=== PATIENT | male | born 1980 | race Caucasian/White ===

== ENCOUNTER 2019-06-02 10:58 | Emergency (ER) | payer OTHER, MEDICAID, SELFPAY ==
[2019-06-02 11:10] VITALS: BP 154/100; PULSE 107; RESP 19; TEMP 36.6; O2SAT 97; BMI 34.0
--- NOTE | 2019-06-02 11:10 | DI.RAD.S_ITS ---
PROCEDURE: XR ANKLE LT MIN 3V INDICATIONS: difficultly standing TECHNIQUE: 3 views of the ankle were acquired. COMPARISON: [facility], , ANKLE 3 VIEWS LEFT, 07/25/2016, 8:35. FINDINGS: Bones: There is a comminuted, mildly displaced calcaneal fracture seen. There is a remote, stable syndesmotic injury seen, with irregularity along the lateral aspect of the distal tibia. There is widening of the ankle syndesmosis. The talar dome demonstrates no alycia abnormality. Soft tissues: No tibiotalar joint effusion. Achilles tendon appears normal. IMPRESSION: Comminuted, displaced calcaneal fracture. If it would be helpful for clinical management decision making, please consider a dedicated ankle CT for further evaluation. Remote syndesmotic injury, with irregularity of the lateral aspect of the distal tibia. Dictated by: Jones Hamlin M.D. on 06/02/2019 at 11:10 Approved by: Jones Hamlin M.D. on 06/02/2019 at 11:12
--- NOTE | 2019-06-02 12:01 | ED.LOWEXIN ---
HPI - Extremity Injury (Lower) <NOEMY Lopez - Last Filed: 06/02/19 21:07> General Chief Complaint: Extremity Injury, Lower Stated Complaint: FELL OFF LADDER Time Seen by Provider: 06/02/19 11:55 Source: patient Mode of arrival: ambulatory Limitations: no limitations History of Present Illness HPI Narrative: 38-year-old healthy male, presents emergency department today stating he was on a ladder about 8 ft above the ground when the ladder started to slip he jumped off landing on his left foot. States after the fall he felt intense 8/10 sharp left ankle pain and was unable to bear weight on it. Patient states the pain was made worse with movement. He denies hitting his head, denies back pain, denies neck pain, chest pain, shortness of breath, nausea, vomiting, or loss of consciousness. His partner is at the bedside during history and physical. MD complaint: ankle injury Type of Injury: blunt Place: home Severity: severe Severity scale (1-10): 8 Relieving factors: nothing Exacerbating factors: weight bearing, movement and palpation Context: fall Associated symptoms: swelling Other symptoms: none Related Data Home Medications Medication Instructions Recorded Confirmed ASPIRIN CHEW - 324 mg PO PRN TEETH #0 09/22/06 (ASPIRIN) Previous Rx's Medication Instructions Recorded hydrocodone-acetaminophen [[place]] 1 - 2 tab PO Q6HP PRN #20 tab 07/25/16 ondansetron 4 mg PO Q8H #7 tab 06/02/19 oxycodone-acetaminophen 1 tab PO Q4-6H PRN #20 tab 06/02/19 Allergies Allergy/AdvReac Type Severity Reaction Status Date / Time No Known Drug Allergies Allergy Verified 06/02/19 12:00 Review of Systems <NOEMY Lopez - Last Filed: 06/02/19 21:07> Review of Systems REVIEW OF SYSTEMS: GENERAL: Denies fever or chills. HENT: No head trauma. EYES: No double vision or vision loss. CARDIOVASCULAR: No chest pain or syncope. RESPIRATORY: No shortness of breath or cough. GASTROINTESTINAL: No nausea, vomiting, diarrhea, or constipation. GENITOURINARY: No flank pain or dysuria. MUSCULOSKELETAL: Complains of left foot pain, see HPI. INTEGUMENTARY: No rash, lesions, or pruritus. NEURO: No numbness, tingling. PSYCH: No behavior or mood changes. PFSH <NOEMY Lopez - Last Filed: 06/02/19 21:07> Medical History No significant medical problems (Acute) Social History Smoking Status: Current every day smoker Social History Smoking Status: Current every day smoker Exam <NOEMY Lopez - Last Filed: 06/02/19 21:07> Initial Vital Signs Initial Vital Signs: Vital Signs Temperature 97.8 F 06/02/19 11:10 Pulse Rate 107 H 06/02/19 11:10 Respiratory Rate 06/02/19 11:10 Blood Pressure 154/100 H 06/02/19 11:10 Pulse Oximetry 97 06/02/19 11:10 PHYSICAL EXAMINATION: GENERAL: Well groomed, alert, and cooperative. Answers questions promptly and appropriately. Vital signs noted. HENT: Normocephalic, atraumatic. EYES: Symmetrical, sclera white, no periorbital swelling. CARDIOVASCULAR: S1 and S2 sounds normal. Regular rate and rhythm, no murmurs, clicks, or bruits. No pedal edema. RESPIRATORY: Normal respiratory rate, trachea midline, airway patent. No stridor, nasal flaring or accessory muscle use. Lungs are clear in all roberts. MUSCULOSKELETAL: Significant swelling, ecchymosis, and tenderness to left calcaneus. Limited range of motion of ankle due to pain. Able to move toes, CMS intact, sensation intact. No tenderness to knee, hip, leg, lower back, neck, or chest with light and deep palpation. Patient able to get in and out of wheelchair using his other leg without pain to back. EXTREMITIES: CMS intact. Pedal pulses intact bilaterally. SKIN: Warm, dry, soft, appropriate color for ethnicity. Increased ecchymosis 6 to left foot. NEURO: Alert and Oriented X 3. No sensory deficits. PSYCH: Appropriate affect and mood. <Sandra Tian DO - Last Filed: 06/05/19 18:29> Initial Vital Signs Initial Vital Signs: Vital Signs Temperature 97.8 F 06/02/19 11:10 Pulse Rate 107 H 06/02/19 11:10 Respiratory Rate 06/02/19 11:10 Blood Pressure 154/100 H 06/02/19 11:10 Pulse Oximetry 97 06/02/19 11:10 Scores <NOEMY Lopez - Last Filed: 06/02/19 21:07> Nexus Score for C-Spine Focal Neurologic deficit present: No Midline spinal tenderness present: No Altered level of conciousness present: No Intoxication present: No Distracting Injury Present: No Nexus Criteria for C-spine: 0 Course <NOEMY Lopez - Last Filed: 06/02/19 21:07> Course Narrative: Patient noted a decrease in pain after administration of oxycodone and Toradol. Patient was placed in a very bulky/paded dressing and a posterior with a stirrup splint was placed to lower extremity. Extensive education was given to patient that he should remain nonweightbearing and that follow-up should take place as soon as possible. Orders Ordered: Discontinued Medications Ketorolac Tromethamine (Toradol) 30 mg IM NOW ONE Stop: 06/02/19 13:15 Last Admin: 06/02/19 13:32 Dose: 30 mg Ondansetron HCl (Zofran Odt) 4 mg SL NOW ONE Stop: 06/02/19 13:15 Last Admin: 06/02/19 13:32 Dose: 4 mg Oxycodone/Acetaminophen (Percocet 5/325) 1 tab PO NOW ONE Stop: 06/02/19 12:01 Last Admin: 06/02/19 12:46 Dose: 1 tab Consultations Consultation #1: Orthopedic Portia Marie consult blood after x-ray was obtained. Discussed the need for CT, bulky dressing, nonweightbearing status and significant follow-up. Consultation #2: Patient staffed with Dr. Tian. Vital Signs - 8 hr 06/02/19 14:35 Pulse Rate 104 H Respiratory Rate 18 Blood Pressure [Right Arm] 152/105 H Pulse Oximetry 97 <Sandra Tian DO - Last Filed: 06/05/19 18:29> Orders Ordered: Discontinued Medications Ketorolac Tromethamine (Toradol) 30 mg IM NOW ONE Stop: 06/02/19 13:15 Last Admin: 06/02/19 13:32 Dose: 30 mg Ondansetron HCl (Zofran Odt) 4 mg SL NOW ONE Stop: 06/02/19 13:15 Last Admin: 06/02/19 13:32 Dose: 4 mg Oxycodone/Acetaminophen (Percocet 5/325) 1 tab PO NOW ONE Stop: 06/02/19 12:01 Last Admin: 06/02/19 12:46 Dose: 1 tab Vital Signs - 8 hr 06/02/19 14:35 Pulse Rate 104 H Respiratory Rate 18 Blood Pressure [Right Arm] 152/105 H Pulse Oximetry 97 MDM - Extremity Injury (Lower) <NOEMY Lopez - Last Filed: 06/02/19 21:07> Medical Records Attestation: I reviewed the patient's medical records. Lab Data Attestation: I reviewed the patient's lab results. Imaging Data Left Foot XR: Radiologist's impression: [address] [address] XRay Report Signed Patient: Acosta De La Fuente JMR#: [id number] : 1980Acct:[id number] Age/Sex: 38 / MDate of Service: 06/02/19 Loc: ED Accession Number: [id number] Procedure: XR ankle LT min 3V Ordering Provider: Sandra Tian D.O. PROCEDURE: XR ANKLE LT MIN 3V INDICATIONS: difficultly standing TECHNIQUE: 3 views of the ankle were acquired. COMPARISON: [facility], , ANKLE 3 VIEWS LEFT, 07/25/2016, 8:35. FINDINGS: Bones: There is a comminuted, mildly displaced calcaneal fracture seen. There is a remote, stable syndesmotic injury seen, with irregularity along the lateral aspect of the distal tibia. There is widening of the ankle syndesmosis. The talar dome demonstrates no alycia abnormality. Soft tissues: No tibiotalar joint effusion. Achilles tendon appears normal. IMPRESSION: Comminuted, displaced calcaneal fracture. If it would be helpful for clinical management decision making, please consider a dedicated ankle CT for further evaluation. Remote syndesmotic injury, with irregularity of the lateral aspect of the distal tibia. Dictated by: Jones Hamlin M.D. on 06/02/2019 at 11:10 Approved by: Jones Hamlin M.D. on 06/02/2019 at 11:[address]: Radiologist's impression: [address] [address] [address] Scan Report Signed Patient: Acosta De La Fuente JMR#: [id number] : 1980Acct:[id number] Age/Sex: 38 / MDate of Service: 06/02/19 Loc: ED Accession Number: [id number] Procedure: CT LE LT wo con Ordering Provider: Park Keller PROCEDURE: CT LE LT W CON INDICATIONS: Calcaneus fx, per ortho request TECHNIQUE: Noncontrast 1-1.5 mm axial sections acquired from above the tibiotalar joint to the bottom of the calcaneus, with coronal and sagittal reformats. COMPARISON: [facility], CR, XR ANKLE LT MIN 3V, 06/02/2019, 11:47. [facility], CT, LOWER EXTREMITY WO CONTRAST, 07/25/2016, 9:58. [facility], CR, ANKLE 3 VIEWS LEFT, 07/25/2016, 8:35. FINDINGS: Image quality: Excellent. Bones: There is a complex, moderately displaced, comminuted fracture of the calcaneus, with impaction of fracture fragments. There is intra-articular involvement along the mid and anterior aspects of the calcaneus, as it interfaces with the inferior calcaneus. There is remote focal bone abnormality involving the distal lateral talus, likely reflective of remote fracture with syndesmotic injury. No additional fractures are detected. No suspicious lytic or blastic lesions are seen. Soft tissues: Generalized associated soft tissue swelling is seen. IMPRESSION: There is a highly comminuted, complex, moderately displaced calcaneus fracture with intra-articular involvement and impacted fracture fragments. The extent of the calcaneal fracture is more severe than expected from the plain film findings. Dictated by: oJnes Hamlin M.D. on 06/02/2019 at 12:50 Approved by: Jones Hamlin M.D. on 06/02/2019 at 12:56 MDM Narrative Medical decision making narrative: Suspect calcaneus fracture due findings on x-ray and CT. After consultation with an orthopedic, patient was splinted in a bulky dressing per recommendation, CT was obtained, and strict follow-up plan was discussed with patient. Extensive education was given to patient that he needs to remain nonweightbearing. Little concern for neurovascular compromise as CMS remained intact before and after splint, pedal pulses are equal bilaterally. Strict return precautions given. Discharge Plan Departure Patient Disposition: Home Clinical Impression: Fracture closed, calcaneus Qualifiers: Encounter type: initial encounter Calcaneus location: unspecified portion of calcaneus Fracture alignment: displaced Laterality: left Qualified Code(s): S92.002A - Unspecified fracture of left calcaneus, initial encounter for closed fracture Discharge Date/Time: 06/02/19 14:35 Interventions: ED Discharge Assessment Last Done: 06/02/19 14:35 Instructions: DI for Calcaneus Fracture Activity Restrictions/Additional Instructions: Thank you for entrusting me with your care today. As discussed, you have a complicated fracture to your left heel. Do not put any weight on this leg at all until you are instructed to by an orthopedic. Please call the Orthopedics office tomorrow to schedule an appointment. Return to the emergency department if he develops increasing limb numbness, chest pain, shortness of breath, uncontrollable vomiting, or fevers. Prescriptions: New oxycodone-acetaminophen 5-325 mg tablet 1 tab PO Q4-6H PRN (Reason: fracture pain) Qty: 20 RF: 0 ondansetron 4 mg tablet,disintegrating 4 mg PO Q8H Qty: 7 RF: 0 No Action ASPIRIN CHEW - (ASPIRIN) 324 mg PO PRN TEETH Qty: 0 RF: 0 hydrocodone-acetaminophen [[place]] 5 MG/325 MG tablet 1 - 2 tab PO Q6HP PRNQty: 20 RF: 0 Referrals: Delma Baxter DPM [Primary Care Provider] - Beatriz Pearce MD [Physician] - <Sandra Tian DO - Last Filed: 06/05/19 18:29> Cosign ED Attending Cosignature Attestation: I was immediately available in the department for consultation, images reviewed. Case was discussed with orthopedic surgery and recommendations followed. This documentation has been reviewed and I agree with assessment and plan. Supervised by Sandra Tian DO
--- NOTE | 2019-06-02 12:04 | ED_ITS ---
HPI - Extremity Injury (Lower) <NOEMY Lopez - Last Filed: 06/02/19 21:07> General Chief Complaint: Extremity Injury, Lower Stated Complaint: FELL OFF LADDER Time Seen by Provider: 06/02/19 11:55 Source: patient Mode of arrival: ambulatory Limitations: no limitations History of Present Illness HPI Narrative: 38-year-old healthy male, presents emergency department today stating he was on a ladder about 8 ft above the ground when the ladder started to slip he jumped off landing on his left foot. States after the fall he felt intense 8/10 sharp left ankle pain and was unable to bear weight on it. Patient states the pain was made worse with movement. He denies hitting his head, denies back pain, denies neck pain, chest pain, shortness of breath, nausea, vomiting, or loss of consciousness. His partner is at the bedside during history and physical. MD complaint: ankle injury Type of Injury: blunt Place: home Severity: severe Severity scale (1-10): 8 Relieving factors: nothing Exacerbating factors: weight bearing, movement and palpation Context: fall Associated symptoms: swelling Other symptoms: none Related Data Home Medications Medication Instructions Recorded Confirmed ASPIRIN CHEW - 324 mg PO PRN TEETH #0 09/22/06 (ASPIRIN) Previous Rx's Medication Instructions Recorded hydrocodone-acetaminophen [[place]] 1 - 2 tab PO Q6HP PRN #20 tab 07/25/16 ondansetron 4 mg PO Q8H #7 tab 06/02/19 oxycodone-acetaminophen 1 tab PO Q4-6H PRN #20 tab 06/02/19 Allergies Allergy/AdvReac Type Severity Reaction Status Date / Time No Known Drug Allergies Allergy Verified 06/02/19 12:00 Review of Systems <NOEMY Lopez - Last Filed: 06/02/19 21:07> Review of Systems REVIEW OF SYSTEMS: GENERAL: Denies fever or chills. HENT: No head trauma. EYES: No double vision or vision loss. CARDIOVASCULAR: No chest pain or syncope. RESPIRATORY: No shortness of breath or cough. GASTROINTESTINAL: No nausea, vomiting, diarrhea, or constipation. GENITOURINARY: No flank pain or dysuria. MUSCULOSKELETAL: Complains of left foot pain, see HPI. INTEGUMENTARY: No rash, lesions, or pruritus. NEURO: No numbness, tingling. PSYCH: No behavior or mood changes. PFSH <NOEMY Lopez - Last Filed: 06/02/19 21:07> Medical History No significant medical problems (Acute) Social History Smoking Status: Current every day smoker Social History Smoking Status: Current every day smoker Exam <NOEMY Lopez - Last Filed: 06/02/19 21:07> Initial Vital Signs Initial Vital Signs: Vital Signs Temperature 97.8 F 06/02/19 11:10 Pulse Rate 107 H 06/02/19 11:10 Respiratory Rate 06/02/19 11:10 Blood Pressure 154/100 H 06/02/19 11:10 Pulse Oximetry 97 06/02/19 11:10 PHYSICAL EXAMINATION: GENERAL: Well groomed, alert, and cooperative. Answers questions promptly and appropriately. Vital signs noted. HENT: Normocephalic, atraumatic. EYES: Symmetrical, sclera white, no periorbital swelling. CARDIOVASCULAR: S1 and S2 sounds normal. Regular rate and rhythm, no murmurs, clicks, or bruits. No pedal edema. RESPIRATORY: Normal respiratory rate, trachea midline, airway patent. No stridor, nasal flaring or accessory muscle use. Lungs are clear in all roberts. MUSCULOSKELETAL: Significant swelling, ecchymosis, and tenderness to left calcaneus. Limited range of motion of ankle due to pain. Able to move toes, CMS intact, sensation intact. No tenderness to knee, hip, leg, lower back, neck, or chest with light and deep palpation. Patient able to get in and out of wheelchair using his other leg without pain to back. EXTREMITIES: CMS intact. Pedal pulses intact bilaterally. SKIN: Warm, dry, soft, appropriate color for ethnicity. Increased ecchymosis 6 to left foot. NEURO: Alert and Oriented X 3. No sensory deficits. PSYCH: Appropriate affect and mood. <Sandra Tian DO - Last Filed: 06/05/19 18:29> Initial Vital Signs Initial Vital Signs: Vital Signs Temperature 97.8 F 06/02/19 11:10 Pulse Rate 107 H 06/02/19 11:10 Respiratory Rate 06/02/19 11:10 Blood Pressure 154/100 H 06/02/19 11:10 Pulse Oximetry 97 06/02/19 11:10 Scores <NOEMY Lopez - Last Filed: 06/02/19 21:07> Nexus Score for C-Spine Focal Neurologic deficit present: No Midline spinal tenderness present: No Altered level of conciousness present: No Intoxication present: No Distracting Injury Present: No Nexus Criteria for C-spine: 0 Course <NOEMY Lopez - Last Filed: 06/02/19 21:07> Course Narrative: Patient noted a decrease in pain after administration of oxycodone and Toradol. Patient was placed in a very bulky/paded dressing and a posterior with a stirrup splint was placed to lower extremity. Extensive education was given to patient that he should remain nonweightbearing and that follow-up should take place as soon as possible. Orders Ordered: Discontinued Medications Ketorolac Tromethamine (Toradol) 30 mg IM NOW ONE Stop: 06/02/19 13:15 Last Admin: 06/02/19 13:32 Dose: 30 mg Ondansetron HCl (Zofran Odt) 4 mg SL NOW ONE Stop: 06/02/19 13:15 Last Admin: 06/02/19 13:32 Dose: 4 mg Oxycodone/Acetaminophen (Percocet 5/325) 1 tab PO NOW ONE Stop: 06/02/19 12:01 Last Admin: 06/02/19 12:46 Dose: 1 tab Consultations Consultation #1: Orthopedic Portia Marie consult blood after x-ray was obtained. Discussed the need for CT, bulky dressing, nonweightbearing status and significant follow-up. Consultation #2: Patient staffed with Dr. Tian. Vital Signs - 8 hr 06/02/19 14:35 Pulse Rate 104 H Respiratory Rate 18 Blood Pressure [Right Arm] 152/105 H Pulse Oximetry 97 <Sandra Tian DO - Last Filed: 06/05/19 18:29> Orders Ordered: Discontinued Medications Ketorolac Tromethamine (Toradol) 30 mg IM NOW ONE Stop: 06/02/19 13:15 Last Admin: 06/02/19 13:32 Dose: 30 mg Ondansetron HCl (Zofran Odt) 4 mg SL NOW ONE Stop: 06/02/19 13:15 Last Admin: 06/02/19 13:32 Dose: 4 mg Oxycodone/Acetaminophen (Percocet 5/325) 1 tab PO NOW ONE Stop: 06/02/19 12:01 Last Admin: 06/02/19 12:46 Dose: 1 tab Vital Signs - 8 hr 06/02/19 14:35 Pulse Rate 104 H Respiratory Rate 18 Blood Pressure [Right Arm] 152/105 H Pulse Oximetry 97 MDM - Extremity Injury (Lower) <NOEMY Lopez - Last Filed: 06/02/19 21:07> Medical Records Attestation: I reviewed the patient's medical records. Lab Data Attestation: I reviewed the patient's lab results. Imaging Data Left Foot XR: Radiologist's impression: [address] [address] XRay Report Signed Patient: Acosta De La Fuente JMR#: [id number] : 1980Acct:[id number] Age/Sex: 38 / MDate of Service: 06/02/19 Loc: ED Accession Number: [id number] Procedure: XR ankle LT min 3V Ordering Provider: Sandra Tian D.O. PROCEDURE: XR ANKLE LT MIN 3V INDICATIONS: difficultly standing TECHNIQUE: 3 views of the ankle were acquired. COMPARISON: [facility], , ANKLE 3 VIEWS LEFT, 07/25/2016, 8:35. FINDINGS: Bones: There is a comminuted, mildly displaced calcaneal fracture seen. There is a remote, stable syndesmotic injury seen, with irregularity along the lateral aspect of the distal tibia. There is widening of the ankle syndesmosis. The talar dome demonstrates no alycia abnormality. Soft tissues: No tibiotalar joint effusion. Achilles tendon appears normal. IMPRESSION: Comminuted, displaced calcaneal fracture. If it would be helpful for clinical management decision making, please consider a dedicated ankle CT for further evaluation. Remote syndesmotic injury, with irregularity of the lateral aspect of the distal tibia. Dictated by: Jones Hamlin M.D. on 06/02/2019 at 11:10 Approved by: Jones Hamlin M.D. on 06/02/2019 at 11:[address]: Radiologist's impression: [address] [address] [address] Scan Report Signed Patient: Acosta De La Fuente JMR#: [id number] : 1980Acct:[id number] Age/Sex: 38 / MDate of Service: 06/02/19 Loc: ED Accession Number: [id number] Procedure: CT LE LT wo con Ordering Provider: Park Keller PROCEDURE: CT LE LT W CON INDICATIONS: Calcaneus fx, per ortho request TECHNIQUE: Noncontrast 1-1.5 mm axial sections acquired from above the tibiotalar joint to the bottom of the calcaneus, with coronal and sagittal reformats. COMPARISON: [facility], CR, XR ANKLE LT MIN 3V, 06/02/2019, 11:47. [facility], CT, LOWER EXTREMITY WO CONTRAST, 07/25/2016, 9:58. [facility], CR, ANKLE 3 VIEWS LEFT, 07/25/2016, 8:35. FINDINGS: Image quality: Excellent. Bones: There is a complex, moderately displaced, comminuted fracture of the calcaneus, with impaction of fracture fragments. There is intra-articular involvement along the mid and anterior aspects of the calcaneus, as it interfaces with the inferior calcaneus. There is remote focal bone abnormality involving the distal lateral talus, likely reflective of remote fracture with syndesmotic injury. No additional fractures are detected. No suspicious lytic or blastic lesions are seen. Soft tissues: Generalized associated soft tissue swelling is seen. IMPRESSION: There is a highly comminuted, complex, moderately displaced calcaneus fracture with intra-articular involvement and impacted fracture fragments. The extent of the calcaneal fracture is more severe than expected from the plain film findings. Dictated by: Jones Hamlin M.D. on 06/02/2019 at 12:50 Approved by: Jones Hamlin M.D. on 06/02/2019 at 12:56 MDM Narrative Medical decision making narrative: Suspect calcaneus fracture due findings on x- ray and CT. After consultation with an orthopedic, patient was splinted in a bulky dressing per recommendation, CT was obtained, and strict follow-up plan was discussed with patient. Extensive education was given to patient that he needs to remain nonweightbearing. Little concern for neurovascular compromise as CMS remained intact before and after splint, pedal pulses are equal bilaterally. Strict return precautions given. Discharge Plan Departure Patient Disposition: Home Clinical Impression: Fracture closed, calcaneus Qualifiers: Encounter type: initial encounter Calcaneus location: unspecified portion of calcaneus Fracture alignment: displaced Laterality: left Qualified Code(s): S92.002A - Unspecified fracture of left calcaneus, initial encounter for closed fracture Discharge Date/Time: 06/02/19 14:35 Interventions: ED Discharge Assessment Last Done: 06/02/19 14:35 Instructions: DI for Calcaneus Fracture Activity Restrictions/Additional Instructions: Thank you for entrusting me with your care today. As discussed, you have a complicated fracture to your left heel. Do not put any weight on this leg at all until you are instructed to by an orthopedic. Please call the Orthopedics office tomorrow to schedule an appointment. Return to the emergency department if he develops increasing limb numbness, chest pain, shortness of breath, uncontrollable vomiting, or fevers. Prescriptions: New oxycodone-acetaminophen 5-325 mg tablet 1 tab PO Q4-6H PRN (Reason: fracture pain) Qty: 20 RF: 0 ondansetron 4 mg tablet,disintegrating 4 mg PO Q8H Qty: 7 RF: 0 No Action ASPIRIN CHEW - (ASPIRIN) 324 mg PO PRN TEETH Qty: 0 RF: 0 hydrocodone-acetaminophen [[place]] 5 MG/325 MG tablet 1 - 2 tab PO Q6HP PRNQty: 20 RF: 0 Referrals: Delma Baxter DPM [Primary Care Provider] - Beatriz Pearce MD [Physician] - <Sandra Tian DO - Last Filed: 06/05/19 18:29> Cosign ED Attending Cosignature Attestation: I was immediately available in the department for consultation, images reviewed. Case was discussed with orthopedic surgery and recommendations followed. This documentation has been reviewed and I agree with assessment and plan. Supervised by Sandra Tian DO
[2019-06-02] MEDS: OXYCODONE/ACETAMINOPHEN 5/325 TABLET 1 TAB PO (12:46)
--- NOTE | 2019-06-02 12:55 | PC.NURSE ---
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 spouse a bs.
--- NOTE | 2019-06-02 13:14 | DI.CT.S_ITS ---
PROCEDURE: CT LE LT W CON INDICATIONS: Calcaneus fx, per ortho request TECHNIQUE: Noncontrast 1-1.5 mm axial sections acquired from above the tibiotalar joint to the bottom of the calcaneus, with coronal and sagittal reformats. COMPARISON: [facility], CR, XR ANKLE LT MIN 3V, 06/02/2019, 11:47. [facility], CT, LOWER EXTREMITY WO CONTRAST, 07/25/2016, 9:58. [facility], CR, ANKLE 3 VIEWS LEFT, 07/25/2016, 8:35. FINDINGS: Image quality: Excellent. Bones: There is a complex, moderately displaced, comminuted fracture of the calcaneus, with impaction of fracture fragments. There is intra-articular involvement along the mid and anterior aspects of the calcaneus, as it interfaces with the inferior calcaneus. There is remote focal bone abnormality involving the distal lateral talus, likely reflective of remote fracture with syndesmotic injury. No additional fractures are detected. No suspicious lytic or blastic lesions are seen. Soft tissues: Generalized associated soft tissue swelling is seen. IMPRESSION: There is a highly comminuted, complex, moderately displaced calcaneus fracture with intra-articular involvement and impacted fracture fragments. The extent of the calcaneal fracture is more severe than expected from the plain film findings. Dictated by: Jones Hamlin M.D. on 06/02/2019 at 12:50 Approved by: Jones Hamlin M.D. on 06/02/2019 at 12:56
[2019-06-02] MEDS: KETOROLAC 60 MG/2 ML VIAL 30 MG IM (13:32)
[2019-06-02] MEDS: ONDANSETRON 4 MG ODT SL (13:32)
[2019-06-02 14:35] VITALS: BP 152/105; PULSE 104; RESP 18; O2SAT 97
--- NOTE | 2019-06-02 14:36 | PC.NURSE ---
provider aware of vs
== END 2019-06-02 14:35 | disposition home or self-care (01) ==
PROVIDERS: Emergency Provider Nurse Practitioner; PCP Podiatrist
DX: S92.002A Unspecified fracture of left calcaneus, initial encounter for closed fracture (principal); W11.XXXA Fall on and from ladder, initial encounter
CPT/HCPCS: 29515; 73610; 73700; 96372; 99283; 99284; J1885

== ENCOUNTER → 2019-08-08 09:44 | Outpatient (CLI) | payer OTHER, MEDICAID, SELFPAY ==
[2019-08-08 11:26] LABS: Alanine Aminotransferase 75 IU/L (21-72); Albumin 4.6 g/dL (3.5-5.0); Albumin Globulin Ratio 1.4 (1.0-2.8); Alkaline Phosphatase 84 U/L (38-126); Aspartate Aminotransferase 35 IU/L (17-59); BUN Creatinine Ratio 26.3 (6-22); Bilirubin Total 0.5 mg/dL (0.2-1.3); Blood Urea Nitrogen 21 mg/dL (9-20); Calcium 9.6 mg/dL (8.4-10.2); Carbon Dioxide 24 mmol/L (22-32); Chloride 103 mmol/L (98-107); Cholesterol 225 mg/dL (140-199); Estimated Glomerular Filt Rate > 60.0 mL/min (>60); Globulin 3.2 g/dL (1.7-4.1); Glucose 100 mg/dL (70-100); HDL Cholesterol 48 mg/dL (40-60); HEMOLYSIS < 15 (0-50); LDL Cholesterol Calculated 129 mg/dL (<100); Potassium 4.2 mmol/L (3.4-5.1); Sodium 139 mmol/L (137-145); Total Protein 7.8 g/dL (6.3-8.2); Triglycerides 242 mg/dL (35-150)
== END ==
PROVIDERS: PCP Hospitalist; Visit Provider Hospitalist
DX: I10 Essential (primary) hypertension (principal)
CPT/HCPCS: 36415; 80053; 80061

== ENCOUNTER 2019-08-20 15:39 | Emergency (ER) | payer OTHER, MEDICAID, SELFPAY ==
[2019-08-20] VITALS (9 sets, daily range): BP systolic 113–148; BP diastolic 60–102; PULSE 75–102; RESP 15–18; TEMP 36.4; O2SAT 93–98
[2019-08-20 17:31] LABS: Add Manual Diff / Slide Review NO; Basophils Absolute Auto 100 /uL (0-100); Basophils Percent Auto 0.7 % (0-2); Eosinophils Absolute Auto 300 /uL (0-450); Eosinophils Percent Auto 3.1 % (2-4); Hematocrit 43.6 % (41-53); Hemoglobin 14.9 g/dL (13.5-17.5); Lymphocytes Absolute Auto 2800 /uL (1100-4500); Mean Corpuscular HGB Conc 34.2 % (30-36); Mean Corpuscular Hemoglobin 28.2 PG (26-34); Mean Corpuscular Volume 82.6 fL (80-100); Monocytes Absolute Auto 500 /uL (0-900); Neutrophils Absolute Auto 4600 /uL (1500-7000); Neutrophils Percent Auto 56.2 % (50-75); Platelet Count 298 X10^3/uL (150-400); Red Blood Cell Count 5.28 X10^6/uL (4.5-5.9); Red Cell Distribution Width 13.7 % (11.6-14.8); White Blood Cell Count 8.2 X10^3/uL (4.5-11.0)
[2019-08-20 17:45] LABS: Alanine Aminotransferase 46 IU/L (21-72); Albumin 4.3 g/dL (3.5-5.0); Albumin Globulin Ratio 1.5 (1.0-2.8); Alkaline Phosphatase 77 U/L (38-126); Aspartate Aminotransferase 31 IU/L (17-59); BUN Creatinine Ratio 22.5 (6-22); Bilirubin Total 0.5 mg/dL (0.2-1.3); Blood Urea Nitrogen 18 mg/dL (9-20); Calcium 9.7 mg/dL (8.4-10.2); Carbon Dioxide 25 mmol/L (22-32); Chloride 103 mmol/L (98-107); Estimated Glomerular Filt Rate > 60.0 mL/min (>60); Globulin 2.8 g/dL (1.7-4.1); Glucose 96 mg/dL (70-100); HEMOLYSIS 22 (0-50); Potassium 3.9 mmol/L (3.4-5.1); Sodium 137 mmol/L (137-145); Total Protein 7.1 g/dL (6.3-8.2)
[2019-08-20 17:47] LABS: Lactate (Lactic Acid) 1.2 mmol/L (0.7-2.1)
[2019-08-20 17:48] LABS: C-Reactive Protein Quant 0.6 mg/dL (<1.0)
[2019-08-20 17:57] LABS: Erythrocyte Sedimentation Rate 1 MM/HR (0-15)
--- NOTE | 2019-08-20 17:57 | DI.RAD.S_ITS ---
PROCEDURE: XR ANKLE LT MIN 3V INDICATIONS: ankle pain, s/p ORIF TECHNIQUE: 3 views of the ankle were acquired. COMPARISON: [facility], CR, ANKLE 3 VIEWS LEFT, 07/25/2016, 8:35. [facility], CR, XR FOOT LT MIN 3V, 08/20/2019, 18:01. [facility], CT, CT LE LT WO CON, 06/02/2019, 13:21. [facility], CR, XR ANKLE LT MIN 3V, 06/02/2019, 11:47. FINDINGS: Bones: There is open reduction of comminuted calcaneal fracture with a surgical plate and multiple surgical screws. There is old injury to the distal tibiofibular syndesmosis. There is old posterior malleolar fracture. Mild widening of the medial ankle joint space. No acute fractures or dislocations. Ankle mortise is normally aligned. No suspicious bony lesions. Soft tissues: No tibiotalar joint effusion. Achilles tendon appears normal. IMPRESSION: 1. Open reduction and internal fixation of comminuted calcaneal fracture. The alignment is anatomic. 2. Old distal tibiofibular syndesmotic injury and old posterior malleolar fracture. Dictated by: Jan Jorge M.D. on 08/20/2019 at 19:01 Approved by: Jan Jorge M.D. on 08/20/2019 at 19:08
--- NOTE | 2019-08-20 17:58 | DI.RAD.S_ITS ---
PROCEDURE: XR FOOT LT MIN 3V INDICATIONS: ankle pain, s/p ORIF TECHNIQUE: 3 views of the foot were acquired. COMPARISON: [facility], CR, XR ANKLE LT MIN 3V, 08/20/2019, 18:01. [facility], CT, CT LE LT WO CON, 06/02/2019, 13:21. [facility], CR, XR ANKLE LT MIN 3V, 06/02/2019, 11:47. [facility], CT, LOWER EXTREMITY WO CONTRAST, 07/25/2016, 9:58. [facility], CR, ANKLE 3 VIEWS LEFT, 07/25/2016, 8:35. FINDINGS: Bones: Open reduction and internal fixation of a moderate calcaneal fracture. There is lucency in the plantar cortex of the fifth metatarsal head. Soft tissues: No tibiotalar joint effusion. Achilles tendon appears normal. There is dorsal soft tissue swelling. IMPRESSION: 1. Postsurgical changes for open reduction and internal fixation of calcaneal fracture. 2. Lucency of the fifth metatarsal head. Cannot rule out infection (osteomyelitis). 3. Soft tissue swelling in the dorsum of the foot. Differential diagnoses include infection such as cellulitis or traumatic contusion. Dictated by: Jan Jorge M.D. on 08/20/2019 at 19:09 Approved by: Jan Jorge M.D. on 08/20/2019 at 19:13
[2019-08-20 18:07] LABS: Procalcitonin < 0.05 ng/mL (<0.5)
--- NOTE | 2019-08-20 18:55 | ED.SKABFB ---
HPI - Skin/Abscess/Foreign Bdy General Chief complaint: Skin/Abscess/Foreign Body Stated complaint: LEFT FOOT INFECTION Time Seen by Provider: 08/20/19 16:53 Source: patient Mode of arrival: Ambulatory Limitations: no limitations History of Present Illness HPI narrative: 39-year-old male presents with family and chief complaint of drainage from his left foot. He suffered a calcaneal fracture which required ORIF a month or two ago at [facility] and has done largely well in the aftermath. He denies systemic findings such as fever, chills or nausea or vomiting. He denies any increasing pain. He states that over the past few days he has had increasing drainage which is foul smelling from incision site. He has not been on antibiotics recently MD complaint: other Onset (ago): day(s) Tetanus up to date: yes Location: L foot Severity: moderate Quality: aching Pain Consistency: constant Relieving factors: rest Exacerbating factors: palpation and movement Treatments prior to arrival: bandages Related Data Home Medications Medication Instructions Recorded Confirmed gabapentin 300 mg capsule 300 mg PO BEDTIME 08/08/19 08/20/19 Previous Rx's Medication Instructions Recorded losartan 25 mg tablet 25 mg PO DAILY #30 tab 07/25/19 varenicline 0.5 mg (11)-1 mg (42) See Rx Instructions PO PER PKG DIR 07/25/19 tablets in a dose pack #53 each Allergies Allergy/AdvReac Type Severity Reaction Status Date / Time No Known Drug Allergies Allergy Verified 08/20/19 15:45 Review of Systems Constitutional Constitutional: Denies chills, Denies fatigue, Denies fever(s), Denies frequent falls, Denies lethargy and Denies weakness Eyes Eyes: Denies change in vision, Denies eye discharge, Denies irritation and Denies loss of vision ENT Ears, Nose, Mouth, and Throat: Denies change in voice, Denies dizziness, Denies neck pain, Denies sore throat and Denies throat swelling Cardiovascular Cardiovascular: Denies chest pain, Denies irregular heart rhythm, Denies lightheadedness, Denies palpitations, Denies dyspnea, Denies dyspnea on exertion and Denies orthopnea Respiratory Respiratory: Denies cough, Denies dyspnea, Denies dyspnea on exertion and Denies wheezing Gastrointestinal Gastrointestinal: Denies abdominal pain, Denies change in bowel habits, Denies diarrhea, Denies nausea and Denies vomiting Genitourinary Genitourinary: Denies hematuria, Denies flank pain, Denies urinary incontinence and Denies urinary urgency Musculoskeletal Musculoskeletal: Denies back pain, Denies muscle weakness, Denies neck pain, Denies numbness and Denies tingling Integumentary/Breasts Skin/Breast: Denies pruritus, Denies erythema, Denies rash and Reports wounds Neurologic Neurologic: Denies behavioral changes, Denies confusion, Denies dizziness, Denies frequent falls, Denies loss of vision, Denies numbness, Denies tingling and Denies weakness Psychiatric Psychiatric: Denies anxiety, Denies behavioral changes, Denies confusion, Denies depression, Denies homicidal ideation and Denies suicidal ideation Endocrine Endocrine: Denies fatigue, Denies flushing and Denies palpitations Hematologic/Lymphatic Hematologic/Lymphatic: Denies easy bruising Allergic/Immunologic Allergic/Immunologic: Denies urticaria, Denies throat swelling and Denies wheezing [facility] Medical History No significant medical problems (Acute) Family History (Updated 07/25/19 @ 13:12 by Cherelle Pugh MD) Father Diabetes mellitus Social History Smoking Status: Current every day smoker Family History Father Diabetes mellitus Social History Smoking Status: Current every day smoker Exam Narrative Exam Narrative: GEN: AOx3 and in mild distress EYES: Pupils are equal, round, and reactive to light and accommodation. Extraoccular muscles are intact bilaterally. There is no subconjunctival hemorrhage or exudate. CHEST: Lungs are clear to auscultation bilaterally and free of wheezes, rales, or rhonchi. Heart rate is regular rhythm, there are no murmurs, clicks, rubs, or gallops. There is no chest wall tenderness. ABD: Abdomen is soft and nontender. There is no guarding or rebound. Bowel sounds are normal in all 4 quadrants. There is no mass or organomegaly. EXT: Swelling of left foot is chronic per patient. No redness or warmth. There are 2 areas of dehiscence of the surgical wound and no obvious active drainage, induration or fluctuance. There is an attempt at culture none the less. SKIN: Warm, pink, and dry. No erythema or rash Initial Vital Signs Initial Vital Signs: Vital Signs Temperature 97.6 F 08/20/19 15:41 Pulse Rate 102 H 08/20/19 15:41 Respiratory Rate 18 08/20/19 15:41 Blood Pressure 148/102 H 08/20/19 15:41 Pulse Oximetry 97 08/20/19 15:41 Course Orders Ordered: ED Orders 08/20/19 17:13 C-Reactive Protein Quant Stat Complete Blood Count AUTO DIFF Stat Comprehensive Metabolic Panel Stat Erythrocyte Sedimentation Rate Stat Lactate (Lactic Acid) Stat Procalcitonin Stat 08/20/19 17:34 Blood Culture Stat 08/20/19 17:57 XR ankle LT min 3V Stat 08/20/19 17:58 XR foot LT min 3V Stat Consultations Consultation #1: Called to Orthopedic Trauma at [facility]. They are able to review the imaging as well as operative notes. We discussed the patient's presentation and exam findings and given lack of systemic findings or ongoing active drainage they recommend against the initiation of antibiotics at the request of their Infectious Disease protocols. The took patient's contact information and state the clinic will call him tomorrow and arrange for very close follow-up this week. Vital Signs Vital signs: Vital Signs - 8 hr 08/20/19 15:41 08/20/19 16:47 08/20/19 17:00 Temperature 97.6 F Pulse Rate 102 H 94 H 88 Respiratory Rate 18 18 17 Blood Pressure 148/102 H Blood Pressure [Left Arm] 135/94 H 123/72 Pulse Oximetry 97 98 93 08/20/19 17:30 08/20/19 18:00 08/20/19 18:30 Temperature Pulse Rate 83 86 83 Respiratory Rate 16 16 15 Blood Pressure Blood Pressure [Left Arm] 131/81 122/78 131/83 Pulse Oximetry 93 95 95 08/20/19 19:00 08/20/19 19:30 08/20/19 20:00 Temperature Pulse Rate 78 77 75 Respiratory Rate 17 17 15 Blood Pressure Blood Pressure [Left Arm] 113/60 121/77 116/63 Pulse Oximetry 95 94 94 MDM - Skin/Abscess/Foreign Bdy Lab Data Result diagrams: 08/20/19 17:13 08/20/19 17:13 Labs: Lab Results 08/20/19 08/20/19 08/20/19 Range/Units 17:13 17:13 17:13 WBC 8.2 (4.5-11.0) X10^3/uL RBC 5.28 (4.5-5.9) X10^6/uL Hgb 14.9 (13.5-17.5) g/dL Hct 43.6 (41-53) % MCV 82.6 (80-100) fL MCH 28.2 (26-34) PG MCHC 34.2 (30-36) % RDW 13.7 (11.6-14.8) % Plt Count 298 (150-400) X10^3/uL Neut % (Auto) 56.2 (50-75) % Lymph % (Auto) 34.0 (25-40) % Wells % (Auto) 6.0 (3-14) % Eos % (Auto) 3.1 (2-4) % Baso % (Auto) 0.7 (0-2) % Neut # (Auto) 4600 (6517-8229) /uL Lymph # (Auto) 2800 (8662-0901) /uL Wells # (Auto) 500 (0-900) /uL Eos # (Auto) 300 (0-450) /uL Baso # (Auto) 100 (0-100) /uL ESR (0-15) MM/HR Sodium 137 (137-145) mmol/L Potassium 3.9 (3.4-5.1) mmol/L Chloride 103 (98-107) mmol/L Carbon Dioxide 25 (22-32) mmol/L BUN 18 (9-20) mg/dL Creatinine 0.80 (0.66-1.25) mg/dL Estimated GFR > 60.0 (>60) mL/min BUN/Creatinine Ratio 22.5 H (6-22) Glucose 96 (70-100) mg/dL Lactate (0.7-2.1) mmol/L Calcium 9.7 (8.4-10.2) mg/dL Total Bilirubin 0.5 (0.2-1.3) mg/dL AST 31 (17-59) IU/L ALT 46 (21-72) IU/L Alkaline Phosphatase 77 (38-126) U/L C-Reactive Protein (<1.0) mg/dL Total Protein 7.1 (6.3-8.2) g/dL Albumin 4.3 (3.5-5.0) g/dL Globulin 2.8 (1.7-4.1) g/dL Albumin/Globulin Ratio 1.5 (1.0-2.8) Procalcitonin < 0.05 (<0.5) ng/mL 08/20/19 08/20/19 08/20/19 Range/Units 17:13 17:13 17:13 WBC (4.5-11.0) X10^3/uL RBC (4.5-5.9) X10^6/uL Hgb (13.5-17.5) g/dL Hct (41-53) % MCV (80-100) fL MCH (26-34) PG MCHC (30-36) % RDW (11.6-14.8) % Plt Count (150-400) X10^3/uL Neut % (Auto) (50-75) % Lymph % (Auto) (25-40) % Wells % (Auto) (3-14) % Eos % (Auto) (2-4) % Baso % (Auto) (0-2) % Neut # (Auto) (9815-7579) /uL Lymph # (Auto) (3162-5165) /uL Wells # (Auto) (0-900) /uL Eos # (Auto) (0-450) /uL Baso # (Auto) (0-100) /uL ESR 1 (0-15) MM/HR Sodium (137-145) mmol/L Potassium (3.4-5.1) mmol/L Chloride (98-107) mmol/L Carbon Dioxide (22-32) mmol/L BUN (9-20) mg/dL Creatinine (0.66-1.25) mg/dL Estimated GFR (>60) mL/min BUN/Creatinine Ratio (6-22) Glucose (70-100) mg/dL Lactate 1.2 (0.7-2.1) mmol/L Calcium (8.4-10.2) mg/dL Total Bilirubin (0.2-1.3) mg/dL AST (17-59) IU/L ALT (21-72) IU/L Alkaline Phosphatase (38-126) U/L C-Reactive Protein 0.6 (<1.0) mg/dL Total Protein (6.3-8.2) g/dL Albumin (3.5-5.0) g/dL Globulin (1.7-4.1) g/dL Albumin/Globulin Ratio (1.0-2.8) Procalcitonin (<0.5) ng/mL Imaging Data Foot Xray: Radiologist's impression: Acosta De La Fuente 39 M [address] [address] XRay Report Signed Patient: Acosta De La Fuente JMR#: [id number] : 1980Acct:[id number] Age/Sex: 39 / MDate of Service: 08/20/19 Loc: ED Accession Number: [id number] Procedure: XR foot LT min 3V Ordering Provider: Sanchez Renteria D.O. PROCEDURE: XR FOOT LT MIN 3V INDICATIONS: ankle pain, s/p ORIF TECHNIQUE: 3 views of the foot were acquired. COMPARISON: [facility], CR, XR ANKLE LT MIN 3V, 08/20/2019, 18:01. [facility], CT, CT LE LT WO CON, 06/02/2019, 13:21. [facility], CR, XR ANKLE LT MIN 3V, 06/02/2019, 11:47. [facility], CT, LOWER EXTREMITY WO CONTRAST, 07/25/2016, 9:58. [facility], CR, ANKLE 3 VIEWS LEFT, 07/25/2016, 8:35. FINDINGS: Bones: Open reduction and internal fixation of a moderate calcaneal fracture. There is lucency in the plantar cortex of the fifth metatarsal head. Soft tissues: No tibiotalar joint effusion. Achilles tendon appears normal. There is dorsal soft tissue swelling. IMPRESSION: 1. Postsurgical changes for open reduction and internal fixation of calcaneal fracture. 2. Lucency of the fifth metatarsal head. Cannot rule out infection (osteomyelitis). 3. Soft tissue swelling in the dorsum of the foot. Differential diagnoses include infection such as cellulitis or traumatic contusion. Dictated by: Jan Jorge M.D. on 08/20/2019 at 19:09 Approved by: Jan Jorge M.D. on 08/20/2019 at 19:13 Acosta De La Fuente 39 M [address] [address] XRay Report Signed Patient: Acosta De La Fuente JMR#: [id number] : 1980Acct:[id number] Age/Sex: 39 / MDate of Service: 08/20/19 Loc: ED Accession Number: [id number] Procedure: XR ankle LT min 3V Ordering Provider: Sanchez Renteria D.O. PROCEDURE: XR ANKLE LT MIN 3V INDICATIONS: ankle pain, s/p ORIF TECHNIQUE: 3 views of the ankle were acquired. COMPARISON: [facility], CR, ANKLE 3 VIEWS LEFT, 07/25/2016, 8:35. [facility], CR, XR FOOT LT MIN 3V, 08/20/2019, 18:01. [facility], CT, CT LE LT WO CON, 06/02/2019, 13:21. [facility], CR, XR ANKLE LT MIN 3V, 06/02/2019, 11:47. FINDINGS: Bones: There is open reduction of comminuted calcaneal fracture with a surgical plate and multiple surgical screws. There is old injury to the distal tibiofibular syndesmosis. There is old posterior malleolar fracture. Mild widening of the medial ankle joint space. No acute fractures or dislocations. Ankle mortise is normally aligned. No suspicious bony lesions. Soft tissues: No tibiotalar joint effusion. Achilles tendon appears normal. IMPRESSION: 1. Open reduction and internal fixation of comminuted calcaneal fracture. The alignment is anatomic. 2. Old distal tibiofibular syndesmotic injury and old posterior malleolar fracture. Dictated by: Jan Jorge M.D. on 08/20/2019 at 19:01 Approved by: Jan Jorge M.D. on 08/20/2019 at 19:08 Discharge Plan Departure Patient Disposition: Home Clinical Impression: Left ankle pain Qualifiers: Chronicity: acute Qualified Code(s): M25.572 - Pain in left ankle and joints of left foot Discharge Date/Time: 08/20/19 20:30 Instructions: DI for Postoperative Pain Activity Restrictions/Additional Instructions: *You have been diagnosed with [ post surgical drainage ] *What to do: *Follow up with the [facility] ([phone]), call for an appointment. Let them know you were seen in the Emergency Department and that we ask that you be seen in follow up. I have spoken with them about your visit today and they expect to see you this week. *Return to ER if you should have any new, worsening or concerning symptoms, such as [pain, fever > 101F, vomiting or other bothersome symptoms ] Prescriptions: No Action Chantix Starting Month Box 0.5 mg (11)- 1 mg (42) tablets,dose pack See Rx Instructions PO PER PKG DIR Qty: 53 RF: 0 losartan 25 mg tablet 25 mg PO DAILY Qty: 30 RF: 0 gabapentin 300 mg capsule 300 mg PO BEDTIME RF: 0 Referrals: Cherelle Pugh MD [Primary Care Provider] -
== END 2019-08-20 20:30 | disposition home or self-care (01) ==
PROVIDERS: Emergency Medicine; Emergency Provider Emergency Medicine; PCP Hospitalist
DX: M25.572 Pain in left ankle and joints of left foot (principal)
CPT/HCPCS: 36415; 73610; 73630; 80053; 83605; 84145; 85025; 85651; 86140; 87040; 99284

== ENCOUNTER 2020-02-12 14:15 | Outpatient (RCR) | payer OTHER, MEDICAID, SELFPAY ==
--- NOTE | 2019-09-03 11:00 | PT.OIE ---
Current Diagnoses Unspecified fracture of left calcaneus, initial encounter for closed fracture (09/03/19) Encounter for other orthopedic aftercare (09/03/19) Past Medical History (Last Reviewed 08/20/19 @ 23:26 by Sanchez Renteria DO) No significant medical problems (Acute) Visit Care Team Role Provider Type Cherelle Pugh MD Primary Care Provider Physician Specialty: Internal Medicine Address: [address] [place] [address], [facility] Email: Attending Provider Specialty: Address: Phone: Fax: Email: Physical Therapy Initial Evaluation PT-OP-A Visit Information Start: 08/21/19 09:06 Freq: Status: Active Protocol: Document 09/03/19 08:55 MB (Rec: 09/03/19 10:41 MB [id number]) Out-Patient Physical Therapy Visit Information Visit Information Visit Type Initial Evaluation Visit Note Initial evaluation. Pt concerned that he only has 6 visits a year per his insurance and would like to space out PT appointments. 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 He states that he actually jumped to try to avoid fuerther injury. He sustained L comminuted calcaneal fx s/p ORIF 06/19/19. He also had bone graft. He returns to surgeon on 09/13/19 . On visit 08/02/19, he was told that he is 50% WB on left foot wearing boot and using crutches. He was told to progress 25% more after two weeks but left heel pain has limited WB. The swelling hasn' t gone down. He has two steps to enter house. There is no railing. The door opens forward and he has trouble with this. He has had a couple of falls. He fell when using knee scooter when trying to place knee back up on it. He almost fell off front porch when it was wet. 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 He is sleeping sporatically, on his right side with pillow support . He is taking Gabapentin, Tylenol, and is trying to quit smoking. Prior Treatments and Tests Sx PT-OP-C Subjective Start: 08/21/19 09:06 Freq: Status: Active Protocol: Document 09/03/19 08:55 MB (Rec: 09/03/19 09:40 MB [id number]) OP-PT Subjective Patient Comments Patient Comments See hx of condition. Pt would like to decrease pain, get back to walking. Pt reports left calcaneal pain, not rated , but limiting WB progression. Pain is worse in dependent position and with attempted WB with gait. He is concerned about edema, changing color and wound draining minimally. PT-OP-G Mobility & Gait Start: 08/21/19 09:06 Freq: Status: Active Protocol: Document 09/03/19 08:55 MB (Rec: 09/03/19 10:57 MB [id number]) OP Gait Assessment Comments Gait Comments Approximately 25% WB through left foot with gait wearing boot and using crutches. Pt using step-to to step-through gait. PT-OP-K Range of Motion Start: 08/21/19 09:06 Freq: Status: Active Protocol: Document 09/03/19 08:55 MB (Rec: 09/03/19 10:57 MB [id number]) Ankle and Foot Goniometric Range of Motion Ankle and Foot ROM Limitations ROM Limitations Swelling Comments R ankle and foot functional. Left ankle and foot with minimal ROM: active DF 5 deg, PF 10 deg, no active inversion and 5 deg eversion. He performs minimal toe wiggle all toes. Ecchymosis of entire foot with foot in dependent position. PT-OP-M Strength Start: 08/21/19 09:06 Freq: Status: Active Protocol: Document 09/03/19 08:55 MB (Rec: 09/03/19 10:57 MB [id number]) Hip Strength Hip Manual Muscle Testing Left Flexion (L2) 5 Normal Abduction 4 Good Comments Supine Right Flexion (L2) 5 Normal Abduction 4 Good Comments Supine Knee Strength Knee Manual Muscle Testing Left Flexion (S2) 5 Normal Extension (L3) 5 Normal Right Flexion (S2) 5 Normal Extension (L3) 5 Normal Comments Supine Ankle/Foot Strength Ankle and Foot Manual Muscle Testing Right Dorsiflexion (L4) 5 Normal Plantarflexion (S1) 5 Normal Inversion 5 Normal Eversion (S1) 4 Good Comments Cannot test the left s/p ORIF, pain, edema pitting greater than 10 sec recoil PT-OP-T Assessment and Plan Start: 08/21/19 09:06 Freq: Status: Active Protocol: Document 09/03/19 08:55 MB (Rec: 09/03/19 10:57 MB [id number]) Physical Therapy Assessment Rehab Potential Rehabilitation Potential Fair Impairments Impairments Activity Tolerance,Balance, Edema,Functional Activities, Functional Mobility,Gait, Integument,Pain,ROM,Sensation, Soft Tissue Mobility,Strength Other Impairments Pt reports numbness dorsal foot that travels over the top of the foot to lateral ankle Other Concerns Barriers to Rehabilitation Decreased PT appointments per insurance Goals 6 Impairment LE functional index score reflecting 80% impairment Snf Goal (LTG) LE functional index score will reflect no more than 40% impairment by 11/03/19. LTG Duration 8 weeks 5 Snf Goal (LTG) Pt will perform HEP with I including ROM, flexibility, WB , gait, balance and strengthening exercises by . LTG Duration 8 weeks 4 Incinerator Plant Laborer Goal (LTG) Pt will deny falls for 2 months by 11/03/19. LTG Duration 8 weeks 3 Snf Goal (LTG) Pt will present with improved left ankle AROM to at least 15 deg PF, DF, eversion and inversion by 11/03/19. LTG Duration 8 weeks 2 Snf Goal (LTG) Pt will perform 2 step gait training with crutches and mod I by 11/03/19. LTG Duration 8 weeks 1 Incinerator Plant Laborer Goal (LTG) Pt will report a 25% improvement in left ankle and heel pain by 11/03/19. LTG Duration 8 weeks Assessment Summary Assessment Pt is a 39 y/o male presenting with increased left heel pain , left foot edema and ecchymosis that increases with left foot in dependent position, decreased WB tolerance d/t pain that decreases balance, gait, stair ambulation and safety. Pt has very little movement in his left ankle. His scabs are healing and he reports daily drainage. He does not feel that he has been able to progress to the 50-75% WB through boot with crutches d/t pain. He is concerned about this. His B hips and knees are equally strong and his left calf has reduced muscle mass/ increased atrophy. 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 Given his low tolerance to WB, edema that restricts ROM and increases pain, mobility is limited. He states that he only gets 6 PT visits a year and this will limit progress with PT. Anticipate a slow recovery. PT is concerned about drainage since surgery was 06/19/19. His increased skin discoloration and edema are also barriers. Unable to get Tubagrip around his foot today for compression, consider a wider width next time. Ed pt in compression, elevation, ice, movement of hip and knee in supine. Physical Therapy Plan Frequency and Duration Frequency of Treatment 1x/Week Duration of Treatment 8 weeks Plan of Care Start Date 09/03/19 Plan of Care End Date 11/03/19 Therapeutic Interventions Therapeutic Interventions Balance Training,Coordination Training,Gait Training,Home Exercise Program,Joint Mobilizations,Manual Therapy, Neuromuscular Re-education, Patient/Caregiver Education, Self-Care/Home Management, Sensory Integration,Soft Tissue Mobilization,Taping, Therapeutic Activities, Therapeutic Exercises Modalities Cold Pack/Ice Massage,Electric Stimulation,Hot Packs, Ultrasound Next Visit Focus/Plan Next Note Type Treatment Note Next Visit Plan Counterstrain to assist with lymphatic drainage. Consider adding more supine or hook lying exercises
--- NOTE | 2019-09-03 11:18 | PT.OIE ---
Current Diagnoses Unspecified fracture of left calcaneus, initial encounter for closed fracture (09/03/19) Encounter for other orthopedic aftercare (09/03/19) Past Medical History (Last Reviewed 08/20/19 @ 23:26 by Sanchez Renteria DO) No significant medical problems (Acute) Visit Care Team Role Provider Type Cherelle Pugh MD Primary Care Provider Physician Specialty: Internal Medicine Address: [address] [place] [address], [facility] Email: Attending Provider Specialty: Address: Phone: Fax: Email: Physical Therapy Initial Evaluation PT-OP-A Visit Information Start: 08/21/19 09:06 Freq: Status: Active Protocol: Document 09/03/19 08:55 MB (Rec: 09/03/19 10:41 MB [id number]) Out-Patient Physical Therapy Visit Information Visit Information Visit Type Initial Evaluation Visit Note Initial evaluation. Pt concerned that he only has 6 visits a year per his insurance and would like to space out PT appointments. Visit Start Time 08:55 Visit Stop Time 09:40 Total Visit Minutes 45 Visit Number 1/6 Number of CUSHION SEWER Visits 0 PT-OP-B Current Condition Start: 08/21/19 09:06 Freq: Status: Active Protocol: Document 09/03/19 08:55 MB (Rec: 09/03/19 09:40 MB [id number]) Current Condition History of Current Condition Onset Date 06/02/19 History of Current Condition Pt fell 06/02/19 when ladder was falling. He states that he actually jumped to try to avoid fuerther injury. He sustained L comminuted calcaneal fx s/p ORIF 06/19/19. He also had bone graft. He returns to surgeon on 09/13/19 . On visit 08/02/19, he was told that he is 50% WB on left foot wearing boot and using crutches. He was told to progress 25% more after two weeks but left heel pain has limited WB. The swelling hasn' t gone down. He has two steps to enter house. There is no railing. The door opens forward and he has trouble with this. He has had a couple of falls. He fell when using knee scooter when trying to place knee back up on it. He almost fell off front porch when it was wet. 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 He is sleeping sporatically, on his right side with pillow support . He is taking Gabapentin, Tylenol, and is trying to quit smoking. Prior Treatments and Tests Sx PT-OP-C Subjective Start: 08/21/19 09:06 Freq: Status: Active Protocol: Document 09/03/19 08:55 MB (Rec: 09/03/19 09:40 MB [id number]) OP-PT Subjective Patient Comments Patient Comments See hx of condition. Pt would like to decrease pain, get back to walking. Pt reports left calcaneal pain, not rated , but limiting WB progression. Pain is worse in dependent position and with attempted WB with gait. He is concerned about edema, changing color and wound draining minimally. PT-OP-G Mobility & Gait Start: 08/21/19 09:06 Freq: Status: Active Protocol: Document 09/03/19 08:55 MB (Rec: 09/03/19 10:57 MB [id number]) OP Gait Assessment Comments Gait Comments Approximately 25% WB through left foot with gait wearing boot and using crutches. Pt using step-to to step-through gait. PT-OP-K Range of Motion Start: 08/21/19 09:06 Freq: Status: Active Protocol: Document 09/03/19 08:55 MB (Rec: 09/03/19 10:57 MB [id number]) Ankle and Foot Goniometric Range of Motion Ankle and Foot ROM Limitations ROM Limitations Swelling Comments R ankle and foot functional. Left ankle and foot with minimal ROM: active DF 5 deg, PF 10 deg, no active inversion and 5 deg eversion. He performs minimal toe wiggle all toes. Ecchymosis of entire foot with foot in dependent position. PT-OP-M Strength Start: 08/21/19 09:06 Freq: Status: Active Protocol: Document 09/03/19 08:55 MB (Rec: 09/03/19 10:57 MB [id number]) Hip Strength Hip Manual Muscle Testing Left Flexion (L2) 5 Normal Abduction 4 Good Comments Supine Right Flexion (L2) 5 Normal Abduction 4 Good Comments Supine Knee Strength Knee Manual Muscle Testing Left Flexion (S2) 5 Normal Extension (L3) 5 Normal Right Flexion (S2) 5 Normal Extension (L3) 5 Normal Comments Supine Ankle/Foot Strength Ankle and Foot Manual Muscle Testing Right Dorsiflexion (L4) 5 Normal Plantarflexion (S1) 5 Normal Inversion 5 Normal Eversion (S1) 4 Good Comments Cannot test the left s/p ORIF, pain, edema pitting greater than 10 sec recoil PT-OP-T Assessment and Plan Start: 08/21/19 09:06 Freq: Status: Active Protocol: Document 09/03/19 08:55 MB (Rec: 09/03/19 10:57 MB [id number]) Physical Therapy Assessment Rehab Potential Rehabilitation Potential Fair Impairments Impairments Activity Tolerance,Balance, Edema,Functional Activities, Functional Mobility,Gait, Integument,Pain,ROM,Sensation, Soft Tissue Mobility,Strength Other Impairments Pt reports numbness dorsal foot that travels over the top of the foot to lateral ankle Other Concerns Barriers to Rehabilitation Decreased PT appointments per insurance Goals 6 Impairment LE functional index score reflecting 80% impairment Nursing Home Goal (LTG) LE functional index score will reflect no more than 40% impairment by 11/03/19. LTG Duration 8 weeks 5 Nursing Home Goal (LTG) Pt will perform HEP with I including ROM, flexibility, WB , gait, balance and strengthening exercises by . LTG Duration 8 weeks 4 Assistant Manager Goal (LTG) Pt will deny falls for 2 months by 11/03/19. LTG Duration 8 weeks 3 Nursing Home Goal (LTG) Pt will present with improved left ankle AROM to at least 15 deg PF, DF, eversion and inversion by 11/03/19. LTG Duration 8 weeks 2 Nursing Home Goal (LTG) Pt will perform 2 step gait training with crutches and mod I by 11/03/19. LTG Duration 8 weeks 1 Assistant Manager Goal (LTG) Pt will report a 25% improvement in left ankle and heel pain by 11/03/19. LTG Duration 8 weeks Assessment Summary Assessment Pt is a 39 y/o male presenting with increased left heel pain , left foot edema and ecchymosis that increases with left foot in dependent position, decreased WB tolerance d/t pain that decreases balance, gait, stair ambulation and safety. Pt has very little movement in his left ankle. His scabs are healing and he reports daily drainage. He does not feel that he has been able to progress to the 50-75% WB through boot with crutches d/t pain. He is concerned about this. His B hips and knees are equally strong and his left calf has reduced muscle mass/ increased atrophy. 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 Given his low tolerance to WB, edema that restricts ROM and increases pain, mobility is limited. He states that he only gets 6 PT visits a year and this will limit progress with PT. Anticipate a slow recovery. PT is concerned about drainage since surgery was 06/19/19. His increased skin discoloration and edema are also barriers. Unable to get Tubagrip around his foot today for compression, consider a wider width next time. Ed pt in compression, elevation, ice, movement of hip and knee in supine. Note, at writing of eval, see that pt gets 24 visits per year. Will update plan for 2x /wk for 8 weeks. Physical Therapy Plan Frequency and Duration Frequency of Treatment 2x/Week Duration of Treatment 8 weeks Plan of Care Start Date 09/03/19 Plan of Care End Date 11/03/19 Therapeutic Interventions Therapeutic Interventions Balance Training,Coordination Training,Gait Training,Home Exercise Program,Joint Mobilizations,Manual Therapy, Neuromuscular Re-education, Patient/Caregiver Education, Self-Care/Home Management, Sensory Integration,Soft Tissue Mobilization,Taping, Therapeutic Activities, Therapeutic Exercises Modalities Cold Pack/Ice Massage,Electric Stimulation,Hot Packs, Ultrasound Next Visit Focus/Plan Next Note Type Treatment Note Next Visit Plan Counterstrain to assist with lymphatic drainage. Consider adding more supine or hook lying exercises
--- NOTE | 2019-09-05 10:48 | PT.OTN ---
Current Diagnoses Unspecified fracture of left calcaneus, initial encounter for closed fracture (09/05/19) Encounter for other orthopedic aftercare (09/05/19) Physical Therapy Treatment Note PT-OP-A Visit Information Start: 08/21/19 09:06 Freq: Status: Active Protocol: Document 09/05/19 09:05 MB (Rec: 09/05/19 10:46 MB [id number]) Out-Patient Physical Therapy Visit Information Visit Information Visit Type Treatment Note Visit Start Time 09:05 Visit Stop Time 09:45 Total Visit Minutes 40 Visit Number 01/14 Number of TOOL PROCUREMENT COORDINATOR Visits 0 PT-OP-B Current Condition Start: 08/21/19 09:06 Freq: Status: Active Protocol: Document 09/03/19 08:55 MB (Rec: 09/03/19 09:40 MB [id number]) Current Condition History of Current Condition Onset Date 06/02/19 History of Current Condition Pt fell 06/02/19 when ladder was falling. He states that he actually jumped to try to avoid fuerther injury. He sustained L comminuted calcaneal fx s/p ORIF 06/19/19. He also had bone graft. He returns to surgeon on 09/13/19 . On visit 08/02/19, he was told that he is 50% WB on left foot wearing boot and using crutches. He was told to progress 25% more after two weeks but left heel pain has limited WB. The swelling hasn' t gone down. He has two steps to enter house. There is no railing. The door opens forward and he has trouble with this. He has had a couple of falls. He fell when using knee scooter when trying to place knee back up on it. He almost fell off front porch when it was wet. 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 He is sleeping sporatically, on his right side with pillow support . He is taking Gabapentin, Tylenol, and is trying to quit smoking. Prior Treatments and Tests Sx PT-OP-C Subjective Start: 08/21/19 09:06 Freq: Status: Active Protocol: Document 09/05/19 09:05 MB (Rec: 09/05/19 09:50 MB [id number]) OP-PT Subjective Patient Comments Patient Comments Pt is leaving for [employer] tomorrow. He is flying. He put on Tubagrip. It was difficult to get over his heel. PT-OP-G Mobility & Gait Start: 08/21/19 09:06 Freq: Status: Active Protocol: Document 09/03/19 08:55 MB (Rec: 09/03/19 10:57 MB [id number]) OP Gait Assessment Comments Gait Comments Approximately 25% WB through left foot with gait wearing boot and using crutches. Pt using step-to to step-through gait. PT-OP-K Range of Motion Start: 08/21/19 09:06 Freq: Status: Active Protocol: Document 09/03/19 08:55 MB (Rec: 09/03/19 10:57 MB [id number]) Ankle and Foot Goniometric Range of Motion Ankle and Foot ROM Limitations ROM Limitations Swelling Comments R ankle and foot functional. Left ankle and foot with minimal ROM: active DF 5 deg, PF 10 deg, no active inversion and 5 deg eversion. He performs minimal toe wiggle all toes. Ecchymosis of entire foot with foot in dependent position. PT-OP-M Strength Start: 08/21/19 09:06 Freq: Status: Active Protocol: Document 09/03/19 08:55 MB (Rec: 09/03/19 10:57 MB [id number]) Hip Strength Hip Manual Muscle Testing Left Flexion (L2) 5 Normal Abduction 4 Good Comments Supine Right Flexion (L2) 5 Normal Abduction 4 Good Comments Supine Knee Strength Knee Manual Muscle Testing Left Flexion (S2) 5 Normal Extension (L3) 5 Normal Right Flexion (S2) 5 Normal Extension (L3) 5 Normal Comments Supine Ankle/Foot Strength Ankle and Foot Manual Muscle Testing Right Dorsiflexion (L4) 5 Normal Plantarflexion (S1) 5 Normal Inversion 5 Normal Eversion (S1) 4 Good Comments Cannot test the left s/p ORIF, pain, edema pitting greater than 10 sec recoil PT-OP-Q Treatments Start: 08/21/19 09:06 Freq: Status: Active Protocol: Document 09/05/19 09:05 MB (Rec: 09/05/19 09:50 MB [id number]) Manual Therapy Treatment Other Other Manual Treatments Counterstrain to assess and treat fascial and lymphatic mobility, pt agreeable. Treated LV standard row chain LLE, stacks spinal veins thoracic area. PT-OP-T Assessment and Plan Start: 08/21/19 09:06 Freq: Status: Active Protocol: Document 09/05/19 09:05 MB (Rec: 09/05/19 09:50 MB [id number]) Physical Therapy Assessment Assessment Summary Assessment Pt con't with edema and discoloration of left foot. He is starting compression with Tubagrip. Physical Therapy Plan Frequency and Duration Frequency of Treatment 2x/Week Duration of Treatment 8 weeks Plan of Care Start Date 09/03/19 Plan of Care End Date 11/03/19 Therapeutic Interventions Therapeutic Interventions Balance Training,Coordination Training,Gait Training,Home Exercise Program,Joint Mobilizations,Manual Therapy, Neuromuscular Re-education, Patient/Caregiver Education, Self-Care/Home Management, Sensory Integration,Soft Tissue Mobilization,Taping, Therapeutic Activities, Therapeutic Exercises Modalities Cold Pack/Ice Massage,Electric Stimulation,Hot Packs, Ultrasound Next Visit Focus/Plan Next Note Type Treatment Note Next Visit Plan Monitor response to Counterstrain. Consider adding more supine or hook lying exercises
--- NOTE | 2019-09-11 08:25 | PT.OTN ---
Current Diagnoses Unspecified fracture of left calcaneus, initial encounter for closed fracture (09/11/19) Encounter for other orthopedic aftercare (09/11/19) Physical Therapy Treatment Note PT-OP-A Visit Information Start: 08/21/19 09:06 Freq: Status: Active Protocol: Document 09/11/19 08:36 SP (Rec: 09/11/19 09:04 SP [id number]) Out-Patient Physical Therapy Visit Information Visit Information Visit Type Treatment Note Visit Start Time 07:37 Visit Stop Time 08:25 Total Visit Minutes 48 Visit Number 02/11 Number of WHEEL GRINDER Visits 1 PT-OP-B Current Condition Start: 08/21/19 09:06 Freq: Status: Active Protocol: Document 09/03/19 08:55 MB (Rec: 09/03/19 09:40 MB [id number]) Current Condition History of Current Condition Onset Date 06/02/19 History of Current Condition Pt fell 06/02/19 when ladder was falling. He states that he actually jumped to try to avoid fuerther injury. He sustained L comminuted calcaneal fx s/p ORIF 06/19/19. He also had bone graft. He returns to surgeon on 09/13/19 . On visit 08/02/19, he was told that he is 50% WB on left foot wearing boot and using crutches. He was told to progress 25% more after two weeks but left heel pain has limited WB. The swelling hasn' t gone down. He has two steps to enter house. There is no railing. The door opens forward and he has trouble with this. He has had a couple of falls. He fell when using knee scooter when trying to place knee back up on it. He almost fell off front porch when it was wet. 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 He is sleeping sporatically, on his right side with pillow support . He is taking Gabapentin, Tylenol, and is trying to quit smoking. Prior Treatments and Tests Sx PT-OP-C Subjective Start: 08/21/19 09:06 Freq: Status: Active Protocol: Document 09/11/19 08:36 SP (Rec: 09/11/19 09:04 SP [id number]) OP-PT Subjective Patient Comments Patient Comments Pt demonstrates 25% WB on LLE with use of B crutches upon arrival 7 min late. Pt stated no pain pre PT unless WB on L ankle then increases to 6/10, goes away when off weighting. PT-OP-G Mobility & Gait Start: 08/21/19 09:06 Freq: Status: Active Protocol: Document 09/03/19 08:55 MB (Rec: 09/03/19 10:57 MB [id number]) OP Gait Assessment Comments Gait Comments Approximately 25% WB through left foot with gait wearing boot and using crutches. Pt using step-to to step-through gait. PT-OP-K Range of Motion Start: 08/21/19 09:06 Freq: Status: Active Protocol: Document 09/03/19 08:55 MB (Rec: 09/03/19 10:57 MB [id number]) Ankle and Foot Goniometric Range of Motion Ankle and Foot ROM Limitations ROM Limitations Swelling Comments R ankle and foot functional. Left ankle and foot with minimal ROM: active DF 5 deg, PF 10 deg, no active inversion and 5 deg eversion. He performs minimal toe wiggle all toes. Ecchymosis of entire foot with foot in dependent position. PT-OP-M Strength Start: 08/21/19 09:06 Freq: Status: Active Protocol: Document 09/03/19 08:55 MB (Rec: 09/03/19 10:57 MB [id number]) Hip Strength Hip Manual Muscle Testing Left Flexion (L2) 5 Normal Abduction 4 Good Comments Supine Right Flexion (L2) 5 Normal Abduction 4 Good Comments Supine Knee Strength Knee Manual Muscle Testing Left Flexion (S2) 5 Normal Extension (L3) 5 Normal Right Flexion (S2) 5 Normal Extension (L3) 5 Normal Comments Supine Ankle/Foot Strength Ankle and Foot Manual Muscle Testing Right Dorsiflexion (L4) 5 Normal Plantarflexion (S1) 5 Normal Inversion 5 Normal Eversion (S1) 4 Good Comments Cannot test the left s/p ORIF, pain, edema pitting greater than 10 sec recoil PT-OP-Q Treatments Start: 08/21/19 09:06 Freq: Status: Active Protocol: Document 09/11/19 08:36 SP (Rec: 09/11/19 09:04 SP [id number]) Therapeutic Exercises Supine Exercises 5 Supine Exercise Name straight leg raises Side left Reps/Minutes 2x10 4 Supine Exercise Name quad sets Side left Reps/Minutes 10 sec hold x10 3 Supine Exercise Name DF, PF, IV, EV Resistance AROM Reps/Minutes 3x10 each 2 Supine Exercise Name toe scrunches Side left Reps/Minutes 2x10 1 Supine Exercise Name toe abd Side left Reps/Minutes 2x10 Sitting Exercises 2 Sitting Exercise Name long arc quad Side left Reps/Minutes 3x10 Comments boot donned if tolerated 1 Sitting Exercise Name heel raises/toe raises Side bilateral Reps/Minutes 3x10 Standing Exercises 1 Standing Exercise Name standing weight shift ( f/B/ side R +L) Side bilateral Equipment Used crutches Reps/Minutes x10 Comments required seated rest between sets, increased pain in heel 6 /10 Manual Therapy Treatment Soft Tissue Mobilization calf Body Location gastroc, soleus Mobilization Type Myofascial Release,Strain/ Counterstrain,Sustained Pressure Intensity/Depth Moderate Body Position Prone dorsal foot Body Location L dorsal ankle Mobilization Type Myofascial Release Intensity/Depth Superficial Body Position Supine Comments retrograde glides (not over scar) PT-OP-R Modalities Start: 08/21/19 09:06 Freq: Status: Active Protocol: Document 09/11/19 08:36 SP (Rec: 09/11/19 09:04 SP [email or web address]) Electric Stimulation Electric Stimulation IFC Body Location L ankle Duration (Minutes) 10 Intensity 16 Target/Sweep Sweep High/Low High Combined With Heat/Cold Cold Pack Hot Pack/Cold Pack Treatment Cold Pack Location L ankle Patient Position Supine Treatment Duration (minutes) 10 Patient Tolerance Good Comments Combined with IFC PT-OP-T Assessment and Plan Start: 08/21/19 09:06 Freq: Status: Active Protocol: Document 09/11/19 08:36 SP (Rec: 09/11/19 09:04 SP [email or web address]) Physical Therapy Assessment Assessment Summary Assessment Pt continues to experience edema dorsal/plantar, and lateral> medial L ankle. Pt stated compliant with AROM of L ankle to tolerance. Tolerated added ankle ther ex today seated, supine but reported increased pain with WB onto LLE 04/30 so limits him , isn't able to progress with WB to allowed 75% with use of crutches. Pt demonstrates 25% WB when standing and gait. Pain goes away at rest. Pt has a follow up appt with PCM today at 9 and surgeon on Sep 13. Physical Therapy Plan Frequency and Duration Frequency of Treatment 2x/Week Duration of Treatment 8 weeks Plan of Care Start Date 09/03/19 Plan of Care End Date 11/03/19 Therapeutic Interventions Therapeutic Interventions Balance Training,Coordination Training,Gait Training,Home Exercise Program,Joint Mobilizations,Manual Therapy, Neuromuscular Re-education, Patient/Caregiver Education, Self-Care/Home Management, Sensory Integration,Soft Tissue Mobilization,Taping, Therapeutic Activities, Therapeutic Exercises Modalities Cold Pack/Ice Massage,Electric Stimulation,Hot Packs, Ultrasound Next Visit Focus/Plan Next Note Type Treatment Note Next Visit Plan Monitor response to Counterstrain. Consider adding more supine or hook lying exercises
--- NOTE | 2019-09-24 08:45 | PT-OP ANOTE ---
[employer] called patient to discuss not showing today at 0815, stated his print out says 9am today. Reminded patient about his appt Wed 09/26 at 0815. Pt marilee might come in with his print out and see if can reschedule today's appt.
--- NOTE | 2019-09-25 13:35 | PT-OP ANOTE ---
PT receives business card for Chrissy Lau PT at . Pt drops off with message written on back for this therapist to contact Dr. Lau about protocols that may be beneficial. This therapist calls Dr. Lau yesterday and today, leaves messages both days communicating this therapist's fax number to fax protocol and phone number and good time to return call.
--- NOTE | 2019-09-26 08:55 | PT.OTN ---
Current Diagnoses Unspecified fracture of left calcaneus, initial encounter for closed fracture (09/26/19) Encounter for other orthopedic aftercare (09/26/19) Physical Therapy Treatment Note PT-OP-A Visit Information Start: 08/21/19 09:06 Freq: Status: Active Protocol: Document 09/26/19 08:10 MB (Rec: 09/26/19 08:51 MB [id number]) Out-Patient Physical Therapy Visit Information Visit Information Visit Type Treatment Note Visit Start Time 08:10 Visit Stop Time 08:50 Total Visit Minutes 40 Visit Number 03/14 Number of DIRECTOR OF LOSS PREVENTION Visits 1 PT-OP-B Current Condition Start: 08/21/19 09:06 Freq: Status: Active Protocol: Document 09/03/19 08:55 MB (Rec: 09/03/19 09:40 MB [id number]) Current Condition History of Current Condition Onset Date 06/02/19 History of Current Condition Pt fell 06/02/19 when ladder was falling. He states that he actually jumped to try to avoid fuerther injury. He sustained L comminuted calcaneal fx s/p ORIF 06/19/19. He also had bone graft. He returns to surgeon on 09/13/19 . On visit 08/02/19, he was told that he is 50% WB on left foot wearing boot and using crutches. He was told to progress 25% more after two weeks but left heel pain has limited WB. The swelling hasn' t gone down. He has two steps to enter house. There is no railing. The door opens forward and he has trouble with this. He has had a couple of falls. He fell when using knee scooter when trying to place knee back up on it. He almost fell off front porch when it was wet. 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 He is sleeping sporatically, on his right side with pillow support . He is taking Gabapentin, Tylenol, and is trying to quit smoking. Prior Treatments and Tests Sx PT-OP-C Subjective Start: 08/21/19 09:06 Freq: Status: Active Protocol: Document 09/26/19 08:10 MB (Rec: 09/26/19 08:51 MB [id number]) OP-PT Subjective Patient Comments Patient Comments Pt wears shoes this date and has gel/rubber heel insert and wears Tubagrip. He returned to surgeon office 09/21/19 and was encouraged to wear shoes and was given a gel/rubber heel cushion by PT there, Chrissy Lau. He states that he has walked barefoot with crutches in the house and PT encourages him not to do so and to wear footwear and heel cushion as comfortable. His next follow-up with surgeon at is 12/27/19. LLE swelling was much better after e-stim. He got a fever of 103.4 deg for 2 days. He did not go to PCP. PT-OP-G Mobility & Gait Start: 08/21/19 09:06 Freq: Status: Active Protocol: Document 09/03/19 08:55 MB (Rec: 09/03/19 10:57 MB [id number]) OP Gait Assessment Comments Gait Comments Approximately 25% WB through left foot with gait wearing boot and using crutches. Pt using step-to to step-through gait. PT-OP-K Range of Motion Start: 08/21/19 09:06 Freq: Status: Active Protocol: Document 09/03/19 08:55 MB (Rec: 09/03/19 10:57 MB [id number]) Ankle and Foot Goniometric Range of Motion Ankle and Foot ROM Limitations ROM Limitations Swelling Comments R ankle and foot functional. Left ankle and foot with minimal ROM: active DF 5 deg, PF 10 deg, no active inversion and 5 deg eversion. He performs minimal toe wiggle all toes. Ecchymosis of entire foot with foot in dependent position. PT-OP-M Strength Start: 08/21/19 09:06 Freq: Status: Active Protocol: Document 09/03/19 08:55 MB (Rec: 09/03/19 10:57 MB [id number]) Hip Strength Hip Manual Muscle Testing Left Flexion (L2) 5 Normal Abduction 4 Good Comments Supine Right Flexion (L2) 5 Normal Abduction 4 Good Comments Supine Knee Strength Knee Manual Muscle Testing Left Flexion (S2) 5 Normal Extension (L3) 5 Normal Right Flexion (S2) 5 Normal Extension (L3) 5 Normal Comments Supine Ankle/Foot Strength Ankle and Foot Manual Muscle Testing Right Dorsiflexion (L4) 5 Normal Plantarflexion (S1) 5 Normal Inversion 5 Normal Eversion (S1) 4 Good Comments Cannot test the left s/p ORIF, pain, edema pitting greater than 10 sec recoil PT-OP-Q Treatments Start: 08/21/19 09:06 Freq: Status: Active Protocol: Document 09/26/19 08:10 MB (Rec: 09/26/19 08:51 MB [id number]) Therapeutic Exercises Other Exercises APs, QS, GS in supine Comments Performed in supine to help with LE edema Self-Care/Home Management Treatment Activities Self-Care/Home Management Activities Extensive ed today: wear heel cushions in both shoes, WB as tolerated with crutches, shoes at all times, increased water intake after treatment, call doctor if fever after treatment, importance of gait with equal gait pattern, ongoing elevation with APs and GS PT-OP-R Modalities Start: 08/21/19 09:06 Freq: Status: Active Protocol: Document 09/26/19 08:51 MB (Rec: 09/26/19 08:55 MB [id number]) Electric Stimulation Electric Stimulation IFC Body Location L ankle Duration (Minutes) 12 Intensity 26-39 Target/Sweep Sweep High/Low High Combined With Heat/Cold Cold Pack Comments Much less edema and sensitivity likely account for request from pt for higher intensity today PT-OP-T Assessment and Plan Start: 08/21/19 09:06 Freq: Status: Active Protocol: Document 09/26/19 08:10 MB (Rec: 09/26/19 08:51 MB [id number]) Physical Therapy Assessment Rehab Potential Rehabilitation Potential Fair Impairments Impairments Activity Tolerance,Balance, Edema,Functional Activities, Functional Mobility,Gait, Integument,Pain,ROM,Sensation, Soft Tissue Mobility,Strength Other Impairments Pt reports numbness dorsal foot that travels over the top of the foot to lateral ankle Other Concerns Barriers to Rehabilitation Decreased PT appointments per insurance Goals 6 Impairment LE functional index score reflecting 80% impairment Group Home Goal (LTG) LE functional index score will reflect no more than 40% impairment by 11/03/19. LTG Duration 8 weeks 5 Group Home Goal (LTG) Pt will perform HEP with I including ROM, flexibility, WB , gait, balance and strengthening exercises by . LTG Duration 8 weeks 4 Group Home Goal (LTG) Pt will deny falls for 2 months by 11/03/19. LTG Duration 8 weeks 3 Hand Turner Goal (LTG) Pt will present with improved left ankle AROM to at least 15 deg PF, DF, eversion and inversion by 11/03/19. LTG Duration 8 weeks 2 Hand Turner Goal (LTG) Pt will perform 2 step gait training with crutches and mod I by 11/03/19. LTG Duration 8 weeks 1 Group Home Goal (LTG) Pt will report a 25% improvement in left ankle and heel pain by 11/03/19. LTG Duration 8 weeks Assessment Summary Assessment Pt's edema is much improved since e-stim from previous treatment and so performed again today. He will call doctor if fever over the next couple of days. Con't WB as tolerated with crutches and shoes with both heel cushions. Physical Therapy Plan Frequency and Duration Frequency of Treatment 2x/Week Duration of Treatment 8 weeks Plan of Care Start Date 09/03/19 Plan of Care End Date 11/03/19 Therapeutic Interventions Therapeutic Interventions Balance Training,Coordination Training,Gait Training,Home Exercise Program,Joint Mobilizations,Manual Therapy, Neuromuscular Re-education, Patient/Caregiver Education, Self-Care/Home Management, Sensory Integration,Soft Tissue Mobilization,Taping, Therapeutic Activities, Therapeutic Exercises Modalities Cold Pack/Ice Massage,Electric Stimulation,Hot Packs, Ultrasound Next Visit Focus/Plan Next Note Type Treatment Note Next Visit Plan Consider progression of exercises and gait. May also consider LE ROM exercises for edema. Consider initiating recumbent elliptical soon. Consider pool therapy in the future.
--- NOTE | 2019-10-01 09:45 | PT.OTN ---
Current Diagnoses Unspecified fracture of left calcaneus, initial encounter for closed fracture (10/01/19) Encounter for other orthopedic aftercare (10/01/19) Physical Therapy Treatment Note PT-OP-A Visit Information Start: 08/21/19 09:06 Freq: Status: Active Protocol: Document 10/01/19 09:01 MB (Rec: 10/01/19 09:45 MB [id number]) Out-Patient Physical Therapy Visit Information Visit Information Visit Type Treatment Note Visit Start Time 09:01 Visit Stop Time 09:41 Total Visit Minutes 40 Visit Number 04/13 Number of CLIENT RELATIONS ASSOCIATE Visits 1 PT-OP-B Current Condition Start: 08/21/19 09:06 Freq: Status: Active Protocol: Document 09/03/19 08:55 MB (Rec: 09/03/19 09:40 MB [id number]) Current Condition History of Current Condition Onset Date 06/02/19 History of Current Condition Pt fell 06/02/19 when ladder was falling. He states that he actually jumped to try to avoid fuerther injury. He sustained L comminuted calcaneal fx s/p ORIF 06/19/19. He also had bone graft. He returns to surgeon on 09/13/19 . On visit 08/02/19, he was told that he is 50% WB on left foot wearing boot and using crutches. He was told to progress 25% more after two weeks but left heel pain has limited WB. The swelling hasn' t gone down. He has two steps to enter house. There is no railing. The door opens forward and he has trouble with this. He has had a couple of falls. He fell when using knee scooter when trying to place knee back up on it. He almost fell off front porch when it was wet. 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 He is sleeping sporatically, on his right side with pillow support . He is taking Gabapentin, Tylenol, and is trying to quit smoking. Prior Treatments and Tests Sx PT-OP-C Subjective Start: 08/21/19 09:06 Freq: Status: Active Protocol: Document 10/01/19 09:01 MB (Rec: 10/01/19 09:45 MB [id number]) OP-PT Subjective Patient Comments Patient Comments Pt states that he is a little sore d/t walking more on it. He was a little painful after e-stim. He has been trying to help out in the kitchen and help with the kids more. He has to stand next to his teenager to pull the blanket off of her in the mornings to wake her up. He is standing with crutches when he does this. PT-OP-G Mobility & Gait Start: 08/21/19 09:06 Freq: Status: Active Protocol: Document 09/03/19 08:55 MB (Rec: 09/03/19 10:57 MB [id number]) OP Gait Assessment Comments Gait Comments Approximately 25% WB through left foot with gait wearing boot and using crutches. Pt using step-to to step-through gait. PT-OP-K Range of Motion Start: 08/21/19 09:06 Freq: Status: Active Protocol: Document 09/03/19 08:55 MB (Rec: 09/03/19 10:57 MB [id number]) Ankle and Foot Goniometric Range of Motion Ankle and Foot ROM Limitations ROM Limitations Swelling Comments R ankle and foot functional. Left ankle and foot with minimal ROM: active DF 5 deg, PF 10 deg, no active inversion and 5 deg eversion. He performs minimal toe wiggle all toes. Ecchymosis of entire foot with foot in dependent position. PT-OP-M Strength Start: 08/21/19 09:06 Freq: Status: Active Protocol: Document 09/03/19 08:55 MB (Rec: 09/03/19 10:57 MB [id number]) Hip Strength Hip Manual Muscle Testing Left Flexion (L2) 5 Normal Abduction 4 Good Comments Supine Right Flexion (L2) 5 Normal Abduction 4 Good Comments Supine Knee Strength Knee Manual Muscle Testing Left Flexion (S2) 5 Normal Extension (L3) 5 Normal Right Flexion (S2) 5 Normal Extension (L3) 5 Normal Comments Supine Ankle/Foot Strength Ankle and Foot Manual Muscle Testing Right Dorsiflexion (L4) 5 Normal Plantarflexion (S1) 5 Normal Inversion 5 Normal Eversion (S1) 4 Good Comments Cannot test the left s/p ORIF, pain, edema pitting greater than 10 sec recoil PT-OP-Q Treatments Start: 08/21/19 09:06 Freq: Status: Active Protocol: Document 10/01/19 09:01 MB (Rec: 10/01/19 09:45 MB [id number]) Therapeutic Exercises Supine Exercises Abelino stretch with ankle pump, B Comments Abelino stretch with ankle pump B; for stretching right leg, left straight 5 Supine Exercise Name straight leg raises Side left Reps/Minutes 1x5 Comments Cues to pull foot up and keep QS 4 Supine Exercise Name quad sets Side left Reps/Minutes 5 sec hold, 5 reps 3 Supine Exercise Name DF, PF, IV, EV Resistance AROM Reps/Minutes 10 reps both feet, discomfort left EV/IV 3/10 2 Supine Exercise Name toe scrunches Side left Reps/Minutes 2x10 Sitting Exercises 2 Sitting Exercise Name long arc quad Side left Reps/Minutes 3x10 Comments boot donned if tolerated 1 Sitting Exercise Name heel raises/toe raises Side bilateral Reps/Minutes 3x10 Standing Exercises 1 Standing Exercise Name standing weight shift ( f/B/ side R +L) Side bilateral Equipment Used crutches Reps/Minutes x10 Comments required seated rest between sets, increased pain in heel 6 /10 Gait Training Gait Activity Crutch training Comments B crutch and 1 crutch training , move crutches with left foot , increase normal step-through gait, he leans a lot with only using 1 crutch in right hand PT-OP-R Modalities Start: 08/21/19 09:06 Freq: Status: Active Protocol: Document 09/26/19 08:51 MB (Rec: 09/26/19 08:55 MB [id number]) Electric Stimulation Electric Stimulation IFC Body Location L ankle Duration (Minutes) 12 Intensity 26-39 Target/Sweep Sweep High/Low High Combined With Heat/Cold Cold Pack Comments Much less edema and sensitivity likely account for request from pt for higher intensity today PT-OP-T Assessment and Plan Start: 08/21/19 09:06 Freq: Status: Active Protocol: Document 10/01/19 09:01 MB (Rec: 10/01/19 09:45 MB [id number]) Physical Therapy Assessment Rehab Potential Rehabilitation Potential Fair Impairments Impairments Activity Tolerance,Balance, Edema,Functional Activities, Functional Mobility,Gait, Integument,Pain,ROM,Sensation, Soft Tissue Mobility,Strength Other Impairments Pt reports numbness dorsal foot that travels over the top of the foot to lateral ankle Other Concerns Barriers to Rehabilitation Decreased PT appointments per insurance Goals 6 Impairment LE functional index score reflecting 80% impairment [facility] Goal (LTG) LE functional index score will reflect no more than 40% impairment by 11/03/19. LTG Duration 8 weeks 5 Certified Hyperbaric Technician Goal (LTG) Pt will perform HEP with I including ROM, flexibility, WB , gait, balance and strengthening exercises by . LTG Duration 8 weeks 4 Certified Hyperbaric Technician Goal (LTG) Pt will deny falls for 2 months by 11/03/19. LTG Duration 8 weeks 3 Certified Hyperbaric Technician Goal (LTG) Pt will present with improved left ankle AROM to at least 15 deg PF, DF, eversion and inversion by 11/03/19. LTG Duration 8 weeks 2 [facility] Goal (LTG) Pt will perform 2 step gait training with crutches and mod I by 11/03/19. LTG Duration 8 weeks 1 Certified Hyperbaric Technician Goal (LTG) Pt will report a 25% improvement in left ankle and heel pain by 11/03/19. LTG Duration 8 weeks Assessment Summary Assessment Pt con't with some edema greatest lateral ankle, he is wearing compression. He is wearing B heel cushions in shoes. His gait is antalgic with 2 crutches. He is unable to advance to 1 crutch today. Pt had a fall since last treatment, con't to ed pt on safety this date. Con't progression as he can tolerate . Physical Therapy Plan Frequency and Duration Frequency of Treatment 2x/Week Duration of Treatment 8 weeks Plan of Care Start Date 09/03/19 Plan of Care End Date 11/03/19 Therapeutic Interventions Therapeutic Interventions Balance Training,Coordination Training,Gait Training,Home Exercise Program,Joint Mobilizations,Manual Therapy, Neuromuscular Re-education, Patient/Caregiver Education, Self-Care/Home Management, Sensory Integration,Soft Tissue Mobilization,Taping, Therapeutic Activities, Therapeutic Exercises Modalities Cold Pack/Ice Massage,Electric Stimulation,Hot Packs, Ultrasound Next Visit Focus/Plan Next Note Type Treatment Note Next Visit Plan Consider progression of exercises and gait. May also consider LE ROM exercises for edema. Consider initiating recumbent elliptical soon. Consider pool therapy in the future.
--- NOTE | 2019-10-04 09:13 | PT.OTN ---
Current Diagnoses Unspecified fracture of left calcaneus, initial encounter for closed fracture (10/04/19) Encounter for other orthopedic aftercare (10/04/19) Physical Therapy Treatment Note PT-OP-A Visit Information Start: 08/21/19 09:06 Freq: Status: Active Protocol: Document 10/04/19 08:23 MB (Rec: 10/04/19 09:12 MB [id number]) Out-Patient Physical Therapy Visit Information Visit Information Visit Type Treatment Note Visit Start Time 08:23 Visit Stop Time 09:03 Total Visit Minutes 40 Visit Number 05/14 Number of CLINICAL SPECIALIST Visits 1 PT-OP-B Current Condition Start: 08/21/19 09:06 Freq: Status: Active Protocol: Document 09/03/19 08:55 MB (Rec: 09/03/19 09:40 MB [id number]) Current Condition History of Current Condition Onset Date 06/02/19 History of Current Condition Pt fell 06/02/19 when ladder was falling. He states that he actually jumped to try to avoid fuerther injury. He sustained L comminuted calcaneal fx s/p ORIF 06/19/19. He also had bone graft. He returns to surgeon on 09/13/19 . On visit 08/02/19, he was told that he is 50% WB on left foot wearing boot and using crutches. He was told to progress 25% more after two weeks but left heel pain has limited WB. The swelling hasn' t gone down. He has two steps to enter house. There is no railing. The door opens forward and he has trouble with this. He has had a couple of falls. He fell when using knee scooter when trying to place knee back up on it. He almost fell off front porch when it was wet. 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 He is sleeping sporatically, on his right side with pillow support . He is taking Gabapentin, Tylenol, and is trying to quit smoking. Prior Treatments and Tests Sx PT-OP-C Subjective Start: 08/21/19 09:06 Freq: Status: Active Protocol: Document 10/04/19 08:23 MB (Rec: 10/04/19 09:12 MB [id number]) OP-PT Subjective Patient Comments Patient Comments Pt states that he is sore with doing more. PT-OP-G Mobility & Gait Start: 08/21/19 09:06 Freq: Status: Active Protocol: Document 09/03/19 08:55 MB (Rec: 09/03/19 10:57 MB [id number]) OP Gait Assessment Comments Gait Comments Approximately 25% WB through left foot with gait wearing boot and using crutches. Pt using step-to to step-through gait. PT-OP-K Range of Motion Start: 08/21/19 09:06 Freq: Status: Active Protocol: Document 09/03/19 08:55 MB (Rec: 09/03/19 10:57 MB [id number]) Ankle and Foot Goniometric Range of Motion Ankle and Foot ROM Limitations ROM Limitations Swelling Comments R ankle and foot functional. Left ankle and foot with minimal ROM: active DF 5 deg, PF 10 deg, no active inversion and 5 deg eversion. He performs minimal toe wiggle all toes. Ecchymosis of entire foot with foot in dependent position. PT-OP-M Strength Start: 08/21/19 09:06 Freq: Status: Active Protocol: Document 09/03/19 08:55 MB (Rec: 09/03/19 10:57 MB [id number]) Hip Strength Hip Manual Muscle Testing Left Flexion (L2) 5 Normal Abduction 4 Good Comments Supine Right Flexion (L2) 5 Normal Abduction 4 Good Comments Supine Knee Strength Knee Manual Muscle Testing Left Flexion (S2) 5 Normal Extension (L3) 5 Normal Right Flexion (S2) 5 Normal Extension (L3) 5 Normal Comments Supine Ankle/Foot Strength Ankle and Foot Manual Muscle Testing Right Dorsiflexion (L4) 5 Normal Plantarflexion (S1) 5 Normal Inversion 5 Normal Eversion (S1) 4 Good Comments Cannot test the left s/p ORIF, pain, edema pitting greater than 10 sec recoil PT-OP-Q Treatments Start: 08/21/19 09:06 Freq: Status: Active Protocol: Document 10/04/19 08:23 MB (Rec: 10/04/19 09:12 MB [id number]) Manual Therapy Treatment Manual Techniques Counterstrain Comments Pt agrees to Counterstrain to assess and treat fascial tension. Pt denies uncontrolled DM and eye pressure. PT assesses and treats the following areas/ stacks: B dura, left sinuvertebral, right bowens rami , right ALL, B LF, LV standard left (this system treated the most) PT-OP-R Modalities Start: 08/21/19 09:06 Freq: Status: Active Protocol: Document 09/26/19 08:51 MB (Rec: 09/26/19 08:55 MB [id number]) Electric Stimulation Electric Stimulation IFC Body Location L ankle Duration (Minutes) 12 Intensity 26-39 Target/Sweep Sweep High/Low High Combined With Heat/Cold Cold Pack Comments Much less edema and sensitivity likely account for request from pt for higher intensity today PT-OP-T Assessment and Plan Start: 08/21/19 09:06 Freq: Status: Active Protocol: Document 10/04/19 08:23 MB (Rec: 10/04/19 09:12 MB [id number]) Physical Therapy Assessment Rehab Potential Rehabilitation Potential Fair Impairments Impairments Activity Tolerance,Balance, Edema,Functional Activities, Functional Mobility,Gait, Integument,Pain,ROM,Sensation, Soft Tissue Mobility,Strength Other Impairments Pt reports numbness dorsal foot that travels over the top of the foot to lateral ankle Other Concerns Barriers to Rehabilitation Decreased PT appointments per insurance Goals 6 Impairment LE functional index score reflecting 80% impairment Detention Goal (LTG) LE functional index score will reflect no more than 40% impairment by 11/03/19. LTG Duration 8 weeks 5 Detention Goal (LTG) Pt will perform HEP with I including ROM, flexibility, WB , gait, balance and strengthening exercises by . LTG Duration 8 weeks 4 Graphics Production Specialist Goal (LTG) Pt will deny falls for 2 months by 11/03/19. LTG Duration 8 weeks 3 Graphics Production Specialist Goal (LTG) Pt will present with improved left ankle AROM to at least 15 deg PF, DF, eversion and inversion by 11/03/19. LTG Duration 8 weeks 2 Graphics Production Specialist Goal (LTG) Pt will perform 2 step gait training with crutches and mod I by 11/03/19. LTG Duration 8 weeks 1 Graphics Production Specialist Goal (LTG) Pt will report a 25% improvement in left ankle and heel pain by 11/03/19. LTG Duration 8 weeks Assessment Summary Assessment Pt con't with a lot of fascial tension on his foot. Con't manual PT and progressive exercises. Ed pt on plantar fascia racquet ball massage in sitting, frozen bottle under calf for AP in supine for myofascial release. Physical Therapy Plan Frequency and Duration Frequency of Treatment 2x/Week Duration of Treatment 8 weeks Plan of Care Start Date 09/03/19 Plan of Care End Date 11/03/19 Therapeutic Interventions Therapeutic Interventions Balance Training,Coordination Training,Gait Training,Home Exercise Program,Joint Mobilizations,Manual Therapy, Neuromuscular Re-education, Patient/Caregiver Education, Self-Care/Home Management, Sensory Integration,Soft Tissue Mobilization,Taping, Therapeutic Activities, Therapeutic Exercises Modalities Cold Pack/Ice Massage,Electric Stimulation,Hot Packs, Ultrasound Next Visit Focus/Plan Next Note Type Treatment Note Next Visit Plan Consider progression of exercises and gait. May also consider LE ROM exercises for edema. Consider initiating recumbent elliptical soon. Consider pool therapy in the future.
--- NOTE | 2019-10-10 09:42 | PT.OTN ---
Current Diagnoses Unspecified fracture of left calcaneus, initial encounter for closed fracture (10/10/19) Encounter for other orthopedic aftercare (10/10/19) Physical Therapy Treatment Note PT-OP-A Visit Information Start: 08/21/19 09:06 Freq: Status: Active Protocol: Document 10/10/19 09:01 MB (Rec: 10/10/19 09:42 MB [id number]) Out-Patient Physical Therapy Visit Information Visit Information Visit Type Treatment Note Visit Start Time 09:01 Visit Stop Time 09:41 Total Visit Minutes 40 Visit Number 06/13 Number of APPRENTICE FUNERAL DIRECTOR Visits 1 PT-OP-B Current Condition Start: 08/21/19 09:06 Freq: Status: Active Protocol: Document 09/03/19 08:55 MB (Rec: 09/03/19 09:40 MB [id number]) Current Condition History of Current Condition Onset Date 06/02/19 History of Current Condition Pt fell 06/02/19 when ladder was falling. He states that he actually jumped to try to avoid fuerther injury. He sustained L comminuted calcaneal fx s/p ORIF 06/19/19. He also had bone graft. He returns to surgeon on 09/13/19 . On visit 08/02/19, he was told that he is 50% WB on left foot wearing boot and using crutches. He was told to progress 25% more after two weeks but left heel pain has limited WB. The swelling hasn' t gone down. He has two steps to enter house. There is no railing. The door opens forward and he has trouble with this. He has had a couple of falls. He fell when using knee scooter when trying to place knee back up on it. He almost fell off front porch when it was wet. 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 He is sleeping sporatically, on his right side with pillow support . He is taking Gabapentin, Tylenol, and is trying to quit smoking. Prior Treatments and Tests Sx PT-OP-C Subjective Start: 08/21/19 09:06 Freq: Status: Active Protocol: Document 10/10/19 09:01 MB (Rec: 10/10/19 09:42 MB [id number]) OP-PT Subjective Patient Comments Patient Comments Pt notices a bit of swelling and he states that he has been moving around. PT-OP-G Mobility & Gait Start: 08/21/19 09:06 Freq: Status: Active Protocol: Document 09/03/19 08:55 MB (Rec: 09/03/19 10:57 MB [id number]) OP Gait Assessment Comments Gait Comments Approximately 25% WB through left foot with gait wearing boot and using crutches. Pt using step-to to step-through gait. PT-OP-K Range of Motion Start: 08/21/19 09:06 Freq: Status: Active Protocol: Document 09/03/19 08:55 MB (Rec: 09/03/19 10:57 MB [id number]) Ankle and Foot Goniometric Range of Motion Ankle and Foot ROM Limitations ROM Limitations Swelling Comments R ankle and foot functional. Left ankle and foot with minimal ROM: active DF 5 deg, PF 10 deg, no active inversion and 5 deg eversion. He performs minimal toe wiggle all toes. Ecchymosis of entire foot with foot in dependent position. PT-OP-M Strength Start: 08/21/19 09:06 Freq: Status: Active Protocol: Document 09/03/19 08:55 MB (Rec: 09/03/19 10:57 MB [id number]) Hip Strength Hip Manual Muscle Testing Left Flexion (L2) 5 Normal Abduction 4 Good Comments Supine Right Flexion (L2) 5 Normal Abduction 4 Good Comments Supine Knee Strength Knee Manual Muscle Testing Left Flexion (S2) 5 Normal Extension (L3) 5 Normal Right Flexion (S2) 5 Normal Extension (L3) 5 Normal Comments Supine Ankle/Foot Strength Ankle and Foot Manual Muscle Testing Right Dorsiflexion (L4) 5 Normal Plantarflexion (S1) 5 Normal Inversion 5 Normal Eversion (S1) 4 Good Comments Cannot test the left s/p ORIF, pain, edema pitting greater than 10 sec recoil PT-OP-Q Treatments Start: 08/21/19 09:06 Freq: Status: Active Protocol: Document 10/10/19 09:01 MB (Rec: 10/10/19 09:42 MB [id number]) Therapeutic Exercises Supine Exercises HS with glute and quad strengthening with level 2 band Comments Performed this date and added to HEP, pt is careful with left heel on bed Sitting Exercises Ankle PF resistance level 2 band foot hammock Comments Performed today and added to HEP Manual Therapy Treatment Other Other Manual Treatments Left toe mobs, met mobs grade II, scar STM PT-OP-R Modalities Start: 08/21/19 09:06 Freq: Status: Active Protocol: Document 09/26/19 08:51 MB (Rec: 09/26/19 08:55 MB [id number]) Electric Stimulation Electric Stimulation IFC Body Location L ankle Duration (Minutes) 12 Intensity 26-39 Target/Sweep Sweep High/Low High Combined With Heat/Cold Cold Pack Comments Much less edema and sensitivity likely account for request from pt for higher intensity today PT-OP-T Assessment and Plan Start: 08/21/19 09:06 Freq: Status: Active Protocol: Document 10/10/19 09:01 MB (Rec: 10/10/19 09:42 MB [id number]) Physical Therapy Assessment Rehab Potential Rehabilitation Potential Fair Impairments Impairments Activity Tolerance,Balance, Edema,Functional Activities, Functional Mobility,Gait, Integument,Pain,ROM,Sensation, Soft Tissue Mobility,Strength Other Impairments Pt reports numbness dorsal foot that travels over the top of the foot to lateral ankle Other Concerns Barriers to Rehabilitation Decreased PT appointments per insurance Goals 6 Impairment LE functional index score reflecting 80% impairment Alf Goal (LTG) LE functional index score will reflect no more than 40% impairment by 11/03/19. LTG Duration 8 weeks 5 Alf Goal (LTG) Pt will perform HEP with I including ROM, flexibility, WB , gait, balance and strengthening exercises by . LTG Duration 8 weeks 4 Alf Goal (LTG) Pt will deny falls for 2 months by 11/03/19. LTG Duration 8 weeks 3 Order Packer Goal (LTG) Pt will present with improved left ankle AROM to at least 15 deg PF, DF, eversion and inversion by 11/03/19. LTG Duration 8 weeks 2 Order Packer Goal (LTG) Pt will perform 2 step gait training with crutches and mod I by 11/03/19. LTG Duration 8 weeks 1 Order Packer Goal (LTG) Pt will report a 25% improvement in left ankle and heel pain by 11/03/19. LTG Duration 8 weeks Assessment Summary Assessment Ed pt on benefits of compression hose. Pt con't with swelling. Con't manual PT and progressive exercises. Ed pt on plantar fascia racquet ball massage in sitting, frozen bottle under calf for AP in supine for myofascial release. Physical Therapy Plan Frequency and Duration Frequency of Treatment 2x/Week Duration of Treatment 8 weeks Plan of Care Start Date 09/03/19 Plan of Care End Date 11/03/19 Therapeutic Interventions Therapeutic Interventions Balance Training,Coordination Training,Gait Training,Home Exercise Program,Joint Mobilizations,Manual Therapy, Neuromuscular Re-education, Patient/Caregiver Education, Self-Care/Home Management, Sensory Integration,Soft Tissue Mobilization,Taping, Therapeutic Activities, Therapeutic Exercises Modalities Cold Pack/Ice Massage,Electric Stimulation,Hot Packs, Ultrasound Other Referrals/Consults Referrals/Consults Recommended Recommend call doctor to follow-up about possible fungus on top of foot and between 4th and 5th toe Next Visit Focus/Plan Next Note Type Treatment Note Next Visit Plan Consider progression of exercises and gait. May also consider LE ROM exercises for edema. Consider initiating recumbent elliptical soon. Consider pool therapy in the future.
--- NOTE | 2019-10-15 09:00 | PT.OTN ---
Current Diagnoses Unspecified fracture of left calcaneus, initial encounter for closed fracture (10/15/19) Encounter for other orthopedic aftercare (10/15/19) Physical Therapy Treatment Note PT-OP-A Visit Information Start: 08/21/19 09:06 Freq: Status: Active Protocol: Document 10/15/19 08:20 SP (Rec: 10/15/19 09:03 SP [id number]) Out-Patient Physical Therapy Visit Information Visit Information Visit Type Treatment Note Visit Start Time 08:20 Visit Stop Time 09:00 Total Visit Minutes 40 Visit Number 07/14 Number of BRICK MOLDER HAND Visits 1 PT-OP-B Current Condition Start: 08/21/19 09:06 Freq: Status: Active Protocol: Document 09/03/19 08:55 MB (Rec: 09/03/19 09:40 MB [id number]) Current Condition History of Current Condition Onset Date 06/02/19 History of Current Condition Pt fell 06/02/19 when ladder was falling. He states that he actually jumped to try to avoid fuerther injury. He sustained L comminuted calcaneal fx s/p ORIF 06/19/19. He also had bone graft. He returns to surgeon on 09/13/19 . On visit 08/02/19, he was told that he is 50% WB on left foot wearing boot and using crutches. He was told to progress 25% more after two weeks but left heel pain has limited WB. The swelling hasn' t gone down. He has two steps to enter house. There is no railing. The door opens forward and he has trouble with this. He has had a couple of falls. He fell when using knee scooter when trying to place knee back up on it. He almost fell off front porch when it was wet. 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 He is sleeping sporatically, on his right side with pillow support . He is taking Gabapentin, Tylenol, and is trying to quit smoking. Prior Treatments and Tests Sx PT-OP-C Subjective Start: 08/21/19 09:06 Freq: Status: Active Protocol: Document 10/15/19 08:20 SP (Rec: 10/15/19 09:03 SP [id number]) OP-PT Subjective Patient Comments Patient Comments Pt stated has been adding antioxidant to his smoothies in the evening and noticing not as much swelling when moving around. Pt stated 1/10 pain pre PT more with WB, still gets those intermittent sharp pain 1-5 min like want to draw foot back. Pt stated quite smoking about 1.5 weeks now but does utilize a small vape pad for break through when needed. PT-OP-G Mobility & Gait Start: 08/21/19 09:06 Freq: Status: Active Protocol: Document 09/03/19 08:55 MB (Rec: 09/03/19 10:57 MB [id number]) OP Gait Assessment Comments Gait Comments Approximately 25% WB through left foot with gait wearing boot and using crutches. Pt using step-to to step-through gait. PT-OP-K Range of Motion Start: 08/21/19 09:06 Freq: Status: Active Protocol: Document 09/03/19 08:55 MB (Rec: 09/03/19 10:57 MB [id number]) Ankle and Foot Goniometric Range of Motion Ankle and Foot ROM Limitations ROM Limitations Swelling Comments R ankle and foot functional. Left ankle and foot with minimal ROM: active DF 5 deg, PF 10 deg, no active inversion and 5 deg eversion. He performs minimal toe wiggle all toes. Ecchymosis of entire foot with foot in dependent position. PT-OP-M Strength Start: 08/21/19 09:06 Freq: Status: Active Protocol: Document 09/03/19 08:55 MB (Rec: 09/03/19 10:57 MB [id number]) Hip Strength Hip Manual Muscle Testing Left Flexion (L2) 5 Normal Abduction 4 Good Comments Supine Right Flexion (L2) 5 Normal Abduction 4 Good Comments Supine Knee Strength Knee Manual Muscle Testing Left Flexion (S2) 5 Normal Extension (L3) 5 Normal Right Flexion (S2) 5 Normal Extension (L3) 5 Normal Comments Supine Ankle/Foot Strength Ankle and Foot Manual Muscle Testing Right Dorsiflexion (L4) 5 Normal Plantarflexion (S1) 5 Normal Inversion 5 Normal Eversion (S1) 4 Good Comments Cannot test the left s/p ORIF, pain, edema pitting greater than 10 sec recoil PT-OP-Q Treatments Start: 08/21/19 09:06 Freq: Status: Active Protocol: Document 10/15/19 08:20 SP (Rec: 10/15/19 09:03 SP [id number]) Therapeutic Exercises Supine Exercises 1 Supine Exercise Name BAPS F/B/Side/CW/CCW Equipment Used Lv 2 Reps/Minutes 10 reps each direction Comments cued slow controlled movement Sitting Exercises Ankle PF resistance level 2 band foot hammock Resistance Lv 2 Reps/Minutes 10 reps Gait Training Gait Activity Crutch training Comments B crutch and 1 crutch training , move crutches with left foot , increase normal step-through gait, he leans a lot with only using 1 crutch in right hand Manual Therapy Treatment Other Other Manual Treatments Left toe mobs, met mobs grade II, scar STM PT-OP-R Modalities Start: 08/21/19 09:06 Freq: Status: Active Protocol: Document 10/15/19 08:20 SP (Rec: 10/15/19 09:03 SP [id number]) Hot Pack/Cold Pack Treatment Cold Pack Location L ankle Patient Position Supine Treatment Duration (minutes) 10 Patient Tolerance Good Comments cryocuff PT-OP-T Assessment and Plan Start: 08/21/19 09:06 Freq: Status: Active Protocol: Document 10/15/19 08:20 SP (Rec: 10/15/19 09:03 SP [id number]) Physical Therapy Assessment Goals 6 Impairment LE functional index score reflecting 80% impairment Chicle Grinder Feeder Goal (LTG) LE functional index score will reflect no more than 40% impairment by 11/03/19. LTG Duration 8 weeks 5 Chicle Grinder Feeder Goal (LTG) Pt will perform HEP with I including ROM, flexibility, WB , gait, balance and strengthening exercises by . LTG Duration 8 weeks 4 Chicle Grinder Feeder Goal (LTG) Pt will deny falls for 2 months by 11/03/19. LTG Duration 8 weeks 3 Intermediate Goal (LTG) Pt will present with improved left ankle AROM to at least 15 deg PF, DF, eversion and inversion by 11/03/19. LTG Duration 8 weeks 2 Chicle Grinder Feeder Goal (LTG) Pt will perform 2 step gait training with crutches and mod I by 11/03/19. LTG Duration 8 weeks 1 Intermediate Goal (LTG) Pt will report a 25% improvement in left ankle and heel pain by 11/03/19. LTG Duration 8 weeks Assessment Summary Assessment Pt had increased ROM post BAPS ex today, reported increased to 3/10 pain in ankle I expect ankle to hurt though. Cued for neutral trunk alignment. Physical Therapy Plan Frequency and Duration Frequency of Treatment 2x/Week Duration of Treatment 8 weeks Plan of Care Start Date 09/03/19 Plan of Care End Date 11/03/19 Therapeutic Interventions Therapeutic Interventions Balance Training,Coordination Training,Gait Training,Home Exercise Program,Joint Mobilizations,Manual Therapy, Neuromuscular Re-education, Patient/Caregiver Education, Self-Care/Home Management, Sensory Integration,Soft Tissue Mobilization,Taping, Therapeutic Activities, Therapeutic Exercises Modalities Cold Pack/Ice Massage,Electric Stimulation,Hot Packs, Ultrasound Other Referrals/Consults Referrals/Consults Recommended Recommend call doctor to follow-up about possible fungus on top of foot and between 4th and 5th toe Next Visit Focus/Plan Next Note Type Treatment Note Next Visit Plan Assess response to add BAPS and gait last tx. Continue per PT POC: Consider progression of exercises and gait. May also consider LE ROM exercises for edema. Consider initiating recumbent elliptical soon. Consider pool therapy in the future.
--- NOTE | 2019-10-17 09:47 | PT.OTN ---
Current Diagnoses Unspecified fracture of left calcaneus, initial encounter for closed fracture (10/17/19) Encounter for other orthopedic aftercare (10/17/19) Physical Therapy Treatment Note PT-OP-A Visit Information Start: 08/21/19 09:06 Freq: Status: Active Protocol: Document 10/17/19 09:04 MB (Rec: 10/17/19 09:45 MB [id number]) Out-Patient Physical Therapy Visit Information Visit Information Visit Type Treatment Note Visit Start Time 09:04 Visit Stop Time 09:41 Total Visit Minutes 40 Visit Number 08/14 Number of DIRECTOR OF PUBLIC HEALTH Visits 1 PT-OP-B Current Condition Start: 08/21/19 09:06 Freq: Status: Active Protocol: Document 09/03/19 08:55 MB (Rec: 09/03/19 09:40 MB [id number]) Current Condition History of Current Condition Onset Date 06/02/19 History of Current Condition Pt fell 06/02/19 when ladder was falling. He states that he actually jumped to try to avoid fuerther injury. He sustained L comminuted calcaneal fx s/p ORIF 06/19/19. He also had bone graft. He returns to surgeon on 09/13/19 . On visit 08/02/19, he was told that he is 50% WB on left foot wearing boot and using crutches. He was told to progress 25% more after two weeks but left heel pain has limited WB. The swelling hasn' t gone down. He has two steps to enter house. There is no railing. The door opens forward and he has trouble with this. He has had a couple of falls. He fell when using knee scooter when trying to place knee back up on it. He almost fell off front porch when it was wet. 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 He is sleeping sporatically, on his right side with pillow support . He is taking Gabapentin, Tylenol, and is trying to quit smoking. Prior Treatments and Tests Sx PT-OP-C Subjective Start: 08/21/19 09:06 Freq: Status: Active Protocol: Document 10/17/19 09:04 MB (Rec: 10/17/19 09:45 MB [id number]) OP-PT Subjective Patient Comments Patient Comments Pt states that he doing exercises and gets a little. He is icing and elevating. PT-OP-G Mobility & Gait Start: 08/21/19 09:06 Freq: Status: Active Protocol: Document 09/03/19 08:55 MB (Rec: 09/03/19 10:57 MB [id number]) OP Gait Assessment Comments Gait Comments Approximately 25% WB through left foot with gait wearing boot and using crutches. Pt using step-to to step-through gait. PT-OP-K Range of Motion Start: 08/21/19 09:06 Freq: Status: Active Protocol: Document 09/03/19 08:55 MB (Rec: 09/03/19 10:57 MB [id number]) Ankle and Foot Goniometric Range of Motion Ankle and Foot ROM Limitations ROM Limitations Swelling Comments R ankle and foot functional. Left ankle and foot with minimal ROM: active DF 5 deg, PF 10 deg, no active inversion and 5 deg eversion. He performs minimal toe wiggle all toes. Ecchymosis of entire foot with foot in dependent position. PT-OP-M Strength Start: 08/21/19 09:06 Freq: Status: Active Protocol: Document 09/03/19 08:55 MB (Rec: 09/03/19 10:57 MB [id number]) Hip Strength Hip Manual Muscle Testing Left Flexion (L2) 5 Normal Abduction 4 Good Comments Supine Right Flexion (L2) 5 Normal Abduction 4 Good Comments Supine Knee Strength Knee Manual Muscle Testing Left Flexion (S2) 5 Normal Extension (L3) 5 Normal Right Flexion (S2) 5 Normal Extension (L3) 5 Normal Comments Supine Ankle/Foot Strength Ankle and Foot Manual Muscle Testing Right Dorsiflexion (L4) 5 Normal Plantarflexion (S1) 5 Normal Inversion 5 Normal Eversion (S1) 4 Good Comments Cannot test the left s/p ORIF, pain, edema pitting greater than 10 sec recoil PT-OP-Q Treatments Start: 08/21/19 09:06 Freq: Status: Active Protocol: Document 10/17/19 09:04 MB (Rec: 10/17/19 09:45 MB [id number]) Therapeutic Exercises Supine Exercises APs and toe flexion and extension Comments Performed left foot today 1 Supine Exercise Name BAPS F/B/Side/CW/CCW Equipment Used Lv 2 Reps/Minutes 10 reps each direction Comments cued slow controlled movement Sitting Exercises Ankle PF resistance level 2 band foot hammock Resistance Lv 2 Reps/Minutes 10 reps Gait Training Gait Activity Crutch training Comments B crutch and 1 crutch training , move crutches with left foot , increase normal step-through gait, he leans a lot with only using 1 crutch in right hand Manual Therapy Treatment Other Other Manual Treatments Left toe mobs, met mobs grade II, scar STM, PA mobs at distal tib fib, grade 2, gentle tarsal mobs (tight tarsals and metarsals) Self-Care/Home Management Treatment Education Other Education Ed in benefits of pool, future PT ongoing plan for treatments, deep water activities in pool, foot support PT-OP-R Modalities Start: 08/21/19 09:06 Freq: Status: Active Protocol: Document 10/15/19 08:20 SP (Rec: 10/15/19 09:03 SP [id number]) Hot Pack/Cold Pack Treatment Cold Pack Location L ankle Patient Position Supine Treatment Duration (minutes) 10 Patient Tolerance Good Comments cryocuff PT-OP-T Assessment and Plan Start: 08/21/19 09:06 Freq: Status: Active Protocol: Document 10/17/19 09:04 MB (Rec: 10/17/19 09:45 MB [id number]) Physical Therapy Assessment Impairments Impairments Activity Tolerance,Balance, Edema,Functional Activities, Functional Mobility,Gait, Integument,Pain,ROM,Sensation, Soft Tissue Mobility,Strength Other Impairments Pt reports numbness dorsal foot that travels over the top of the foot to lateral ankle Goals 6 Impairment LE functional index score reflecting 80% impairment It Support Engineer Goal (LTG) LE functional index score will reflect no more than 40% impairment by 11/03/19. LTG Duration 8 weeks 5 It Support Engineer Goal (LTG) Pt will perform HEP with I including ROM, flexibility, WB , gait, balance and strengthening exercises by . LTG Duration 8 weeks 4 Long-Term Goal (LTG) Pt will deny falls for 2 months by 11/03/19. LTG Duration 8 weeks 3 Long-Term Goal (LTG) Pt will present with improved left ankle AROM to at least 15 deg PF, DF, eversion and inversion by 11/03/19. LTG Duration 8 weeks 2 Long-Term Goal (LTG) Pt will perform 2 step gait training with crutches and mod I by 11/03/19. LTG Duration 8 weeks 1 It Support Engineer Goal (LTG) Pt will report a 25% improvement in left ankle and heel pain by 11/03/19. LTG Duration 8 weeks Assessment Summary Assessment Con't manual work today and ed pt on benefits of pool, deep water only and no water walking per protocol after comminuted fracture and surgery. Con't progression. Physical Therapy Plan Frequency and Duration Frequency of Treatment 2x/Week Duration of Treatment 8 weeks Plan of Care Start Date 09/03/19 Plan of Care End Date 11/03/19 Therapeutic Interventions Therapeutic Interventions Balance Training,Coordination Training,Gait Training,Home Exercise Program,Joint Mobilizations,Manual Therapy, Neuromuscular Re-education, Patient/Caregiver Education, Self-Care/Home Management, Sensory Integration,Soft Tissue Mobilization,Taping, Therapeutic Activities, Therapeutic Exercises Modalities Cold Pack/Ice Massage,Electric Stimulation,Hot Packs, Ultrasound Other Referrals/Consults Referrals/Consults Recommended Recommend call doctor to follow-up about possible fungus on top of foot and between 4th and 5th toe Next Visit Focus/Plan Next Note Type Treatment Note Next Visit Plan Assess response to add BAPS and gait last tx. Continue per PT POC: Consider progression of exercises and gait. May also consider LE ROM exercises for edema. Consider initiating recumbent elliptical soon. Consider pool therapy in the future.
--- NOTE | 2019-10-24 12:30 | PT.OTN ---
Current Diagnoses Unspecified fracture of left calcaneus, initial encounter for closed fracture (10/24/19) Encounter for other orthopedic aftercare (10/24/19) Physical Therapy Treatment Note PT-OP-A Visit Information Start: 08/21/19 09:06 Freq: Status: Active Protocol: Document 10/24/19 12:30 SAK (Rec: 10/25/19 11:35 SAK [id number]) Out-Patient Physical Therapy Visit Information Visit Information Visit Type Aquatic Treatment Note Visit Start Time 12:30 Visit Stop Time 11:15 Total Visit Minutes 45 Visit Number 0 PT-OP-B Current Condition Start: 08/21/19 09:06 Freq: Status: Active Protocol: Document 09/03/19 08:55 MB (Rec: 09/03/19 09:40 MB [id number]) Current Condition History of Current Condition Onset Date 06/02/19 History of Current Condition Pt fell 06/02/19 when ladder was falling. He states that he actually jumped to try to avoid fuerther injury. He sustained L comminuted calcaneal fx s/p ORIF 06/19/19. He also had bone graft. He returns to surgeon on 09/13/19 . On visit 08/02/19, he was told that he is 50% WB on left foot wearing boot and using crutches. He was told to progress 25% more after two weeks but left heel pain has limited WB. The swelling hasn' t gone down. He has two steps to enter house. There is no railing. The door opens forward and he has trouble with this. He has had a couple of falls. He fell when using knee scooter when trying to place knee back up on it. He almost fell off front porch when it was wet. 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 He is sleeping sporatically, on his right side with pillow support . He is taking Gabapentin, Tylenol, and is trying to quit smoking. Prior Treatments and Tests Sx PT-OP-C Subjective Start: 08/21/19 09:06 Freq: Status: Active Protocol: Document 10/24/19 12:30 SAK (Rec: 10/25/19 11:35 SAK [id number]) OP-PT Subjective Patient Comments Patient Comments Reports continues to ice and wear compression stocking at home. Excited to try aquatic therapy. Does not have water shoes and reports finances may not allow him to obtain. PT-OP-G Mobility & Gait Start: 08/21/19 09:06 Freq: Status: Active Protocol: Document 09/03/19 08:55 MB (Rec: 09/03/19 10:57 MB [id number]) OP Gait Assessment Comments Gait Comments Approximately 25% WB through left foot with gait wearing boot and using crutches. Pt using step-to to step-through gait. PT-OP-K Range of Motion Start: 08/21/19 09:06 Freq: Status: Active Protocol: Document 09/03/19 08:55 MB (Rec: 09/03/19 10:57 MB [id number]) Ankle and Foot Goniometric Range of Motion Ankle and Foot ROM Limitations ROM Limitations Swelling Comments R ankle and foot functional. Left ankle and foot with minimal ROM: active DF 5 deg, PF 10 deg, no active inversion and 5 deg eversion. He performs minimal toe wiggle all toes. Ecchymosis of entire foot with foot in dependent position. PT-OP-M Strength Start: 08/21/19 09:06 Freq: Status: Active Protocol: Document 09/03/19 08:55 MB (Rec: 09/03/19 10:57 MB [id number]) Hip Strength Hip Manual Muscle Testing Left Flexion (L2) 5 Normal Abduction 4 Good Comments Supine Right Flexion (L2) 5 Normal Abduction 4 Good Comments Supine Knee Strength Knee Manual Muscle Testing Left Flexion (S2) 5 Normal Extension (L3) 5 Normal Right Flexion (S2) 5 Normal Extension (L3) 5 Normal Comments Supine Ankle/Foot Strength Ankle and Foot Manual Muscle Testing Right Dorsiflexion (L4) 5 Normal Plantarflexion (S1) 5 Normal Inversion 5 Normal Eversion (S1) 4 Good Comments Cannot test the left s/p ORIF, pain, edema pitting greater than 10 sec recoil PT-OP-Q Treatments Start: 08/21/19 09:06 Freq: Status: Active Protocol: Document 10/17/19 09:04 MB (Rec: 10/17/19 09:45 MB [id number]) Therapeutic Exercises Supine Exercises APs and toe flexion and extension Comments Performed left foot today 1 Supine Exercise Name BAPS F/B/Side/CW/CCW Equipment Used Lv 2 Reps/Minutes 10 reps each direction Comments cued slow controlled movement Sitting Exercises Ankle PF resistance level 2 band foot hammock Resistance Lv 2 Reps/Minutes 10 reps Gait Training Gait Activity Crutch training Comments B crutch and 1 crutch training , move crutches with left foot , increase normal step-through gait, he leans a lot with only using 1 crutch in right hand Manual Therapy Treatment Other Other Manual Treatments Left toe mobs, met mobs grade II, scar STM, PA mobs at distal tib fib, grade 2, gentle tarsal mobs (tight tarsals and metarsals) Self-Care/Home Management Treatment Education Other Education Ed in benefits of pool, future PT ongoing plan for treatments, deep water activities in pool, foot support PT-OP-R Modalities Start: 08/21/19 09:06 Freq: Status: Active Protocol: Document 10/15/19 08:20 SP (Rec: 10/15/19 09:03 SP [id number]) Hot Pack/Cold Pack Treatment Cold Pack Location L ankle Patient Position Supine Treatment Duration (minutes) 10 Patient Tolerance Good Comments cryocuff PT-OP-S Aquatic Treatment Start: 08/21/19 09:06 Freq: Status: Active Protocol: Document 10/24/19 12:30 SAK (Rec: 10/25/19 11:35 SAK [id number]) Aquatics Treatment Pool Entry/Exit Pool Entry/Exit Method Lift Assistance Standby Assistance,Verbal Cues Lower Extremity Exercises ankle ROM Details df/pf, inv/ev, circles Body Position Standing Water Level [place] Equipment Large Noodle Reps/Duration 10x ea Lower Extremity Stretches HC Details involved Body Position Standing Water Level Chest Level Equipment Small Noodle Reps/Duration 2x30 HS Details involved Body Position Standing Water Level Chest Level Equipment Small Noodle Reps/Duration 2x 30 Comments manual [place] Activities [place] Activities Bicycle,Bicycle Backwards, Cross [place],Running,Hip Abduction/Adduction,Sit Kicks Equipment large noodle Duration 30 min Swim Strokes Flutter Other Equipment Used large noodle Laps/Duration 5 min Comments gentle, with sculling of UE's PT-OP-T Assessment and Plan Start: 08/21/19 09:06 Freq: Status: Active Protocol: Document 10/24/19 12:30 SAK (Rec: 10/25/19 10:26 [facility] [id number]) Physical Therapy Assessment Impairments Impairments Activity Tolerance,Balance, Edema,Functional Activities, Functional Mobility,Gait, Integument,Pain,ROM,Sensation, Soft Tissue Mobility,Strength Other Impairments Pt reports numbness dorsal foot that travels over the top of the foot to lateral ankle Goals 6 Impairment LE functional index score reflecting 80% impairment Alf Goal (LTG) LE functional index score will reflect no more than 40% impairment by 11/03/19. LTG Duration 8 weeks 5 Etcher Enameling Goal (LTG) Pt will perform HEP with I including ROM, flexibility, WB , gait, balance and strengthening exercises by . LTG Duration 8 weeks 4 Etcher Enameling Goal (LTG) Pt will deny falls for 2 months by 11/03/19. LTG Duration 8 weeks 3 Alf Goal (LTG) Pt will present with improved left ankle AROM to at least 15 deg PF, DF, eversion and inversion by 11/03/19. LTG Duration 8 weeks 2 Alf Goal (LTG) Pt will perform 2 step gait training with crutches and mod I by 11/03/19. LTG Duration 8 weeks 1 Etcher Enameling Goal (LTG) Pt will report a 25% improvement in left ankle and heel pain by 11/03/19. LTG Duration 8 weeks Assessment Summary Assessment Patient with good tolerance for deep water therapeutic aquatic exercises. No shallow water due to patient not having shoes for use in pool yet. Physical Therapy Plan Frequency and Duration Frequency of Treatment 2x/Week Duration of Treatment 8 weeks Plan of Care Start Date 09/03/19 Plan of Care End Date 11/03/19 Therapeutic Interventions Therapeutic Interventions Balance Training,Coordination Training,Gait Training,Home Exercise Program,Joint Mobilizations,Manual Therapy, Neuromuscular Re-education, Patient/Caregiver Education, Self-Care/Home Management, Sensory Integration,Soft Tissue Mobilization,Taping, Therapeutic Activities, Therapeutic Exercises Modalities Cold Pack/Ice Massage,Electric Stimulation,Hot Packs, Ultrasound Other Referrals/Consults Referrals/Consults Recommended Recommend call doctor to follow-up about possible fungus on top of foot and between 4th and 5th toe Next Visit Focus/Plan Next Note Type Treatment Note Next Visit Plan Assess response to aquatic therapy, Progress PT per POC.
--- NOTE | 2019-10-25 11:36 | PT.OTN ---
Current Diagnoses Unspecified fracture of left calcaneus, initial encounter for closed fracture (10/24/19) Encounter for other orthopedic aftercare (10/24/19) Physical Therapy Treatment Note PT-OP-A Visit Information Start: 08/21/19 09:06 Freq: Status: Active Protocol: Document 10/24/19 12:30 SAK (Rec: 10/25/19 11:35 SAK [id number]) Out-Patient Physical Therapy Visit Information Visit Information Visit Type Aquatic Treatment Note Visit Start Time 12:30 Visit Stop Time 11:15 Total Visit Minutes 45 Visit Number 0 PT-OP-B Current Condition Start: 08/21/19 09:06 Freq: Status: Active Protocol: Document 09/03/19 08:55 MB (Rec: 09/03/19 09:40 MB [id number]) Current Condition History of Current Condition Onset Date 06/02/19 History of Current Condition Pt fell 06/02/19 when ladder was falling. He states that he actually jumped to try to avoid fuerther injury. He sustained L comminuted calcaneal fx s/p ORIF 06/19/19. He also had bone graft. He returns to surgeon on 09/13/19 . On visit 08/02/19, he was told that he is 50% WB on left foot wearing boot and using crutches. He was told to progress 25% more after two weeks but left heel pain has limited WB. The swelling hasn' t gone down. He has two steps to enter house. There is no railing. The door opens forward and he has trouble with this. He has had a couple of falls. He fell when using knee scooter when trying to place knee back up on it. He almost fell off front porch when it was wet. 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 He is sleeping sporatically, on his right side with pillow support . He is taking Gabapentin, Tylenol, and is trying to quit smoking. Prior Treatments and Tests Sx PT-OP-C Subjective Start: 08/21/19 09:06 Freq: Status: Active Protocol: Document 10/24/19 12:30 SAK (Rec: 10/25/19 11:35 SAK [id number]) OP-PT Subjective Patient Comments Patient Comments Reports continues to ice and wear compression stocking at home. Excited to try aquatic therapy. Does not have water shoes and reports finances may not allow him to obtain. PT-OP-G Mobility & Gait Start: 08/21/19 09:06 Freq: Status: Active Protocol: Document 09/03/19 08:55 MB (Rec: 09/03/19 10:57 MB [id number]) OP Gait Assessment Comments Gait Comments Approximately 25% WB through left foot with gait wearing boot and using crutches. Pt using step-to to step-through gait. PT-OP-K Range of Motion Start: 08/21/19 09:06 Freq: Status: Active Protocol: Document 09/03/19 08:55 MB (Rec: 09/03/19 10:57 MB [id number]) Ankle and Foot Goniometric Range of Motion Ankle and Foot ROM Limitations ROM Limitations Swelling Comments R ankle and foot functional. Left ankle and foot with minimal ROM: active DF 5 deg, PF 10 deg, no active inversion and 5 deg eversion. He performs minimal toe wiggle all toes. Ecchymosis of entire foot with foot in dependent position. PT-OP-M Strength Start: 08/21/19 09:06 Freq: Status: Active Protocol: Document 09/03/19 08:55 MB (Rec: 09/03/19 10:57 MB [id number]) Hip Strength Hip Manual Muscle Testing Left Flexion (L2) 5 Normal Abduction 4 Good Comments Supine Right Flexion (L2) 5 Normal Abduction 4 Good Comments Supine Knee Strength Knee Manual Muscle Testing Left Flexion (S2) 5 Normal Extension (L3) 5 Normal Right Flexion (S2) 5 Normal Extension (L3) 5 Normal Comments Supine Ankle/Foot Strength Ankle and Foot Manual Muscle Testing Right Dorsiflexion (L4) 5 Normal Plantarflexion (S1) 5 Normal Inversion 5 Normal Eversion (S1) 4 Good Comments Cannot test the left s/p ORIF, pain, edema pitting greater than 10 sec recoil PT-OP-Q Treatments Start: 08/21/19 09:06 Freq: Status: Active Protocol: Document 10/17/19 09:04 MB (Rec: 10/17/19 09:45 MB [id number]) Therapeutic Exercises Supine Exercises APs and toe flexion and extension Comments Performed left foot today 1 Supine Exercise Name BAPS F/B/Side/CW/CCW Equipment Used Lv 2 Reps/Minutes 10 reps each direction Comments cued slow controlled movement Sitting Exercises Ankle PF resistance level 2 band foot hammock Resistance Lv 2 Reps/Minutes 10 reps Gait Training Gait Activity Crutch training Comments B crutch and 1 crutch training , move crutches with left foot , increase normal step-through gait, he leans a lot with only using 1 crutch in right hand Manual Therapy Treatment Other Other Manual Treatments Left toe mobs, met mobs grade II, scar STM, PA mobs at distal tib fib, grade 2, gentle tarsal mobs (tight tarsals and metarsals) Self-Care/Home Management Treatment Education Other Education Ed in benefits of pool, future PT ongoing plan for treatments, deep water activities in pool, foot support PT-OP-R Modalities Start: 08/21/19 09:06 Freq: Status: Active Protocol: Document 10/15/19 08:20 SP (Rec: 10/15/19 09:03 SP [id number]) Hot Pack/Cold Pack Treatment Cold Pack Location L ankle Patient Position Supine Treatment Duration (minutes) 10 Patient Tolerance Good Comments cryocuff PT-OP-S Aquatic Treatment Start: 08/21/19 09:06 Freq: Status: Active Protocol: Document 10/24/19 12:30 SAK (Rec: 10/25/19 11:35 SAK [id number]) Aquatics Treatment Pool Entry/Exit Pool Entry/Exit Method Lift Assistance Standby Assistance,Verbal Cues Lower Extremity Exercises ankle ROM Details df/pf, inv/ev, circles Body Position Standing Water Level [place] Equipment Large Noodle Reps/Duration 10x ea Lower Extremity Stretches HC Details involved Body Position Standing Water Level Chest Level Equipment Small Noodle Reps/Duration 2x30 HS Details involved Body Position Standing Water Level Chest Level Equipment Small Noodle Reps/Duration 2x 30 Comments manual [place] Activities [place] Activities Bicycle,Bicycle Backwards, Cross [place],Running,Hip Abduction/Adduction,Sit Kicks Equipment large noodle Duration 30 min Swim Strokes Flutter Other Equipment Used large noodle Laps/Duration 5 min Comments gentle, with sculling of UE's PT-OP-T Assessment and Plan Start: 08/21/19 09:06 Freq: Status: Active Protocol: Document 10/24/19 12:30 SAK (Rec: 10/25/19 10:26 [facility] [id number]) Physical Therapy Assessment Impairments Impairments Activity Tolerance,Balance, Edema,Functional Activities, Functional Mobility,Gait, Integument,Pain,ROM,Sensation, Soft Tissue Mobility,Strength Other Impairments Pt reports numbness dorsal foot that travels over the top of the foot to lateral ankle Goals 6 Impairment LE functional index score reflecting 80% impairment Care Home Goal (LTG) LE functional index score will reflect no more than 40% impairment by 11/03/19. LTG Duration 8 weeks 5 Duct Layer Helper Goal (LTG) Pt will perform HEP with I including ROM, flexibility, WB , gait, balance and strengthening exercises by . LTG Duration 8 weeks 4 Duct Layer Helper Goal (LTG) Pt will deny falls for 2 months by 11/03/19. LTG Duration 8 weeks 3 Care Home Goal (LTG) Pt will present with improved left ankle AROM to at least 15 deg PF, DF, eversion and inversion by 11/03/19. LTG Duration 8 weeks 2 Care Home Goal (LTG) Pt will perform 2 step gait training with crutches and mod I by 11/03/19. LTG Duration 8 weeks 1 Duct Layer Helper Goal (LTG) Pt will report a 25% improvement in left ankle and heel pain by 11/03/19. LTG Duration 8 weeks Assessment Summary Assessment Patient with good tolerance for deep water therapeutic aquatic exercises. No shallow water due to patient not having shoes for use in pool yet. Physical Therapy Plan Frequency and Duration Frequency of Treatment 2x/Week Duration of Treatment 8 weeks Plan of Care Start Date 09/03/19 Plan of Care End Date 11/03/19 Therapeutic Interventions Therapeutic Interventions Balance Training,Coordination Training,Gait Training,Home Exercise Program,Joint Mobilizations,Manual Therapy, Neuromuscular Re-education, Patient/Caregiver Education, Self-Care/Home Management, Sensory Integration,Soft Tissue Mobilization,Taping, Therapeutic Activities, Therapeutic Exercises Modalities Cold Pack/Ice Massage,Electric Stimulation,Hot Packs, Ultrasound Other Referrals/Consults Referrals/Consults Recommended Recommend call doctor to follow-up about possible fungus on top of foot and between 4th and 5th toe Next Visit Focus/Plan Next Note Type Treatment Note Next Visit Plan Assess response to aquatic therapy, Progress PT per POC.
--- NOTE | 2019-10-26 15:31 | PT.OTN ---
Current Diagnoses Unspecified fracture of left calcaneus, initial encounter for closed fracture (10/26/19) Encounter for other orthopedic aftercare (10/26/19) Physical Therapy Treatment Note PT-OP-A Visit Information Start: 08/21/19 09:06 Freq: Status: Active Protocol: Document 10/26/19 14:31 MB (Rec: 10/26/19 15:26 MB [id number]) Out-Patient Physical Therapy Visit Information Visit Information Visit Type Treatment Note Visit Start Time 14:31 Visit Stop Time 15:11 Total Visit Minutes 40 Visit Number 10/14 PT-OP-B Current Condition Start: 08/21/19 09:06 Freq: Status: Active Protocol: Document 09/03/19 08:55 MB (Rec: 09/03/19 09:40 MB [id number]) Current Condition History of Current Condition Onset Date 06/02/19 History of Current Condition Pt fell 06/02/19 when ladder was falling. He states that he actually jumped to try to avoid fuerther injury. He sustained L comminuted calcaneal fx s/p ORIF 06/19/19. He also had bone graft. He returns to surgeon on 09/13/19 . On visit 08/02/19, he was told that he is 50% WB on left foot wearing boot and using crutches. He was told to progress 25% more after two weeks but left heel pain has limited WB. The swelling hasn' t gone down. He has two steps to enter house. There is no railing. The door opens forward and he has trouble with this. He has had a couple of falls. He fell when using knee scooter when trying to place knee back up on it. He almost fell off front porch when it was wet. 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 He is sleeping sporatically, on his right side with pillow support . He is taking Gabapentin, Tylenol, and is trying to quit smoking. Prior Treatments and Tests Sx PT-OP-C Subjective Start: 08/21/19 09:06 Freq: Status: Active Protocol: Document 10/26/19 14:31 MB (Rec: 10/26/19 15:26 MB [id number]) OP-PT Subjective Patient Comments Patient Comments Pt reports that it was nice to be in the pool. It felt freeing. He had trouble with ankle roll exercises and has most trouble moving the foot outward. He is WB more on his left foot, is using 1 crutch and con't to be careful about where he is stepping. He does think that therapy is helpful. PT-OP-G Mobility & Gait Start: 08/21/19 09:06 Freq: Status: Active Protocol: Document 09/03/19 08:55 MB (Rec: 09/03/19 10:57 MB [id number]) OP Gait Assessment Comments Gait Comments Approximately 25% WB through left foot with gait wearing boot and using crutches. Pt using step-to to step-through gait. PT-OP-K Range of Motion Start: 08/21/19 09:06 Freq: Status: Active Protocol: Document 09/03/19 08:55 MB (Rec: 09/03/19 10:57 MB [id number]) Ankle and Foot Goniometric Range of Motion Ankle and Foot ROM Limitations ROM Limitations Swelling Comments R ankle and foot functional. Left ankle and foot with minimal ROM: active DF 5 deg, PF 10 deg, no active inversion and 5 deg eversion. He performs minimal toe wiggle all toes. Ecchymosis of entire foot with foot in dependent position. PT-OP-M Strength Start: 08/21/19 09:06 Freq: Status: Active Protocol: Document 09/03/19 08:55 MB (Rec: 09/03/19 10:57 MB [id number]) Hip Strength Hip Manual Muscle Testing Left Flexion (L2) 5 Normal Abduction 4 Good Comments Supine Right Flexion (L2) 5 Normal Abduction 4 Good Comments Supine Knee Strength Knee Manual Muscle Testing Left Flexion (S2) 5 Normal Extension (L3) 5 Normal Right Flexion (S2) 5 Normal Extension (L3) 5 Normal Comments Supine Ankle/Foot Strength Ankle and Foot Manual Muscle Testing Right Dorsiflexion (L4) 5 Normal Plantarflexion (S1) 5 Normal Inversion 5 Normal Eversion (S1) 4 Good Comments Cannot test the left s/p ORIF, pain, edema pitting greater than 10 sec recoil PT-OP-Q Treatments Start: 08/21/19 09:06 Freq: Status: Active Protocol: Document 10/26/19 14:31 MB (Rec: 10/26/19 15:26 MB [id number]) Therapeutic Exercises Supine Exercises APs and toe flexion and extension Comments Performed 20 reps left foot today, most trouble eversion Abelino stretch with ankle pump, B Comments Performed LLE today Gait Training Gait Activity Crutch training Comments 1 crutch under right arm, gait training to improve gait pattern. Pt is able to ascend and descend 4-6 steps with crutch right hand only, step- to gait. Manual Therapy Treatment Other Other Manual Treatments Left toe mobs, met mobs grade II, gentle tarsal mobs (tight tarsals and metarsals) PT-OP-R Modalities Start: 08/21/19 09:06 Freq: Status: Active Protocol: Document 10/15/19 08:20 SP (Rec: 10/15/19 09:03 SP [id number]) Hot Pack/Cold Pack Treatment Cold Pack Location L ankle Patient Position Supine Treatment Duration (minutes) 10 Patient Tolerance Good Comments cryocuff PT-OP-S Aquatic Treatment Start: 08/21/19 09:06 Freq: Status: Active Protocol: Document 10/24/19 12:30 SAK (Rec: 10/25/19 11:35 SAK [id number]) Aquatics Treatment Pool Entry/Exit Pool Entry/Exit Method Lift Assistance Standby Assistance,Verbal Cues Lower Extremity Exercises ankle ROM Details df/pf, inv/ev, circles Body Position Standing Water Level [place] Equipment Large Noodle Reps/Duration 10x ea Lower Extremity Stretches HC Details involved Body Position Standing Water Level Chest Level Equipment Small Noodle Reps/Duration 2x30 HS Details involved Body Position Standing Water Level Chest Level Equipment Small Noodle Reps/Duration 2x 30 Comments manual [place] Activities [place] Activities Bicycle,Bicycle Backwards, Cross Country,Running,Hip Abduction/Adduction,Sit Kicks Equipment large noodle Duration 30 min Swim Strokes Flutter Other Equipment Used large noodle Laps/Duration 5 min Comments gentle, with sculling of UE's PT-OP-T Assessment and Plan Start: 08/21/19 09:06 Freq: Status: Active Protocol: Document 10/26/19 14:31 MB (Rec: 10/26/19 12:20 MB [id number]) Physical Therapy Assessment Rehab Potential Rehabilitation Potential Good Impairments Impairments Activity Tolerance,Balance, Edema,Functional Activities, Functional Mobility,Gait, Integument,Pain,ROM,Sensation, Soft Tissue Mobility,Strength Other Impairments Pt reports numbness dorsal foot that travels over the top of the foot to lateral ankle Goals 6 Impairment LE functional index score reflecting 80% impairment Irrigationist Designer Goal (LTG) LE functional index score will reflect no more than 40% impairment by 01/22/20. 10/26: Pt presents with slight improvement in LE functional index score to reflect 77.5% impairment. LTG Duration 12 weeks 5 [facility] Goal (LTG) Pt will perform HEP with I including ROM, flexibility, WB , gait, balance and strengthening exercises by . 10/26: Pt is performing progressive HEP everyday LTG Duration 12 weeks 4 Irrigationist Designer Goal (LTG) Pt will deny falls for 2 months by 01/22/20. 10/26: Pt had one fall in the last month LTG Duration 12 weeks 3 Irrigationist Designer Goal (LTG) Pt will present with improved left ankle AROM to at least 30 deg PF, 15 deg DF, eversion and inversion by 01/22/20. 10/26: AROM DF 5 deg, PF 15 deg , eversion 5 deg, inversion 7 deg. LTG Duration 12 weeks 2 Irrigationist Designer Goal (LTG) Pt will perform 2 step gait training without AD and with reciprocal gait by 01/22/20. 10/26: Pt can ascend and descend 4-6 steps with 1 crutch, step-to gait LTG Duration 12 weeks 1 [facility] Goal (LTG) Pt will report a 50% improvement in left ankle and heel pain by 01/22/20. 10/26: Pt reports 10% improvement in pain LTG Duration 12 weeks Progress Towards Goals Progress Towards Goals Slow Progress due to Activity Tolerance Assessment Summary Assessment Pt is making slow progress towards PT goals. He presents with increased WB through his foot and is wearing shoes. He is presenting with improvement with HEP. Con't PT progression towards goals. Physical Therapy Plan Frequency and Duration Frequency of Treatment 2x/Week Duration of Treatment 12 weeks Plan of Care Start Date 10/23/19 Plan of Care End Date 01/22/20 Therapeutic Interventions Therapeutic Interventions Aquatic Therapy,Balance Training,Coordination Training ,Gait Training,Home Exercise Program,Joint Mobilizations, Manual Therapy,Neuromuscular Re-education,Patient/Caregiver Education,Self-Care/Home Management,Soft Tissue Mobilization,Taping, Therapeutic Activities, Therapeutic Exercises Modalities Cold Pack/Ice Massage,Electric Stimulation,Hot Packs, Ultrasound Next Visit Focus/Plan Next Note Type Treatment Note Next Visit Plan Progress ROM and flexibility, strengthening as tolerated, consider hip strengthening in side lying
--- NOTE | 2019-10-26 15:31 | PT.OPPOC ---
Current Diagnoses Unspecified fracture of left calcaneus, initial encounter for closed fracture (10/26/19) Encounter for other orthopedic aftercare (10/26/19) Visit Care Team Role Provider Type Cherelle Pugh MD Primary Care Provider Physician Specialty: Internal Medicine Address: [address] [place] [address], [phone] Email: King Raman MD Attending Provider Non-Staff Specialty: Orthopedic Surgery Address: [address] [place] [address], [id number] Fax: Email: Plan Of Care PT-OP-T Assessment and Plan Start: 08/21/19 09:06 Freq: Status: Active Protocol: Document 10/26/19 14:31 MB (Rec: 10/26/19 12:20 MB [id number]) Physical Therapy Assessment Rehab Potential Rehabilitation Potential Good Impairments Impairments Activity Tolerance,Balance, Edema,Functional Activities, Functional Mobility,Gait, Integument,Pain,ROM,Sensation, Soft Tissue Mobility,Strength Other Impairments Pt reports numbness dorsal foot that travels over the top of the foot to lateral ankle Goals 6 Impairment LE functional index score reflecting 80% impairment Analog Device Designer Goal (LTG) LE functional index score will reflect no more than 40% impairment by 01/22/20. 12: Pt presents with slight improvement in LE functional index score to reflect 77.5% impairment. LTG Duration 12 weeks 5 Analog Device Designer Goal (LTG) Pt will perform HEP with I including ROM, flexibility, WB , gait, balance and strengthening exercises by . 12: Pt is performing progressive HEP everyday LTG Duration 12 weeks 4 Analog Device Designer Goal (LTG) Pt will deny falls for 2 months by 01/22/20. 126: Pt had one fall in the last month LTG Duration 12 weeks 3 Analog Device Designer Goal (LTG) Pt will present with improved left ankle AROM to at least 30 deg PF, 15 deg DF, eversion and inversion by 01/22/20. 12: AROM DF 5 deg, PF 15 deg , eversion 5 deg, inversion 7 deg. LTG Duration 12 weeks 2 [facility] Goal (LTG) Pt will perform 2 step gait training without AD and with reciprocal gait by 01/22/20. 126: Pt can ascend and descend 4-6 steps with 1 crutch, step-to gait LTG Duration 12 weeks 1 [facility] Goal (LTG) Pt will report a 50% improvement in left ankle and heel pain by 01/22/20. 10/26: Pt reports 10% improvement in pain LTG Duration 12 weeks Progress Towards Goals Progress Towards Goals Slow Progress due to Activity Tolerance Assessment Summary Assessment Pt is making slow progress towards PT goals. He presents with increased WB through his foot and is wearing shoes. He is presenting with improvement with HEP. Con't PT progression towards goals. Physical Therapy Plan Frequency and Duration Frequency of Treatment 2x/Week Duration of Treatment 12 weeks Plan of Care Start Date 10/23/19 Plan of Care End Date 01/22/20 Therapeutic Interventions Therapeutic Interventions Aquatic Therapy,Balance Training,Coordination Training ,Gait Training,Home Exercise Program,Joint Mobilizations, Manual Therapy,Neuromuscular Re-education,Patient/Caregiver Education,Self-Care/Home Management,Soft Tissue Mobilization,Taping, Therapeutic Activities, Therapeutic Exercises Modalities Cold Pack/Ice Massage,Electric Stimulation,Hot Packs, Ultrasound Next Visit Focus/Plan Next Note Type Treatment Note Next Visit Plan Progress ROM and flexibility, strengthening as tolerated, consider hip strengthening in side lying Plan of Care Dates Plan of Care Start Date 10/23/19 Plan of Care End Date 01/22/20
--- NOTE | 2019-10-26 15:31 | PT.OPPOC ---
Current Diagnoses Unspecified fracture of left calcaneus, initial encounter for closed fracture (10/26/19) Encounter for other orthopedic aftercare (10/26/19) Visit Care Team Role Provider Type Cherelle Pugh MD Primary Care Provider Physician Specialty: Internal Medicine Address: [address] [place] [address], [address] Email: King Raman MD Attending Provider Non-Staff Specialty: Orthopedic Surgery Address: [address] [place] [address], [phone] Fax: Email: Plan Of Care PT-OP-T Assessment and Plan Start: 08/21/19 09:06 Freq: Status: Active Protocol: Document 10/26/19 14:31 MB (Rec: 10/26/19 12:20 MB [id number]) Physical Therapy Assessment Rehab Potential Rehabilitation Potential Good Impairments Impairments Activity Tolerance,Balance, Edema,Functional Activities, Functional Mobility,Gait, Integument,Pain,ROM,Sensation, Soft Tissue Mobility,Strength Other Impairments Pt reports numbness dorsal foot that travels over the top of the foot to lateral ankle Goals 6 Impairment LE functional index score reflecting 80% impairment Varitypist Goal (LTG) LE functional index score will reflect no more than 40% impairment by 01/22/20. 12: Pt presents with slight improvement in LE functional index score to reflect 77.5% impairment. LTG Duration 12 weeks 5 Varitypist Goal (LTG) Pt will perform HEP with I including ROM, flexibility, WB , gait, balance and strengthening exercises by . 12: Pt is performing progressive HEP everyday LTG Duration 12 weeks 4 Varitypist Goal (LTG) Pt will deny falls for 2 months by 01/22/20. 126: Pt had one fall in the last month LTG Duration 12 weeks 3 Varitypist Goal (LTG) Pt will present with improved left ankle AROM to at least 30 deg PF, 15 deg DF, eversion and inversion by 01/22/20. 12: AROM DF 5 deg, PF 15 deg , eversion 5 deg, inversion 7 deg. LTG Duration 12 weeks 2 Care Home Goal (LTG) Pt will perform 2 step gait training without AD and with reciprocal gait by 01/22/20. 126: Pt can ascend and descend 4-6 steps with 1 crutch, step-to gait LTG Duration 12 weeks 1 Care Home Goal (LTG) Pt will report a 50% improvement in left ankle and heel pain by 01/22/20. 10/26: Pt reports 10% improvement in pain LTG Duration 12 weeks Progress Towards Goals Progress Towards Goals Slow Progress due to Activity Tolerance Assessment Summary Assessment Pt is making slow progress towards PT goals. He presents with increased WB through his foot and is wearing shoes. He is presenting with improvement with HEP. Con't PT progression towards goals. Physical Therapy Plan Frequency and Duration Frequency of Treatment 2x/Week Duration of Treatment 12 weeks Plan of Care Start Date 10/23/19 Plan of Care End Date 01/22/20 Therapeutic Interventions Therapeutic Interventions Aquatic Therapy,Balance Training,Coordination Training ,Gait Training,Home Exercise Program,Joint Mobilizations, Manual Therapy,Neuromuscular Re-education,Patient/Caregiver Education,Self-Care/Home Management,Soft Tissue Mobilization,Taping, Therapeutic Activities, Therapeutic Exercises Modalities Cold Pack/Ice Massage,Electric Stimulation,Hot Packs, Ultrasound Next Visit Focus/Plan Next Note Type Treatment Note Next Visit Plan Progress ROM and flexibility, strengthening as tolerated, consider hip strengthening in side lying Plan of Care Dates Plan of Care Start Date 10/23/19 Plan of Care End Date 01/22/20
--- NOTE | 2019-10-29 10:26 | PT.OTN ---
Current Diagnoses Unspecified fracture of left calcaneus, initial encounter for closed fracture (10/29/19) Encounter for other orthopedic aftercare (10/29/19) Physical Therapy Treatment Note PT-OP-A Visit Information Start: 08/21/19 09:06 Freq: Status: Active Protocol: Document 10/29/19 09:46 MB (Rec: 10/29/19 10:26 MB [id number]) Out-Patient Physical Therapy Visit Information Visit Information Visit Type Treatment Note Visit Start Time 09:46 Visit Stop Time 10:26 Total Visit Minutes 40 Visit Number 11/13 PT-OP-B Current Condition Start: 08/21/19 09:06 Freq: Status: Active Protocol: Document 09/03/19 08:55 MB (Rec: 09/03/19 09:40 MB [id number]) Current Condition History of Current Condition Onset Date 06/02/19 History of Current Condition Pt fell 06/02/19 when ladder was falling. He states that he actually jumped to try to avoid fuerther injury. He sustained L comminuted calcaneal fx s/p ORIF 06/19/19. He also had bone graft. He returns to surgeon on 09/13/19 . On visit 08/02/19, he was told that he is 50% WB on left foot wearing boot and using crutches. He was told to progress 25% more after two weeks but left heel pain has limited WB. The swelling hasn' t gone down. He has two steps to enter house. There is no railing. The door opens forward and he has trouble with this. He has had a couple of falls. He fell when using knee scooter when trying to place knee back up on it. He almost fell off front porch when it was wet. 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 He is sleeping sporatically, on his right side with pillow support . He is taking Gabapentin, Tylenol, and is trying to quit smoking. Prior Treatments and Tests Sx PT-OP-C Subjective Start: 08/21/19 09:06 Freq: Status: Active Protocol: Document 10/29/19 09:46 MB (Rec: 10/29/19 10:26 MB [id number]) OP-PT Subjective Patient Comments Patient Comments Pt states that it is another day. He is doing his exercises . PT-OP-G Mobility & Gait Start: 08/21/19 09:06 Freq: Status: Active Protocol: Document 09/03/19 08:55 MB (Rec: 09/03/19 10:57 MB [id number]) OP Gait Assessment Comments Gait Comments Approximately 25% WB through left foot with gait wearing boot and using crutches. Pt using step-to to step-through gait. PT-OP-K Range of Motion Start: 08/21/19 09:06 Freq: Status: Active Protocol: Document 09/03/19 08:55 MB (Rec: 09/03/19 10:57 MB [id number]) Ankle and Foot Goniometric Range of Motion Ankle and Foot ROM Limitations ROM Limitations Swelling Comments R ankle and foot functional. Left ankle and foot with minimal ROM: active DF 5 deg, PF 10 deg, no active inversion and 5 deg eversion. He performs minimal toe wiggle all toes. Ecchymosis of entire foot with foot in dependent position. PT-OP-M Strength Start: 08/21/19 09:06 Freq: Status: Active Protocol: Document 09/03/19 08:55 MB (Rec: 09/03/19 10:57 MB [id number]) Hip Strength Hip Manual Muscle Testing Left Flexion (L2) 5 Normal Abduction 4 Good Comments Supine Right Flexion (L2) 5 Normal Abduction 4 Good Comments Supine Knee Strength Knee Manual Muscle Testing Left Flexion (S2) 5 Normal Extension (L3) 5 Normal Right Flexion (S2) 5 Normal Extension (L3) 5 Normal Comments Supine Ankle/Foot Strength Ankle and Foot Manual Muscle Testing Right Dorsiflexion (L4) 5 Normal Plantarflexion (S1) 5 Normal Inversion 5 Normal Eversion (S1) 4 Good Comments Cannot test the left s/p ORIF, pain, edema pitting greater than 10 sec recoil PT-OP-Q Treatments Start: 08/21/19 09:06 Freq: Status: Active Protocol: Document 10/29/19 09:46 MB (Rec: 10/29/19 10:26 MB [id number]) Therapeutic Exercises Supine Exercises SLR Comments Performed 10 reps B, too easy, not added to HEP Hamstring stretch with AP Comments Performed this date and added to HEP Abelino stretch with ankle pump, B Comments Performed B today Sidelying Exercises Side lying hip abduction leg straight Comments Side lying hip abduction, hips forward, top foot everted Manual Therapy Treatment Other Other Manual Treatments STM left calf, MWM PT providing trigger point pressure and pt performing AP. Gentle metatarsal mobs PT-OP-R Modalities Start: 08/21/19 09:06 Freq: Status: Active Protocol: Document 10/15/19 08:20 SP (Rec: 10/15/19 09:03 SP [id number]) Hot Pack/Cold Pack Treatment Cold Pack Location L ankle Patient Position Supine Treatment Duration (minutes) 10 Patient Tolerance Good Comments cryocuff PT-OP-S Aquatic Treatment Start: 08/21/19 09:06 Freq: Status: Active Protocol: Document 10/24/19 12:30 SAK (Rec: 10/25/19 11:35 SAK [id number]) Aquatics Treatment Pool Entry/Exit Pool Entry/Exit Method Lift Assistance Standby Assistance,Verbal Cues Lower Extremity Exercises ankle ROM Details df/pf, inv/ev, circles Body Position Standing Water Level [place] Equipment Large Noodle Reps/Duration 10x ea Lower Extremity Stretches HC Details involved Body Position Standing Water Level Chest Level Equipment Small Noodle Reps/Duration 2x30 HS Details involved Body Position Standing Water Level Chest Level Equipment Small Noodle Reps/Duration 2x 30 Comments manual [place] Activities [place] Activities Bicycle,Bicycle Backwards, Cross Country,Running,Hip Abduction/Adduction,Sit Kicks Equipment large noodle Duration 30 min Swim Strokes Flutter Other Equipment Used large noodle Laps/Duration 5 min Comments gentle, with sculling of UE's PT-OP-T Assessment and Plan Start: 08/21/19 09:06 Freq: Status: Active Protocol: Document 10/29/19 09:46 MB (Rec: 10/29/19 10:26 MB [id number]) Physical Therapy Assessment Rehab Potential Rehabilitation Potential Good Impairments Impairments Activity Tolerance,Balance, Edema,Functional Activities, Functional Mobility,Gait, Integument,Pain,ROM,Sensation, Soft Tissue Mobility,Strength Other Impairments Pt reports numbness dorsal foot that travels over the top of the foot to lateral ankle Goals 6 Impairment LE functional index score reflecting 80% impairment Trim Line Worker Goal (LTG) LE functional index score will reflect no more than 40% impairment by 01/22/20. 12/6: Pt presents with slight improvement in LE functional index score to reflect 77.5% impairment. LTG Duration 12 weeks 5 Care Home Goal (LTG) Pt will perform HEP with I including ROM, flexibility, WB , gait, balance and strengthening exercises by . 10/26: Pt is performing progressive HEP everyday LTG Duration 12 weeks 4 Trim Line Worker Goal (LTG) Pt will deny falls for 2 months by 01/22/20. 10/26: Pt had one fall in the last month LTG Duration 12 weeks 3 Care Home Goal (LTG) Pt will present with improved left ankle AROM to at least 30 deg PF, 15 deg DF, eversion and inversion by 01/22/20. 10/26: AROM DF 5 deg, PF 15 deg , eversion 5 deg, inversion 7 deg. LTG Duration 12 weeks 2 Care Home Goal (LTG) Pt will perform 2 step gait training without AD and with reciprocal gait by 01/22/20. 10/26: Pt can ascend and descend 4-6 steps with 1 crutch, step-to gait LTG Duration 12 weeks 1 Trim Line Worker Goal (LTG) Pt will report a 50% improvement in left ankle and heel pain by 01/22/20. 10/26: Pt reports 10% improvement in pain LTG Duration 12 weeks Progress Towards Goals Progress Towards Goals Slow Progress due to Activity Tolerance Assessment Summary Assessment Progressed LE exercises this date, SLR too easy and hip abduction to HEP. Physical Therapy Plan Frequency and Duration Frequency of Treatment 2x/Week Duration of Treatment 12 weeks Plan of Care Start Date 10/23/19 Plan of Care End Date 01/22/20 Therapeutic Interventions Therapeutic Interventions Aquatic Therapy,Balance Training,Coordination Training ,Gait Training,Home Exercise Program,Joint Mobilizations, Manual Therapy,Neuromuscular Re-education,Patient/Caregiver Education,Self-Care/Home Management,Soft Tissue Mobilization,Taping, Therapeutic Activities, Therapeutic Exercises Modalities Cold Pack/Ice Massage,Electric Stimulation,Hot Packs, Ultrasound Next Visit Focus/Plan Next Note Type Treatment Note Next Visit Plan Progress ROM and flexibility, strengthening as tolerated
--- NOTE | 2019-10-31 16:20 | PT.OTN ---
Current Diagnoses Unspecified fracture of left calcaneus, initial encounter for closed fracture (10/31/19) Encounter for other orthopedic aftercare (10/31/19) Physical Therapy Treatment Note PT-OP-A Visit Information Start: 08/21/19 09:06 Freq: Status: Active Protocol: Document 10/31/19 11:45 LJ (Rec: 10/31/19 16:20 LJ [email or web address]) Out-Patient Physical Therapy Visit Information Visit Information Visit Type Aquatic Treatment Note Visit Start Time 11:45 Visit Stop Time 12:30 Total Visit Minutes 45 Visit Number Number of SOFTWARE ENGINEER INTERN Visits 1 PT-OP-B Current Condition Start: 08/21/19 09:06 Freq: Status: Active Protocol: Document 09/03/19 08:55 MB (Rec: 09/03/19 09:40 MB [id number]) Current Condition History of Current Condition Onset Date 06/02/19 History of Current Condition Pt fell 06/02/19 when ladder was falling. He states that he actually jumped to try to avoid fuerther injury. He sustained L comminuted calcaneal fx s/p ORIF 06/19/19. He also had bone graft. He returns to surgeon on 09/13/19 . On visit 08/02/19, he was told that he is 50% WB on left foot wearing boot and using crutches. He was told to progress 25% more after two weeks but left heel pain has limited WB. The swelling hasn' t gone down. He has two steps to enter house. There is no railing. The door opens forward and he has trouble with this. He has had a couple of falls. He fell when using knee scooter when trying to place knee back up on it. He almost fell off front porch when it was wet. 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 He is sleeping sporatically, on his right side with pillow support . He is taking Gabapentin, Tylenol, and is trying to quit smoking. Prior Treatments and Tests Sx PT-OP-C Subjective Start: 08/21/19 09:06 Freq: Status: Active Protocol: Document 10/31/19 11:45 LJ (Rec: 10/31/19 16:20 LJ [email or web address]) OP-PT Subjective Patient Comments Patient Comments Pt states he is 100% WB now but it is painful to put all his wt on his L foot. Pt walkng from locker room to pool and back with 1 crutch PT-OP-G Mobility & Gait Start: 08/21/19 09:06 Freq: Status: Active Protocol: Document 09/03/19 08:55 MB (Rec: 09/03/19 10:57 MB [id number]) OP Gait Assessment Comments Gait Comments Approximately 25% WB through left foot with gait wearing boot and using crutches. Pt using step-to to step-through gait. PT-OP-K Range of Motion Start: 08/21/19 09:06 Freq: Status: Active Protocol: Document 09/03/19 08:55 MB (Rec: 09/03/19 10:57 MB [id number]) Ankle and Foot Goniometric Range of Motion Ankle and Foot ROM Limitations ROM Limitations Swelling Comments R ankle and foot functional. Left ankle and foot with minimal ROM: active DF 5 deg, PF 10 deg, no active inversion and 5 deg eversion. He performs minimal toe wiggle all toes. Ecchymosis of entire foot with foot in dependent position. PT-OP-M Strength Start: 08/21/19 09:06 Freq: Status: Active Protocol: Document 09/03/19 08:55 MB (Rec: 09/03/19 10:57 MB [id number]) Hip Strength Hip Manual Muscle Testing Left Flexion (L2) 5 Normal Abduction 4 Good Comments Supine Right Flexion (L2) 5 Normal Abduction 4 Good Comments Supine Knee Strength Knee Manual Muscle Testing Left Flexion (S2) 5 Normal Extension (L3) 5 Normal Right Flexion (S2) 5 Normal Extension (L3) 5 Normal Comments Supine Ankle/Foot Strength Ankle and Foot Manual Muscle Testing Right Dorsiflexion (L4) 5 Normal Plantarflexion (S1) 5 Normal Inversion 5 Normal Eversion (S1) 4 Good Comments Cannot test the left s/p ORIF, pain, edema pitting greater than 10 sec recoil PT-OP-Q Treatments Start: 08/21/19 09:06 Freq: Status: Active Protocol: Document 10/29/19 09:46 MB (Rec: 10/29/19 10:26 MB [id number]) Therapeutic Exercises Supine Exercises SLR Comments Performed 10 reps B, too easy, not added to HEP Hamstring stretch with AP Comments Performed this date and added to HEP Abelino stretch with ankle pump, B Comments Performed B today Sidelying Exercises Side lying hip abduction leg straight Comments Side lying hip abduction, hips forward, top foot everted Manual Therapy Treatment Other Other Manual Treatments STM left calf, MWM PT providing trigger point pressure and pt performing AP. Gentle metatarsal mobs PT-OP-R Modalities Start: 08/21/19 09:06 Freq: Status: Active Protocol: Document 10/15/19 08:20 SP (Rec: 10/15/19 09:03 SP [id number]) Hot Pack/Cold Pack Treatment Cold Pack Location L ankle Patient Position Supine Treatment Duration (minutes) 10 Patient Tolerance Good Comments cryocuff PT-OP-S Aquatic Treatment Start: 08/21/19 09:06 Freq: Status: Active Protocol: Document 10/31/19 11:45 ALENA (Rec: 10/31/19 16:20 LJ [email or web address]) Aquatics Treatment Pool Entry/Exit Pool Entry/Exit Method Stairs Assistance Standby Assistance,Verbal Cues Water Walking Backwards Water Level Chest Level Level of Assistance Standby Assistance,Verbal Cues Sideways Water Level Chest Level Level of Assistance Standby Assistance,Verbal Cues Forward Water Level Chest Level Level of Assistance Standby Assistance,Verbal Cues Lower Extremity Exercises ankle ROM Details df/pf, inv/ev, circles Body Position Standing Water Level [place] Equipment Large Noodle Reps/Duration 10x ea Lower Extremity Stretches rolling foot on submerged BB Body Position Standing Water Level Chest Level Reps/Duration 1 min HC Details involved Body Position Standing Water Level Chest Level Equipment Small Noodle Reps/Duration 2x30 HS Details involved Body Position Standing Water Level Chest Level Equipment Small Noodle Reps/Duration 2x 30 Comments manual [place] Activities [place] Activities Bicycle,Bicycle Backwards, Cross Country,Running,Hip Abduction/Adduction,Sit Kicks Equipment large noodle Duration 15 min Comments emphasizing ankle mobility and stretching with resistance of water PT-OP-T Assessment and Plan Start: 08/21/19 09:06 Freq: Status: Active Protocol: Document 10/31/19 11:45 LJ (Rec: 10/31/19 16:20 LJ [email or web address]) Physical Therapy Assessment Rehab Potential Rehabilitation Potential Good Goals 6 Impairment LE functional index score reflecting 80% impairment Exercise Scientist Goal (LTG) LE functional index score will reflect no more than 40% impairment by 01/22/20. 10/26: Pt presents with slight improvement in LE functional index score to reflect 77.5% impairment. LTG Duration 12 weeks 5 Exercise Scientist Goal (LTG) Pt will perform HEP with I including ROM, flexibility, WB , gait, balance and strengthening exercises by . 10/26: Pt is performing progressive HEP everyday LTG Duration 12 weeks 4 Exercise Scientist Goal (LTG) Pt will deny falls for 2 months by 01/22/20. 10/26: Pt had one fall in the last month LTG Duration 12 weeks 3 Exercise Scientist Goal (LTG) Pt will present with improved left ankle AROM to at least 30 deg PF, 15 deg DF, eversion and inversion by 01/22/20. 10/26: AROM DF 5 deg, PF 15 deg , eversion 5 deg, inversion 7 deg. LTG Duration 12 weeks 2 Skilled Nursing Goal (LTG) Pt will perform 2 step gait training without AD and with reciprocal gait by 01/22/20. 10/26: Pt can ascend and descend 4-6 steps with 1 crutch, step-to gait LTG Duration 12 weeks 1 Skilled Nursing Goal (LTG) Pt will report a 50% improvement in left ankle and heel pain by 01/22/20. 10/26: Pt reports 10% improvement in pain LTG Duration 12 weeks Progress Towards Goals Progress Towards Goals Slow Progress due to Activity Tolerance Assessment Summary Assessment Progressed LE exercises this date, SLR too easy and hip abduction to HEP. Physical Therapy Plan Frequency and Duration Frequency of Treatment 2x/Week Duration of Treatment 12 weeks Plan of Care Start Date 10/23/19 Plan of Care End Date 01/22/20 Therapeutic Interventions Therapeutic Interventions Aquatic Therapy,Balance Training,Coordination Training ,Gait Training,Home Exercise Program,Joint Mobilizations, Manual Therapy,Neuromuscular Re-education,Patient/Caregiver Education,Self-Care/Home Management,Soft Tissue Mobilization,Taping, Therapeutic Activities, Therapeutic Exercises Modalities Cold Pack/Ice Massage,Electric Stimulation,Hot Packs, Ultrasound Next Visit Focus/Plan Next Note Type Treatment Note Next Visit Plan Progress ROM and flexibility, strengthening as tolerated
--- NOTE | 2019-11-05 09:48 | PT.OTN ---
Current Diagnoses Unspecified fracture of left calcaneus, initial encounter for closed fracture (11/05/19) Encounter for other orthopedic aftercare (11/05/19) Physical Therapy Treatment Note PT-OP-A Visit Information Start: 08/21/19 09:06 Freq: Status: Active Protocol: Document 11/05/19 09:06 MB (Rec: 11/05/19 09:48 MB [id number]) Out-Patient Physical Therapy Visit Information Visit Information Visit Type Treatment Note Visit Start Time 09:06 Visit Stop Time 10:30 Total Visit Minutes 39 Visit Number Number of MACHINIST SUPERVISOR Visits 1 PT-OP-B Current Condition Start: 08/21/19 09:06 Freq: Status: Active Protocol: Document 09/03/19 08:55 MB (Rec: 09/03/19 09:40 MB [id number]) Current Condition History of Current Condition Onset Date 06/02/19 History of Current Condition Pt fell 06/02/19 when ladder was falling. He states that he actually jumped to try to avoid fuerther injury. He sustained L comminuted calcaneal fx s/p ORIF 06/19/19. He also had bone graft. He returns to surgeon on 09/13/19 . On visit 08/02/19, he was told that he is 50% WB on left foot wearing boot and using crutches. He was told to progress 25% more after two weeks but left heel pain has limited WB. The swelling hasn' t gone down. He has two steps to enter house. There is no railing. The door opens forward and he has trouble with this. He has had a couple of falls. He fell when using knee scooter when trying to place knee back up on it. He almost fell off front porch when it was wet. 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 He is sleeping sporatically, on his right side with pillow support . He is taking Gabapentin, Tylenol, and is trying to quit smoking. Prior Treatments and Tests Sx PT-OP-C Subjective Start: 08/21/19 09:06 Freq: Status: Active Protocol: Document 11/05/19 09:06 MB (Rec: 11/05/19 09:48 MB [id number]) OP-PT Subjective Patient Comments Patient Comments Pt states that his leg still gets sore and swollen when he gets up to make breakfast for the kids. PT-OP-G Mobility & Gait Start: 08/21/19 09:06 Freq: Status: Active Protocol: Document 09/03/19 08:55 MB (Rec: 09/03/19 10:57 MB [id number]) OP Gait Assessment Comments Gait Comments Approximately 25% WB through left foot with gait wearing boot and using crutches. Pt using step-to to step-through gait. PT-OP-K Range of Motion Start: 08/21/19 09:06 Freq: Status: Active Protocol: Document 09/03/19 08:55 MB (Rec: 09/03/19 10:57 MB [id number]) Ankle and Foot Goniometric Range of Motion Ankle and Foot ROM Limitations ROM Limitations Swelling Comments R ankle and foot functional. Left ankle and foot with minimal ROM: active DF 5 deg, PF 10 deg, no active inversion and 5 deg eversion. He performs minimal toe wiggle all toes. Ecchymosis of entire foot with foot in dependent position. PT-OP-M Strength Start: 08/21/19 09:06 Freq: Status: Active Protocol: Document 09/03/19 08:55 MB (Rec: 09/03/19 10:57 MB [id number]) Hip Strength Hip Manual Muscle Testing Left Flexion (L2) 5 Normal Abduction 4 Good Comments Supine Right Flexion (L2) 5 Normal Abduction 4 Good Comments Supine Knee Strength Knee Manual Muscle Testing Left Flexion (S2) 5 Normal Extension (L3) 5 Normal Right Flexion (S2) 5 Normal Extension (L3) 5 Normal Comments Supine Ankle/Foot Strength Ankle and Foot Manual Muscle Testing Right Dorsiflexion (L4) 5 Normal Plantarflexion (S1) 5 Normal Inversion 5 Normal Eversion (S1) 4 Good Comments Cannot test the left s/p ORIF, pain, edema pitting greater than 10 sec recoil PT-OP-Q Treatments Start: 08/21/19 09:06 Freq: Status: Active Protocol: Document 11/05/19 09:06 MB (Rec: 11/05/19 09:48 MB [id number]) Therapeutic Exercises Sitting Exercises Long sitting hamstring stretch Comments Added today and pt to perform at [facility], lengthen through left heel Manual Therapy Treatment Other Other Manual Treatments Gentle metatarsal mobs, toe mobs, PF STM PT-OP-R Modalities Start: 08/21/19 09:06 Freq: Status: Active Protocol: Document 10/15/19 08:20 SP (Rec: 10/15/19 09:03 SP [id number]) Hot Pack/Cold Pack Treatment Cold Pack Location L ankle Patient Position Supine Treatment Duration (minutes) 10 Patient Tolerance Good Comments cryocuff PT-OP-S Aquatic Treatment Start: 08/21/19 09:06 Freq: Status: Active Protocol: Document 10/31/19 11:45 LJ (Rec: 10/31/19 16:20 LJ [email or web address]) Aquatics Treatment Pool Entry/Exit Pool Entry/Exit Method Stairs Assistance Standby Assistance,Verbal Cues Water Walking Backwards Water Level Chest Level Level of Assistance Standby Assistance,Verbal Cues Sideways Water Level Chest Level Level of Assistance Standby Assistance,Verbal Cues Forward Water Level Chest Level Level of Assistance Standby Assistance,Verbal Cues Lower Extremity Exercises ankle ROM Details df/pf, inv/ev, circles Body Position Standing Water Level [place] Equipment Large Noodle Reps/Duration 10x ea Lower Extremity Stretches rolling foot on submerged BB Body Position Standing Water Level Chest Level Reps/Duration 1 min HC Details involved Body Position Standing Water Level Chest Level Equipment Small Noodle Reps/Duration 2x30 HS Details involved Body Position Standing Water Level Chest Level Equipment Small Noodle Reps/Duration 2x 30 Comments manual [place] Activities [place] Activities Bicycle,Bicycle Backwards, Cross Country,Running,Hip Abduction/Adduction,Sit Kicks Equipment large noodle Duration 15 min Comments emphasizing ankle mobility and stretching with resistance of water PT-OP-T Assessment and Plan Start: 08/21/19 09:06 Freq: Status: Active Protocol: Document 11/05/19 09:06 MB (Rec: 11/05/19 09:48 MB [id number]) Physical Therapy Assessment Rehab Potential Rehabilitation Potential Good Impairments Impairments Activity Tolerance,Balance, Edema,Functional Activities, Functional Mobility,Gait, Integument,Pain,ROM,Sensation, Soft Tissue Mobility,Strength Other Impairments Pt reports numbness dorsal foot that travels over the top of the foot to lateral ankle Goals 6 Impairment LE functional index score reflecting 80% impairment Can Slider Goal (LTG) LE functional index score will reflect no more than 40% impairment by 01/22/20. 12/6: Pt presents with slight improvement in LE functional index score to reflect 77.5% impairment. LTG Duration 12 weeks 5 Half-Way Goal (LTG) Pt will perform HEP with I including ROM, flexibility, WB , gait, balance and strengthening exercises by . 10/26: Pt is performing progressive HEP everyday LTG Duration 12 weeks 4 Can Slider Goal (LTG) Pt will deny falls for 2 months by 01/22/20. 10/26: Pt had one fall in the last month LTG Duration 12 weeks 3 Can Slider Goal (LTG) Pt will present with improved left ankle AROM to at least 30 deg PF, 15 deg DF, eversion and inversion by 01/22/20. 10/26: AROM DF 5 deg, PF 15 deg , eversion 5 deg, inversion 7 deg. LTG Duration 12 weeks 2 Half-Way Goal (LTG) Pt will perform 2 step gait training without AD and with reciprocal gait by 01/22/20. 10/26: Pt can ascend and descend 4-6 steps with 1 crutch, step-to gait LTG Duration 12 weeks 1 Can Slider Goal (LTG) Pt will report a 50% improvement in left ankle and heel pain by 01/22/20. 10/26: Pt reports 10% improvement in pain LTG Duration 12 weeks Progress Towards Goals Progress Towards Goals Slow Progress due to Activity Tolerance Assessment Summary Assessment Initiated further plantar fascia mobs this date. Ed pt to perform himself at him. Also ed pt on passive plantar fascia and great toe stretching with theraband. Will also try with Tubagrip. Physical Therapy Plan Frequency and Duration Frequency of Treatment 2x/Week Duration of Treatment 12 weeks Plan of Care Start Date 10/23/19 Plan of Care End Date 01/22/20 Therapeutic Interventions Therapeutic Interventions Aquatic Therapy,Balance Training,Coordination Training ,Gait Training,Home Exercise Program,Joint Mobilizations, Manual Therapy,Neuromuscular Re-education,Patient/Caregiver Education,Self-Care/Home Management,Soft Tissue Mobilization,Taping, Therapeutic Activities, Therapeutic Exercises Modalities Cold Pack/Ice Massage,Electric Stimulation,Hot Packs, Ultrasound Next Visit Focus/Plan Next Note Type Treatment Note Next Visit Plan Progress ROM and flexibility, strengthening as tolerated
--- NOTE | 2019-11-07 15:04 | PT.OTN ---
Current Diagnoses Unspecified fracture of left calcaneus, initial encounter for closed fracture (11/07/19) Encounter for other orthopedic aftercare (11/07/19) Physical Therapy Treatment Note PT-OP-A Visit Information Start: 08/21/19 09:06 Freq: Status: Active Protocol: Document 11/07/19 11:00 LJ (Rec: 11/07/19 15:04 LJ [email or web address]) Out-Patient Physical Therapy Visit Information Visit Information Visit Type Aquatic Treatment Note Visit Start Time 11:00 Visit Stop Time 11:45 Total Visit Minutes 45 Visit Number Number of RN LACTATION Visits 1 PT-OP-B Current Condition Start: 08/21/19 09:06 Freq: Status: Active Protocol: Document 09/03/19 08:55 MB (Rec: 09/03/19 09:40 MB [id number]) Current Condition History of Current Condition Onset Date 06/02/19 History of Current Condition Pt fell 06/02/19 when ladder was falling. He states that he actually jumped to try to avoid fuerther injury. He sustained L comminuted calcaneal fx s/p ORIF 06/19/19. He also had bone graft. He returns to surgeon on 09/13/19 . On visit 08/02/19, he was told that he is 50% WB on left foot wearing boot and using crutches. He was told to progress 25% more after two weeks but left heel pain has limited WB. The swelling hasn' t gone down. He has two steps to enter house. There is no railing. The door opens forward and he has trouble with this. He has had a couple of falls. He fell when using knee scooter when trying to place knee back up on it. He almost fell off front porch when it was wet. 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 He is sleeping sporatically, on his right side with pillow support . He is taking Gabapentin, Tylenol, and is trying to quit smoking. Prior Treatments and Tests Sx PT-OP-C Subjective Start: 08/21/19 09:06 Freq: Status: Active Protocol: Document 11/07/19 11:00 LJ (Rec: 11/07/19 15:04 LJ [email or web address]) OP-PT Subjective Patient Comments Patient Comments Pt states dhe is still not able to fully wt bear on LLE due to too much pain. Uses crutch to walk from locker room to pool stairs and back. PT-OP-G Mobility & Gait Start: 08/21/19 09:06 Freq: Status: Active Protocol: Document 09/03/19 08:55 MB (Rec: 09/03/19 10:57 MB [id number]) OP Gait Assessment Comments Gait Comments Approximately 25% WB through left foot with gait wearing boot and using crutches. Pt using step-to to step-through gait. PT-OP-K Range of Motion Start: 08/21/19 09:06 Freq: Status: Active Protocol: Document 09/03/19 08:55 MB (Rec: 09/03/19 10:57 MB [id number]) Ankle and Foot Goniometric Range of Motion Ankle and Foot ROM Limitations ROM Limitations Swelling Comments R ankle and foot functional. Left ankle and foot with minimal ROM: active DF 5 deg, PF 10 deg, no active inversion and 5 deg eversion. He performs minimal toe wiggle all toes. Ecchymosis of entire foot with foot in dependent position. PT-OP-M Strength Start: 08/21/19 09:06 Freq: Status: Active Protocol: Document 09/03/19 08:55 MB (Rec: 09/03/19 10:57 MB [id number]) Hip Strength Hip Manual Muscle Testing Left Flexion (L2) 5 Normal Abduction 4 Good Comments Supine Right Flexion (L2) 5 Normal Abduction 4 Good Comments Supine Knee Strength Knee Manual Muscle Testing Left Flexion (S2) 5 Normal Extension (L3) 5 Normal Right Flexion (S2) 5 Normal Extension (L3) 5 Normal Comments Supine Ankle/Foot Strength Ankle and Foot Manual Muscle Testing Right Dorsiflexion (L4) 5 Normal Plantarflexion (S1) 5 Normal Inversion 5 Normal Eversion (S1) 4 Good Comments Cannot test the left s/p ORIF, pain, edema pitting greater than 10 sec recoil PT-OP-Q Treatments Start: 08/21/19 09:06 Freq: Status: Active Protocol: Document 11/05/19 09:06 MB (Rec: 11/05/19 09:48 MB [id number]) Therapeutic Exercises Sitting Exercises Long sitting hamstring stretch Comments Added today and pt to perform at [facility], lengthen through left heel Manual Therapy Treatment Other Other Manual Treatments Gentle metatarsal mobs, toe mobs, PF STM PT-OP-R Modalities Start: 08/21/19 09:06 Freq: Status: Active Protocol: Document 10/15/19 08:20 SP (Rec: 10/15/19 09:03 SP [id number]) Hot Pack/Cold Pack Treatment Cold Pack Location L ankle Patient Position Supine Treatment Duration (minutes) 10 Patient Tolerance Good Comments cryocuff PT-OP-S Aquatic Treatment Start: 08/21/19 09:06 Freq: Status: Active Protocol: Document 11/07/19 11:00 LJ (Rec: 11/07/19 15:04 LJ [email or web address]) Aquatics Treatment Pool Entry/Exit Pool Entry/Exit Method Stairs Assistance Standby Assistance,Verbal Cues Water Walking forward on uneven surface Water Level Chest Level Walking Equipment sm floats on bottom of feet Backwards Water Level Chest Level Level of Assistance Standby Assistance,Verbal Cues Sideways Water Level Chest Level Level of Assistance Standby Assistance,Verbal Cues Forward Water Level Chest Level Level of Assistance Standby Assistance,Verbal Cues Lower Extremity Exercises ankle ROM Details df/pf, inv/ev, circles Body Position Standing Water Level [place] Equipment Large Noodle Reps/Duration 10x ea Lower Extremity Stretches rolling foot on submerged BB Body Position Standing Water Level Chest Level Reps/Duration 2 min HC Details involved Body Position Standing Water Level Chest Level Equipment Small Noodle Reps/Duration 2x45 HS Details involved Body Position Standing Water Level Chest Level Equipment Small Noodle Reps/Duration 2x 45 Comments manual [place] Activities [place] Activities Bicycle,Bicycle Backwards, Cross Country,Running,Hip Abduction/Adduction,Sit Kicks Equipment large noodle Duration 15 min Comments emphasizing ankle mobility and stretching with resistance of water Swim Strokes Flutter Other Equipment Used lg belt Laps/Duration 5 min Comments gentle, with sculling of UE's PT-OP-T Assessment and Plan Start: 08/21/19 09:06 Freq: Status: Active Protocol: Document 11/07/19 11:00 LJ (Rec: 11/07/19 15:04 LJ [email or web address]) Physical Therapy Assessment Rehab Potential Rehabilitation Potential Good Impairments Impairments Activity Tolerance,Balance, Edema,Functional Activities, Functional Mobility,Gait, Integument,Pain,ROM,Sensation, Soft Tissue Mobility,Strength Other Impairments Pt reports numbness dorsal foot that travels over the top of the foot to lateral ankle Goals 6 Impairment LE functional index score reflecting 80% impairment [employer] Goal (LTG) LE functional index score will reflect no more than 40% impairment by 01/22/20. 10/26: Pt presents with slight improvement in LE functional index score to reflect 77.5% impairment. LTG Duration 12 weeks 5 [employer] Goal (LTG) Pt will perform HEP with I including ROM, flexibility, WB , gait, balance and strengthening exercises by . 10/26: Pt is performing progressive HEP everyday LTG Duration 12 weeks 4 [employer] Goal (LTG) Pt will deny falls for 2 months by 01/22/20. 10/26: Pt had one fall in the last month LTG Duration 12 weeks 3 [employer] Goal (LTG) Pt will present with improved left ankle AROM to at least 30 deg PF, 15 deg DF, eversion and inversion by 01/22/20. 10/26: AROM DF 5 deg, PF 15 deg , eversion 5 deg, inversion 7 deg. LTG Duration 12 weeks 2 [employer] Goal (LTG) Pt will perform 2 step gait training without AD and with reciprocal gait by 01/22/20. 10/26: Pt can ascend and descend 4-6 steps with 1 crutch, step-to gait LTG Duration 12 weeks 1 [employer] Goal (LTG) Pt will report a 50% improvement in left ankle and heel pain by 01/22/20. 10/26: Pt reports 10% improvement in pain LTG Duration 12 weeks Progress Towards Goals Progress Towards Goals Slow Progress due to Activity Tolerance Assessment Summary Assessment Pt still shows very limited and painful inversion and eversion of L foot. Tolerated exercises when kept to limited ROM Physical Therapy Plan Frequency and Duration Frequency of Treatment 2x/Week Duration of Treatment 12 weeks Plan of Care Start Date 10/23/19 Plan of Care End Date 01/22/20 Therapeutic Interventions Therapeutic Interventions Aquatic Therapy,Balance Training,Coordination Training ,Gait Training,Home Exercise Program,Joint Mobilizations, Manual Therapy,Neuromuscular Re-education,Patient/Caregiver Education,Self-Care/Home Management,Soft Tissue Mobilization,Taping, Therapeutic Activities, Therapeutic Exercises Modalities Cold Pack/Ice Massage,Electric Stimulation,Hot Packs, Ultrasound Next Visit Focus/Plan Next Note Type Treatment Note Next Visit Plan Progress ROM and flexibility, strengthening as tolerated
--- NOTE | 2019-11-12 13:21 | PT.OTN ---
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 He states that he actually jumped to try to avoid fuerther injury. He sustained L comminuted calcaneal fx s/p ORIF 06/19/19. He also had bone graft. He returns to surgeon on 09/13/19 . On visit 08/02/19, he was told that he is 50% WB on left foot wearing boot and using crutches. He was told to progress 25% more after two weeks but left heel pain has limited WB. The swelling hasn' t gone down. He has two steps to enter house. There is no railing. The door opens forward and he has trouble with this. He has had a couple of falls. He fell when using knee scooter when trying to place knee back up on it. He almost fell off front porch when it was wet. 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 He is sleeping sporatically, on his right side with pillow support . He is taking Gabapentin, Tylenol, and is trying to quit smoking. Prior Treatments and Tests Sx PT-OP-C Subjective Start: 08/21/19 09:06 Freq: Status: Active Protocol: Document 11/12/19 11:45 LJ (Rec: 11/12/19 13:21 LJ [email or web address]) OP-PT Subjective Patient Comments Patient Comments Pt still reporting pain with wt bearing on LLE. States his right foot is now starting to bother him PT-OP-G Mobility & Gait Start: 08/21/19 09:06 Freq: Status: Active Protocol: Document 09/03/19 08:55 MB (Rec: 09/03/19 10:57 MB [id number]) OP Gait Assessment Comments Gait Comments Approximately 25% WB through left foot with gait wearing boot and using crutches. Pt using step-to to step-through gait. PT-OP-K Range of Motion Start: 08/21/19 09:06 Freq: Status: Active Protocol: Document 09/03/19 08:55 MB (Rec: 09/03/19 10:57 MB [id number]) Ankle and Foot Goniometric Range of Motion Ankle and Foot ROM Limitations ROM Limitations Swelling Comments R ankle and foot functional. Left ankle and foot with minimal ROM: active DF 5 deg, PF 10 deg, no active inversion and 5 deg eversion. He performs minimal toe wiggle all toes. Ecchymosis of entire foot with foot in dependent position. PT-OP-M Strength Start: 08/21/19 09:06 Freq: Status: Active Protocol: Document 09/03/19 08:55 MB (Rec: 09/03/19 10:57 MB [id number]) Hip Strength Hip Manual Muscle Testing Left Flexion (L2) 5 Normal Abduction 4 Good Comments Supine Right Flexion (L2) 5 Normal Abduction 4 Good Comments Supine Knee Strength Knee Manual Muscle Testing Left Flexion (S2) 5 Normal Extension (L3) 5 Normal Right Flexion (S2) 5 Normal Extension (L3) 5 Normal Comments Supine Ankle/Foot Strength Ankle and Foot Manual Muscle Testing Right Dorsiflexion (L4) 5 Normal Plantarflexion (S1) 5 Normal Inversion 5 Normal Eversion (S1) 4 Good Comments Cannot test the left s/p ORIF, pain, edema pitting greater than 10 sec recoil PT-OP-Q Treatments Start: 08/21/19 09:06 Freq: Status: Active Protocol: Document 11/05/19 09:06 MB (Rec: 11/05/19 09:48 MB [id number]) Therapeutic Exercises Sitting Exercises Long sitting hamstring stretch Comments Added today and pt to perform at [facility], lengthen through left heel Manual Therapy Treatment Other Other Manual Treatments Gentle metatarsal mobs, toe mobs, PF STM PT-OP-R Modalities Start: 08/21/19 09:06 Freq: Status: Active Protocol: Document 10/15/19 08:20 SP (Rec: 10/15/19 09:03 SP [id number]) Hot Pack/Cold Pack Treatment Cold Pack Location L ankle Patient Position Supine Treatment Duration (minutes) 10 Patient Tolerance Good Comments cryocuff PT-OP-S Aquatic Treatment Start: 08/21/19 09:06 Freq: Status: Active Protocol: Document 11/12/19 11:45 LJ (Rec: 11/12/19 13:21 LJ [email or web address]) Aquatics Treatment Pool Entry/Exit Pool Entry/Exit Method Stairs Assistance Standby Assistance,Verbal Cues Water Walking forward on uneven surface Water Level Chest Level Walking Equipment sm floats on bottom of feet Backwards Water Level Chest Level Level of Assistance Standby Assistance,Verbal Cues Sideways Water Level Chest Level Level of Assistance Standby Assistance,Verbal Cues Forward Water Level Chest Level Level of Assistance Standby Assistance,Verbal Cues Lower Extremity Exercises hacky sac Body Position Standing Water Level Chest Level Reps/Duration 2 min ankle ROM Details df/pf, inv/ev, circles Body Position Standing Water Level [place] Equipment Large Noodle Reps/Duration 10x ea Lower Extremity Stretches rolling foot on submerged BB Body Position Standing Water Level Chest Level Reps/Duration 2 min HC Details involved Body Position Standing Water Level Chest Level Reps/Duration 2x45 Comments foot on wall HS Details involved Body Position Standing Water Level Chest Level Reps/Duration 2x 45 Comments foot on wall [place] Activities [place] Activities Bicycle,Bicycle Backwards, Cross Country,Running,Hip Abduction/Adduction,Sit Kicks Equipment large noodle Duration 30 min Comments emphasizing ankle mobility and stretching with resistance of water PT-OP-T Assessment and Plan Start: 08/21/19 09:06 Freq: Status: Active Protocol: Document 11/12/19 11:45 ALENA (Rec: 11/12/19 13:21 LJ [email or web address]) Physical Therapy Assessment Rehab Potential Rehabilitation Potential Good Impairments Impairments Activity Tolerance,Balance, Edema,Functional Activities, Functional Mobility,Gait, Integument,Pain,ROM,Sensation, Soft Tissue Mobility,Strength Other Impairments Pt reports numbness dorsal foot that travels over the top of the foot to lateral ankle Goals 6 Impairment LE functional index score reflecting 80% impairment Nursing Home Goal (LTG) LE functional index score will reflect no more than 40% impairment by 01/22/20. 10/26: Pt presents with slight improvement in LE functional index score to reflect 77.5% impairment. LTG Duration 12 weeks 5 Nursing Home Goal (LTG) Pt will perform HEP with I including ROM, flexibility, WB , gait, balance and strengthening exercises by . 10/26: Pt is performing progressive HEP everyday LTG Duration 12 weeks 4 [employer] Goal (LTG) Pt will deny falls for 2 months by 01/22/20. 10/26: Pt had one fall in the last month LTG Duration 12 weeks 3 [employer] Goal (LTG) Pt will present with improved left ankle AROM to at least 30 deg PF, 15 deg DF, eversion and inversion by 01/22/20. 10/26: AROM DF 5 deg, PF 15 deg , eversion 5 deg, inversion 7 deg. LTG Duration 12 weeks 2 Nursing Home Goal (LTG) Pt will perform 2 step gait training without AD and with reciprocal gait by 01/22/20. 10/26: Pt can ascend and descend 4-6 steps with 1 crutch, step-to gait LTG Duration 12 weeks 1 [employer] Goal (LTG) Pt will report a 50% improvement in left ankle and heel pain by 01/22/20. 10/26: Pt reports 10% improvement in pain LTG Duration 12 weeks Progress Towards Goals Progress Towards Goals Slow Progress due to Activity Tolerance Assessment Summary Assessment Pt tolerated deep water well but was unable to walk comfortably in chest deep water, Experienced some cramping in left foot in shallow and deep water. Physical Therapy Plan Frequency and Duration Frequency of Treatment 2x/Week Duration of Treatment 12 weeks Plan of Care Start Date 10/23/19 Plan of Care End Date 01/22/20 Therapeutic Interventions Therapeutic Interventions Aquatic Therapy,Balance Training,Coordination Training ,Gait Training,Home Exercise Program,Joint Mobilizations, Manual Therapy,Neuromuscular Re-education,Patient/Caregiver Education,Self-Care/Home Management,Soft Tissue Mobilization,Taping, Therapeutic Activities, Therapeutic Exercises Modalities Cold Pack/Ice Massage,Electric Stimulation,Hot Packs, Ultrasound Next Visit Focus/Plan Next Note Type Treatment Note Next Visit Plan Progress ROM and flexibility, strengthening as tolerated
--- NOTE | 2019-11-16 10:35 | PT.OTN ---
Current Diagnoses Unspecified fracture of left calcaneus, initial encounter for closed fracture (11/16/19) Encounter for other orthopedic aftercare (11/16/19) Physical Therapy Treatment Note PT-OP-A Visit Information Start: 08/21/19 09:06 Freq: Status: Active Protocol: Document 11/16/19 09:50 SP (Rec: 11/16/19 10:38 SP [id number]) Out-Patient Physical Therapy Visit Information Visit Information Visit Type Treatment Note Visit Start Time 09:50 Visit Stop Time 10:35 Total Visit Minutes 45 Visit Number Number of ROAD SIGN INSTALLER Visits 3 PT-OP-B Current Condition Start: 08/21/19 09:06 Freq: Status: Active Protocol: Document 09/03/19 08:55 MB (Rec: 09/03/19 09:40 MB [id number]) Current Condition History of Current Condition Onset Date 06/02/19 History of Current Condition Pt fell 06/02/19 when ladder was falling. He states that he actually jumped to try to avoid fuerther injury. He sustained L comminuted calcaneal fx s/p ORIF 06/19/19. He also had bone graft. He returns to surgeon on 09/13/19 . On visit 08/02/19, he was told that he is 50% WB on left foot wearing boot and using crutches. He was told to progress 25% more after two weeks but left heel pain has limited WB. The swelling hasn' t gone down. He has two steps to enter house. There is no railing. The door opens forward and he has trouble with this. He has had a couple of falls. He fell when using knee scooter when trying to place knee back up on it. He almost fell off front porch when it was wet. 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 He is sleeping sporatically, on his right side with pillow support . He is taking Gabapentin, Tylenol, and is trying to quit smoking. Prior Treatments and Tests Sx PT-OP-C Subjective Start: 08/21/19 09:06 Freq: Status: Active Protocol: Document 11/16/19 09:50 SP (Rec: 11/16/19 10:38 SP [id number]) OP-PT Subjective Patient Comments Patient Comments Pt stated a shanique day, compliant with HEP through the holiday activities. Demonstrated R lateral lean when ambulating using R crutch. Pt stated still desensitized through all toes and has to apply more than contact touch to feel medial R heel and still no contact feeling lateral R heel . Pt stated HS stretch foot propped up on table during aquatics was painful pressure on heel. PT-OP-G Mobility & Gait Start: 08/21/19 09:06 Freq: Status: Active Protocol: Document 09/03/19 08:55 MB (Rec: 09/03/19 10:57 MB [id number]) OP Gait Assessment Comments Gait Comments Approximately 25% WB through left foot with gait wearing boot and using crutches. Pt using step-to to step-through gait. PT-OP-K Range of Motion Start: 08/21/19 09:06 Freq: Status: Active Protocol: Document 09/03/19 08:55 MB (Rec: 09/03/19 10:57 MB [id number]) Ankle and Foot Goniometric Range of Motion Ankle and Foot ROM Limitations ROM Limitations Swelling Comments R ankle and foot functional. Left ankle and foot with minimal ROM: active DF 5 deg, PF 10 deg, no active inversion and 5 deg eversion. He performs minimal toe wiggle all toes. Ecchymosis of entire foot with foot in dependent position. PT-OP-M Strength Start: 08/21/19 09:06 Freq: Status: Active Protocol: Document 09/03/19 08:55 MB (Rec: 09/03/19 10:57 MB [id number]) Hip Strength Hip Manual Muscle Testing Left Flexion (L2) 5 Normal Abduction 4 Good Comments Supine Right Flexion (L2) 5 Normal Abduction 4 Good Comments Supine Knee Strength Knee Manual Muscle Testing Left Flexion (S2) 5 Normal Extension (L3) 5 Normal Right Flexion (S2) 5 Normal Extension (L3) 5 Normal Comments Supine Ankle/Foot Strength Ankle and Foot Manual Muscle Testing Right Dorsiflexion (L4) 5 Normal Plantarflexion (S1) 5 Normal Inversion 5 Normal Eversion (S1) 4 Good Comments Cannot test the left s/p ORIF, pain, edema pitting greater than 10 sec recoil PT-OP-Q Treatments Start: 08/21/19 09:06 Freq: Status: Active Protocol: Document 11/16/19 09:50 SP (Rec: 11/16/19 10:38 SP [id number]) Therapeutic Exercises Supine Exercises Hamstring stretch with AP Equipment Used strap Reps/Minutes 30 x3 5 Supine Exercise Name ankle DF, PF, IV, EV Resistance AROM Reps/Minutes x10 each Sitting Exercises 2 Sitting Exercise Name BAPS Resistance Lv 1 Reps/Minutes x10 each direction Standing Exercises modified heel raise Reps/Minutes x5 stand wt shift Standing Exercise Name f/b/side to side Comments cued equal BLE stance Manual Therapy Treatment Soft Tissue Mobilization desensitation Body Location med/lat calcaneus Body Position Supine Comments tissue light friction scar mob Body Location scar mob Lat Intensity/Depth Superficial Body Position Supine Joint Mobilizations MTP APs Joint 1-4 MTP Direction AP Grade II Body Position Supine Reps/Duration 30 sec PT-OP-R Modalities Start: 08/21/19 09:06 Freq: Status: Active Protocol: Document 11/16/19 09:50 SP (Rec: 11/16/19 10:38 SP [id number]) Hot Pack/Cold Pack Treatment Cold Pack Location L ankle Patient Position Supine Treatment Duration (minutes) 10 Patient Tolerance Good Comments cryocuff PT-OP-S Aquatic Treatment Start: 08/21/19 09:06 Freq: Status: Active Protocol: Document 11/12/19 11:45 LJ (Rec: 11/12/19 13:21 LJ [id number]) Aquatics Treatment Pool Entry/Exit Pool Entry/Exit Method Stairs Assistance Standby Assistance,Verbal Cues Water Walking forward on uneven surface Water Level Chest Level Walking Equipment sm floats on bottom of feet Backwards Water Level Chest Level Level of Assistance Standby Assistance,Verbal Cues Sideways Water Level Chest Level Level of Assistance Standby Assistance,Verbal Cues Forward Water Level Chest Level Level of Assistance Standby Assistance,Verbal Cues Lower Extremity Exercises hacky sac Body Position Standing Water Level Chest Level Reps/Duration 2 min ankle ROM Details df/pf, inv/ev, circles Body Position Standing Water Level [place] Equipment Large Noodle Reps/Duration 10x ea Lower Extremity Stretches rolling foot on submerged BB Body Position Standing Water Level Chest Level Reps/Duration 2 min HC Details involved Body Position Standing Water Level Chest Level Reps/Duration 2x45 Comments foot on wall HS Details involved Body Position Standing Water Level Chest Level Reps/Duration 2x 45 Comments foot on wall [place] Activities [place] Activities Bicycle,Bicycle Backwards, Cross Country,Running,Hip Abduction/Adduction,Sit Kicks Equipment large noodle Duration 30 min Comments emphasizing ankle mobility and stretching with resistance of water PT-OP-T Assessment and Plan Start: 08/21/19 09:06 Freq: Status: Active Protocol: Document 11/16/19 09:50 SP (Rec: 11/16/19 10:38 SP [id number]) Physical Therapy Assessment Goals 6 Impairment LE functional index score reflecting 80% impairment Cutting Table Operator Goal (LTG) LE functional index score will reflect no more than 40% impairment by 01/22/20. 10/26: Pt presents with slight improvement in LE functional index score to reflect 77.5% impairment. LTG Duration 12 weeks 5 Cutting Table Operator Goal (LTG) Pt will perform HEP with I including ROM, flexibility, WB , gait, balance and strengthening exercises by . 10/26: Pt is performing progressive HEP everyday LTG Duration 12 weeks 4 Cutting Table Operator Goal (LTG) Pt will deny falls for 2 months by 01/22/20. 10/26: Pt had one fall in the last month LTG Duration 12 weeks 3 Cutting Table Operator Goal (LTG) Pt will present with improved left ankle AROM to at least 30 deg PF, 15 deg DF, eversion and inversion by 01/22/20. 10/26: AROM DF 5 deg, PF 15 deg , eversion 5 deg, inversion 7 deg. LTG Duration 12 weeks 2 Penitentiary Goal (LTG) Pt will perform 2 step gait training without AD and with reciprocal gait by 01/22/20. 10/26: Pt can ascend and descend 4-6 steps with 1 crutch, step-to gait LTG Duration 12 weeks 1 Cutting Table Operator Goal (LTG) Pt will report a 50% improvement in left ankle and heel pain by 01/22/20. 12: Pt reports 10% improvement in pain LTG Duration 12 weeks Assessment Summary Assessment Pt tolerated ther ex today, pain increased to 5-6/10 during heel raises ,BAPS end feel IV/EV but tolerable to toward ROM and functional mobillity. Encouraged desensitation trialed today to assist increase feeling med/ lat calcaneus. Good response to cryotherapy end of tx, just cold, no pain. Physical Therapy Plan Frequency and Duration Frequency of Treatment 2x/Week Duration of Treatment 12 weeks Plan of Care Start Date 10/23/19 Plan of Care End Date 01/22/20 Therapeutic Interventions Therapeutic Interventions Aquatic Therapy,Balance Training,Coordination Training ,Gait Training,Home Exercise Program,Joint Mobilizations, Manual Therapy,Neuromuscular Re-education,Patient/Caregiver Education,Self-Care/Home Management,Soft Tissue Mobilization,Taping, Therapeutic Activities, Therapeutic Exercises Modalities Cold Pack/Ice Massage,Electric Stimulation,Hot Packs, Ultrasound Next Visit Focus/Plan Next Note Type Treatment Note Next Visit Plan Assess response to ROM BAPS and standing wt shift/heel raises performed last tx. COntinue per PT POC: Progress ROM and flexibility, strengthening as tolerated
--- NOTE | 2019-11-19 17:10 | PT.OTN ---
Current Diagnoses Unspecified fracture of left calcaneus, initial encounter for closed fracture (11/19/19) Encounter for other orthopedic aftercare (11/19/19) Physical Therapy Treatment Note PT-OP-A Visit Information Start: 08/21/19 09:06 Freq: Status: Active Protocol: Document 11/19/19 12:30 SAK (Rec: 11/19/19 17:06 SAK [id number]) Out-Patient Physical Therapy Visit Information Visit Information Visit Type Treatment Note Visit Start Time 09:50 Visit Stop Time 10:35 Total Visit Minutes 45 Visit Number Number of CHIEF DEPUTY SHERIFF Visits 3 PT-OP-B Current Condition Start: 08/21/19 09:06 Freq: Status: Active Protocol: Document 09/03/19 08:55 MB (Rec: 09/03/19 09:40 MB [id number]) Current Condition History of Current Condition Onset Date 06/02/19 History of Current Condition Pt fell 06/02/19 when ladder was falling. He states that he actually jumped to try to avoid fuerther injury. He sustained L comminuted calcaneal fx s/p ORIF 06/19/19. He also had bone graft. He returns to surgeon on 09/13/19 . On visit 08/02/19, he was told that he is 50% WB on left foot wearing boot and using crutches. He was told to progress 25% more after two weeks but left heel pain has limited WB. The swelling hasn' t gone down. He has two steps to enter house. There is no railing. The door opens forward and he has trouble with this. He has had a couple of falls. He fell when using knee scooter when trying to place knee back up on it. He almost fell off front porch when it was wet. 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 He is sleeping sporatically, on his right side with pillow support . He is taking Gabapentin, Tylenol, and is trying to quit smoking. Prior Treatments and Tests Sx PT-OP-C Subjective Start: 08/21/19 09:06 Freq: Status: Active Protocol: Document 11/19/19 12:30 SAK (Rec: 11/19/19 17:06 SAK [id number]) OP-PT Subjective Patient Comments Patient Comments States about the same. Much less pain in water, but if tries to put much weight through left heel has moderate to severe pain. Reports right foot pain due to compensating. Has connected with calcaneal fracture support group which he found helpful. PT-OP-G Mobility & Gait Start: 08/21/19 09:06 Freq: Status: Active Protocol: Document 09/03/19 08:55 MB (Rec: 09/03/19 10:57 MB [id number]) OP Gait Assessment Comments Gait Comments Approximately 25% WB through left foot with gait wearing boot and using crutches. Pt using step-to to step-through gait. PT-OP-K Range of Motion Start: 08/21/19 09:06 Freq: Status: Active Protocol: Document 09/03/19 08:55 MB (Rec: 09/03/19 10:57 MB [id number]) Ankle and Foot Goniometric Range of Motion Ankle and Foot ROM Limitations ROM Limitations Swelling Comments R ankle and foot functional. Left ankle and foot with minimal ROM: active DF 5 deg, PF 10 deg, no active inversion and 5 deg eversion. He performs minimal toe wiggle all toes. Ecchymosis of entire foot with foot in dependent position. PT-OP-M Strength Start: 08/21/19 09:06 Freq: Status: Active Protocol: Document 09/03/19 08:55 MB (Rec: 09/03/19 10:57 MB [id number]) Hip Strength Hip Manual Muscle Testing Left Flexion (L2) 5 Normal Abduction 4 Good Comments Supine Right Flexion (L2) 5 Normal Abduction 4 Good Comments Supine Knee Strength Knee Manual Muscle Testing Left Flexion (S2) 5 Normal Extension (L3) 5 Normal Right Flexion (S2) 5 Normal Extension (L3) 5 Normal Comments Supine Ankle/Foot Strength Ankle and Foot Manual Muscle Testing Right Dorsiflexion (L4) 5 Normal Plantarflexion (S1) 5 Normal Inversion 5 Normal Eversion (S1) 4 Good Comments Cannot test the left s/p ORIF, pain, edema pitting greater than 10 sec recoil PT-OP-Q Treatments Start: 08/21/19 09:06 Freq: Status: Active Protocol: Document 11/16/19 09:50 SP (Rec: 11/16/19 10:38 SP [id number]) Therapeutic Exercises Supine Exercises Hamstring stretch with AP Equipment Used strap Reps/Minutes 30 x3 5 Supine Exercise Name ankle DF, PF, IV, EV Resistance AROM Reps/Minutes x10 each Sitting Exercises 2 Sitting Exercise Name BAPS Resistance Lv 1 Reps/Minutes x10 each direction Standing Exercises modified heel raise Reps/Minutes x5 stand wt shift Standing Exercise Name f/b/side to side Comments cued equal BLE stance Manual Therapy Treatment Soft Tissue Mobilization desensitation Body Location med/lat calcaneus Body Position Supine Comments tissue light friction scar mob Body Location scar mob Lat Intensity/Depth Superficial Body Position Supine Joint Mobilizations MTP APs Joint 1-4 MTP Direction AP Grade II Body Position Supine Reps/Duration 30 sec PT-OP-R Modalities Start: 08/21/19 09:06 Freq: Status: Active Protocol: Document 11/16/19 09:50 SP (Rec: 11/16/19 10:38 SP [id number]) Hot Pack/Cold Pack Treatment Cold Pack Location L ankle Patient Position Supine Treatment Duration (minutes) 10 Patient Tolerance Good Comments cryocuff PT-OP-S Aquatic Treatment Start: 08/21/19 09:06 Freq: Status: Active Protocol: Document 11/19/19 12:30 SAK (Rec: 11/19/19 17:10 SAK [id number]) Aquatics Treatment Pool Entry/Exit Pool Entry/Exit Method Stairs Assistance Standby Assistance,Verbal Cues Water Walking Backwards Water Level Chest Level Level of Assistance Standby Assistance,Verbal Cues Sideways Water Level Chest Level Level of Assistance Standby Assistance,Verbal Cues Forward Water Level Chest Level Level of Assistance Standby Assistance,Verbal Cues Lower Extremity Exercises ankle ROM Details df/pf, inv/ev, circles Body Position Standing Water Level [place] Equipment Large Noodle Reps/Duration 10x ea Lower Extremity Stretches HC Details involved Body Position Standing Water Level Chest Level Reps/Duration 2x45 Comments foot on wall HS Details involved Body Position Standing Water Level Chest Level Equipment Small Noodle Reps/Duration 2x 45 [place] Activities [place] Activities Bicycle,Bicycle Backwards, Cross Country,Running,Hip Abduction/Adduction,Sit Kicks Other Activities bicycle with no UE's Equipment flotation belt Duration 30 min Comments emphasizing ankle mobility and stretching with resistance of water Other water jet Reps/Duration 2 min Comments on left foot for desensitization PT-OP-T Assessment and Plan Start: 08/21/19 09:06 Freq: Status: Active Protocol: Document 11/19/19 12:30 CHEIKH (Rec: 11/19/19 17:06 [facility] [id number]) Physical Therapy Assessment Assessment Summary Assessment Good tolerance for deep water aquatic exercise with no foot cramping today. Shallow water at shoulder level fair tolerance, decreasing tolerance with decrease in water depth. Still heavy use of crutch. Encouraged continued desensitization activities at home. Physical Therapy Plan Frequency and Duration Frequency of Treatment 2x/Week Duration of Treatment 12 weeks Plan of Care Start Date 10/23/19 Plan of Care End Date 01/22/20 Therapeutic Interventions Therapeutic Interventions Aquatic Therapy,Balance Training,Coordination Training ,Gait Training,Home Exercise Program,Joint Mobilizations, Manual Therapy,Neuromuscular Re-education,Patient/Caregiver Education,Self-Care/Home Management,Soft Tissue Mobilization,Taping, Therapeutic Activities, Therapeutic Exercises Modalities Cold Pack/Ice Massage,Electric Stimulation,Hot Packs, Ultrasound Next Visit Focus/Plan Next Note Type Treatment Note Next Visit Plan Assess response to ROM BAPS and standing wt shift/heel raises performed last land- based tx. COntinue per PT POC: Progress ROM and flexibility, strengthening, gait training as tolerated with combination land and aquatic PT.
--- NOTE | 2019-11-23 10:32 | PT.OTN ---
Current Diagnoses Unspecified fracture of left calcaneus, initial encounter for closed fracture (11/23/19) Encounter for other orthopedic aftercare (11/23/19) Physical Therapy Treatment Note PT-OP-A Visit Information Start: 08/21/19 09:06 Freq: Status: Active Protocol: Document 11/23/19 09:45 MB (Rec: 11/23/19 10:31 MB [id number]) Out-Patient Physical Therapy Visit Information Visit Information Visit Type Treatment Note Visit Start Time 09:45 Visit Stop Time 10:25 Total Visit Minutes 40 Visit Number Number of CHECKMAN Visits 3 PT-OP-B Current Condition Start: 08/21/19 09:06 Freq: Status: Active Protocol: Document 09/03/19 08:55 MB (Rec: 09/03/19 09:40 MB [id number]) Current Condition History of Current Condition Onset Date 06/02/19 History of Current Condition Pt fell 06/02/19 when ladder was falling. He states that he actually jumped to try to avoid fuerther injury. He sustained L comminuted calcaneal fx s/p ORIF 06/19/19. He also had bone graft. He returns to surgeon on 09/13/19 . On visit 08/02/19, he was told that he is 50% WB on left foot wearing boot and using crutches. He was told to progress 25% more after two weeks but left heel pain has limited WB. The swelling hasn' t gone down. He has two steps to enter house. There is no railing. The door opens forward and he has trouble with this. He has had a couple of falls. He fell when using knee scooter when trying to place knee back up on it. He almost fell off front porch when it was wet. 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 He is sleeping sporatically, on his right side with pillow support . He is taking Gabapentin, Tylenol, and is trying to quit smoking. Prior Treatments and Tests Sx PT-OP-C Subjective Start: 08/21/19 09:06 Freq: Status: Active Protocol: Document 11/23/19 09:45 MB (Rec: 11/23/19 10:31 MB [id number]) OP-PT Subjective Patient Comments Patient Comments Pt is having a rough week. He had to put his dog down yesterday. Aquatic therapy is going well. His left foot con' t to swell. PT-OP-G Mobility & Gait Start: 08/21/19 09:06 Freq: Status: Active Protocol: Document 09/03/19 08:55 MB (Rec: 09/03/19 10:57 MB [id number]) OP Gait Assessment Comments Gait Comments Approximately 25% WB through left foot with gait wearing boot and using crutches. Pt using step-to to step-through gait. PT-OP-K Range of Motion Start: 08/21/19 09:06 Freq: Status: Active Protocol: Document 09/03/19 08:55 MB (Rec: 09/03/19 10:57 MB [id number]) Ankle and Foot Goniometric Range of Motion Ankle and Foot ROM Limitations ROM Limitations Swelling Comments R ankle and foot functional. Left ankle and foot with minimal ROM: active DF 5 deg, PF 10 deg, no active inversion and 5 deg eversion. He performs minimal toe wiggle all toes. Ecchymosis of entire foot with foot in dependent position. PT-OP-M Strength Start: 08/21/19 09:06 Freq: Status: Active Protocol: Document 09/03/19 08:55 MB (Rec: 09/03/19 10:57 MB [id number]) Hip Strength Hip Manual Muscle Testing Left Flexion (L2) 5 Normal Abduction 4 Good Comments Supine Right Flexion (L2) 5 Normal Abduction 4 Good Comments Supine Knee Strength Knee Manual Muscle Testing Left Flexion (S2) 5 Normal Extension (L3) 5 Normal Right Flexion (S2) 5 Normal Extension (L3) 5 Normal Comments Supine Ankle/Foot Strength Ankle and Foot Manual Muscle Testing Right Dorsiflexion (L4) 5 Normal Plantarflexion (S1) 5 Normal Inversion 5 Normal Eversion (S1) 4 Good Comments Cannot test the left s/p ORIF, pain, edema pitting greater than 10 sec recoil PT-OP-Q Treatments Start: 08/21/19 09:06 Freq: Status: Active Protocol: Document 11/23/19 09:45 MB (Rec: 11/23/19 10:31 MB [id number]) Cardio Equipment Recumbent Elliptical (Mixers) Duration (Minutes) 10 Resistance 1 Other Use of UEs to help range left foot Therapeutic Exercises Supine Exercises 5 Supine Exercise Name ankle DF, PF, IV, EV Resistance AROM Reps/Minutes x10 each Gait Training Gait Activity Straight cane right hand Comments Ed pt in use of cane in right hand and step-through gait with LLE. Antalgic gait, practice x2 x50 feet, slow gait Manual Therapy Treatment Soft Tissue Mobilization scar mob Body Location scar mob Lat Intensity/Depth Superficial Body Position Supine Joint Mobilizations MTP APs Joint 1-4 MTP Direction AP Grade II Body Position Supine Comments Toe mobs PT-OP-R Modalities Start: 08/21/19 09:06 Freq: Status: Active Protocol: Document 11/16/19 09:50 SP (Rec: 11/16/19 10:38 SP [id number]) Hot Pack/Cold Pack Treatment Cold Pack Location L ankle Patient Position Supine Treatment Duration (minutes) 10 Patient Tolerance Good Comments cryocuff PT-OP-S Aquatic Treatment Start: 08/21/19 09:06 Freq: Status: Active Protocol: Document 11/19/19 12:30 SAK (Rec: 11/19/19 17:10 SAK [id number]) Aquatics Treatment Pool Entry/Exit Pool Entry/Exit Method Stairs Assistance Standby Assistance,Verbal Cues Water Walking Backwards Water Level Chest Level Level of Assistance Standby Assistance,Verbal Cues Sideways Water Level Chest Level Level of Assistance Standby Assistance,Verbal Cues Forward Water Level Chest Level Level of Assistance Standby Assistance,Verbal Cues Lower Extremity Exercises ankle ROM Details df/pf, inv/ev, circles Body Position Standing Water Level [place] Equipment Large Noodle Reps/Duration 10x ea Lower Extremity Stretches HC Details involved Body Position Standing Water Level Chest Level Reps/Duration 2x45 Comments foot on wall HS Details involved Body Position Standing Water Level Chest Level Equipment Small Noodle Reps/Duration 2x 45 [place] Activities [place] Activities Bicycle,Bicycle Backwards, Cross Country,Running,Hip Abduction/Adduction,Sit Kicks Other Activities bicycle with no UE's Equipment flotation belt Duration 30 min Comments emphasizing ankle mobility and stretching with resistance of water Other water jet Reps/Duration 2 min Comments on left foot for desensitization PT-OP-T Assessment and Plan Start: 08/21/19 09:06 Freq: Status: Active Protocol: Document 11/23/19 09:45 MB (Rec: 11/23/19 10:31 MB [id number]) Physical Therapy Assessment Goals 6 Impairment LE functional index score reflecting 80% impairment Intermediate Goal (LTG) LE functional index score will reflect no more than 40% impairment by 01/22/20. 10/26: Pt presents with slight improvement in LE functional index score to reflect 77.5% impairment. LTG Duration 12 weeks 5 Intermediate Goal (LTG) Pt will perform HEP with I including ROM, flexibility, WB , gait, balance and strengthening exercises by . 10/26: Pt is performing progressive HEP everyday LTG Duration 12 weeks 4 Freezing Room Worker Goal (LTG) Pt will deny falls for 2 months by 01/22/20. 10/26: Pt had one fall in the last month LTG Duration 12 weeks 3 Intermediate Goal (LTG) Pt will present with improved left ankle AROM to at least 30 deg PF, 15 deg DF, eversion and inversion by 01/22/20. 10/26: AROM DF 5 deg, PF 15 deg , eversion 5 deg, inversion 7 deg. LTG Duration 12 weeks 2 Freezing Room Worker Goal (LTG) Pt will perform 2 step gait training without AD and with reciprocal gait by 01/22/20. 10/26: Pt can ascend and descend 4-6 steps with 1 crutch, step-to gait LTG Duration 12 weeks 1 Intermediate Goal (LTG) Pt will report a 50% improvement in left ankle and heel pain by 01/22/20. 10/26: Pt reports 10% improvement in pain LTG Duration 12 weeks Assessment Summary Assessment Progressed gait with cane today. Pt does not have cane or walking stick currently. He will look into it. Initiated recumbent stepper today. Also further manual work. Physical Therapy Plan Frequency and Duration Frequency of Treatment 2x/Week Duration of Treatment 12 weeks Plan of Care Start Date 10/23/19 Plan of Care End Date 01/22/20 Therapeutic Interventions Therapeutic Interventions Aquatic Therapy,Balance Training,Coordination Training ,Gait Training,Home Exercise Program,Joint Mobilizations, Manual Therapy,Neuromuscular Re-education,Patient/Caregiver Education,Self-Care/Home Management,Soft Tissue Mobilization,Taping, Therapeutic Activities, Therapeutic Exercises Modalities Cold Pack/Ice Massage,Electric Stimulation,Hot Packs, Ultrasound Next Visit Focus/Plan Next Note Type Treatment Note Next Visit Plan Con't gait training with cane in right hand. Pt con't to lean to the right with his crutch. Ongoing gait and balance and range and strengthening progression, BAPS in sitting
--- NOTE | 2019-11-26 13:11 | PT.OTN ---
Current Diagnoses Unspecified fracture of left calcaneus, initial encounter for closed fracture (11/23/19) Encounter for other orthopedic aftercare (11/23/19) Physical Therapy Treatment Note PT-OP-A Visit Information Start: 08/21/19 09:06 Freq: Status: Active Protocol: Document 11/26/19 13:04 SAK (Rec: 11/26/19 13:11 SAK [id number]) Out-Patient Physical Therapy Visit Information Visit Information Visit Type Treatment Note Visit Start Time 11:00 Visit Stop Time 11:45 Total Visit Minutes 45 Visit Number Number of MIG WELDER Visits 0 PT-OP-B Current Condition Start: 08/21/19 09:06 Freq: Status: Active Protocol: Document 09/03/19 08:55 MB (Rec: 09/03/19 09:40 MB [id number]) Current Condition History of Current Condition Onset Date 06/02/19 History of Current Condition Pt fell 06/02/19 when ladder was falling. He states that he actually jumped to try to avoid fuerther injury. He sustained L comminuted calcaneal fx s/p ORIF 06/19/19. He also had bone graft. He returns to surgeon on 09/13/19 . On visit 08/02/19, he was told that he is 50% WB on left foot wearing boot and using crutches. He was told to progress 25% more after two weeks but left heel pain has limited WB. The swelling hasn' t gone down. He has two steps to enter house. There is no railing. The door opens forward and he has trouble with this. He has had a couple of falls. He fell when using knee scooter when trying to place knee back up on it. He almost fell off front porch when it was wet. 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 He is sleeping sporatically, on his right side with pillow support . He is taking Gabapentin, Tylenol, and is trying to quit smoking. Prior Treatments and Tests Sx PT-OP-C Subjective Start: 08/21/19 09:06 Freq: Status: Active Protocol: Document 11/26/19 13:04 SAK (Rec: 11/26/19 13:11 SAK [id number]) OP-PT Subjective Patient Comments Patient Comments No new c/o. Will try to go to [employer] tomorrow to get a cane. PT-OP-G Mobility & Gait Start: 08/21/19 09:06 Freq: Status: Active Protocol: Document 09/03/19 08:55 MB (Rec: 09/03/19 10:57 MB [id number]) OP Gait Assessment Comments Gait Comments Approximately 25% WB through left foot with gait wearing boot and using crutches. Pt using step-to to step-through gait. PT-OP-K Range of Motion Start: 08/21/19 09:06 Freq: Status: Active Protocol: Document 09/03/19 08:55 MB (Rec: 09/03/19 10:57 MB [id number]) Ankle and Foot Goniometric Range of Motion Ankle and Foot ROM Limitations ROM Limitations Swelling Comments R ankle and foot functional. Left ankle and foot with minimal ROM: active DF 5 deg, PF 10 deg, no active inversion and 5 deg eversion. He performs minimal toe wiggle all toes. Ecchymosis of entire foot with foot in dependent position. PT-OP-M Strength Start: 08/21/19 09:06 Freq: Status: Active Protocol: Document 09/03/19 08:55 MB (Rec: 09/03/19 10:57 MB [id number]) Hip Strength Hip Manual Muscle Testing Left Flexion (L2) 5 Normal Abduction 4 Good Comments Supine Right Flexion (L2) 5 Normal Abduction 4 Good Comments Supine Knee Strength Knee Manual Muscle Testing Left Flexion (S2) 5 Normal Extension (L3) 5 Normal Right Flexion (S2) 5 Normal Extension (L3) 5 Normal Comments Supine Ankle/Foot Strength Ankle and Foot Manual Muscle Testing Right Dorsiflexion (L4) 5 Normal Plantarflexion (S1) 5 Normal Inversion 5 Normal Eversion (S1) 4 Good Comments Cannot test the left s/p ORIF, pain, edema pitting greater than 10 sec recoil PT-OP-Q Treatments Start: 08/21/19 09:06 Freq: Status: Active Protocol: Document 11/23/19 09:45 MB (Rec: 11/23/19 10:31 MB [id number]) Cardio Equipment Recumbent Elliptical (Fix That Bug) Duration (Minutes) 10 Resistance 1 Other Use of UEs to help range left foot Therapeutic Exercises Supine Exercises 5 Supine Exercise Name ankle DF, PF, IV, EV Resistance AROM Reps/Minutes x10 each Gait Training Gait Activity Straight cane right hand Comments Ed pt in use of cane in right hand and step-through gait with LLE. Antalgic gait, practice x2 x50 feet, slow gait Manual Therapy Treatment Soft Tissue Mobilization scar mob Body Location scar mob Lat Intensity/Depth Superficial Body Position Supine Joint Mobilizations MTP APs Joint 1-4 MTP Direction AP Grade II Body Position Supine Comments Toe mobs PT-OP-R Modalities Start: 08/21/19 09:06 Freq: Status: Active Protocol: Document 11/16/19 09:50 SP (Rec: 11/16/19 10:38 SP [id number]) Hot Pack/Cold Pack Treatment Cold Pack Location L ankle Patient Position Supine Treatment Duration (minutes) 10 Patient Tolerance Good Comments cryocuff PT-OP-S Aquatic Treatment Start: 08/21/19 09:06 Freq: Status: Active Protocol: Document 11/26/19 13:04 SAK (Rec: 11/26/19 13:11 SAK [id number]) Aquatics Treatment Pool Entry/Exit Pool Entry/Exit Method Stairs Assistance Standby Assistance,Verbal Cues Water Walking march/ Water Level Chest Level Level of Assistance Standby Assistance,Verbal Cues Backwards Water Level Chest Level Level of Assistance Standby Assistance,Verbal Cues Sideways Water Level Chest Level Level of Assistance Standby Assistance,Verbal Cues Forward Water Level Chest Level Level of Assistance Standby Assistance,Verbal Cues Lower Extremity Exercises ankle ROM Details df/pf, inv/ev, circles Body Position Standing Water Level [place] Equipment Large Noodle Reps/Duration 10x ea Lower Extremity Stretches HC Details involved Body Position Standing Water Level Chest Level Reps/Duration 2x45 Comments foot on wall HS Details involved Body Position Standing Water Level Chest Level Equipment Small Noodle Reps/Duration 2x 45 [place] Activities [place] Activities Bicycle,Bicycle Backwards, Cross Country,Running,Hip Abduction/Adduction,Sit Kicks Other Activities bicycle with no UE's reverse squats with large noodle Equipment flotation belt Duration 30 min Comments emphasizing ankle mobility and stretching with resistance of water Other water jet Reps/Duration 2 min Comments on left foot for desensitization PT-OP-T Assessment and Plan Start: 08/21/19 09:06 Freq: Status: Active Protocol: Document 11/26/19 13:04 SAK (Rec: 11/26/19 13:11 [facility] [id number]) Physical Therapy Assessment Goals 6 Impairment LE functional index score reflecting 80% impairment Ride Assembly Supervisor Goal (LTG) LE functional index score will reflect no more than 40% impairment by 01/22/20. 10/26: Pt presents with slight improvement in LE functional index score to reflect 77.5% impairment. LTG Duration 12 weeks 5 Ride Assembly Supervisor Goal (LTG) Pt will perform HEP with I including ROM, flexibility, WB , gait, balance and strengthening exercises by . 10/26: Pt is performing progressive HEP everyday LTG Duration 12 weeks 4 Snf Goal (LTG) Pt will deny falls for 2 months by 01/22/20. 10/26: Pt had one fall in the last month LTG Duration 12 weeks 3 Snf Goal (LTG) Pt will present with improved left ankle AROM to at least 30 deg PF, 15 deg DF, eversion and inversion by 01/22/20. 10/26: AROM DF 5 deg, PF 15 deg , eversion 5 deg, inversion 7 deg. LTG Duration 12 weeks 2 Ride Assembly Supervisor Goal (LTG) Pt will perform 2 step gait training without AD and with reciprocal gait by 01/22/20. 10/26: Pt can ascend and descend 4-6 steps with 1 crutch, step-to gait LTG Duration 12 weeks 1 Ride Assembly Supervisor Goal (LTG) Pt will report a 50% improvement in left ankle and heel pain by 01/22/20. 10/26: Pt reports 10% improvement in pain LTG Duration 12 weeks Assessment Summary Assessment Swelling persists, patient reports unable to afford compression sock. Good tolerance for aquatic ex especially in deep water. Physical Therapy Plan Frequency and Duration Frequency of Treatment 2x/Week Duration of Treatment 12 weeks Plan of Care Start Date 10/23/19 Plan of Care End Date 01/22/20 Therapeutic Interventions Therapeutic Interventions Aquatic Therapy,Balance Training,Coordination Training ,Gait Training,Home Exercise Program,Joint Mobilizations, Manual Therapy,Neuromuscular Re-education,Patient/Caregiver Education,Self-Care/Home Management,Soft Tissue Mobilization,Taping, Therapeutic Activities, Therapeutic Exercises Modalities Cold Pack/Ice Massage,Electric Stimulation,Hot Packs, Ultrasound Next Visit Focus/Plan Next Note Type Progress Note Next Visit Plan Continue combination aquatic and land-based PT for progression of gait training, balance, ROM, and strengthening.
--- NOTE | 2019-11-30 09:44 | PT.OTN ---
Current Diagnoses Unspecified fracture of left calcaneus, initial encounter for closed fracture (11/30/19) Encounter for other orthopedic aftercare (11/30/19) Physical Therapy Treatment Note PT-OP-A Visit Information Start: 08/21/19 09:06 Freq: Status: Active Protocol: Document 11/30/19 09:02 MB (Rec: 11/30/19 09:43 MB [id number]) Out-Patient Physical Therapy Visit Information Visit Information Visit Type Treatment Note Visit Note Started new auth with new year Visit Start Time 09:02 Visit Stop Time 09:42 Total Visit Minutes 40 Visit Number 01/14 Number of SPECIALTY MOLDER Visits 0 PT-OP-B Current Condition Start: 08/21/19 09:06 Freq: Status: Active Protocol: Document 09/03/19 08:55 MB (Rec: 09/03/19 09:40 MB [id number]) Current Condition History of Current Condition Onset Date 06/02/19 History of Current Condition Pt fell 06/02/19 when ladder was falling. He states that he actually jumped to try to avoid fuerther injury. He sustained L comminuted calcaneal fx s/p ORIF 06/19/19. He also had bone graft. He returns to surgeon on 09/13/19 . On visit 08/02/19, he was told that he is 50% WB on left foot wearing boot and using crutches. He was told to progress 25% more after two weeks but left heel pain has limited WB. The swelling hasn' t gone down. He has two steps to enter house. There is no railing. The door opens forward and he has trouble with this. He has had a couple of falls. He fell when using knee scooter when trying to place knee back up on it. He almost fell off front porch when it was wet. 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 He is sleeping sporatically, on his right side with pillow support . He is taking Gabapentin, Tylenol, and is trying to quit smoking. Prior Treatments and Tests Sx PT-OP-C Subjective Start: 08/21/19 09:06 Freq: Status: Active Protocol: Document 11/30/19 09:02 MB (Rec: 11/30/19 09:43 MB [id number]) OP-PT Subjective Patient Comments Patient Comments Pt likes the pool and feels free in the water. PT-OP-G Mobility & Gait Start: 08/21/19 09:06 Freq: Status: Active Protocol: Document 09/03/19 08:55 MB (Rec: 09/03/19 10:57 MB [id number]) OP Gait Assessment Comments Gait Comments Approximately 25% WB through left foot with gait wearing boot and using crutches. Pt using step-to to step-through gait. PT-OP-K Range of Motion Start: 08/21/19 09:06 Freq: Status: Active Protocol: Document 09/03/19 08:55 MB (Rec: 09/03/19 10:57 MB [id number]) Ankle and Foot Goniometric Range of Motion Ankle and Foot ROM Limitations ROM Limitations Swelling Comments R ankle and foot functional. Left ankle and foot with minimal ROM: active DF 5 deg, PF 10 deg, no active inversion and 5 deg eversion. He performs minimal toe wiggle all toes. Ecchymosis of entire foot with foot in dependent position. PT-OP-M Strength Start: 08/21/19 09:06 Freq: Status: Active Protocol: Document 09/03/19 08:55 MB (Rec: 09/03/19 10:57 MB [id number]) Hip Strength Hip Manual Muscle Testing Left Flexion (L2) 5 Normal Abduction 4 Good Comments Supine Right Flexion (L2) 5 Normal Abduction 4 Good Comments Supine Knee Strength Knee Manual Muscle Testing Left Flexion (S2) 5 Normal Extension (L3) 5 Normal Right Flexion (S2) 5 Normal Extension (L3) 5 Normal Comments Supine Ankle/Foot Strength Ankle and Foot Manual Muscle Testing Right Dorsiflexion (L4) 5 Normal Plantarflexion (S1) 5 Normal Inversion 5 Normal Eversion (S1) 4 Good Comments Cannot test the left s/p ORIF, pain, edema pitting greater than 10 sec recoil PT-OP-Q Treatments Start: 08/21/19 09:06 Freq: Status: Active Protocol: Document 11/30/19 09:02 MB (Rec: 11/30/19 09:43 MB [id number]) Cardio Equipment Recumbent Elliptical (BiodPurpleBricks) Duration (Minutes) 10 Resistance 1 Other Performed this date with UEs Therapeutic Exercises Supine Exercises APs and toe flexion and extension Comments Added level 2 band today Standing Exercises Self ankle mob Comments Family member will cup front of foot Gastroc and soleus MWM with knee bending Comments Performed MWM with knee bend, added to HEP Gait Training Gait Activity Straight cane right hand Comments Pt brings in cane and PT adjusts lower. Multiple gait trials to help decrease lean to the right and increase heel toe and foot clearance and step-length. He con't with antalgic gait. Sets: 75'x1, 50 'x4 PT-OP-R Modalities Start: 08/21/19 09:06 Freq: Status: Active Protocol: Document 11/16/19 09:50 SP (Rec: 11/16/19 10:38 SP [id number]) Hot Pack/Cold Pack Treatment Cold Pack Location L ankle Patient Position Supine Treatment Duration (minutes) 10 Patient Tolerance Good Comments cryocuff PT-OP-S Aquatic Treatment Start: 08/21/19 09:06 Freq: Status: Active Protocol: Document 11/26/19 13:04 SAK (Rec: 11/26/19 13:11 SAK [id number]) Aquatics Treatment Pool Entry/Exit Pool Entry/Exit Method Stairs Assistance Standby Assistance,Verbal Cues Water Walking march/ Water Level Chest Level Level of Assistance Standby Assistance,Verbal Cues Backwards Water Level Chest Level Level of Assistance Standby Assistance,Verbal Cues Sideways Water Level Chest Level Level of Assistance Standby Assistance,Verbal Cues Forward Water Level Chest Level Level of Assistance Standby Assistance,Verbal Cues Lower Extremity Exercises ankle ROM Details df/pf, inv/ev, circles Body Position Standing Water Level [place] Equipment Large Noodle Reps/Duration 10x ea Lower Extremity Stretches HC Details involved Body Position Standing Water Level Chest Level Reps/Duration 2x45 Comments foot on wall HS Details involved Body Position Standing Water Level Chest Level Equipment Small Noodle Reps/Duration 2x 45 [place] Activities [place] Activities Bicycle,Bicycle Backwards, Cross Country,Running,Hip Abduction/Adduction,Sit Kicks Other Activities bicycle with no UE's reverse squats with large noodle Equipment flotation belt Duration 30 min Comments emphasizing ankle mobility and stretching with resistance of water Other water jet Reps/Duration 2 min Comments on left foot for desensitization PT-OP-T Assessment and Plan Start: 08/21/19 09:06 Freq: Status: Active Protocol: Document 11/30/19 09:02 MB (Rec: 11/30/19 09:43 MB [id number]) Physical Therapy Assessment Goals 6 Impairment LE functional index score reflecting 80% impairment Penitentiary Goal (LTG) LE functional index score will reflect no more than 40% impairment by 01/22/20. 10/26: Pt presents with slight improvement in LE functional index score to reflect 77.5% impairment. LTG Duration 12 weeks 5 Penitentiary Goal (LTG) Pt will perform HEP with I including ROM, flexibility, WB , gait, balance and strengthening exercises by . 10/26: Pt is performing progressive HEP everyday LTG Duration 12 weeks 4 Penitentiary Goal (LTG) Pt will deny falls for 2 months by 01/22/20. 10/26: Pt had one fall in the last month LTG Duration 12 weeks 3 Supervisor [employer] P[employer] Mixing Goal (LTG) Pt will present with improved left ankle AROM to at least 30 deg PF, 15 deg DF, eversion and inversion by 01/22/20. 10/26: AROM DF 5 deg, PF 15 deg , eversion 5 deg, inversion 7 deg. LTG Duration 12 weeks 2 Penitentiary Goal (LTG) Pt will perform 2 step gait training without AD and with reciprocal gait by 01/22/20. 10/26: Pt can ascend and descend 4-6 steps with 1 crutch, step-to gait LTG Duration 12 weeks 1 Supervisor [employer] Goal (LTG) Pt will report a 50% improvement in left ankle and heel pain by 01/22/20. 10/26: Pt reports 10% improvement in pain LTG Duration 12 weeks Assessment Summary Assessment Pt con't to have pain with gait and antalgic pattern. Con 't gait training on land. He likes aquatic therapy and feels free in the pool. Physical Therapy Plan Frequency and Duration Frequency of Treatment 2x/Week Duration of Treatment 12 weeks Plan of Care Start Date 10/23/19 Plan of Care End Date 01/22/20 Therapeutic Interventions Therapeutic Interventions Aquatic Therapy,Balance Training,Coordination Training ,Gait Training,Home Exercise Program,Joint Mobilizations, Manual Therapy,Neuromuscular Re-education,Patient/Caregiver Education,Self-Care/Home Management,Soft Tissue Mobilization,Taping, Therapeutic Activities, Therapeutic Exercises Modalities Cold Pack/Ice Massage,Electric Stimulation,Hot Packs, Ultrasound Next Visit Focus/Plan Next Note Type Progress Note Next Visit Plan For land, consider sit to stands. Continue combination aquatic and land-based PT for progression of gait training, balance, ROM, and strengthening.
--- NOTE | 2019-12-03 17:37 | PT.OTN ---
Current Diagnoses Unspecified fracture of left calcaneus, initial encounter for closed fracture (12/03/19) Encounter for other orthopedic aftercare (12/03/19) Physical Therapy Treatment Note PT-OP-A Visit Information Start: 08/21/19 09:06 Freq: Status: Active Protocol: Document 12/03/19 11:00 LJ (Rec: 12/03/19 17:37 LJ [id number]) Out-Patient Physical Therapy Visit Information Visit Information Visit Type Aquatic Treatment Note Visit Start Time 11:00 Visit Stop Time 11:45 Total Visit Minutes 45 Visit Number 02/11 Number of CERTIFICATION AND SELECTION SPECIALIST Visits 1 PT-OP-B Current Condition Start: 08/21/19 09:06 Freq: Status: Active Protocol: Document 09/03/19 08:55 MB (Rec: 09/03/19 09:40 MB [id number]) Current Condition History of Current Condition Onset Date 06/02/19 History of Current Condition Pt fell 06/02/19 when ladder was falling. He states that he actually jumped to try to avoid fuerther injury. He sustained L comminuted calcaneal fx s/p ORIF 06/19/19. He also had bone graft. He returns to surgeon on 09/13/19 . On visit 08/02/19, he was told that he is 50% WB on left foot wearing boot and using crutches. He was told to progress 25% more after two weeks but left heel pain has limited WB. The swelling hasn' t gone down. He has two steps to enter house. There is no railing. The door opens forward and he has trouble with this. He has had a couple of falls. He fell when using knee scooter when trying to place knee back up on it. He almost fell off front porch when it was wet. 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 He is sleeping sporatically, on his right side with pillow support . He is taking Gabapentin, Tylenol, and is trying to quit smoking. Prior Treatments and Tests Sx PT-OP-C Subjective Start: 08/21/19 09:06 Freq: Status: Active Protocol: Document 12/03/19 11:00 LJ (Rec: 12/03/19 17:37 LJ [id number]) OP-PT Subjective Patient Comments Patient Comments Pt states he is still in pain and everything he does creates pain. PT-OP-G Mobility & Gait Start: 08/21/19 09:06 Freq: Status: Active Protocol: Document 09/03/19 08:55 MB (Rec: 09/03/19 10:57 MB [id number]) OP Gait Assessment Comments Gait Comments Approximately 25% WB through left foot with gait wearing boot and using crutches. Pt using step-to to step-through gait. PT-OP-K Range of Motion Start: 08/21/19 09:06 Freq: Status: Active Protocol: Document 09/03/19 08:55 MB (Rec: 09/03/19 10:57 MB [id number]) Ankle and Foot Goniometric Range of Motion Ankle and Foot ROM Limitations ROM Limitations Swelling Comments R ankle and foot functional. Left ankle and foot with minimal ROM: active DF 5 deg, PF 10 deg, no active inversion and 5 deg eversion. He performs minimal toe wiggle all toes. Ecchymosis of entire foot with foot in dependent position. PT-OP-M Strength Start: 08/21/19 09:06 Freq: Status: Active Protocol: Document 09/03/19 08:55 MB (Rec: 09/03/19 10:57 MB [id number]) Hip Strength Hip Manual Muscle Testing Left Flexion (L2) 5 Normal Abduction 4 Good Comments Supine Right Flexion (L2) 5 Normal Abduction 4 Good Comments Supine Knee Strength Knee Manual Muscle Testing Left Flexion (S2) 5 Normal Extension (L3) 5 Normal Right Flexion (S2) 5 Normal Extension (L3) 5 Normal Comments Supine Ankle/Foot Strength Ankle and Foot Manual Muscle Testing Right Dorsiflexion (L4) 5 Normal Plantarflexion (S1) 5 Normal Inversion 5 Normal Eversion (S1) 4 Good Comments Cannot test the left s/p ORIF, pain, edema pitting greater than 10 sec recoil PT-OP-Q Treatments Start: 08/21/19 09:06 Freq: Status: Active Protocol: Document 11/30/19 09:02 MB (Rec: 11/30/19 09:43 MB [id number]) Cardio Equipment Recumbent Elliptical (Biodex) Duration (Minutes) 10 Resistance 1 Other Performed this date with UEs Therapeutic Exercises Supine Exercises APs and toe flexion and extension Comments Added level 2 band today Standing Exercises Self ankle mob Comments Family member will cup front of foot Gastroc and soleus MWM with knee bending Comments Performed MWM with knee bend, added to HEP Gait Training Gait Activity Straight cane right hand Comments Pt brings in cane and PT adjusts lower. Multiple gait trials to help decrease lean to the right and increase heel toe and foot clearance and step-length. He con't with antalgic gait. Sets: 75'x1, 50 'x4 PT-OP-R Modalities Start: 08/21/19 09:06 Freq: Status: Active Protocol: Document 11/16/19 09:50 SP (Rec: 11/16/19 10:38 SP [id number]) Hot Pack/Cold Pack Treatment Cold Pack Location L ankle Patient Position Supine Treatment Duration (minutes) 10 Patient Tolerance Good Comments cryocuff PT-OP-S Aquatic Treatment Start: 08/21/19 09:06 Freq: Status: Active Protocol: Document 12/03/19 11:00 LJ (Rec: 12/03/19 17:37 LJ [id number]) Aquatics Treatment Pool Entry/Exit Pool Entry/Exit Method Stairs Assistance Standby Assistance,Verbal Cues Water Walking forward with cane Water Level Waist Level Level of Assistance Standby Assistance,Verbal Cues Comments no lateral lean like he does on land march/ Water Level Neck Level Level of Assistance Standby Assistance,Verbal Cues Backwards Water Level Neck Level Level of Assistance Standby Assistance,Verbal Cues Sideways Water Level Neck Level Level of Assistance Standby Assistance,Verbal Cues Forward Water Level Neck Level Level of Assistance Standby Assistance,Verbal Cues Lower Extremity Exercises ankle ROM Details df/pf, inv/ev, circles Body Position Standing Water Level [place] Equipment Large Noodle Reps/Duration 10x ea Lower Extremity Stretches rolling foot on submerged BB Body Position Standing Water Level Chest Level Reps/Duration 2 min HC Details involved Body Position Standing Water Level Chest Level Reps/Duration 2x45 Comments foot on wall HS Details involved Body Position Standing Water Level Chest Level Equipment Small Noodle Reps/Duration 2x 45 [place] Activities [place] Activities Bicycle,Bicycle Backwards, Cross Country,Running,Hip Abduction/Adduction,Sit Kicks Other Activities bicycle with no UE's hacky sac in and out Equipment flotation belt Duration 30 min Comments emphasizing ankle mobility and stretching with resistance of water Swim Strokes breast stroke kick Equipment Flotation Belt,Noodle Laps/Duration 30M Comments emphasis on ER Flutter Equipment Flotation Belt,Noodle Laps/Duration 30M PT-OP-T Assessment and Plan Start: 08/21/19 09:06 Freq: Status: Active Protocol: Document 12/03/19 11:00 ALENA (Rec: 12/03/19 17:37 LJ [id number]) Physical Therapy Assessment Goals 6 Impairment LE functional index score reflecting 80% impairment Assisted Goal (LTG) LE functional index score will reflect no more than 40% impairment by 01/22/20. 10/26: Pt presents with slight improvement in LE functional index score to reflect 77.5% impairment. LTG Duration 12 weeks 5 Assisted Goal (LTG) Pt will perform HEP with I including ROM, flexibility, WB , gait, balance and strengthening exercises by . 10/26: Pt is performing progressive HEP everyday LTG Duration 12 weeks 4 Wound Care Physician Goal (LTG) Pt will deny falls for 2 months by 01/22/20. 10/26: Pt had one fall in the last month LTG Duration 12 weeks 3 Assisted Goal (LTG) Pt will present with improved left ankle AROM to at least 30 deg PF, 15 deg DF, eversion and inversion by 01/22/20. 10/26: AROM DF 5 deg, PF 15 deg , eversion 5 deg, inversion 7 deg. LTG Duration 12 weeks 2 Assisted Goal (LTG) Pt will perform 2 step gait training without AD and with reciprocal gait by 01/22/20. 12: Pt can ascend and descend 4-6 steps with 1 crutch, step-to gait LTG Duration 12 weeks 1 Wound Care Physician Goal (LTG) Pt will report a 50% improvement in left ankle and heel pain by 01/22/20. 12: Pt reports 10% improvement in pain LTG Duration 12 weeks Assessment Summary Assessment Pt continued to complain of pain with ambulation even when in neck deep water. He moves very slowly and cautiously while walking but imcreases activity level in deep water. Trialed 30M walking in waist deep water with cane and pt was able to decrease lateral lean (as opposed to on land with a cane). Physical Therapy Plan Frequency and Duration Frequency of Treatment 2x/Week Duration of Treatment 12 weeks Plan of Care Start Date 10/23/19 Plan of Care End Date 01/22/20 Therapeutic Interventions Therapeutic Interventions Aquatic Therapy,Balance Training,Coordination Training ,Gait Training,Home Exercise Program,Joint Mobilizations, Manual Therapy,Neuromuscular Re-education,Patient/Caregiver Education,Self-Care/Home Management,Soft Tissue Mobilization,Taping, Therapeutic Activities, Therapeutic Exercises Modalities Cold Pack/Ice Massage,Electric Stimulation,Hot Packs, Ultrasound Next Visit Focus/Plan Next Note Type Treatment Note Next Visit Plan Continue combination aquatic and land-based PT for progression of gait training, balance, ROM, and
--- NOTE | 2019-12-07 10:00 | PT.OTN ---
Current Diagnoses Unspecified fracture of left calcaneus, initial encounter for closed fracture (12/07/19) Encounter for other orthopedic aftercare (12/07/19) Physical Therapy Treatment Note PT-OP-A Visit Information Start: 08/21/19 09:06 Freq: Status: Active Protocol: Document 12/07/19 09:07 SP (Rec: 12/07/19 10:10 SP [id number]) Out-Patient Physical Therapy Visit Information Visit Information Visit Type Treatment Note Visit Start Time 09:07 Visit Stop Time 10:00 Total Visit Minutes 53 Visit Number 03/14 Number of SPLITTING MACHINE OPERATOR HELPER Visits 2 PT-OP-B Current Condition Start: 08/21/19 09:06 Freq: Status: Active Protocol: Document 09/03/19 08:55 MB (Rec: 09/03/19 09:40 MB [id number]) Current Condition History of Current Condition Onset Date 06/02/19 History of Current Condition Pt fell 06/02/19 when ladder was falling. He states that he actually jumped to try to avoid fuerther injury. He sustained L comminuted calcaneal fx s/p ORIF 06/19/19. He also had bone graft. He returns to surgeon on 09/13/19 . On visit 08/02/19, he was told that he is 50% WB on left foot wearing boot and using crutches. He was told to progress 25% more after two weeks but left heel pain has limited WB. The swelling hasn' t gone down. He has two steps to enter house. There is no railing. The door opens forward and he has trouble with this. He has had a couple of falls. He fell when using knee scooter when trying to place knee back up on it. He almost fell off front porch when it was wet. 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 He is sleeping sporatically, on his right side with pillow support . He is taking Gabapentin, Tylenol, and is trying to quit smoking. Prior Treatments and Tests Sx PT-OP-C Subjective Start: 08/21/19 09:06 Freq: Status: Active Protocol: Document 12/07/19 09:07 SP (Rec: 12/07/19 10:10 SP [id number]) OP-PT Subjective Patient Comments Patient Comments Pt stated he's been using the SPC for about 2 weeks now, alot harder/tiring on RUE use with SPC. Pain depends on the day, [employer] getting kids ready/ breakfast transportation tires him quickly and needs to lay down secondary to pain for recovery . 01/28 pre PT approx between calcaneus, talus, navicular where cartilage. PT-OP-G Mobility & Gait Start: 08/21/19 09:06 Freq: Status: Active Protocol: Document 09/03/19 08:55 MB (Rec: 09/03/19 10:57 MB [id number]) OP Gait Assessment Comments Gait Comments Approximately 25% WB through left foot with gait wearing boot and using crutches. Pt using step-to to step-through gait. PT-OP-K Range of Motion Start: 08/21/19 09:06 Freq: Status: Active Protocol: Document 09/03/19 08:55 MB (Rec: 09/03/19 10:57 MB [id number]) Ankle and Foot Goniometric Range of Motion Ankle and Foot ROM Limitations ROM Limitations Swelling Comments R ankle and foot functional. Left ankle and foot with minimal ROM: active DF 5 deg, PF 10 deg, no active inversion and 5 deg eversion. He performs minimal toe wiggle all toes. Ecchymosis of entire foot with foot in dependent position. PT-OP-M Strength Start: 08/21/19 09:06 Freq: Status: Active Protocol: Document 09/03/19 08:55 MB (Rec: 09/03/19 10:57 MB [id number]) Hip Strength Hip Manual Muscle Testing Left Flexion (L2) 5 Normal Abduction 4 Good Comments Supine Right Flexion (L2) 5 Normal Abduction 4 Good Comments Supine Knee Strength Knee Manual Muscle Testing Left Flexion (S2) 5 Normal Extension (L3) 5 Normal Right Flexion (S2) 5 Normal Extension (L3) 5 Normal Comments Supine Ankle/Foot Strength Ankle and Foot Manual Muscle Testing Right Dorsiflexion (L4) 5 Normal Plantarflexion (S1) 5 Normal Inversion 5 Normal Eversion (S1) 4 Good Comments Cannot test the left s/p ORIF, pain, edema pitting greater than 10 sec recoil PT-OP-Q Treatments Start: 08/21/19 09:06 Freq: Status: Active Protocol: Document 12/07/19 09:07 SP (Rec: 12/07/19 10:10 SP [id number]) Cardio Equipment Recumbent Bicycle Duration (Minutes) 6 Resistance 3 Seat Position 7 Therapeutic Exercises Sitting Exercises BAPS Sitting Exercise Name F/B/med/lat/CW/CCW Side left Resistance Lv 2 Reps/Minutes 2x10 reps each direction Ankle PF resistance level 2 band foot hammock Sitting Exercise Name PF, eccentric DF Resistance Lv 2 Reps/Minutes 4 min Standing Exercises Gastroc and soleus MWM with knee bending Standing Exercise Name self ankle mobility Equipment Used 2nd step, rail Comments Performed with and without MWM with knee bend modified heel raise Standing Exercise Name heel raises Side bilateral Reps/Minutes 2x5 Comments occasional cue for even wt BLE Gait Training Gait Activity Straight cane right hand Device Used SPC Comments Multiple gait trials to help decrease lean to the right and increase heel toe and foot clearance and step-length. He con't with antalgic gait. 20 ft x2 laps Manual Therapy Treatment Soft Tissue Mobilization calf Body Location gastroc, soleus, tibialis anterior Mobilization Type Myofascial Release,Strain/ Counterstrain,Sustained Pressure Intensity/Depth Moderate Body Position Prone Joint Mobilizations MTP APs Joint 1-4 MTP Direction AP Grade II Body Position Supine Comments Toe mobs PT-OP-R Modalities Start: 08/21/19 09:06 Freq: Status: Active Protocol: Document 12/07/19 10:11 SP (Rec: 12/07/19 10:11 SP [id number]) Hot Pack/Cold Pack Treatment Cold Pack Location L ankle Patient Position Supine Treatment Duration (minutes) 10 Patient Tolerance Good Comments cryocuff PT-OP-S Aquatic Treatment Start: 08/21/19 09:06 Freq: Status: Active Protocol: Document 12/03/19 11:00 LJ (Rec: 12/03/19 17:37 LJ [id number]) Aquatics Treatment Pool Entry/Exit Pool Entry/Exit Method Stairs Assistance Standby Assistance,Verbal Cues Water Walking forward with cane Water Level Waist Level Level of Assistance Standby Assistance,Verbal Cues Comments no lateral lean like he does on land january/ Water Level Neck Level Level of Assistance Standby Assistance,Verbal Cues Backwards Water Level Neck Level Level of Assistance Standby Assistance,Verbal Cues Sideways Water Level Neck Level Level of Assistance Standby Assistance,Verbal Cues Forward Water Level Neck Level Level of Assistance Standby Assistance,Verbal Cues Lower Extremity Exercises ankle ROM Details df/pf, inv/ev, circles Body Position Standing Water Level [place] Equipment Large Noodle Reps/Duration 10x ea Lower Extremity Stretches rolling foot on submerged BB Body Position Standing Water Level Chest Level Reps/Duration 2 min HC Details involved Body Position Standing Water Level Chest Level Reps/Duration 2x45 Comments foot on wall HS Details involved Body Position Standing Water Level Chest Level Equipment Small Noodle Reps/Duration 2x 45 [place] Activities [place] Activities Bicycle,Bicycle Backwards, Cross Country,Running,Hip Abduction/Adduction,Sit Kicks Other Activities bicycle with no UE's hacky sac in and out Equipment flotation belt Duration 30 min Comments emphasizing ankle mobility and stretching with resistance of water Swim Strokes breast stroke kick Equipment Flotation Belt,Noodle Laps/Duration 30M Comments emphasis on ER Flutter Equipment Flotation Belt,Noodle Laps/Duration 30M PT-OP-T Assessment and Plan Start: 08/21/19 09:06 Freq: Status: Active Protocol: Document 12/07/19 09:07 SP (Rec: 12/07/19 10:10 SP [id number]) Physical Therapy Assessment Goals 6 Impairment LE functional index score reflecting 80% impairment Guest Relations Manager Goal (LTG) LE functional index score will reflect no more than 40% impairment by 01/22/20. 10/26: Pt presents with slight improvement in LE functional index score to reflect 77.5% impairment. LTG Duration 12 weeks 5 Guest Relations Manager Goal (LTG) Pt will perform HEP with I including ROM, flexibility, WB , gait, balance and strengthening exercises by . 12: Pt is performing progressive HEP everyday LTG Duration 12 weeks 4 Guest Relations Manager Goal (LTG) Pt will deny falls for 2 months by 01/22/20. 126: Pt had one fall in the last month LTG Duration 12 weeks 3 Guest Relations Manager Goal (LTG) Pt will present with improved left ankle AROM to at least 30 deg PF, 15 deg DF, eversion and inversion by 01/22/20. 12: AROM DF 5 deg, PF 15 deg , eversion 5 deg, inversion 7 deg. LTG Duration 12 weeks 2 Intermediate Goal (LTG) Pt will perform 2 step gait training without AD and with reciprocal gait by 01/22/20. 12/6: Pt can ascend and descend 4-6 steps with 1 crutch, step-to gait LTG Duration 12 weeks 1 Guest Relations Manager Goal (LTG) Pt will report a 50% improvement in left ankle and heel pain by 01/22/20. 10/26: Pt reports 10% improvement in pain LTG Duration 12 weeks Assessment Summary Assessment Tx focused on DF ROM and seated/ WB ther ex to progress normal gait patterning. Pt demonstrated decreased R lateral lean over R UE SPC with cuing for awareness and improvement. Pt stated foot/ ankle same areas identified little more sore but need to be more active, feels is improving. Physical Therapy Plan Frequency and Duration Frequency of Treatment 2x/Week Duration of Treatment 12 weeks Plan of Care Start Date 10/23/19 Plan of Care End Date 01/22/20 Therapeutic Interventions Therapeutic Interventions Aquatic Therapy,Balance Training,Coordination Training ,Gait Training,Home Exercise Program,Joint Mobilizations, Manual Therapy,Neuromuscular Re-education,Patient/Caregiver Education,Self-Care/Home Management,Soft Tissue Mobilization,Taping, Therapeutic Activities, Therapeutic Exercises Modalities Cold Pack/Ice Massage,Electric Stimulation,Hot Packs, Ultrasound Next Visit Focus/Plan Next Note Type Treatment Note Next Visit Plan Assess response to last tx standing ex, BAPS, ankle mob, Tb ex and cuing for decreased R lat lean RUE WB on SPC. Continue combination aquatic and land-based PT for progression of gait training, balance, ROM, and
--- NOTE | 2019-12-10 11:45 | PT.OTN ---
Current Diagnoses Unspecified fracture of left calcaneus, initial encounter for closed fracture (12/07/19) Encounter for other orthopedic aftercare (12/07/19) Physical Therapy Treatment Note PT-OP-A Visit Information Start: 08/21/19 09:06 Freq: Status: Active Protocol: Document 12/10/19 11:45 CLB (Rec: 12/10/19 15:20 CLB [id number]) Out-Patient Physical Therapy Visit Information Visit Information Visit Type Aquatic Treatment Note Visit Start Time 11:45 Visit Stop Time 12:30 Total Visit Minutes 45 Visit Number 04/13 Number of RECTIFYING ATTENDANT Visits 3 PT-OP-B Current Condition Start: 08/21/19 09:06 Freq: Status: Active Protocol: Document 09/03/19 08:55 MB (Rec: 09/03/19 09:40 MB [id number]) Current Condition History of Current Condition Onset Date 06/02/19 History of Current Condition Pt fell 06/02/19 when ladder was falling. He states that he actually jumped to try to avoid fuerther injury. He sustained L comminuted calcaneal fx s/p ORIF 06/19/19. He also had bone graft. He returns to surgeon on 09/13/19 . On visit 08/02/19, he was told that he is 50% WB on left foot wearing boot and using crutches. He was told to progress 25% more after two weeks but left heel pain has limited WB. The swelling hasn' t gone down. He has two steps to enter house. There is no railing. The door opens forward and he has trouble with this. He has had a couple of falls. He fell when using knee scooter when trying to place knee back up on it. He almost fell off front porch when it was wet. 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 He is sleeping sporatically, on his right side with pillow support . He is taking Gabapentin, Tylenol, and is trying to quit smoking. Prior Treatments and Tests Sx PT-OP-C Subjective Start: 08/21/19 09:06 Freq: Status: Active Protocol: Document 12/10/19 11:45 CLB (Rec: 12/10/19 15:20 CLB [id number]) OP-PT Subjective Patient Comments Patient Comments Pt states he has pain with all weight bearing activities. PT-OP-G Mobility & Gait Start: 08/21/19 09:06 Freq: Status: Active Protocol: Document 09/03/19 08:55 MB (Rec: 09/03/19 10:57 MB [id number]) OP Gait Assessment Comments Gait Comments Approximately 25% WB through left foot with gait wearing boot and using crutches. Pt using step-to to step-through gait. PT-OP-K Range of Motion Start: 08/21/19 09:06 Freq: Status: Active Protocol: Document 09/03/19 08:55 MB (Rec: 09/03/19 10:57 MB [id number]) Ankle and Foot Goniometric Range of Motion Ankle and Foot ROM Limitations ROM Limitations Swelling Comments R ankle and foot functional. Left ankle and foot with minimal ROM: active DF 5 deg, PF 10 deg, no active inversion and 5 deg eversion. He performs minimal toe wiggle all toes. Ecchymosis of entire foot with foot in dependent position. PT-OP-M Strength Start: 08/21/19 09:06 Freq: Status: Active Protocol: Document 09/03/19 08:55 MB (Rec: 09/03/19 10:57 MB [id number]) Hip Strength Hip Manual Muscle Testing Left Flexion (L2) 5 Normal Abduction 4 Good Comments Supine Right Flexion (L2) 5 Normal Abduction 4 Good Comments Supine Knee Strength Knee Manual Muscle Testing Left Flexion (S2) 5 Normal Extension (L3) 5 Normal Right Flexion (S2) 5 Normal Extension (L3) 5 Normal Comments Supine Ankle/Foot Strength Ankle and Foot Manual Muscle Testing Right Dorsiflexion (L4) 5 Normal Plantarflexion (S1) 5 Normal Inversion 5 Normal Eversion (S1) 4 Good Comments Cannot test the left s/p ORIF, pain, edema pitting greater than 10 sec recoil PT-OP-Q Treatments Start: 08/21/19 09:06 Freq: Status: Active Protocol: Document 12/07/19 09:07 SP (Rec: 12/07/19 10:10 SP [id number]) Cardio Equipment Recumbent Bicycle Duration (Minutes) 6 Resistance 3 Seat Position 7 Therapeutic Exercises Sitting Exercises BAPS Sitting Exercise Name F/B/med/lat/CW/CCW Side left Resistance Lv 2 Reps/Minutes 2x10 reps each direction Ankle PF resistance level 2 band foot hammock Sitting Exercise Name PF, eccentric DF Resistance Lv 2 Reps/Minutes 4 min Standing Exercises Gastroc and soleus MWM with knee bending Standing Exercise Name self ankle mobility Equipment Used 2nd step, rail Comments Performed with and without MWM with knee bend modified heel raise Standing Exercise Name heel raises Side bilateral Reps/Minutes 2x5 Comments occasional cue for even wt BLE Gait Training Gait Activity Straight cane right hand Device Used SPC Comments Multiple gait trials to help decrease lean to the right and increase heel toe and foot clearance and step-length. He con't with antalgic gait. 20 ft x2 laps Manual Therapy Treatment Soft Tissue Mobilization calf Body Location gastroc, soleus, tibialis anterior Mobilization Type Myofascial Release,Strain/ Counterstrain,Sustained Pressure Intensity/Depth Moderate Body Position Prone Joint Mobilizations MTP APs Joint 1-4 MTP Direction AP Grade II Body Position Supine Comments Toe mobs PT-OP-R Modalities Start: 08/21/19 09:06 Freq: Status: Active Protocol: Document 12/07/19 10:11 SP (Rec: 12/07/19 10:11 SP [id number]) Hot Pack/Cold Pack Treatment Cold Pack Location L ankle Patient Position Supine Treatment Duration (minutes) 10 Patient Tolerance Good Comments cryocuff PT-OP-S Aquatic Treatment Start: 08/21/19 09:06 Freq: Status: Active Protocol: Document 12/10/19 11:45 CLB (Rec: 12/10/19 15:20 CLB [id number]) Aquatics Treatment Pool Entry/Exit Pool Entry/Exit Method Stairs Assistance Standby Assistance,Verbal Cues Water Walking Backwards Water Level Neck Level Level of Assistance Standby Assistance,Verbal Cues Sideways Water Level Neck Level Level of Assistance Standby Assistance,Verbal Cues Forward Water Level Neck Level Level of Assistance Standby Assistance,Verbal Cues Lower Extremity Exercises hacky sac Body Position Standing Water Level Chest Level Reps/Duration 2 min ankle ROM Details df/pf, inv/ev, circles Body Position Standing Water Level [place] Equipment Large Noodle Reps/Duration 10x ea Lower Extremity Stretches rolling foot on submerged BB Body Position Standing Water Level Chest Level Reps/Duration 2 min HC Details involved Body Position Standing Water Level Chest Level Reps/Duration 2x45 Comments foot on wall HS Details involved Body Position Standing Water Level Chest Level Equipment Small Noodle Reps/Duration 2x 45 [place] Activities [place] Activities Bicycle,Bicycle Backwards, Cross Country,Running,Hip Abduction/Adduction,Sit Kicks Other Activities bicycle with no UE's hacky sac in and out Equipment flotation belt Duration 30 min Comments emphasizing ankle mobility and stretching with resistance of water Swim Strokes Flutter Equipment Flotation Belt Laps/Duration 30M PT-OP-T Assessment and Plan Start: 08/21/19 09:06 Freq: Status: Active Protocol: Document 12/10/19 11:45 CLB (Rec: 12/10/19 15:20 CLB [id number]) Physical Therapy Assessment Goals 6 Impairment LE functional index score reflecting 80% impairment Financial Assistance Advisor Goal (LTG) LE functional index score will reflect no more than 40% impairment by 01/22/20. 10/26: Pt presents with slight improvement in LE functional index score to reflect 77.5% impairment. LTG Duration 12 weeks 5 Custodial Goal (LTG) Pt will perform HEP with I including ROM, flexibility, WB , gait, balance and strengthening exercises by . 12: Pt is performing progressive HEP everyday LTG Duration 12 weeks 4 Custodial Goal (LTG) Pt will deny falls for 2 months by 01/22/20. 12: Pt had one fall in the last month LTG Duration 12 weeks 3 Financial Assistance Advisor Goal (LTG) Pt will present with improved left ankle AROM to at least 30 deg PF, 15 deg DF, eversion and inversion by 01/22/20. 12: AROM DF 5 deg, PF 15 deg , eversion 5 deg, inversion 7 deg. LTG Duration 12 weeks 2 Custodial Goal (LTG) Pt will perform 2 step gait training without AD and with reciprocal gait by 01/22/20. 12: Pt can ascend and descend 4-6 steps with 1 crutch, step-to gait LTG Duration 12 weeks 1 Financial Assistance Advisor Goal (LTG) Pt will report a 50% improvement in left ankle and heel pain by 01/22/20. 12: Pt reports 10% improvement in pain LTG Duration 12 weeks Assessment Summary Assessment Pt tolerated neck deep water walking with less pain then in shallow water. Pt tolerated all deep water exercises w/o increase in pain. Physical Therapy Plan Frequency and Duration Frequency of Treatment 2x/Week Duration of Treatment 12 weeks Plan of Care Start Date 10/23/19 Plan of Care End Date 01/22/20 Next Visit Focus/Plan Next Note Type Treatment Note Next Visit Plan Continue combination aquatic and land-based PT for progression of gait training, balance and ROM.
--- NOTE | 2019-12-12 10:08 | PT.OTN ---
Current Diagnoses Unspecified fracture of left calcaneus, initial encounter for closed fracture (12/12/19) Encounter for other orthopedic aftercare (12/12/19) Physical Therapy Treatment Note PT-OP-A Visit Information Start: 08/21/19 09:06 Freq: Status: Active Protocol: Document 12/12/19 09:08 SP (Rec: 12/12/19 10:11 SP [id number]) Out-Patient Physical Therapy Visit Information Visit Information Visit Type Treatment Note Visit Start Time 09:08 Visit Stop Time 10:08 Total Visit Minutes 60 Visit Number 05/14 Number of ATOMIC PHYSICS TEACHER Visits 4 PT-OP-B Current Condition Start: 08/21/19 09:06 Freq: Status: Active Protocol: Document 09/03/19 08:55 MB (Rec: 09/03/19 09:40 MB [id number]) Current Condition History of Current Condition Onset Date 06/02/19 History of Current Condition Pt fell 06/02/19 when ladder was falling. He states that he actually jumped to try to avoid fuerther injury. He sustained L comminuted calcaneal fx s/p ORIF 06/19/19. He also had bone graft. He returns to surgeon on 09/13/19 . On visit 08/02/19, he was told that he is 50% WB on left foot wearing boot and using crutches. He was told to progress 25% more after two weeks but left heel pain has limited WB. The swelling hasn' t gone down. He has two steps to enter house. There is no railing. The door opens forward and he has trouble with this. He has had a couple of falls. He fell when using knee scooter when trying to place knee back up on it. He almost fell off front porch when it was wet. 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 He is sleeping sporatically, on his right side with pillow support . He is taking Gabapentin, Tylenol, and is trying to quit smoking. Prior Treatments and Tests Sx PT-OP-C Subjective Start: 08/21/19 09:06 Freq: Status: Active Protocol: Document 12/12/19 09:08 SP (Rec: 12/12/19 10:11 SP [id number]) OP-PT Subjective Patient Comments Patient Comments Pt stated 2-3/10 pain sub heel and radiates up to talus into joint pre PT, pretty stiff, finds himself moving ankle around alot to keep loosened up when sitting to decrease stiffness before standing. PT-OP-G Mobility & Gait Start: 08/21/19 09:06 Freq: Status: Active Protocol: Document 09/03/19 08:55 MB (Rec: 09/03/19 10:57 MB [id number]) OP Gait Assessment Comments Gait Comments Approximately 25% WB through left foot with gait wearing boot and using crutches. Pt using step-to to step-through gait. PT-OP-K Range of Motion Start: 08/21/19 09:06 Freq: Status: Active Protocol: Document 09/03/19 08:55 MB (Rec: 09/03/19 10:57 MB [id number]) Ankle and Foot Goniometric Range of Motion Ankle and Foot ROM Limitations ROM Limitations Swelling Comments R ankle and foot functional. Left ankle and foot with minimal ROM: active DF 5 deg, PF 10 deg, no active inversion and 5 deg eversion. He performs minimal toe wiggle all toes. Ecchymosis of entire foot with foot in dependent position. PT-OP-M Strength Start: 08/21/19 09:06 Freq: Status: Active Protocol: Document 09/03/19 08:55 MB (Rec: 09/03/19 10:57 MB [id number]) Hip Strength Hip Manual Muscle Testing Left Flexion (L2) 5 Normal Abduction 4 Good Comments Supine Right Flexion (L2) 5 Normal Abduction 4 Good Comments Supine Knee Strength Knee Manual Muscle Testing Left Flexion (S2) 5 Normal Extension (L3) 5 Normal Right Flexion (S2) 5 Normal Extension (L3) 5 Normal Comments Supine Ankle/Foot Strength Ankle and Foot Manual Muscle Testing Right Dorsiflexion (L4) 5 Normal Plantarflexion (S1) 5 Normal Inversion 5 Normal Eversion (S1) 4 Good Comments Cannot test the left s/p ORIF, pain, edema pitting greater than 10 sec recoil PT-OP-Q Treatments Start: 08/21/19 09:06 Freq: Status: Active Protocol: Document 12/12/19 09:08 SP (Rec: 12/12/19 10:11 SP [id number]) Cardio Equipment Recumbent Elliptical ([employer]) Duration (Minutes) 6 Resistance 3 Gym Equipment Shuttle Rebound static stand bal Exercise Details wt shift and static bal Reps/Duration 2 min Comments no Ue suppport Therapeutic Exercises Sitting Exercises BAPS Sitting Exercise Name F/B/med/lat/CW/CCW Side left Resistance Lv 3 Reps/Minutes x10 reps each direction Standing Exercises DF/ calf stretch Equipment Used step, rail Reps/Minutes 10-15 sec modified heel raise Standing Exercise Name eccentric calf raise Reps/Minutes x15 Comments more tolerated Bilateral range Gait Training Gait Activity Straight cane right hand Device Used SPC Comments Multiple gait trials to help decrease lean to the right and increase heel toe and foot clearance and step-length. He con't with antalgic gait. 20 ft x2 laps Manual Therapy Treatment Soft Tissue Mobilization calf Body Location gastroc, soleus, tibialis anterior Mobilization Type Myofascial Release,Strain/ Counterstrain,Sustained Pressure Intensity/Depth Moderate Body Position Prone dorsal foot Body Location L dorsal ankle Mobilization Type Myofascial Release Intensity/Depth Superficial Body Position Supine Comments retrograde glides (not over scar) Joint Mobilizations talocrual AP Direction AP Grade II Body Position Supine MTP APs Joint 1-4 MTP Direction AP Grade II Body Position Supine Comments Toe mobs PT-OP-R Modalities Start: 08/21/19 09:06 Freq: Status: Active Protocol: Document 12/12/19 10:11 SP (Rec: 12/12/19 10:11 SP [id number]) Hot Pack/Cold Pack Treatment Cold Pack Location L ankle Patient Position Supine Treatment Duration (minutes) 10 Patient Tolerance Good Comments cryocuff PT-OP-S Aquatic Treatment Start: 08/21/19 09:06 Freq: Status: Active Protocol: Document 12/10/19 11:45 CLB (Rec: 12/10/19 15:20 CLB [id number]) Aquatics Treatment Pool Entry/Exit Pool Entry/Exit Method Stairs Assistance Standby Assistance,Verbal Cues Water Walking Backwards Water Level Neck Level Level of Assistance Standby Assistance,Verbal Cues Sideways Water Level Neck Level Level of Assistance Standby Assistance,Verbal Cues Forward Water Level Neck Level Level of Assistance Standby Assistance,Verbal Cues Lower Extremity Exercises hacky sac Body Position Standing Water Level Chest Level Reps/Duration 2 min ankle ROM Details df/pf, inv/ev, circles Body Position Standing Water Level [place] Equipment Large Noodle Reps/Duration 10x ea Lower Extremity Stretches rolling foot on submerged BB Body Position Standing Water Level Chest Level Reps/Duration 2 min HC Details involved Body Position Standing Water Level Chest Level Reps/Duration 2x45 Comments foot on wall HS Details involved Body Position Standing Water Level Chest Level Equipment Small Noodle Reps/Duration 2x 45 [place] Activities [place] Activities Bicycle,Bicycle Backwards, Cross Country,Running,Hip Abduction/Adduction,Sit Kicks Other Activities bicycle with no UE's hacky sac in and out Equipment flotation belt Duration 30 min Comments emphasizing ankle mobility and stretching with resistance of water Swim Strokes Flutter Equipment Flotation Belt Laps/Duration 30M PT-OP-T Assessment and Plan Start: 08/21/19 09:06 Freq: Status: Active Protocol: Document 12/12/19 09:08 SP (Rec: 12/12/19 10:11 SP [id number]) Physical Therapy Assessment Goals 6 Impairment LE functional index score reflecting 80% impairment Monotype Caster Goal (LTG) LE functional index score will reflect no more than 40% impairment by 01/22/20. 12: Pt presents with slight improvement in LE functional index score to reflect 77.5% impairment. LTG Duration 12 weeks 5 Custodial Goal (LTG) Pt will perform HEP with I including ROM, flexibility, WB , gait, balance and strengthening exercises by . 12: Pt is performing progressive HEP everyday LTG Duration 12 weeks 4 Monotype Caster Goal (LTG) Pt will deny falls for 2 months by 01/22/20. 126: Pt had one fall in the last month LTG Duration 12 weeks 3 Custodial Goal (LTG) Pt will present with improved left ankle AROM to at least 30 deg PF, 15 deg DF, eversion and inversion by 01/22/20. 12: AROM DF 5 deg, PF 15 deg , eversion 5 deg, inversion 7 deg. LTG Duration 12 weeks 2 Custodial Goal (LTG) Pt will perform 2 step gait training without AD and with reciprocal gait by 01/22/20. 126: Pt can ascend and descend 4-6 steps with 1 crutch, step-to gait LTG Duration 12 weeks 1 Monotype Caster Goal (LTG) Pt will report a 50% improvement in left ankle and heel pain by 01/22/20. 10/26: Pt reports 10% improvement in pain LTG Duration 12 weeks Assessment Summary Assessment Tx focused on DF ROM and stabilization today, introduced shuttle rebound B balance wt shift and stationary balance UE hover over rail and eccentric calf raises off step and BAPS. Pt stated keeping B WB more tolerated 6/10 inside ankle pain and helpful for gained range. Continue cuing for upright posture during gait and decreaesd WB into SPC with good heel toe gait. Physical Therapy Plan Frequency and Duration Frequency of Treatment 2x/Week Duration of Treatment 12 weeks Plan of Care Start Date 10/23/19 Plan of Care End Date 01/22/20 Therapeutic Interventions Therapeutic Interventions Aquatic Therapy,Balance Training,Coordination Training ,Gait Training,Home Exercise Program,Joint Mobilizations, Manual Therapy,Neuromuscular Re-education,Patient/Caregiver Education,Self-Care/Home Management,Soft Tissue Mobilization,Taping, Therapeutic Activities, Therapeutic Exercises Modalities Cold Pack/Ice Massage,Electric Stimulation,Hot Packs, Ultrasound Next Visit Focus/Plan Next Note Type Treatment Note Next Visit Plan Assess response to added shuttle rebound balance wt shift and eccentric DF step and manual last tx. Continue combination aquatic and land-based PT for progression of gait training, balance and ROM.
--- NOTE | 2019-12-17 16:37 | PT.OTN ---
Current Diagnoses Unspecified fracture of left calcaneus, initial encounter for closed fracture (12/17/19) Encounter for other orthopedic aftercare (12/17/19) Physical Therapy Treatment Note PT-OP-A Visit Information Start: 08/21/19 09:06 Freq: Status: Active Protocol: Document 12/17/19 11:00 LJ (Rec: 12/17/19 16:37 [id number]) Out-Patient Physical Therapy Visit Information Visit Information Visit Type Treatment Note Visit Start Time 11:00 Visit Stop Time 11:45 Total Visit Minutes 45 Visit Number 06/13 Number of COMPOSITE BOAT BUILDER Visits 5 PT-OP-B Current Condition Start: 08/21/19 09:06 Freq: Status: Active Protocol: Document 09/03/19 08:55 MB (Rec: 09/03/19 09:40 MB [id number]) Current Condition History of Current Condition Onset Date 06/02/19 History of Current Condition Pt fell 06/02/19 when ladder was falling. He states that he actually jumped to try to avoid fuerther injury. He sustained L comminuted calcaneal fx s/p ORIF 06/19/19. He also had bone graft. He returns to surgeon on 09/13/19 . On visit 08/02/19, he was told that he is 50% WB on left foot wearing boot and using crutches. He was told to progress 25% more after two weeks but left heel pain has limited WB. The swelling hasn' t gone down. He has two steps to enter house. There is no railing. The door opens forward and he has trouble with this. He has had a couple of falls. He fell when using knee scooter when trying to place knee back up on it. He almost fell off front porch when it was wet. 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 He is sleeping sporatically, on his right side with pillow support . He is taking Gabapentin, Tylenol, and is trying to quit smoking. Prior Treatments and Tests Sx PT-OP-C Subjective Start: 08/21/19 09:06 Freq: Status: Active Protocol: Document 12/17/19 11:00 LJ (Rec: 12/17/19 16:37 LJ [id number]) OP-PT Subjective Patient Comments Patient Comments Pt reports his ankle has more ROM but not much. States it is still painful when moving it around and expecially walking. PT-OP-G Mobility & Gait Start: 08/21/19 09:06 Freq: Status: Active Protocol: Document 09/03/19 08:55 MB (Rec: 09/03/19 10:57 MB [id number]) OP Gait Assessment Comments Gait Comments Approximately 25% WB through left foot with gait wearing boot and using crutches. Pt using step-to to step-through gait. PT-OP-K Range of Motion Start: 08/21/19 09:06 Freq: Status: Active Protocol: Document 09/03/19 08:55 MB (Rec: 09/03/19 10:57 MB [id number]) Ankle and Foot Goniometric Range of Motion Ankle and Foot ROM Limitations ROM Limitations Swelling Comments R ankle and foot functional. Left ankle and foot with minimal ROM: active DF 5 deg, PF 10 deg, no active inversion and 5 deg eversion. He performs minimal toe wiggle all toes. Ecchymosis of entire foot with foot in dependent position. PT-OP-M Strength Start: 08/21/19 09:06 Freq: Status: Active Protocol: Document 09/03/19 08:55 MB (Rec: 09/03/19 10:57 MB [id number]) Hip Strength Hip Manual Muscle Testing Left Flexion (L2) 5 Normal Abduction 4 Good Comments Supine Right Flexion (L2) 5 Normal Abduction 4 Good Comments Supine Knee Strength Knee Manual Muscle Testing Left Flexion (S2) 5 Normal Extension (L3) 5 Normal Right Flexion (S2) 5 Normal Extension (L3) 5 Normal Comments Supine Ankle/Foot Strength Ankle and Foot Manual Muscle Testing Right Dorsiflexion (L4) 5 Normal Plantarflexion (S1) 5 Normal Inversion 5 Normal Eversion (S1) 4 Good Comments Cannot test the left s/p ORIF, pain, edema pitting greater than 10 sec recoil PT-OP-Q Treatments Start: 08/21/19 09:06 Freq: Status: Active Protocol: Document 12/12/19 09:08 SP (Rec: 12/12/19 10:11 SP [id number]) Cardio Equipment Recumbent Elliptical ([employer]) Duration (Minutes) 6 Resistance 3 Gym Equipment Shuttle Rebound static stand bal Exercise Details wt shift and static bal Reps/Duration 2 min Comments no Ue suppport Therapeutic Exercises Sitting Exercises BAPS Sitting Exercise Name F/B/med/lat/CW/CCW Side left Resistance Lv 3 Reps/Minutes x10 reps each direction Standing Exercises DF/ calf stretch Equipment Used step, rail Reps/Minutes 10-15 sec modified heel raise Standing Exercise Name eccentric calf raise Reps/Minutes x15 Comments more tolerated Bilateral range Gait Training Gait Activity Straight cane right hand Device Used SPC Comments Multiple gait trials to help decrease lean to the right and increase heel toe and foot clearance and step-length. He con't with antalgic gait. 20 ft x2 laps Manual Therapy Treatment Soft Tissue Mobilization calf Body Location gastroc, soleus, tibialis anterior Mobilization Type Myofascial Release,Strain/ Counterstrain,Sustained Pressure Intensity/Depth Moderate Body Position Prone dorsal foot Body Location L dorsal ankle Mobilization Type Myofascial Release Intensity/Depth Superficial Body Position Supine Comments retrograde glides (not over scar) Joint Mobilizations talocrual AP Direction AP Grade II Body Position Supine MTP APs Joint 1-4 MTP Direction AP Grade II Body Position Supine Comments Toe mobs PT-OP-R Modalities Start: 08/21/19 09:06 Freq: Status: Active Protocol: Document 12/12/19 10:11 SP (Rec: 12/12/19 10:11 SP [id number]) Hot Pack/Cold Pack Treatment Cold Pack Location L ankle Patient Position Supine Treatment Duration (minutes) 10 Patient Tolerance Good Comments cryocuff PT-OP-S Aquatic Treatment Start: 08/21/19 09:06 Freq: Status: Active Protocol: Document 12/17/19 11:00 LJ (Rec: 12/17/19 16:37 LJ [id number]) Aquatics Treatment Pool Entry/Exit Pool Entry/Exit Method Stairs Assistance Independent Water Walking march/kick Water Level Neck Level Backwards Water Level Neck Level Sideways Water Level Neck Level Forward Water Level Neck Level Lower Extremity Exercises hacky sac Body Position Standing Water Level Chest Level Reps/Duration 2 min ankle ROM Details df/pf, inv/ev, circles Body Position Standing Water Level [place] Equipment Large Noodle Reps/Duration 10x ea Lower Extremity Stretches rolling foot on submerged BB Body Position Standing Water Level Chest Level Reps/Duration 2 min HC Details involved Body Position Standing Water Level Chest Level Reps/Duration 2x45 Comments foot on noodle HS Details involved Body Position Standing Water Level Chest Level Equipment Small Noodle Reps/Duration 2x 45 [place] Activities [place] Activities Bicycle,Bicycle Backwards, Cross Country,Running,Hip Abduction/Adduction,Sit Kicks Other Activities bicycle with no UE's hacky sac in and out Equipment flotation belt Duration 30 min Comments emphasizing ankle mobility and stretching with resistance of water Swim Strokes breast stroke kick Equipment Flotation Belt,Noodle Laps/Duration 30M Comments emphasis on ER PT-OP-T Assessment and Plan Start: 08/21/19 09:06 Freq: Status: Active Protocol: Document 12/17/19 11:00 ALENA (Rec: 12/17/19 16:37 ALENA [id number]) Physical Therapy Assessment Goals 6 Impairment LE functional index score reflecting 80% impairment Lodge Officer Goal (LTG) LE functional index score will reflect no more than 40% impairment by 01/22/20. 12: Pt presents with slight improvement in LE functional index score to reflect 77.5% impairment. LTG Duration 12 weeks 5 Lodge Officer Goal (LTG) Pt will perform HEP with I including ROM, flexibility, WB , gait, balance and strengthening exercises by . 12: Pt is performing progressive HEP everyday LTG Duration 12 weeks 4 Assisted Goal (LTG) Pt will deny falls for 2 months by 01/22/20. 12: Pt had one fall in the last month LTG Duration 12 weeks 3 Assisted Goal (LTG) Pt will present with improved left ankle AROM to at least 30 deg PF, 15 deg DF, eversion and inversion by 01/22/20. 126: AROM DF 5 deg, PF 15 deg , eversion 5 deg, inversion 7 deg. LTG Duration 12 weeks 2 Lodge Officer Goal (LTG) Pt will perform 2 step gait training without AD and with reciprocal gait by 01/22/20. 12: Pt can ascend and descend 4-6 steps with 1 crutch, step-to gait LTG Duration 12 weeks 1 Assisted Goal (LTG) Pt will report a 50% improvement in left ankle and heel pain by 01/22/20. 126: Pt reports 10% improvement in pain LTG Duration 12 weeks Assessment Summary Assessment Pt able to tolerate increased stretching of left foot. Pt complained less of pain though he did grimace during stretching. Shallow water walking prior to getting out of the pool pt was walking with normal gait. Physical Therapy Plan Frequency and Duration Frequency of Treatment 2x/Week Duration of Treatment 12 weeks Plan of Care Start Date 10/23/19 Plan of Care End Date 01/22/20 Therapeutic Interventions Therapeutic Interventions Aquatic Therapy,Balance Training,Coordination Training ,Gait Training,Home Exercise Program,Joint Mobilizations, Manual Therapy,Neuromuscular Re-education,Patient/Caregiver Education,Self-Care/Home Management,Soft Tissue Mobilization,Taping, Therapeutic Activities, Therapeutic Exercises Modalities Cold Pack/Ice Massage,Electric Stimulation,Hot Packs, Ultrasound Next Visit Focus/Plan Next Note Type Treatment Note Next Visit Plan Continue combination aquatic and land-based PT for progression of gait training, balance and ROM.
--- NOTE | 2019-12-19 09:43 | PT.OTN ---
Current Diagnoses Unspecified fracture of left calcaneus, initial encounter for closed fracture (12/19/19) Encounter for other orthopedic aftercare (12/19/19) Physical Therapy Treatment Note PT-OP-A Visit Information Start: 08/21/19 09:06 Freq: Status: Active Protocol: Document 12/19/19 09:00 MB (Rec: 12/19/19 09:43 MB [id number]) Out-Patient Physical Therapy Visit Information Visit Information Visit Type Progress Note Visit Start Time 09:00 Visit Stop Time 09:40 Total Visit Minutes 40 Visit Number 07/14 PT-OP-B Current Condition Start: 08/21/19 09:06 Freq: Status: Active Protocol: Document 09/03/19 08:55 MB (Rec: 09/03/19 09:40 MB [id number]) Current Condition History of Current Condition Onset Date 06/02/19 History of Current Condition Pt fell 06/02/19 when ladder was falling. He states that he actually jumped to try to avoid fuerther injury. He sustained L comminuted calcaneal fx s/p ORIF 06/19/19. He also had bone graft. He returns to surgeon on 09/13/19 . On visit 08/02/19, he was told that he is 50% WB on left foot wearing boot and using crutches. He was told to progress 25% more after two weeks but left heel pain has limited WB. The swelling hasn' t gone down. He has two steps to enter house. There is no railing. The door opens forward and he has trouble with this. He has had a couple of falls. He fell when using knee scooter when trying to place knee back up on it. He almost fell off front porch when it was wet. 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 He is sleeping sporatically, on his right side with pillow support . He is taking Gabapentin, Tylenol, and is trying to quit smoking. Prior Treatments and Tests Sx PT-OP-C Subjective Start: 08/21/19 09:06 Freq: Status: Active Protocol: Document 12/19/19 09:00 MB (Rec: 12/19/19 09:43 MB [id number]) OP-PT Subjective Patient Comments Patient Comments Pt reports that up and down motion is improved. Inversion and eversion is reduced and he has pain. He is walking with cane. He thinks that the swelling has reduced. His ankle still is a kankle. PT-OP-G Mobility & Gait Start: 08/21/19 09:06 Freq: Status: Active Protocol: Document 09/03/19 08:55 MB (Rec: 09/03/19 10:57 MB [id number]) OP Gait Assessment Comments Gait Comments Approximately 25% WB through left foot with gait wearing boot and using crutches. Pt using step-to to step-through gait. PT-OP-K Range of Motion Start: 08/21/19 09:06 Freq: Status: Active Protocol: Document 09/03/19 08:55 MB (Rec: 09/03/19 10:57 MB [id number]) Ankle and Foot Goniometric Range of Motion Ankle and Foot ROM Limitations ROM Limitations Swelling Comments R ankle and foot functional. Left ankle and foot with minimal ROM: active DF 5 deg, PF 10 deg, no active inversion and 5 deg eversion. He performs minimal toe wiggle all toes. Ecchymosis of entire foot with foot in dependent position. PT-OP-M Strength Start: 08/21/19 09:06 Freq: Status: Active Protocol: Document 09/03/19 08:55 MB (Rec: 09/03/19 10:57 MB [id number]) Hip Strength Hip Manual Muscle Testing Left Flexion (L2) 5 Normal Abduction 4 Good Comments Supine Right Flexion (L2) 5 Normal Abduction 4 Good Comments Supine Knee Strength Knee Manual Muscle Testing Left Flexion (S2) 5 Normal Extension (L3) 5 Normal Right Flexion (S2) 5 Normal Extension (L3) 5 Normal Comments Supine Ankle/Foot Strength Ankle and Foot Manual Muscle Testing Right Dorsiflexion (L4) 5 Normal Plantarflexion (S1) 5 Normal Inversion 5 Normal Eversion (S1) 4 Good Comments Cannot test the left s/p ORIF, pain, edema pitting greater than 10 sec recoil PT-OP-Q Treatments Start: 08/21/19 09:06 Freq: Status: Active Protocol: Document 12/19/19 09:00 MB (Rec: 12/19/19 09:43 MB [id number]) Therapeutic Exercises Supine Exercises HS R LE with left ankle across right knee for left hip rotator stretch Comments 2' SLR Comments 10 reps Hamstring stretch with AP Comments 2' with blue martial art belt APs and toe flexion and extension Comments 10 reps Sitting Exercises Ankle PF resistance level 2 band foot hammock Comments 25 reps today, green band PT-OP-R Modalities Start: 08/21/19 09:06 Freq: Status: Active Protocol: Document 12/12/19 10:11 SP (Rec: 12/12/19 10:11 SP [id number]) Hot Pack/Cold Pack Treatment Cold Pack Location L ankle Patient Position Supine Treatment Duration (minutes) 10 Patient Tolerance Good Comments cryocuff PT-OP-S Aquatic Treatment Start: 08/21/19 09:06 Freq: Status: Active Protocol: Document 12/17/19 11:00 LJ (Rec: 12/17/19 16:37 LJ [id number]) Aquatics Treatment Pool Entry/Exit Pool Entry/Exit Method Stairs Assistance Independent Water Walking march/kick Water Level Neck Level Backwards Water Level Neck Level Sideways Water Level Neck Level Forward Water Level Neck Level Lower Extremity Exercises hacky sac Body Position Standing Water Level Chest Level Reps/Duration 2 min ankle ROM Details df/pf, inv/ev, circles Body Position Standing Water Level [place] Equipment Large Noodle Reps/Duration 10x ea Lower Extremity Stretches rolling foot on submerged BB Body Position Standing Water Level Chest Level Reps/Duration 2 min HC Details involved Body Position Standing Water Level Chest Level Reps/Duration 2x45 Comments foot on noodle HS Details involved Body Position Standing Water Level Chest Level Equipment Small Noodle Reps/Duration 2x 45 [place] Activities [place] Activities Bicycle,Bicycle Backwards, Cross Country,Running,Hip Abduction/Adduction,Sit Kicks Other Activities bicycle with no UE's hacky sac in and out Equipment flotation belt Duration 30 min Comments emphasizing ankle mobility and stretching with resistance of water Swim Strokes breast stroke kick Equipment Flotation Belt,Noodle Laps/Duration 30M Comments emphasis on ER PT-OP-T Assessment and Plan Start: 08/21/19 09:06 Freq: Status: Active Protocol: Document 12/19/19 09:00 MB (Rec: 12/19/19 09:43 MB [id number]) Physical Therapy Assessment Goals 6 Impairment LE functional index score reflecting 80% impairment Front Office Help Goal (LTG) LE functional index score will reflect no more than 40% impairment by 02/15/2020. 12/19/2019: LEF index score reflects 73.75% impairment LTG Duration 8 weeks 5 Front Office Help Goal (LTG) Pt will perform HEP with I including ROM, flexibility, WB , gait, balance and strengthening exercises by . 12/19/2019: Pt is performing progressive HEP everyday LTG Duration 8 weeks 4 Front Office Help Goal (LTG) Pt will deny falls for 2 months by 02/15/2020. 12/19/2019: Pt has not had any falls since last reassessment LTG Duration 8 weeks 3 Front Office Help Goal (LTG) Pt will present with improved left ankle AROM to at least 30 deg PF, 15 deg DF, eversion and inversion by 02/15/2020. 12/19/2019: AROM DF 8 deg, PF 22 deg, eversion 5 deg, inversion 7 deg. LTG Duration 8 weeks 2 Front Office Help Goal (LTG) Pt will perform 2 step gait training without AD and with reciprocal gait by 02/15/2020. 12/19/2019: Pt can ascend and descend 10 steps with cane in right hand and rail, step-to gait LTG Duration 8 weeks 1 Senior Living Goal (LTG) Pt will report a 50% improvement in left ankle and heel pain by 02/15/2020. 12/19/2019: Pt reports 15% improvement in pain LTG Duration 8 weeks Assessment Summary Assessment Pt continues to make slow progress towards PT goals. These include performance of HEP, small improvements in pain, ROM and LE functioinal index score, no falls and stair performance. Pt will benefit from ongoing PT to improve ROM, functional strength in legs, and gait. Consider increasing gait activities in the pool and on land, hip strengthening, knee strengthening, ankle proprioception, balance and strengthening. Consider progressing to lifting small objects off lower surfaces. Physical Therapy Plan Frequency and Duration Frequency of Treatment 2x/Week Duration of Treatment 12 weeks Plan of Care Start Date 12/19/19 Plan of Care End Date 02/15/20 Therapeutic Interventions Therapeutic Interventions Aquatic Therapy,Balance Training,Coordination Training ,Gait Training,Home Exercise Program,Joint Mobilizations, Manual Therapy,Neuromuscular Re-education,Patient/Caregiver Education,Self-Care/Home Management,Soft Tissue Mobilization,Taping, Therapeutic Activities, Therapeutic Exercises Modalities Cold Pack/Ice Massage,Electric Stimulation,Hot Packs, Ultrasound Other Therapeutic Interventions LLT Next Visit Focus/Plan Next Note Type Treatment Note Next Visit Plan Continue combination aquatic and land-based PT for progression of gait training, balance and ROM. See progress note comments this date. Consider recumbent stepper.
--- NOTE | 2019-12-19 09:44 | PT.OPPOC ---
Physical, Occupational & Speech Therapy At [facility] Current Diagnoses Unspecified fracture of left calcaneus, initial encounter for closed fracture (12/19/19) Encounter for other orthopedic aftercare (12/19/19) Visit Care Team Role Provider Type Cherelle Pugh MD Primary Care Provider Non-Staff Specialty: Internal Medicine Address: [address] [place] [address], [id number] Email: King Raman MD Attending Provider Non-Staff Specialty: Orthopedic Surgery Address: [address] [place] [address], [phone] Fax: Email: Plan Of Care PT-OP-T Assessment and Plan Start: 08/21/19 09:06 Freq: Status: Active Protocol: Document 12/19/19 09:00 MB (Rec: 12/19/19 09:43 MB [id number]) Physical Therapy Assessment Goals 6 Impairment LE functional index score reflecting 80% impairment Retirement Goal (LTG) LE functional index score will reflect no more than 40% impairment by 02/15/2020. 12/19/2019: LEF index score reflects 73.75% impairment LTG Duration 8 weeks 5 Retirement Goal (LTG) Pt will perform HEP with I including ROM, flexibility, WB , gait, balance and strengthening exercises by . 12/19/2019: Pt is performing progressive HEP everyday LTG Duration 8 weeks 4 Retirement Goal (LTG) Pt will deny falls for 2 months by 02/15/2020. 12/19/2019: Pt has not had any falls since last reassessment LTG Duration 8 weeks 3 Retirement Goal (LTG) Pt will present with improved left ankle AROM to at least 30 deg PF, 15 deg DF, eversion and inversion by 02/15/2020. 12/19/2019: AROM DF 8 deg, PF 22 deg, eversion 5 deg, inversion 7 deg. LTG Duration 8 weeks 2 Site Physician Goal (LTG) Pt will perform 2 step gait training without AD and with reciprocal gait by 02/15/2020. 12/19/2019: Pt can ascend and descend 10 steps with cane in right hand and rail, step-to gait LTG Duration 8 weeks 1 Retirement Goal (LTG) Pt will report a 50% improvement in left ankle and heel pain by 02/15/2020. 12/19/2019: Pt reports 15% improvement in pain LTG Duration 8 weeks Assessment Summary Assessment Pt continues to make slow progress towards PT goals. These include performance of HEP, small improvements in pain, ROM and LE functioinal index score, no falls and stair performance. Pt will benefit from ongoing PT to improve ROM, functional strength in legs, and gait. Consider increasing gait activities in the pool and on land, hip strengthening, knee strengthening, ankle proprioception, balance and strengthening. Consider progressing to lifting small objects off lower surfaces. Physical Therapy Plan Frequency and Duration Frequency of Treatment 2x/Week Duration of Treatment 12 weeks Plan of Care Start Date 12/19/19 Plan of Care End Date 02/15/20 Therapeutic Interventions Therapeutic Interventions Aquatic Therapy,Balance Training,Coordination Training ,Gait Training,Home Exercise Program,Joint Mobilizations, Manual Therapy,Neuromuscular Re-education,Patient/Caregiver Education,Self-Care/Home Management,Soft Tissue Mobilization,Taping, Therapeutic Activities, Therapeutic Exercises Modalities Cold Pack/Ice Massage,Electric Stimulation,Hot Packs, Ultrasound Other Therapeutic Interventions LLT Next Visit Focus/Plan Next Note Type Treatment Note Next Visit Plan Continue combination aquatic and land-based PT for progression of gait training, balance and ROM. See progress note comments this date. Consider recumbent stepper. Plan of Care Dates Plan of Care Start Date 12/19/19 Plan of Care End Date 02/15/20 Electronically Signed by: Babita Martínez, PT 12/19/19 0924 Please Sign and Return: I have reviewed this Plan of Care and certify that the skilled therapy services above are required to meet the patient?s needs. Physician Signature Date Printed Name and Credentials Clinical Instructor Signature Printed Name and Credentials
--- NOTE | 2019-12-21 09:44 | PT.OTN ---
Current Diagnoses Unspecified fracture of left calcaneus, initial encounter for closed fracture (12/19/19) Encounter for other orthopedic aftercare (12/19/19) Physical Therapy Treatment Note PT-OP-A Visit Information Start: 08/21/19 09:06 Freq: Status: Active Protocol: Document 12/19/19 09:00 MB (Rec: 12/19/19 09:43 MB [id number]) Out-Patient Physical Therapy Visit Information Visit Information Visit Type Progress Note Visit Start Time 09:00 Visit Stop Time 09:40 Total Visit Minutes 40 Visit Number 07/14 PT-OP-B Current Condition Start: 08/21/19 09:06 Freq: Status: Active Protocol: Document 09/03/19 08:55 MB (Rec: 09/03/19 09:40 MB [id number]) Current Condition History of Current Condition Onset Date 06/02/19 History of Current Condition Pt fell 06/02/19 when ladder was falling. He states that he actually jumped to try to avoid fuerther injury. He sustained L comminuted calcaneal fx s/p ORIF 06/19/19. He also had bone graft. He returns to surgeon on 09/13/19 . On visit 08/02/19, he was told that he is 50% WB on left foot wearing boot and using crutches. He was told to progress 25% more after two weeks but left heel pain has limited WB. The swelling hasn' t gone down. He has two steps to enter house. There is no railing. The door opens forward and he has trouble with this. He has had a couple of falls. He fell when using knee scooter when trying to place knee back up on it. He almost fell off front porch when it was wet. 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 He is sleeping sporatically, on his right side with pillow support . He is taking Gabapentin, Tylenol, and is trying to quit smoking. Prior Treatments and Tests Sx PT-OP-C Subjective Start: 08/21/19 09:06 Freq: Status: Active Protocol: Document 12/19/19 09:00 MB (Rec: 12/19/19 09:43 MB [id number]) OP-PT Subjective Patient Comments Patient Comments Pt reports that up and down motion is improved. Inversion and eversion is reduced and he has pain. He is walking with cane. He thinks that the swelling has reduced. His ankle still is a kankle. PT-OP-G Mobility & Gait Start: 08/21/19 09:06 Freq: Status: Active Protocol: Document 09/03/19 08:55 MB (Rec: 09/03/19 10:57 MB [id number]) OP Gait Assessment Comments Gait Comments Approximately 25% WB through left foot with gait wearing boot and using crutches. Pt using step-to to step-through gait. PT-OP-K Range of Motion Start: 08/21/19 09:06 Freq: Status: Active Protocol: Document 09/03/19 08:55 MB (Rec: 09/03/19 10:57 MB [id number]) Ankle and Foot Goniometric Range of Motion Ankle and Foot ROM Limitations ROM Limitations Swelling Comments R ankle and foot functional. Left ankle and foot with minimal ROM: active DF 5 deg, PF 10 deg, no active inversion and 5 deg eversion. He performs minimal toe wiggle all toes. Ecchymosis of entire foot with foot in dependent position. PT-OP-M Strength Start: 08/21/19 09:06 Freq: Status: Active Protocol: Document 09/03/19 08:55 MB (Rec: 09/03/19 10:57 MB [id number]) Hip Strength Hip Manual Muscle Testing Left Flexion (L2) 5 Normal Abduction 4 Good Comments Supine Right Flexion (L2) 5 Normal Abduction 4 Good Comments Supine Knee Strength Knee Manual Muscle Testing Left Flexion (S2) 5 Normal Extension (L3) 5 Normal Right Flexion (S2) 5 Normal Extension (L3) 5 Normal Comments Supine Ankle/Foot Strength Ankle and Foot Manual Muscle Testing Right Dorsiflexion (L4) 5 Normal Plantarflexion (S1) 5 Normal Inversion 5 Normal Eversion (S1) 4 Good Comments Cannot test the left s/p ORIF, pain, edema pitting greater than 10 sec recoil PT-OP-Q Treatments Start: 08/21/19 09:06 Freq: Status: Active Protocol: Document 12/19/19 09:00 MB (Rec: 12/19/19 09:43 MB [id number]) Therapeutic Exercises Supine Exercises HS R LE with left ankle across right knee for left hip rotator stretch Comments 2' SLR Comments 10 reps Hamstring stretch with AP Comments 2' with blue martial art belt APs and toe flexion and extension Comments 10 reps Sitting Exercises Ankle PF resistance level 2 band foot hammock Comments 25 reps today, green band PT-OP-R Modalities Start: 08/21/19 09:06 Freq: Status: Active Protocol: Document 12/12/19 10:11 SP (Rec: 12/12/19 10:11 SP [id number]) Hot Pack/Cold Pack Treatment Cold Pack Location L ankle Patient Position Supine Treatment Duration (minutes) 10 Patient Tolerance Good Comments cryocuff PT-OP-S Aquatic Treatment Start: 08/21/19 09:06 Freq: Status: Active Protocol: Document 12/17/19 11:00 LJ (Rec: 12/17/19 16:37 LJ [id number]) Aquatics Treatment Pool Entry/Exit Pool Entry/Exit Method Stairs Assistance Independent Water Walking march/kick Water Level Neck Level Backwards Water Level Neck Level Sideways Water Level Neck Level Forward Water Level Neck Level Lower Extremity Exercises hacky sac Body Position Standing Water Level Chest Level Reps/Duration 2 min ankle ROM Details df/pf, inv/ev, circles Body Position Standing Water Level [place] Equipment Large Noodle Reps/Duration 10x ea Lower Extremity Stretches rolling foot on submerged BB Body Position Standing Water Level Chest Level Reps/Duration 2 min HC Details involved Body Position Standing Water Level Chest Level Reps/Duration 2x45 Comments foot on noodle HS Details involved Body Position Standing Water Level Chest Level Equipment Small Noodle Reps/Duration 2x 45 [place] Activities [place] Activities Bicycle,Bicycle Backwards, Cross Country,Running,Hip Abduction/Adduction,Sit Kicks Other Activities bicycle with no UE's hacky sac in and out Equipment flotation belt Duration 30 min Comments emphasizing ankle mobility and stretching with resistance of water Swim Strokes breast stroke kick Equipment Flotation Belt,Noodle Laps/Duration 30M Comments emphasis on ER PT-OP-T Assessment and Plan Start: 08/21/19 09:06 Freq: Status: Active Protocol: Document 12/19/19 09:00 MB (Rec: 12/19/19 09:43 MB [id number]) Physical Therapy Assessment Goals 6 Impairment LE functional index score reflecting 80% impairment Refinery Pipeline Operator Goal (LTG) LE functional index score will reflect no more than 40% impairment by 02/15/2020. 12/19/2019: LEF index score reflects 73.75% impairment LTG Duration 8 weeks 5 [employer]inery Pipeline Operator Goal (LTG) Pt will perform HEP with I including ROM, flexibility, WB , gait, balance and strengthening exercises by . 12/19/2019: Pt is performing progressive HEP everyday LTG Duration 8 weeks 4 [employer]inery Pipeline Operator Goal (LTG) Pt will deny falls for 2 months by 02/15/2020. 12/19/2019: Pt has not had any falls since last reassessment LTG Duration 8 weeks 3 [employer]inery Pipeline Operator Goal (LTG) Pt will present with improved left ankle AROM to at least 30 deg PF, 15 deg DF, eversion and inversion by 02/15/2020. 12/19/2019: AROM DF 8 deg, PF 22 deg, eversion 5 deg, inversion 7 deg. LTG Duration 8 weeks 2 Refinery Pipeline Operator Goal (LTG) Pt will perform 2 step gait training without AD and with reciprocal gait by 02/15/2020. 12/19/2019: Pt can ascend and descend 10 steps with cane in right hand and rail, step-to gait LTG Duration 8 weeks 1 [facility] Goal (LTG) Pt will report a 50% improvement in left ankle and heel pain by 02/15/2020. 12/19/2019: Pt reports 15% improvement in pain LTG Duration 8 weeks Assessment Summary Assessment Pt continues to make slow progress towards PT goals. These include performance of HEP, small improvements in pain, ROM and LE functioinal index score, no falls and stair performance. Pt will benefit from ongoing PT to improve ROM, functional strength in legs, and gait. Consider increasing gait activities in the pool and on land, hip strengthening, knee strengthening, ankle proprioception, balance and strengthening. Consider progressing to lifting small objects off lower surfaces. Physical Therapy Plan Frequency and Duration Frequency of Treatment 2x/Week Duration of Treatment 12 weeks Plan of Care Start Date 12/19/19 Plan of Care End Date 02/15/20 Therapeutic Interventions Therapeutic Interventions Aquatic Therapy,Balance Training,Coordination Training ,Gait Training,Home Exercise Program,Joint Mobilizations, Manual Therapy,Neuromuscular Re-education,Patient/Caregiver Education,Self-Care/Home Management,Soft Tissue Mobilization,Taping, Therapeutic Activities, Therapeutic Exercises Modalities Cold Pack/Ice Massage,Electric Stimulation,Hot Packs, Ultrasound Other Therapeutic Interventions LLT Next Visit Focus/Plan Next Note Type Treatment Note Next Visit Plan Continue combination aquatic and land-based PT for progression of gait training, balance and ROM. See progress note comments this date. Consider recumbent stepper.
--- NOTE | 2019-12-24 14:51 | PT.OTN ---
Current Diagnoses Unspecified fracture of left calcaneus, initial encounter for closed fracture (12/19/19) Encounter for other orthopedic aftercare (12/19/19) Physical Therapy Treatment Note PT-OP-A Visit Information Start: 08/21/19 09:06 Freq: Status: Active Protocol: Document 12/24/19 11:45 LJ (Rec: 12/24/19 14:51 LJ [email or web address]) Out-Patient Physical Therapy Visit Information Visit Information Visit Type Aquatic Treatment Note Visit Start Time 11:45 Visit Stop Time 12:30 Total Visit Minutes 45 Visit Number 08/14 Number of COLLEGE COUNSELOR Visits 1 PT-OP-B Current Condition Start: 08/21/19 09:06 Freq: Status: Active Protocol: Document 09/03/19 08:55 MB (Rec: 09/03/19 09:40 MB [id number]) Current Condition History of Current Condition Onset Date 06/02/19 History of Current Condition Pt fell 06/02/19 when ladder was falling. He states that he actually jumped to try to avoid fuerther injury. He sustained L comminuted calcaneal fx s/p ORIF 06/19/19. He also had bone graft. He returns to surgeon on 09/13/19 . On visit 08/02/19, he was told that he is 50% WB on left foot wearing boot and using crutches. He was told to progress 25% more after two weeks but left heel pain has limited WB. The swelling hasn' t gone down. He has two steps to enter house. There is no railing. The door opens forward and he has trouble with this. He has had a couple of falls. He fell when using knee scooter when trying to place knee back up on it. He almost fell off front porch when it was wet. 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 He is sleeping sporatically, on his right side with pillow support . He is taking Gabapentin, Tylenol, and is trying to quit smoking. Prior Treatments and Tests Sx PT-OP-C Subjective Start: 08/21/19 09:06 Freq: Status: Active Protocol: Document 12/24/19 11:45 LJ (Rec: 12/24/19 14:51 LJ [email or web address]) OP-PT Subjective Patient Comments Patient Comments Pt states he went to his new doctor (Arnie) an hour before aquatic session and the performed strain-counter strain on him. States it hurt a lot. PT-OP-G Mobility & Gait Start: 08/21/19 09:06 Freq: Status: Active Protocol: Document 09/03/19 08:55 MB (Rec: 09/03/19 10:57 MB [id number]) OP Gait Assessment Comments Gait Comments Approximately 25% WB through left foot with gait wearing boot and using crutches. Pt using step-to to step-through gait. PT-OP-K Range of Motion Start: 08/21/19 09:06 Freq: Status: Active Protocol: Document 09/03/19 08:55 MB (Rec: 09/03/19 10:57 MB [id number]) Ankle and Foot Goniometric Range of Motion Ankle and Foot ROM Limitations ROM Limitations Swelling Comments R ankle and foot functional. Left ankle and foot with minimal ROM: active DF 5 deg, PF 10 deg, no active inversion and 5 deg eversion. He performs minimal toe wiggle all toes. Ecchymosis of entire foot with foot in dependent position. PT-OP-M Strength Start: 08/21/19 09:06 Freq: Status: Active Protocol: Document 09/03/19 08:55 MB (Rec: 09/03/19 10:57 MB [id number]) Hip Strength Hip Manual Muscle Testing Left Flexion (L2) 5 Normal Abduction 4 Good Comments Supine Right Flexion (L2) 5 Normal Abduction 4 Good Comments Supine Knee Strength Knee Manual Muscle Testing Left Flexion (S2) 5 Normal Extension (L3) 5 Normal Right Flexion (S2) 5 Normal Extension (L3) 5 Normal Comments Supine Ankle/Foot Strength Ankle and Foot Manual Muscle Testing Right Dorsiflexion (L4) 5 Normal Plantarflexion (S1) 5 Normal Inversion 5 Normal Eversion (S1) 4 Good Comments Cannot test the left s/p ORIF, pain, edema pitting greater than 10 sec recoil PT-OP-Q Treatments Start: 08/21/19 09:06 Freq: Status: Active Protocol: Document 12/19/19 09:00 MB (Rec: 12/19/19 09:43 MB [id number]) Therapeutic Exercises Supine Exercises HS R LE with left ankle across right knee for left hip rotator stretch Comments 2' SLR Comments 10 reps Hamstring stretch with AP Comments 2' with blue martial art belt APs and toe flexion and extension Comments 10 reps Sitting Exercises Ankle PF resistance level 2 band foot hammock Comments 25 reps today, green band PT-OP-R Modalities Start: 08/21/19 09:06 Freq: Status: Active Protocol: Document 12/12/19 10:11 SP (Rec: 12/12/19 10:11 SP [id number]) Hot Pack/Cold Pack Treatment Cold Pack Location L ankle Patient Position Supine Treatment Duration (minutes) 10 Patient Tolerance Good Comments cryocuff PT-OP-S Aquatic Treatment Start: 08/21/19 09:06 Freq: Status: Active Protocol: Document 12/24/19 11:45 LJ (Rec: 12/24/19 14:51 LJ [email or web address]) Aquatics Treatment Pool Entry/Exit Pool Entry/Exit Method Stairs Assistance Independent Water Walking reciprocal gait pattern Water Level Chest Level Level of Assistance Verbal Cues Comments wts on arms, sm floats on feet Backwards Water Level Chest Level Comments sm floats on feet for comport Sideways Water Level Chest Level Comments sm floats on feet for comport Forward Water Level Chest Level Comments encouraging faster walking Lower Extremity Exercises ankle ROM Details df/pf, inv/ev, circles Body Position Standing Water Level Chest Level Reps/Duration 10x ea Lower Extremity Stretches AAROM-LLE ankle Details back at wall Body Position Standing Water Level Chest Level Reps/Duration 2 min rolling foot on submerged BB Body Position Standing Water Level Chest Level Reps/Duration 2 min HC Details bilat Body Position Standing Water Level Waist Level Reps/Duration 2 min on/off Comments hanging off 8 step HS Details involved Body Position Standing Water Level Chest Level Equipment Small Noodle Reps/Duration 2x 45 [place] Activities Other Activities pendulum plank with progressions Equipment flotation belt Duration 13 min Comments emphasizing ankle mobility and stretching with resistance of water Swim Strokes breast stroke kick Equipment Flotation Belt Laps/Duration 30m Comments emphasis on ER PT-OP-T Assessment and Plan Start: 08/21/19 09:06 Freq: Status: Active Protocol: Document 12/24/19 11:45 LJ (Rec: 12/24/19 14:51 LJ [email or web address]) Physical Therapy Assessment Goals 6 Impairment LE functional index score reflecting 80% impairment Spinner Hand Goal (LTG) LE functional index score will reflect no more than 40% impairment by 02/15/2020. 12/19/2019: LEF index score reflects 73.75% impairment LTG Duration 8 weeks 5 [facility] Goal (LTG) Pt will perform HEP with I including ROM, flexibility, WB , gait, balance and strengthening exercises by . 12/19/2019: Pt is performing progressive HEP everyday LTG Duration 8 weeks 4 Spinner Hand Goal (LTG) Pt will deny falls for 2 months by 02/15/2020. 12/19/2019: Pt has not had any falls since last reassessment LTG Duration 8 weeks 3 [facility] Goal (LTG) Pt will present with improved left ankle AROM to at least 30 deg PF, 15 deg DF, eversion and inversion by 02/15/2020. 12/19/2019: AROM DF 8 deg, PF 22 deg, eversion 5 deg, inversion 7 deg. LTG Duration 8 weeks 2 Spinner Hand Goal (LTG) Pt will perform 2 step gait training without AD and with reciprocal gait by 02/15/2020. 12/19/2019: Pt can ascend and descend 10 steps with cane in right hand and rail, step-to gait LTG Duration 8 weeks 1 [facility] Goal (LTG) Pt will report a 50% improvement in left ankle and heel pain by 02/15/2020. 12/19/2019: Pt reports 15% improvement in pain LTG Duration 8 weeks Assessment Summary Assessment Pt was in shallower water this session. Heel was protected with small floatation device. Improvement in ankle ROM with active assist. Pt needed cueing to remain in shallower water for increased weight bearing. Majority of shallow water exercises and ambulation spent in 30% WB depth. Pt offered shoes for exercising on hydorbike but pt stated the shoes would not fit his foot. Physical Therapy Plan Frequency and Duration Frequency of Treatment 2x/Week Duration of Treatment 12 weeks Plan of Care Start Date 12/19/19 Plan of Care End Date 02/15/20 Therapeutic Interventions Therapeutic Interventions Aquatic Therapy,Balance Training,Coordination Training ,Gait Training,Home Exercise Program,Joint Mobilizations, Manual Therapy,Neuromuscular Re-education,Patient/Caregiver Education,Self-Care/Home Management,Soft Tissue Mobilization,Taping, Therapeutic Activities, Therapeutic Exercises Modalities Cold Pack/Ice Massage,Electric Stimulation,Hot Packs, Ultrasound Other Therapeutic Interventions LLT Next Visit Focus/Plan Next Note Type Treatment Note Next Visit Plan Continue combination aquatic and land-based PT for progression of gait training, balance and ROM.
--- NOTE | 2019-12-26 09:48 | PT.OTN ---
Current Diagnoses Unspecified fracture of left calcaneus, initial encounter for closed fracture (12/26/19) Encounter for other orthopedic aftercare (12/26/19) Physical Therapy Treatment Note PT-OP-A Visit Information Start: 08/21/19 09:06 Freq: Status: Active Protocol: Document 12/26/19 09:03 MB (Rec: 12/26/19 09:47 MB [id number]) Out-Patient Physical Therapy Visit Information Visit Information Visit Type Treatment Note Visit Start Time 09:03 Visit Stop Time 09:44 Total Visit Minutes 41 Visit Number 09/13 Number of RESIDENTIAL CAREGIVER Visits 0 PT-OP-B Current Condition Start: 08/21/19 09:06 Freq: Status: Active Protocol: Document 09/03/19 08:55 MB (Rec: 09/03/19 09:40 MB [id number]) Current Condition History of Current Condition Onset Date 06/02/19 History of Current Condition Pt fell 06/02/19 when ladder was falling. He states that he actually jumped to try to avoid fuerther injury. He sustained L comminuted calcaneal fx s/p ORIF 06/19/19. He also had bone graft. He returns to surgeon on 09/13/19 . On visit 08/02/19, he was told that he is 50% WB on left foot wearing boot and using crutches. He was told to progress 25% more after two weeks but left heel pain has limited WB. The swelling hasn' t gone down. He has two steps to enter house. There is no railing. The door opens forward and he has trouble with this. He has had a couple of falls. He fell when using knee scooter when trying to place knee back up on it. He almost fell off front porch when it was wet. 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 He is sleeping sporatically, on his right side with pillow support . He is taking Gabapentin, Tylenol, and is trying to quit smoking. Prior Treatments and Tests Sx PT-OP-C Subjective Start: 08/21/19 09:06 Freq: Status: Active Protocol: Document 12/26/19 09:03 MB (Rec: 12/26/19 09:47 MB [id number]) OP-PT Subjective Patient Comments Patient Comments Pt states that he is able to walk a little further before pain starts. He is standing and stepping in the kitchen without the cane because he can reach the counters. He will see Dr. Gaitan for some dry needling. PT-OP-G Mobility & Gait Start: 08/21/19 09:06 Freq: Status: Active Protocol: Document 09/03/19 08:55 MB (Rec: 09/03/19 10:57 MB [id number]) OP Gait Assessment Comments Gait Comments Approximately 25% WB through left foot with gait wearing boot and using crutches. Pt using step-to to step-through gait. PT-OP-K Range of Motion Start: 08/21/19 09:06 Freq: Status: Active Protocol: Document 09/03/19 08:55 MB (Rec: 09/03/19 10:57 MB [id number]) Ankle and Foot Goniometric Range of Motion Ankle and Foot ROM Limitations ROM Limitations Swelling Comments R ankle and foot functional. Left ankle and foot with minimal ROM: active DF 5 deg, PF 10 deg, no active inversion and 5 deg eversion. He performs minimal toe wiggle all toes. Ecchymosis of entire foot with foot in dependent position. PT-OP-M Strength Start: 08/21/19 09:06 Freq: Status: Active Protocol: Document 09/03/19 08:55 MB (Rec: 09/03/19 10:57 MB [id number]) Hip Strength Hip Manual Muscle Testing Left Flexion (L2) 5 Normal Abduction 4 Good Comments Supine Right Flexion (L2) 5 Normal Abduction 4 Good Comments Supine Knee Strength Knee Manual Muscle Testing Left Flexion (S2) 5 Normal Extension (L3) 5 Normal Right Flexion (S2) 5 Normal Extension (L3) 5 Normal Comments Supine Ankle/Foot Strength Ankle and Foot Manual Muscle Testing Right Dorsiflexion (L4) 5 Normal Plantarflexion (S1) 5 Normal Inversion 5 Normal Eversion (S1) 4 Good Comments Cannot test the left s/p ORIF, pain, edema pitting greater than 10 sec recoil PT-OP-Q Treatments Start: 08/21/19 09:06 Freq: Status: Active Protocol: Document 12/26/19 09:03 MB (Rec: 12/26/19 09:47 MB [id number]) Cardio Equipment Recumbent Elliptical ([employer]) Duration (Minutes) 17 Resistance 1 Gait Training Gait Activity Parallel bar walking Comments 6 reps x 2 sets forward and back with pt sliding hands on parallel bars and performing reciprocal gait Neuro Re-Education Treatment Balance Activities Trampoline weight shift Comments B UE support for weight shift both feet down. R hand support with right foot up and ankle strategy through left foot 6/ 10 pain x4 30 sec reps PT-OP-R Modalities Start: 08/21/19 09:06 Freq: Status: Active Protocol: Document 12/12/19 10:11 SP (Rec: 12/12/19 10:11 SP [id number]) Hot Pack/Cold Pack Treatment Cold Pack Location L ankle Patient Position Supine Treatment Duration (minutes) 10 Patient Tolerance Good Comments cryocuff PT-OP-S Aquatic Treatment Start: 08/21/19 09:06 Freq: Status: Active Protocol: Document 12/24/19 11:45 LJ (Rec: 12/24/19 14:51 LJ [id number]) Aquatics Treatment Pool Entry/Exit Pool Entry/Exit Method Stairs Assistance Independent Water Walking reciprocal gait pattern Water Level Chest Level Level of Assistance Verbal Cues Comments wts on arms, sm floats on feet Backwards Water Level Chest Level Comments sm floats on feet for comport Sideways Water Level Chest Level Comments sm floats on feet for comport Forward Water Level Chest Level Comments encouraging faster walking Lower Extremity Exercises ankle ROM Details df/pf, inv/ev, circles Body Position Standing Water Level Chest Level Reps/Duration 10x ea Lower Extremity Stretches AAROM-LLE ankle Details back at wall Body Position Standing Water Level Chest Level Reps/Duration 2 min rolling foot on submerged BB Body Position Standing Water Level Chest Level Reps/Duration 2 min HC Details bilat Body Position Standing Water Level Waist Level Reps/Duration 2 min on/off Comments hanging off 8 step HS Details involved Body Position Standing Water Level Chest Level Equipment Small Noodle Reps/Duration 2x 45 [place] Activities Other Activities pendulum plank with progressions Equipment flotation belt Duration 13 min Comments emphasizing ankle mobility and stretching with resistance of water Swim Strokes breast stroke kick Equipment Flotation Belt Laps/Duration 30m Comments emphasis on ER PT-OP-T Assessment and Plan Start: 08/21/19 09:06 Freq: Status: Active Protocol: Document 12/26/19 09:03 MB (Rec: 02/05/20 09:47 MB [id number]) Physical Therapy Assessment Goals 6 Impairment LE functional index score reflecting 80% impairment [facility] Goal (LTG) LE functional index score will reflect no more than 40% impairment by 02/15/2020. 12/19/2019: LEF index score reflects 73.75% impairment LTG Duration 8 weeks 5 Build [employer] Deployment Engineer Goal (LTG) Pt will perform HEP with I including ROM, flexibility, WB , gait, balance and strengthening exercises by . 12/19/2019: Pt is performing progressive HEP everyday LTG Duration 8 weeks 4 Build [employer] Deployment Engineer Goal (LTG) Pt will deny falls for 2 months by 02/15/2020. 12/19/2019: Pt has not had any falls since last reassessment LTG Duration 8 weeks 3 [facility] Goal (LTG) Pt will present with improved left ankle AROM to at least 30 deg PF, 15 deg DF, eversion and inversion by 02/15/2020. 12/19/2019: AROM DF 8 deg, PF 22 deg, eversion 5 deg, inversion 7 deg. LTG Duration 8 weeks 2 [facility] Goal (LTG) Pt will perform 2 step gait training without AD and with reciprocal gait by 02/15/2020. 12/19/2019: Pt can ascend and descend 10 steps with cane in right hand and rail, step-to gait LTG Duration 8 weeks 1 Build And Deployment Engineer Goal (LTG) Pt will report a 50% improvement in left ankle and heel pain by 02/15/2020. 12/19/2019: Pt reports 15% improvement in pain LTG Duration 8 weeks Assessment Summary Assessment Progressed time on recumbent reciprocal to improve ankle motion and leg strengthening, gait in // bars and standing on unsteady surface left ankle . Physical Therapy Plan Frequency and Duration Frequency of Treatment 2x/Week Duration of Treatment 12 weeks Plan of Care Start Date 12/19/19 Plan of Care End Date 02/15/20 Therapeutic Interventions Therapeutic Interventions Aquatic Therapy,Balance Training,Coordination Training ,Gait Training,Home Exercise Program,Joint Mobilizations, Manual Therapy,Neuromuscular Re-education,Patient/Caregiver Education,Self-Care/Home Management,Soft Tissue Mobilization,Taping, Therapeutic Activities, Therapeutic Exercises Modalities Cold Pack/Ice Massage,Electric Stimulation,Hot Packs, Ultrasound Other Therapeutic Interventions LLT Next Visit Focus/Plan Next Note Type Treatment Note Next Visit Plan Continue combination aquatic and land-based PT for progression of gait training, balance and ROM.
--- NOTE | 2019-12-31 14:58 | PT.OTN ---
Current Diagnoses Unspecified fracture of left calcaneus, initial encounter for closed fracture (12/26/19) Encounter for other orthopedic aftercare (12/26/19) Physical Therapy Treatment Note PT-OP-A Visit Information Start: 08/21/19 09:06 Freq: Status: Active Protocol: Document 12/31/19 11:45 LJ (Rec: 12/31/19 14:58 LJ [email or web address]) Out-Patient Physical Therapy Visit Information Visit Information Visit Type Aquatic Treatment Note Visit Start Time 11:45 Visit Stop Time 12:30 Total Visit Minutes 45 Visit Number 10/14 Number of CROSSCUTTER Visits 1 PT-OP-B Current Condition Start: 08/21/19 09:06 Freq: Status: Active Protocol: Document 09/03/19 08:55 MB (Rec: 09/03/19 09:40 MB [id number]) Current Condition History of Current Condition Onset Date 06/02/19 History of Current Condition Pt fell 06/02/19 when ladder was falling. He states that he actually jumped to try to avoid fuerther injury. He sustained L comminuted calcaneal fx s/p ORIF 06/19/19. He also had bone graft. He returns to surgeon on 09/13/19 . On visit 08/02/19, he was told that he is 50% WB on left foot wearing boot and using crutches. He was told to progress 25% more after two weeks but left heel pain has limited WB. The swelling hasn' t gone down. He has two steps to enter house. There is no railing. The door opens forward and he has trouble with this. He has had a couple of falls. He fell when using knee scooter when trying to place knee back up on it. He almost fell off front porch when it was wet. 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 He is sleeping sporatically, on his right side with pillow support . He is taking Gabapentin, Tylenol, and is trying to quit smoking. Prior Treatments and Tests Sx PT-OP-C Subjective Start: 08/21/19 09:06 Freq: Status: Active Protocol: Document 12/31/19 11:45 LJ (Rec: 12/31/19 14:58 LJ [email or web address]) OP-PT Subjective Patient Comments Patient Comments Pt states he saw his surgeon and was told that he had OA in his ankle. Pt is frustrated with the ongoing pain. PT-OP-G Mobility & Gait Start: 08/21/19 09:06 Freq: Status: Active Protocol: Document 09/03/19 08:55 MB (Rec: 09/03/19 10:57 MB [id number]) OP Gait Assessment Comments Gait Comments Approximately 25% WB through left foot with gait wearing boot and using crutches. Pt using step-to to step-through gait. PT-OP-K Range of Motion Start: 08/21/19 09:06 Freq: Status: Active Protocol: Document 09/03/19 08:55 MB (Rec: 09/03/19 10:57 MB [id number]) Ankle and Foot Goniometric Range of Motion Ankle and Foot ROM Limitations ROM Limitations Swelling Comments R ankle and foot functional. Left ankle and foot with minimal ROM: active DF 5 deg, PF 10 deg, no active inversion and 5 deg eversion. He performs minimal toe wiggle all toes. Ecchymosis of entire foot with foot in dependent position. PT-OP-M Strength Start: 08/21/19 09:06 Freq: Status: Active Protocol: Document 09/03/19 08:55 MB (Rec: 09/03/19 10:57 MB [id number]) Hip Strength Hip Manual Muscle Testing Left Flexion (L2) 5 Normal Abduction 4 Good Comments Supine Right Flexion (L2) 5 Normal Abduction 4 Good Comments Supine Knee Strength Knee Manual Muscle Testing Left Flexion (S2) 5 Normal Extension (L3) 5 Normal Right Flexion (S2) 5 Normal Extension (L3) 5 Normal Comments Supine Ankle/Foot Strength Ankle and Foot Manual Muscle Testing Right Dorsiflexion (L4) 5 Normal Plantarflexion (S1) 5 Normal Inversion 5 Normal Eversion (S1) 4 Good Comments Cannot test the left s/p ORIF, pain, edema pitting greater than 10 sec recoil PT-OP-Q Treatments Start: 08/21/19 09:06 Freq: Status: Active Protocol: Document 12/26/19 09:03 MB (Rec: 12/26/19 09:47 MB [id number]) Cardio Equipment Recumbent Elliptical ([employer]) Duration (Minutes) 17 Resistance 1 Gait Training Gait Activity Parallel bar walking Comments 6 reps x 2 sets forward and back with pt sliding hands on parallel bars and performing reciprocal gait Neuro Re-Education Treatment Balance Activities Trampoline weight shift Comments B UE support for weight shift both feet down. R hand support with right foot up and ankle strategy through left foot 6/ 10 pain x4 30 sec reps PT-OP-R Modalities Start: 08/21/19 09:06 Freq: Status: Active Protocol: Document 12/12/19 10:11 SP (Rec: 12/12/19 10:11 SP [id number]) Hot Pack/Cold Pack Treatment Cold Pack Location L ankle Patient Position Supine Treatment Duration (minutes) 10 Patient Tolerance Good Comments cryocuff PT-OP-S Aquatic Treatment Start: 08/21/19 09:06 Freq: Status: Active Protocol: Document 12/31/19 11:45 LJ (Rec: 12/31/19 14:58 LJ [email or web address]) Aquatics Treatment Pool Entry/Exit Pool Entry/Exit Method Stairs Assistance Independent Water Walking start/stop Water Level Chest Level Walking Equipment Ankle Floats march/kick Water Level Chest Level forward on uneven surface Water Level Chest Level Walking Equipment sm floats on bottom of feet Backwards Water Level Chest Level Comments ankle floats Sideways Water Level Chest Level Comments ankle floats Forward Water Level Chest Level Walking Equipment ankle floats Comments encouraging faster walking and rec. arm swing Lower Extremity Exercises side kick Water Level Chest Level Equipment Ankle Floats reverse hacky sac Water Level Chest Level Equipment Ankle Floats hacky sac Body Position Standing Water Level Chest Level Equipment Ankle Floats ankle ROM Details df/pf, inv/ev, circles Body Position Standing Water Level Chest Level Reps/Duration 15x ea Lower Extremity Stretches rolling foot on submerged BB Body Position Standing Water Level Chest Level Reps/Duration 2 min HC Details bilat Body Position Standing Water Level Waist Level Reps/Duration 2 min on/off Comments hanging off 8 step HS Details involved Body Position Standing Water Level Chest Level Equipment Small Noodle Reps/Duration 2x 45 [place] Activities [place] Activities Bicycle,Bicycle Backwards Equipment flotation belt Duration 6 min Comments emphasizing ankle mobility and stretching with resistance of water Swim Strokes breast stroke kick Equipment Flotation Belt Laps/Duration 30m Comments emphasis on ER Flutter Equipment Flotation Belt Laps/Duration 30M PT-OP-T Assessment and Plan Start: 08/21/19 09:06 Freq: Status: Active Protocol: Document 12/31/19 11:45 ALENA (Rec: 12/31/19 14:58 ALENA [email or web address]) Physical Therapy Assessment Goals 6 Impairment LE functional index score reflecting 80% impairment Clinical Editor Goal (LTG) LE functional index score will reflect no more than 40% impairment by 02/15/2020. 12/19/2019: LEF index score reflects 73.75% impairment LTG Duration 8 weeks 5 Clinical Editor Goal (LTG) Pt will perform HEP with I including ROM, flexibility, WB , gait, balance and strengthening exercises by . 12/19/2019: Pt is performing progressive HEP everyday LTG Duration 8 weeks 4 Senior Living Goal (LTG) Pt will deny falls for 2 months by 02/15/2020. 12/19/2019: Pt has not had any falls since last reassessment LTG Duration 8 weeks 3 Senior Living Goal (LTG) Pt will present with improved left ankle AROM to at least 30 deg PF, 15 deg DF, eversion and inversion by 02/15/2020. 12/19/2019: AROM DF 8 deg, PF 22 deg, eversion 5 deg, inversion 7 deg. LTG Duration 8 weeks 2 Senior Living Goal (LTG) Pt will perform 2 step gait training without AD and with reciprocal gait by 02/15/2020. 12/19/2019: Pt can ascend and descend 10 steps with cane in right hand and rail, step-to gait LTG Duration 8 weeks 1 Senior Living Goal (LTG) Pt will report a 50% improvement in left ankle and heel pain by 02/15/2020. 12/19/2019: Pt reports 15% improvement in pain LTG Duration 8 weeks Assessment Summary Assessment Decreased depth with walking exercises. Pt has less facial grimacing and is able to maintain a steadier gait pattern. Physical Therapy Plan Frequency and Duration Frequency of Treatment 2x/Week Duration of Treatment 12 weeks Therapeutic Interventions Therapeutic Interventions Aquatic Therapy,Balance Training,Coordination Training ,Gait Training,Home Exercise Program,Joint Mobilizations, Manual Therapy,Neuromuscular Re-education,Patient/Caregiver Education,Self-Care/Home Management,Soft Tissue Mobilization,Taping, Therapeutic Activities, Therapeutic Exercises Modalities Cold Pack/Ice Massage,Electric Stimulation,Hot Packs, Ultrasound Other Therapeutic Interventions LLT Other Referrals/Consults Referrals/Consults Recommended Recommend call doctor to follow-up about possible fungus on top of foot and between 4th and 5th toe Next Visit Focus/Plan Next Note Type Treatment Note Next Visit Plan Continue combination aquatic and land-based PT for progression of gait training, balance and ROM.
--- NOTE | 2020-01-02 10:00 | PT.OTN ---
Current Diagnoses Unspecified fracture of left calcaneus, initial encounter for closed fracture (01/02/20) Encounter for other orthopedic aftercare (01/02/20) Physical Therapy Treatment Note PT-OP-A Visit Information Start: 08/21/19 09:06 Freq: Status: Active Protocol: Document 01/02/20 09:02 MB (Rec: 01/02/20 10:00 MB [id number]) Out-Patient Physical Therapy Visit Information Visit Information Visit Type Treatment Note Visit Start Time 09:02 Visit Stop Time 09:55 Total Visit Minutes 53 Visit Number 11/13 Number of ENGINEERING JOB TITLES Visits 0 PT-OP-B Current Condition Start: 08/21/19 09:06 Freq: Status: Active Protocol: Document 09/03/19 08:55 MB (Rec: 09/03/19 09:40 MB [id number]) Current Condition History of Current Condition Onset Date 06/02/19 History of Current Condition Pt fell 06/02/19 when ladder was falling. He states that he actually jumped to try to avoid fuerther injury. He sustained L comminuted calcaneal fx s/p ORIF 06/19/19. He also had bone graft. He returns to surgeon on 09/13/19 . On visit 08/02/19, he was told that he is 50% WB on left foot wearing boot and using crutches. He was told to progress 25% more after two weeks but left heel pain has limited WB. The swelling hasn' t gone down. He has two steps to enter house. There is no railing. The door opens forward and he has trouble with this. He has had a couple of falls. He fell when using knee scooter when trying to place knee back up on it. He almost fell off front porch when it was wet. 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 He is sleeping sporatically, on his right side with pillow support . He is taking Gabapentin, Tylenol, and is trying to quit smoking. Prior Treatments and Tests Sx PT-OP-C Subjective Start: 08/21/19 09:06 Freq: Status: Active Protocol: Document 01/02/20 09:02 MB (Rec: 01/02/20 10:00 MB [id number]) OP-PT Subjective Patient Comments Patient Comments Pt con't with pain. Walking is difficult. He reports pain in his heel, metatarsal and top of ankle. When he saw surgeon, he was told that the surgery looks good and that he has OA. He was offered a series of cortisone injections in his foot. Pt reports 02/28 today on machine. PT-OP-G Mobility & Gait Start: 08/21/19 09:06 Freq: Status: Active Protocol: Document 09/03/19 08:55 MB (Rec: 09/03/19 10:57 MB [id number]) OP Gait Assessment Comments Gait Comments Approximately 25% WB through left foot with gait wearing boot and using crutches. Pt using step-to to step-through gait. PT-OP-K Range of Motion Start: 08/21/19 09:06 Freq: Status: Active Protocol: Document 09/03/19 08:55 MB (Rec: 09/03/19 10:57 MB [id number]) Ankle and Foot Goniometric Range of Motion Ankle and Foot ROM Limitations ROM Limitations Swelling Comments R ankle and foot functional. Left ankle and foot with minimal ROM: active DF 5 deg, PF 10 deg, no active inversion and 5 deg eversion. He performs minimal toe wiggle all toes. Ecchymosis of entire foot with foot in dependent position. PT-OP-M Strength Start: 08/21/19 09:06 Freq: Status: Active Protocol: Document 09/03/19 08:55 MB (Rec: 09/03/19 10:57 MB [id number]) Hip Strength Hip Manual Muscle Testing Left Flexion (L2) 5 Normal Abduction 4 Good Comments Supine Right Flexion (L2) 5 Normal Abduction 4 Good Comments Supine Knee Strength Knee Manual Muscle Testing Left Flexion (S2) 5 Normal Extension (L3) 5 Normal Right Flexion (S2) 5 Normal Extension (L3) 5 Normal Comments Supine Ankle/Foot Strength Ankle and Foot Manual Muscle Testing Right Dorsiflexion (L4) 5 Normal Plantarflexion (S1) 5 Normal Inversion 5 Normal Eversion (S1) 4 Good Comments Cannot test the left s/p ORIF, pain, edema pitting greater than 10 sec recoil PT-OP-Q Treatments Start: 08/21/19 09:06 Freq: Status: Active Protocol: Document 01/02/20 09:02 MB (Rec: 01/02/20 10:00 MB [id number]) Cardio Equipment Recumbent Elliptical ([employer]) Duration (Minutes) 11 Resistance 4 Therapeutic Exercises Supine Exercises Reviewed self-massage with frozen water bottle plantar fascia at home, theraband hammock exercise to improve foot and met mobility as well as pressure on top of left foot from family member and pt performing progressive forward lean through foot Comments PT demonstrates all these today and pt and PT perform standing mob forefoot Gait Training Gait Activity Parallel bar walking Comments 12 reps forward and backwards gait with sliding hands on // bars and pt with improved foot flat backwards gait and ongoing less push off with left foot Manual Therapy Treatment Other Other Manual Treatments Joint mobs left foot: phalanges, metatarsal phalangeal joints, mets, tarsals, distal tib fib AP, pt supine and then prone; ice STM over ankle and foot PT-OP-R Modalities Start: 08/21/19 09:06 Freq: Status: Active Protocol: Document 12/12/19 10:11 SP (Rec: 12/12/19 10:11 SP [id number]) Hot Pack/Cold Pack Treatment Cold Pack Location L ankle Patient Position Supine Treatment Duration (minutes) 10 Patient Tolerance Good Comments cryocuff PT-OP-S Aquatic Treatment Start: 08/21/19 09:06 Freq: Status: Active Protocol: Document 12/31/19 11:45 LJ (Rec: 12/31/19 14:58 LJ [email or web address]) Aquatics Treatment Pool Entry/Exit Pool Entry/Exit Method Stairs Assistance Independent Water Walking start/stop Water Level Chest Level Walking Equipment Ankle Floats march/kick Water Level Chest Level forward on uneven surface Water Level Chest Level Walking Equipment sm floats on bottom of feet Backwards Water Level Chest Level Comments ankle floats Sideways Water Level Chest Level Comments ankle floats Forward Water Level Chest Level Walking Equipment ankle floats Comments encouraging faster walking and rec. arm swing Lower Extremity Exercises side kick Water Level Chest Level Equipment Ankle Floats reverse hacky sac Water Level Chest Level Equipment Ankle Floats hacky sac Body Position Standing Water Level Chest Level Equipment Ankle Floats ankle ROM Details df/pf, inv/ev, circles Body Position Standing Water Level Chest Level Reps/Duration 15x ea Lower Extremity Stretches rolling foot on submerged BB Body Position Standing Water Level Chest Level Reps/Duration 2 min HC Details bilat Body Position Standing Water Level Waist Level Reps/Duration 2 min on/off Comments hanging off 8 step HS Details involved Body Position Standing Water Level Chest Level Equipment Small Noodle Reps/Duration 2x 45 [place] Activities [place] Activities Bicycle,Bicycle Backwards Equipment flotation belt Duration 6 min Comments emphasizing ankle mobility and stretching with resistance of water Swim Strokes breast stroke kick Equipment Flotation Belt Laps/Duration 30m Comments emphasis on ER Flutter Equipment Flotation Belt Laps/Duration 30M PT-OP-T Assessment and Plan Start: 08/21/19 09:06 Freq: Status: Active Protocol: Document 01/02/20 09:02 MB (Rec: 01/02/20 10:00 MB [id number]) Physical Therapy Assessment Goals 6 Impairment LE functional index score reflecting 80% impairment Job Printer Apprentice Goal (LTG) LE functional index score will reflect no more than 40% impairment by 02/15/2020. 12/19/2019: LEF index score reflects 73.75% impairment LTG Duration 8 weeks 5 Job Printer Apprentice Goal (LTG) Pt will perform HEP with I including ROM, flexibility, WB , gait, balance and strengthening exercises by . 12/19/2019: Pt is performing progressive HEP everyday LTG Duration 8 weeks 4 Job Printer Apprentice Goal (LTG) Pt will deny falls for 2 months by 02/15/2020. 12/19/2019: Pt has not had any falls since last reassessment LTG Duration 8 weeks 3 Job Printer Apprentice Goal (LTG) Pt will present with improved left ankle AROM to at least 30 deg PF, 15 deg DF, eversion and inversion by 02/15/2020. 12/19/2019: AROM DF 8 deg, PF 22 deg, eversion 5 deg, inversion 7 deg. LTG Duration 8 weeks 2 Care Home Goal (LTG) Pt will perform 2 step gait training without AD and with reciprocal gait by 02/15/2020. 12/19/2019: Pt can ascend and descend 10 steps with cane in right hand and rail, step-to gait LTG Duration 8 weeks 1 Job Printer Apprentice Goal (LTG) Pt will report a 50% improvement in left ankle and heel pain by 02/15/2020. 12/19/2019: Pt reports 15% improvement in pain LTG Duration 8 weeks Assessment Summary Assessment Pt reports ongoing 4/10 pain with exercises and gait. Pt's gait is easier with B hand slide on // bars today. He performs step-through gait. Physical Therapy Plan Frequency and Duration Frequency of Treatment 2x/Week Duration of Treatment 12 weeks Plan of Care Start Date 12/19/19 Plan of Care End Date 02/15/20 Therapeutic Interventions Therapeutic Interventions Aquatic Therapy,Balance Training,Coordination Training ,Gait Training,Home Exercise Program,Joint Mobilizations, Manual Therapy,Neuromuscular Re-education,Patient/Caregiver Education,Self-Care/Home Management,Soft Tissue Mobilization,Taping, Therapeutic Activities, Therapeutic Exercises Modalities Cold Pack/Ice Massage,Electric Stimulation,Hot Packs, Ultrasound Other Therapeutic Interventions LLT Next Visit Focus/Plan Next Note Type Treatment Note Next Visit Plan Continue combination aquatic and land-based PT for progression of gait training, balance and ROM.
--- NOTE | 2020-01-07 09:42 | PT.OTN ---
Current Diagnoses Unspecified fracture of left calcaneus, initial encounter for closed fracture (01/07/20) Encounter for other orthopedic aftercare (01/07/20) Physical Therapy Treatment Note PT-OP-A Visit Information Start: 08/21/19 09:06 Freq: Status: Active Protocol: Document 01/07/20 08:59 MB (Rec: 01/07/20 09:42 MB [id number]) Out-Patient Physical Therapy Visit Information Visit Information Visit Type Treatment Note Visit Start Time 08:59 Visit Stop Time 09:44 Total Visit Minutes 45 Visit Number Number of LODGING MANAGER Visits 0 PT-OP-B Current Condition Start: 08/21/19 09:06 Freq: Status: Active Protocol: Document 09/03/19 08:55 MB (Rec: 09/03/19 09:40 MB [id number]) Current Condition History of Current Condition Onset Date 06/02/19 History of Current Condition Pt fell 06/02/19 when ladder was falling. He states that he actually jumped to try to avoid fuerther injury. He sustained L comminuted calcaneal fx s/p ORIF 06/19/19. He also had bone graft. He returns to surgeon on 09/13/19 . On visit 08/02/19, he was told that he is 50% WB on left foot wearing boot and using crutches. He was told to progress 25% more after two weeks but left heel pain has limited WB. The swelling hasn' t gone down. He has two steps to enter house. There is no railing. The door opens forward and he has trouble with this. He has had a couple of falls. He fell when using knee scooter when trying to place knee back up on it. He almost fell off front porch when it was wet. 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 He is sleeping sporatically, on his right side with pillow support . He is taking Gabapentin, Tylenol, and is trying to quit smoking. Prior Treatments and Tests Sx PT-OP-C Subjective Start: 08/21/19 09:06 Freq: Status: Active Protocol: Document 01/07/20 08:59 MB (Rec: 01/07/20 09:42 MB [id number]) OP-PT Subjective Patient Comments Patient Comments Pt got dry needled after last PT treatment. The swelling went down a bit and then the pain subsided. 1 1/2 days later, the pain came back. PT-OP-G Mobility & Gait Start: 08/21/19 09:06 Freq: Status: Active Protocol: Document 09/03/19 08:55 MB (Rec: 09/03/19 10:57 MB [id number]) OP Gait Assessment Comments Gait Comments Approximately 25% WB through left foot with gait wearing boot and using crutches. Pt using step-to to step-through gait. PT-OP-K Range of Motion Start: 08/21/19 09:06 Freq: Status: Active Protocol: Document 09/03/19 08:55 MB (Rec: 09/03/19 10:57 MB [id number]) Ankle and Foot Goniometric Range of Motion Ankle and Foot ROM Limitations ROM Limitations Swelling Comments R ankle and foot functional. Left ankle and foot with minimal ROM: active DF 5 deg, PF 10 deg, no active inversion and 5 deg eversion. He performs minimal toe wiggle all toes. Ecchymosis of entire foot with foot in dependent position. PT-OP-M Strength Start: 08/21/19 09:06 Freq: Status: Active Protocol: Document 09/03/19 08:55 MB (Rec: 09/03/19 10:57 MB [id number]) Hip Strength Hip Manual Muscle Testing Left Flexion (L2) 5 Normal Abduction 4 Good Comments Supine Right Flexion (L2) 5 Normal Abduction 4 Good Comments Supine Knee Strength Knee Manual Muscle Testing Left Flexion (S2) 5 Normal Extension (L3) 5 Normal Right Flexion (S2) 5 Normal Extension (L3) 5 Normal Comments Supine Ankle/Foot Strength Ankle and Foot Manual Muscle Testing Right Dorsiflexion (L4) 5 Normal Plantarflexion (S1) 5 Normal Inversion 5 Normal Eversion (S1) 4 Good Comments Cannot test the left s/p ORIF, pain, edema pitting greater than 10 sec recoil PT-OP-Q Treatments Start: 08/21/19 09:06 Freq: Status: Active Protocol: Document 01/07/20 08:59 MB (Rec: 01/07/20 09:42 MB [id number]) Cardio Equipment Recumbent Elliptical ([place]) Duration (Minutes) 10 Resistance 4 Therapeutic Exercises Supine Exercises Hook lying clam level 1 band Reps/Minutes Level 2 band Comments 10 reps today, increased to level 2 from level 1 Sitting Exercises Long sitting ankle ER Reps/Minutes Level 1 band Comments Little movement on left, stabilizes, 10 reps Hamstring curl with level 1 Reps/Minutes Level 2 band today Comments Alternating, 10 reps LAQ with level 1 Reps/Minutes Level 2 band today Comments Alternating, 10 reps Gait Training Gait Activity Parallel bar walking Comments 12 reps forward and backwards gait with sliding hands on // bars and pt with improved foot flat backwards gait and ongoing less push off with left foot Manual Therapy Treatment Other Other Manual Treatments Joint mobs left foot: phalanges, metatarsal phalangeal joints, mets, tarsals, distal tib fib AP, pt supine and then prone; ice STM over ankle and foot PT-OP-R Modalities Start: 08/21/19 09:06 Freq: Status: Active Protocol: Document 12/12/19 10:11 SP (Rec: 12/12/19 10:11 SP [id number]) Hot Pack/Cold Pack Treatment Cold Pack Location L ankle Patient Position Supine Treatment Duration (minutes) 10 Patient Tolerance Good Comments cryocuff PT-OP-S Aquatic Treatment Start: 08/21/19 09:06 Freq: Status: Active Protocol: Document 12/31/19 11:45 LJ (Rec: 12/31/19 14:58 LJ [id number]) Aquatics Treatment Pool Entry/Exit Pool Entry/Exit Method Stairs Assistance Independent Water Walking start/stop Water Level Chest Level Walking Equipment Ankle Floats march/kick Water Level Chest Level forward on uneven surface Water Level Chest Level Walking Equipment sm floats on bottom of feet Backwards Water Level Chest Level Comments ankle floats Sideways Water Level Chest Level Comments ankle floats Forward Water Level Chest Level Walking Equipment ankle floats Comments encouraging faster walking and rec. arm swing Lower Extremity Exercises side kick Water Level Chest Level Equipment Ankle Floats reverse hacky sac Water Level Chest Level Equipment Ankle Floats hacky sac Body Position Standing Water Level Chest Level Equipment Ankle Floats ankle ROM Details df/pf, inv/ev, circles Body Position Standing Water Level Chest Level Reps/Duration 15x ea Lower Extremity Stretches rolling foot on submerged BB Body Position Standing Water Level Chest Level Reps/Duration 2 min HC Details bilat Body Position Standing Water Level Waist Level Reps/Duration 2 min on/off Comments hanging off 8 step HS Details involved Body Position Standing Water Level Chest Level Equipment Small Noodle Reps/Duration 2x 45 Bliss Activities Bliss Activities Bicycle,Bicycle Backwards Equipment flotation belt Duration 6 min Comments emphasizing ankle mobility and stretching with resistance of water Swim Strokes breast stroke kick Equipment Flotation Belt Laps/Duration 30m Comments emphasis on ER Flutter Equipment Flotation Belt Laps/Duration 30M PT-OP-T Assessment and Plan Start: 08/21/19 09:06 Freq: Status: Active Protocol: Document 01/07/20 08:59 MB (Rec: 01/07/20 09:42 MB [id number]) Physical Therapy Assessment Goals 6 Impairment LE functional index score reflecting 80% impairment Bone Cooking Operator Goal (LTG) LE functional index score will reflect no more than 40% impairment by 02/15/2020. 12/19/2019: LEF index score reflects 73.75% impairment LTG Duration 8 weeks 5 Bone Cooking Operator Goal (LTG) Pt will perform HEP with I including ROM, flexibility, WB , gait, balance and strengthening exercises by . 12/19/2019: Pt is performing progressive HEP everyday LTG Duration 8 weeks 4 Bone Cooking Operator Goal (LTG) Pt will deny falls for 2 months by 02/15/2020. 12/19/2019: Pt has not had any falls since last reassessment LTG Duration 8 weeks 3 Mcc Goal (LTG) Pt will present with improved left ankle AROM to at least 30 deg PF, 15 deg DF, eversion and inversion by 02/15/2020. 12/19/2019: AROM DF 8 deg, PF 22 deg, eversion 5 deg, inversion 7 deg. LTG Duration 8 weeks 2 Bone Cooking Operator Goal (LTG) Pt will perform 2 step gait training without AD and with reciprocal gait by 02/15/2020. 12/19/2019: Pt can ascend and descend 10 steps with cane in right hand and rail, step-to gait LTG Duration 8 weeks 1 Bone Cooking Operator Goal (LTG) Pt will report a 50% improvement in left ankle and heel pain by 02/15/2020. 12/19/2019: Pt reports 15% improvement in pain LTG Duration 8 weeks Assessment Summary Assessment Progressed strengthening exercises. Ongoing mobs to help foot mobility. Physical Therapy Plan Frequency and Duration Frequency of Treatment 2x/Week Duration of Treatment 12 weeks Plan of Care Start Date 12/19/19 Plan of Care End Date 02/15/20 Therapeutic Interventions Therapeutic Interventions Aquatic Therapy,Balance Training,Coordination Training ,Gait Training,Home Exercise Program,Joint Mobilizations, Manual Therapy,Neuromuscular Re-education,Patient/Caregiver Education,Self-Care/Home Management,Soft Tissue Mobilization,Taping, Therapeutic Activities, Therapeutic Exercises Modalities Cold Pack/Ice Massage,Electric Stimulation,Hot Packs, Ultrasound Other Therapeutic Interventions LLT Next Visit Focus/Plan Next Note Type Treatment Note Next Visit Plan Continue combination aquatic and land-based PT for progression of gait training, balance and ROM.
--- NOTE | 2020-01-09 09:44 | PT.OTN ---
Current Diagnoses Unspecified fracture of left calcaneus, initial encounter for closed fracture (01/09/20) Encounter for other orthopedic aftercare (01/09/20) Physical Therapy Treatment Note PT-OP-A Visit Information Start: 08/21/19 09:06 Freq: Status: Active Protocol: Document 01/09/20 08:53 MB (Rec: 01/09/20 09:43 MB [id number]) Out-Patient Physical Therapy Visit Information Visit Information Visit Type Treatment Note Visit Start Time 08:53 Visit Stop Time 09:44 Total Visit Minutes 51 Visit Number Number of LONG WALL SHEAR OPERATOR Visits 0 PT-OP-B Current Condition Start: 08/21/19 09:06 Freq: Status: Active Protocol: Document 09/03/19 08:55 MB (Rec: 09/03/19 09:40 MB [id number]) Current Condition History of Current Condition Onset Date 06/02/19 History of Current Condition Pt fell 06/02/19 when ladder was falling. He states that he actually jumped to try to avoid fuerther injury. He sustained L comminuted calcaneal fx s/p ORIF 06/19/19. He also had bone graft. He returns to surgeon on 09/13/19 . On visit 08/02/19, he was told that he is 50% WB on left foot wearing boot and using crutches. He was told to progress 25% more after two weeks but left heel pain has limited WB. The swelling hasn' t gone down. He has two steps to enter house. There is no railing. The door opens forward and he has trouble with this. He has had a couple of falls. He fell when using knee scooter when trying to place knee back up on it. He almost fell off front porch when it was wet. 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 He is sleeping sporatically, on his right side with pillow support . He is taking Gabapentin, Tylenol, and is trying to quit smoking. Prior Treatments and Tests Sx PT-OP-C Subjective Start: 08/21/19 09:06 Freq: Status: Active Protocol: Document 01/09/20 08:53 MB (Rec: 01/09/20 09:43 MB [id number]) OP-PT Subjective Patient Comments Patient Comments Pt states that he had dry needling yesterday and it was painful during treatment, felt looser for a while and then had sharp pain around heel area. He has recovered from the sharp pain. PT-OP-G Mobility & Gait Start: 08/21/19 09:06 Freq: Status: Active Protocol: Document 09/03/19 08:55 MB (Rec: 09/03/19 10:57 MB [id number]) OP Gait Assessment Comments Gait Comments Approximately 25% WB through left foot with gait wearing boot and using crutches. Pt using step-to to step-through gait. PT-OP-K Range of Motion Start: 08/21/19 09:06 Freq: Status: Active Protocol: Document 09/03/19 08:55 MB (Rec: 09/03/19 10:57 MB [id number]) Ankle and Foot Goniometric Range of Motion Ankle and Foot ROM Limitations ROM Limitations Swelling Comments R ankle and foot functional. Left ankle and foot with minimal ROM: active DF 5 deg, PF 10 deg, no active inversion and 5 deg eversion. He performs minimal toe wiggle all toes. Ecchymosis of entire foot with foot in dependent position. PT-OP-M Strength Start: 08/21/19 09:06 Freq: Status: Active Protocol: Document 09/03/19 08:55 MB (Rec: 09/03/19 10:57 MB [id number]) Hip Strength Hip Manual Muscle Testing Left Flexion (L2) 5 Normal Abduction 4 Good Comments Supine Right Flexion (L2) 5 Normal Abduction 4 Good Comments Supine Knee Strength Knee Manual Muscle Testing Left Flexion (S2) 5 Normal Extension (L3) 5 Normal Right Flexion (S2) 5 Normal Extension (L3) 5 Normal Comments Supine Ankle/Foot Strength Ankle and Foot Manual Muscle Testing Right Dorsiflexion (L4) 5 Normal Plantarflexion (S1) 5 Normal Inversion 5 Normal Eversion (S1) 4 Good Comments Cannot test the left s/p ORIF, pain, edema pitting greater than 10 sec recoil PT-OP-Q Treatments Start: 08/21/19 09:06 Freq: Status: Active Protocol: Document 01/09/20 08:53 MB (Rec: 01/09/20 09:43 MB [id number]) Cardio Equipment Recumbent Elliptical ([place]) Duration (Minutes) 10 Resistance 5 Manual Therapy Treatment Other Other Manual Treatments Joint mobs left foot: phalanges, metatarsal phalangeal joints, mets, tarsals, MWM gastroc and toe extensors proximal muscles, PT performing trigger point release and pt performing active DF and PF PT-OP-R Modalities Start: 08/21/19 09:06 Freq: Status: Active Protocol: Document 12/12/19 10:11 SP (Rec: 12/12/19 10:11 SP [id number]) Hot Pack/Cold Pack Treatment Cold Pack Location L ankle Patient Position Supine Treatment Duration (minutes) 10 Patient Tolerance Good Comments cryocuff PT-OP-S Aquatic Treatment Start: 08/21/19 09:06 Freq: Status: Active Protocol: Document 12/31/19 11:45 LJ (Rec: 12/31/19 14:58 LJ [id number]) Aquatics Treatment Pool Entry/Exit Pool Entry/Exit Method Stairs Assistance Independent Water Walking start/stop Water Level Chest Level Walking Equipment Ankle Floats march/kick Water Level Chest Level forward on uneven surface Water Level Chest Level Walking Equipment sm floats on bottom of feet Backwards Water Level Chest Level Comments ankle floats Sideways Water Level Chest Level Comments ankle floats Forward Water Level Chest Level Walking Equipment ankle floats Comments encouraging faster walking and rec. arm swing Lower Extremity Exercises side kick Water Level Chest Level Equipment Ankle Floats reverse hacky sac Water Level Chest Level Equipment Ankle Floats hacky sac Body Position Standing Water Level Chest Level Equipment Ankle Floats ankle ROM Details df/pf, inv/ev, circles Body Position Standing Water Level Chest Level Reps/Duration 15x ea Lower Extremity Stretches rolling foot on submerged BB Body Position Standing Water Level Chest Level Reps/Duration 2 min HC Details bilat Body Position Standing Water Level Waist Level Reps/Duration 2 min on/off Comments hanging off 8 step HS Details involved Body Position Standing Water Level Chest Level Equipment Small Noodle Reps/Duration 2x 45 [place] Activities [place] Activities Bicycle,Bicycle Backwards Equipment flotation belt Duration 6 min Comments emphasizing ankle mobility and stretching with resistance of water Swim Strokes breast stroke kick Equipment Flotation Belt Laps/Duration 30m Comments emphasis on ER Flutter Equipment Flotation Belt Laps/Duration 30M PT-OP-T Assessment and Plan Start: 08/21/19 09:06 Freq: Status: Active Protocol: Document 01/09/20 08:53 MB (Rec: 01/09/20 09:43 MB [id number]) Physical Therapy Assessment Goals 6 Impairment LE functional index score reflecting 80% impairment Bill Adjuster Goal (LTG) LE functional index score will reflect no more than 40% impairment by 02/15/2020. 12/19/2019: LEF index score reflects 73.75% impairment LTG Duration 8 weeks 5 Senior Care Goal (LTG) Pt will perform HEP with I including ROM, flexibility, WB , gait, balance and strengthening exercises by . 12/19/2019: Pt is performing progressive HEP everyday LTG Duration 8 weeks 4 Senior Care Goal (LTG) Pt will deny falls for 2 months by 02/15/2020. 12/19/2019: Pt has not had any falls since last reassessment LTG Duration 8 weeks 3 Senior Care Goal (LTG) Pt will present with improved left ankle AROM to at least 30 deg PF, 15 deg DF, eversion and inversion by 02/15/2020. 12/19/2019: AROM DF 8 deg, PF 22 deg, eversion 5 deg, inversion 7 deg. LTG Duration 8 weeks 2 Bill Adjuster Goal (LTG) Pt will perform 2 step gait training without AD and with reciprocal gait by 02/15/2020. 12/19/2019: Pt can ascend and descend 10 steps with cane in right hand and rail, step-to gait LTG Duration 8 weeks 1 Bill Adjuster Goal (LTG) Pt will report a 50% improvement in left ankle and heel pain by 02/15/2020. 12/19/2019: Pt reports 15% improvement in pain LTG Duration 8 weeks Assessment Summary Assessment Ongoing manual work and gait training. Physical Therapy Plan Frequency and Duration Frequency of Treatment 2x/Week Duration of Treatment 12 weeks Plan of Care Start Date 12/19/19 Plan of Care End Date 02/15/20 Therapeutic Interventions Therapeutic Interventions Aquatic Therapy,Balance Training,Coordination Training ,Gait Training,Home Exercise Program,Joint Mobilizations, Manual Therapy,Neuromuscular Re-education,Patient/Caregiver Education,Self-Care/Home Management,Soft Tissue Mobilization,Taping, Therapeutic Activities, Therapeutic Exercises Modalities Cold Pack/Ice Massage,Electric Stimulation,Hot Packs, Ultrasound Other Therapeutic Interventions LLT Next Visit Focus/Plan Next Note Type Treatment Note Next Visit Plan Continue combination aquatic and land-based PT for progression of gait training, balance and ROM.
--- NOTE | 2020-01-14 11:32 | PT.OTN ---
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 He states that he actually jumped to try to avoid fuerther injury. He sustained L comminuted calcaneal fx s/p ORIF 06/19/19. He also had bone graft. He returns to surgeon on 09/13/19 . On visit 08/02/19, he was told that he is 50% WB on left foot wearing boot and using crutches. He was told to progress 25% more after two weeks but left heel pain has limited WB. The swelling hasn' t gone down. He has two steps to enter house. There is no railing. The door opens forward and he has trouble with this. He has had a couple of falls. He fell when using knee scooter when trying to place knee back up on it. He almost fell off front porch when it was wet. 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 He is sleeping sporatically, on his right side with pillow support . He is taking Gabapentin, Tylenol, and is trying to quit smoking. Prior Treatments and Tests Sx PT-OP-C Subjective Start: 08/21/19 09:06 Freq: Status: Active Protocol: Document 01/14/20 09:01 MB (Rec: 01/14/20 09:53 MB [id number]) OP-PT Subjective Patient Comments Patient Comments Pt states that the dry needling is helpful and he is reconsidering not getting the cortisone injection. PT-OP-G Mobility & Gait Start: 08/21/19 09:06 Freq: Status: Active Protocol: Document 09/03/19 08:55 MB (Rec: 09/03/19 10:57 MB [id number]) OP Gait Assessment Comments Gait Comments Approximately 25% WB through left foot with gait wearing boot and using crutches. Pt using step-to to step-through gait. PT-OP-K Range of Motion Start: 08/21/19 09:06 Freq: Status: Active Protocol: Document 09/03/19 08:55 MB (Rec: 09/03/19 10:57 MB [id number]) Ankle and Foot Goniometric Range of Motion Ankle and Foot ROM Limitations ROM Limitations Swelling Comments R ankle and foot functional. Left ankle and foot with minimal ROM: active DF 5 deg, PF 10 deg, no active inversion and 5 deg eversion. He performs minimal toe wiggle all toes. Ecchymosis of entire foot with foot in dependent position. PT-OP-M Strength Start: 08/21/19 09:06 Freq: Status: Active Protocol: Document 09/03/19 08:55 MB (Rec: 09/03/19 10:57 MB [id number]) Hip Strength Hip Manual Muscle Testing Left Flexion (L2) 5 Normal Abduction 4 Good Comments Supine Right Flexion (L2) 5 Normal Abduction 4 Good Comments Supine Knee Strength Knee Manual Muscle Testing Left Flexion (S2) 5 Normal Extension (L3) 5 Normal Right Flexion (S2) 5 Normal Extension (L3) 5 Normal Comments Supine Ankle/Foot Strength Ankle and Foot Manual Muscle Testing Right Dorsiflexion (L4) 5 Normal Plantarflexion (S1) 5 Normal Inversion 5 Normal Eversion (S1) 4 Good Comments Cannot test the left s/p ORIF, pain, edema pitting greater than 10 sec recoil PT-OP-Q Treatments Start: 08/21/19 09:06 Freq: Status: Active Protocol: Document 01/14/20 09:01 MB (Rec: 01/14/20 09:53 MB [id number]) Cardio Equipment Recumbent Elliptical ([id number]) Duration (Minutes) 6 Resistance 4 Therapeutic Exercises Sitting Exercises Sitting gentle eversion with foot on floor Comments Performed after mobs today Gait Training Gait Activity Parallel bar walking Comments Performed today and added step to step up on and off with right and left foot leading-- forward and back and pt uses / / bars for UE support Manual Therapy Treatment Joint Mobilizations Pt standing, PT performing AP mobs as pt DF over his foot Comments 3 sets of mobs--PT providing left foot AP pressure to tarsal and metatarsal joints as pt bend left knee and moves into DF Neuro Re-Education Treatment Balance Activities Mocked wall painting Comments Pt holding bucket with 3 lb weight with one hand and then using his SPC to reach up to top of blides with opposite hand. Switched hands and foot forward, pt with most difficulty reaching up with right hand Trampoline weight shift Comments Performed today without UE support, deccreased YUNIEL, left foot back, basket ball tosses, use of Body Blade. Weight shift forefoot to heel most difficult PT-OP-R Modalities Start: 08/21/19 09:06 Freq: Status: Active Protocol: Document 12/12/19 10:11 SP (Rec: 12/12/19 10:11 SP [id number]) Hot Pack/Cold Pack Treatment Cold Pack Location L ankle Patient Position Supine Treatment Duration (minutes) 10 Patient Tolerance Good Comments cryocuff PT-OP-S Aquatic Treatment Start: 08/21/19 09:06 Freq: Status: Active Protocol: Document 12/31/19 11:45 LJ (Rec: 12/31/19 14:58 LJ [id number]) Aquatics Treatment Pool Entry/Exit Pool Entry/Exit Method Stairs Assistance Independent Water Walking start/stop Water Level Chest Level Walking Equipment Ankle Floats march/kick Water Level Chest Level forward on uneven surface Water Level Chest Level Walking Equipment sm floats on bottom of feet Backwards Water Level Chest Level Comments ankle floats Sideways Water Level Chest Level Comments ankle floats Forward Water Level Chest Level Walking Equipment ankle floats Comments encouraging faster walking and rec. arm swing Lower Extremity Exercises side kick Water Level Chest Level Equipment Ankle Floats reverse hacky sac Water Level Chest Level Equipment Ankle Floats hacky sac Body Position Standing Water Level Chest Level Equipment Ankle Floats ankle ROM Details df/pf, inv/ev, circles Body Position Standing Water Level Chest Level Reps/Duration 15x ea Lower Extremity Stretches rolling foot on submerged BB Body Position Standing Water Level Chest Level Reps/Duration 2 min HC Details bilat Body Position Standing Water Level Waist Level Reps/Duration 2 min on/off Comments hanging off 8 step HS Details involved Body Position Standing Water Level Chest Level Equipment Small Noodle Reps/Duration 2x 45 [employer] Activities Cisco Activities Bicycle,Bicycle Backwards Equipment flotation belt Duration 6 min Comments emphasizing ankle mobility and stretching with resistance of water Swim Strokes breast stroke kick Equipment Flotation Belt Laps/Duration 30m Comments emphasis on ER Flutter Equipment Flotation Belt Laps/Duration 30M PT-OP-T Assessment and Plan Start: 08/21/19 09:06 Freq: Status: Active Protocol: Document 01/14/20 09:01 MB (Rec: 01/14/20 09:53 MB [id number]) Physical Therapy Assessment Goals 6 Impairment LE functional index score reflecting 80% impairment [employer] Goal (LTG) LE functional index score will reflect no more than 40% impairment by 02/15/2020. 12/19/2019: LEF index score reflects 73.75% impairment LTG Duration 8 weeks 5 [employer] Goal (LTG) Pt will perform HEP with I including ROM, flexibility, WB , gait, balance and strengthening exercises by . 12/19/2019: Pt is performing progressive HEP everyday LTG Duration 8 weeks 4 [facility] Goal (LTG) Pt will deny falls for 2 months by 02/15/2020. 12/19/2019: Pt has not had any falls since last reassessment LTG Duration 8 weeks 3 [facility] Goal (LTG) Pt will present with improved left ankle AROM to at least 30 deg PF, 15 deg DF, eversion and inversion by 02/15/2020. 12/19/2019: AROM DF 8 deg, PF 22 deg, eversion 5 deg, inversion 7 deg. LTG Duration 8 weeks 2 [facility] Goal (LTG) Pt will perform 2 step gait training without AD and with reciprocal gait by 02/15/2020. 12/19/2019: Pt can ascend and descend 10 steps with cane in right hand and rail, step-to gait LTG Duration 8 weeks 1 [employer] Goal (LTG) Pt will report a 50% improvement in left ankle and heel pain by 02/15/2020. 12/19/2019: Pt reports 15% improvement in pain LTG Duration 8 weeks Assessment Summary Assessment Progressed standing balance and gait exercises today. Progressed to mocking painting type activities and pt presents with ability to have some ankle movement in left foot with this task-- attempting to improve balance and ankle strategy reaction. Con't progression. Physical Therapy Plan Frequency and Duration Frequency of Treatment 2x/Week Duration of Treatment 12 weeks Plan of Care Start Date 12/19/19 Plan of Care End Date 02/15/20 Therapeutic Interventions Therapeutic Interventions Aquatic Therapy,Balance Training,Coordination Training ,Gait Training,Home Exercise Program,Joint Mobilizations, Manual Therapy,Neuromuscular Re-education,Patient/Caregiver Education,Self-Care/Home Management,Soft Tissue Mobilization,Taping, Therapeutic Activities, Therapeutic Exercises Modalities Cold Pack/Ice Massage,Electric Stimulation,Hot Packs, Ultrasound Other Therapeutic Interventions LLT Next Visit Focus/Plan Next Note Type Treatment Note Next Visit Plan Continue combination aquatic and land-based PT for progression of gait training, balance and ROM.
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
--- NOTE | 2020-01-23 13:34 | PT.OTN ---
Current Diagnoses Unspecified fracture of left calcaneus, initial encounter for closed fracture (01/23/20) Encounter for other orthopedic aftercare (01/23/20) Physical Therapy Treatment Note PT-OP-A Visit Information Start: 08/21/19 09:06 Freq: Status: Active Protocol: Document 01/23/20 13:01 MB (Rec: 01/23/20 13:34 MB [id number]) Out-Patient Physical Therapy Visit Information Visit Information Visit Type Treatment Note Visit Start Time 13:01 Visit Stop Time 13:45 Total Visit Minutes 44 Visit Number PT-OP-B Current Condition Start: 08/21/19 09:06 Freq: Status: Active Protocol: Document 09/03/19 08:55 MB (Rec: 09/03/19 09:40 MB [id number]) Current Condition History of Current Condition Onset Date 06/02/19 History of Current Condition Pt fell 06/02/19 when ladder was falling. He states that he actually jumped to try to avoid fuerther injury. He sustained L comminuted calcaneal fx s/p ORIF 06/19/19. He also had bone graft. He returns to surgeon on 09/13/19 . On visit 08/02/19, he was told that he is 50% WB on left foot wearing boot and using crutches. He was told to progress 25% more after two weeks but left heel pain has limited WB. The swelling hasn' t gone down. He has two steps to enter house. There is no railing. The door opens forward and he has trouble with this. He has had a couple of falls. He fell when using knee scooter when trying to place knee back up on it. He almost fell off front porch when it was wet. 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 He is sleeping sporatically, on his right side with pillow support . He is taking Gabapentin, Tylenol, and is trying to quit smoking. Prior Treatments and Tests Sx PT-OP-C Subjective Start: 08/21/19 09:06 Freq: Status: Active Protocol: Document 01/23/20 13:01 MB (Rec: 01/23/20 13:34 MB [id number]) OP-PT Subjective Patient Comments Patient Comments Pt states that he had to paint to earn some money. He was on his feet for 4 hours and had increased pain and swelling. He reports 8/10 pain. He had swelling before working when he had to walk further distance. PT-OP-G Mobility & Gait Start: 08/21/19 09:06 Freq: Status: Active Protocol: Document 09/03/19 08:55 MB (Rec: 09/03/19 10:57 MB [id number]) OP Gait Assessment Comments Gait Comments Approximately 25% WB through left foot with gait wearing boot and using crutches. Pt using step-to to step-through gait. PT-OP-K Range of Motion Start: 08/21/19 09:06 Freq: Status: Active Protocol: Document 09/03/19 08:55 MB (Rec: 09/03/19 10:57 MB [id number]) Ankle and Foot Goniometric Range of Motion Ankle and Foot ROM Limitations ROM Limitations Swelling Comments R ankle and foot functional. Left ankle and foot with minimal ROM: active DF 5 deg, PF 10 deg, no active inversion and 5 deg eversion. He performs minimal toe wiggle all toes. Ecchymosis of entire foot with foot in dependent position. PT-OP-M Strength Start: 08/21/19 09:06 Freq: Status: Active Protocol: Document 09/03/19 08:55 MB (Rec: 09/03/19 10:57 MB [id number]) Hip Strength Hip Manual Muscle Testing Left Flexion (L2) 5 Normal Abduction 4 Good Comments Supine Right Flexion (L2) 5 Normal Abduction 4 Good Comments Supine Knee Strength Knee Manual Muscle Testing Left Flexion (S2) 5 Normal Extension (L3) 5 Normal Right Flexion (S2) 5 Normal Extension (L3) 5 Normal Comments Supine Ankle/Foot Strength Ankle and Foot Manual Muscle Testing Right Dorsiflexion (L4) 5 Normal Plantarflexion (S1) 5 Normal Inversion 5 Normal Eversion (S1) 4 Good Comments Cannot test the left s/p ORIF, pain, edema pitting greater than 10 sec recoil PT-OP-Q Treatments Start: 08/21/19 09:06 Freq: Status: Active Protocol: Document 01/23/20 13:01 MB (Rec: 01/23/20 13:34 MB [id number]) Cardio Equipment Recumbent Elliptical (EyeScribes) Duration (Minutes) 12 Resistance 5 Manual Therapy Treatment Other Other Manual Treatments STM left foot with therapy cream to help reduce edema, work distal to proximal up calves PT-OP-R Modalities Start: 08/21/19 09:06 Freq: Status: Active Protocol: Document 12/12/19 10:11 SP (Rec: 12/12/19 10:11 SP [id number]) Hot Pack/Cold Pack Treatment Cold Pack Location L ankle Patient Position Supine Treatment Duration (minutes) 10 Patient Tolerance Good Comments cryocuff PT-OP-S Aquatic Treatment Start: 08/21/19 09:06 Freq: Status: Active Protocol: Document 01/16/20 12:15 SAK (Rec: 01/17/20 13:37 SAK [id number]) Aquatics Treatment Pool Entry/Exit Pool Entry/Exit Method Stairs Assistance Independent Water Walking reciprocal gait pattern Water Level Chest Level Level of Assistance Verbal Cues Comments wts on arms, sm floats on feet march/kick Water Level Chest Level forward on uneven surface Water Level Chest Level Walking Equipment sm floats on bottom of feet Backwards Water Level Chest Level Comments ankle floats Sideways Water Level Chest Level Comments ankle floats Forward Water Level Chest Level Walking Equipment ankle floats Comments encouraging faster walking and rec. arm swing Lower Extremity Exercises side kick Water Level Chest Level Equipment Ankle Floats reverse hacky sac Water Level Chest Level Equipment Ankle Floats hacky sac Body Position Standing Water Level Chest Level Equipment Ankle Floats ankle ROM Details df/pf, inv/ev, circles Body Position Standing Water Level Chest Level Reps/Duration 15x ea Lower Extremity Stretches HC Details bilat Body Position Standing Water Level Waist Level Reps/Duration 2 min on/off Comments hanging off 8 step HS Details involved Body Position Standing Water Level Chest Level Equipment Small Noodle Reps/Duration 2x 45 [place] Activities [place] Activities Bicycle,Bicycle Backwards, Cross Country,Running,Hip Abduction/Adduction,Sit Kicks Equipment flotation belt Duration 12 min Comments emphasizing ankle mobility and stretching with resistance of water Swim Strokes Flutter Equipment Flotation Belt Laps/Duration 30M PT-OP-T Assessment and Plan Start: 08/21/19 09:06 Freq: Status: Active Protocol: Document 01/23/20 13:01 MB (Rec: 01/23/20 13:34 MB [id number]) Physical Therapy Assessment Goals 6 Impairment LE functional index score reflecting 80% impairment Correction Goal (LTG) LE functional index score will reflect no more than 40% impairment by 02/15/2020. 12/19/2019: LEF index score reflects 73.75% impairment LTG Duration 8 weeks 5 Correction Goal (LTG) Pt will perform HEP with I including ROM, flexibility, WB , gait, balance and strengthening exercises by . 12/19/2019: Pt is performing progressive HEP everyday LTG Duration 8 weeks 4 Turbo Electric Operator Goal (LTG) Pt will deny falls for 2 months by 02/15/2020. 12/19/2019: Pt has not had any falls since last reassessment LTG Duration 8 weeks 3 Correction Goal (LTG) Pt will present with improved left ankle AROM to at least 30 deg PF, 15 deg DF, eversion and inversion by 02/15/2020. 12/19/2019: AROM DF 8 deg, PF 22 deg, eversion 5 deg, inversion 7 deg. LTG Duration 8 weeks 2 Turbo Electric Operator Goal (LTG) Pt will perform 2 step gait training without AD and with reciprocal gait by 02/15/2020. 12/19/2019: Pt can ascend and descend 10 steps with cane in right hand and rail, step-to gait LTG Duration 8 weeks 1 Correction Goal (LTG) Pt will report a 50% improvement in left ankle and heel pain by 02/15/2020. 12/19/2019: Pt reports 15% improvement in pain LTG Duration 8 weeks Assessment Summary Assessment Pt has increased swelling and decreased tolerance to upright exercises today in setting up being up on feet to work. Con 't therapy efforts. Pt's recovery and return to daily activities will be slow given his injury, response to WB. Physical Therapy Plan Frequency and Duration Frequency of Treatment 2x/Week Duration of Treatment 12 weeks Plan of Care Start Date 12/19/19 Plan of Care End Date 02/15/20 Therapeutic Interventions Therapeutic Interventions Aquatic Therapy,Balance Training,Coordination Training ,Gait Training,Home Exercise Program,Joint Mobilizations, Manual Therapy,Neuromuscular Re-education,Patient/Caregiver Education,Self-Care/Home Management,Soft Tissue Mobilization,Taping, Therapeutic Activities, Therapeutic Exercises Modalities Cold Pack/Ice Massage,Electric Stimulation,Hot Packs, Ultrasound Other Therapeutic Interventions LLT Next Visit Focus/Plan Next Note Type Treatment Note Next Visit Plan Continue combination aquatic and land-based PT for progression of gait training, balance and ROM.
--- NOTE | 2020-01-25 15:45 | PT.OTN ---
Current Diagnoses Unspecified fracture of left calcaneus, initial encounter for closed fracture (01/25/20) Encounter for other orthopedic aftercare (01/25/20) Physical Therapy Treatment Note PT-OP-A Visit Information Start: 08/21/19 09:06 Freq: Status: Active Protocol: Document 01/25/20 11:45 LJ (Rec: 01/25/20 15:45 LJ [id number]) Out-Patient Physical Therapy Visit Information Visit Information Visit Type Aquatic Treatment Note Visit Start Time 11:45 Visit Stop Time 12:30 Total Visit Minutes 45 Visit Number PT-OP-B Current Condition Start: 08/21/19 09:06 Freq: Status: Active Protocol: Document 09/03/19 08:55 MB (Rec: 09/03/19 09:40 MB [id number]) Current Condition History of Current Condition Onset Date 06/02/19 History of Current Condition Pt fell 06/02/19 when ladder was falling. He states that he actually jumped to try to avoid fuerther injury. He sustained L comminuted calcaneal fx s/p ORIF 06/19/19. He also had bone graft. He returns to surgeon on 09/13/19 . On visit 08/02/19, he was told that he is 50% WB on left foot wearing boot and using crutches. He was told to progress 25% more after two weeks but left heel pain has limited WB. The swelling hasn' t gone down. He has two steps to enter house. There is no railing. The door opens forward and he has trouble with this. He has had a couple of falls. He fell when using knee scooter when trying to place knee back up on it. He almost fell off front porch when it was wet. 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 He is sleeping sporatically, on his right side with pillow support . He is taking Gabapentin, Tylenol, and is trying to quit smoking. Prior Treatments and Tests Sx PT-OP-C Subjective Start: 08/21/19 09:06 Freq: Status: Active Protocol: Document 01/25/20 11:45 LJ (Rec: 01/25/20 15:45 LJ [id number]) OP-PT Subjective Patient Comments Patient Comments Pt complaining of pain and swelling in his ankle after working and being up on his feet. Walking with increased limp PT-OP-G Mobility & Gait Start: 08/21/19 09:06 Freq: Status: Active Protocol: Document 09/03/19 08:55 MB (Rec: 09/03/19 10:57 MB [id number]) OP Gait Assessment Comments Gait Comments Approximately 25% WB through left foot with gait wearing boot and using crutches. Pt using step-to to step-through gait. PT-OP-K Range of Motion Start: 08/21/19 09:06 Freq: Status: Active Protocol: Document 09/03/19 08:55 MB (Rec: 09/03/19 10:57 MB [id number]) Ankle and Foot Goniometric Range of Motion Ankle and Foot ROM Limitations ROM Limitations Swelling Comments R ankle and foot functional. Left ankle and foot with minimal ROM: active DF 5 deg, PF 10 deg, no active inversion and 5 deg eversion. He performs minimal toe wiggle all toes. Ecchymosis of entire foot with foot in dependent position. PT-OP-M Strength Start: 08/21/19 09:06 Freq: Status: Active Protocol: Document 09/03/19 08:55 MB (Rec: 09/03/19 10:57 MB [id number]) Hip Strength Hip Manual Muscle Testing Left Flexion (L2) 5 Normal Abduction 4 Good Comments Supine Right Flexion (L2) 5 Normal Abduction 4 Good Comments Supine Knee Strength Knee Manual Muscle Testing Left Flexion (S2) 5 Normal Extension (L3) 5 Normal Right Flexion (S2) 5 Normal Extension (L3) 5 Normal Comments Supine Ankle/Foot Strength Ankle and Foot Manual Muscle Testing Right Dorsiflexion (L4) 5 Normal Plantarflexion (S1) 5 Normal Inversion 5 Normal Eversion (S1) 4 Good Comments Cannot test the left s/p ORIF, pain, edema pitting greater than 10 sec recoil PT-OP-Q Treatments Start: 08/21/19 09:06 Freq: Status: Active Protocol: Document 01/23/20 13:01 MB (Rec: 01/23/20 13:34 MB [id number]) Cardio Equipment Recumbent Elliptical (BiodPrintToPeer) Duration (Minutes) 12 Resistance 5 Manual Therapy Treatment Other Other Manual Treatments STM left foot with therapy cream to help reduce edema, work distal to proximal up calves PT-OP-R Modalities Start: 08/21/19 09:06 Freq: Status: Active Protocol: Document 12/12/19 10:11 SP (Rec: 12/12/19 10:11 SP [id number]) Hot Pack/Cold Pack Treatment Cold Pack Location L ankle Patient Position Supine Treatment Duration (minutes) 10 Patient Tolerance Good Comments cryocuff PT-OP-S Aquatic Treatment Start: 08/21/19 09:06 Freq: Status: Active Protocol: Document 01/25/20 11:45 LJ (Rec: 01/25/20 15:45 LJ [id number]) Aquatics Treatment Pool Entry/Exit Pool Entry/Exit Method Stairs Assistance Independent Water Walking start/stop Water Level Chest Level Walking Equipment Ankle Floats reciprocal gait pattern Water Level Chest Level Level of Assistance Verbal Cues march/kick Water Level Chest Level Backwards Water Level Chest Level Sideways Water Level Chest Level Forward Water Level Chest Level Walking Equipment ankle floats Comments heel toe Lower Extremity Exercises side kick Water Level Chest Level Equipment Ankle Floats reverse hacky sac Water Level Chest Level Equipment Ankle Floats hacky sac Body Position Standing Water Level Chest Level Equipment Ankle Floats ankle ROM Details df/pf, inv/ev, circles Body Position Standing Water Level Chest Level Comments seated on wonder board Lower Extremity Stretches HC Details bilat Body Position Standing Water Level Waist Level Reps/Duration 2 min on/off Comments hanging off 8 step HS Details involved Body Position Standing Water Level Chest Level Equipment Small Noodle Reps/Duration 2x 45 Balance seated, kneeling, standing on wonder board Reps/Duration 6 mninutes [place] Activities [place] Activities Bicycle,Bicycle Backwards, Cross [place],Running,Hip Abduction/Adduction,Sit Kicks Equipment flotation belt Duration 12 min Comments emphasizing ankle mobility and stretching with resistance of water Swim Strokes breast stroke kick Equipment Flotation Belt Laps/Duration 30m Comments emphasis on ER PT-OP-T Assessment and Plan Start: 08/21/19 09:06 Freq: Status: Active Protocol: Document 01/25/20 11:45 LJ (Rec: 01/25/20 15:45 LJ [id number]) Physical Therapy Assessment Goals 6 Impairment LE functional index score reflecting 80% impairment Assisted Goal (LTG) LE functional index score will reflect no more than 40% impairment by 02/15/2020. 12/19/2019: LEF index score reflects 73.75% impairment LTG Duration 8 weeks 5 Assisted Goal (LTG) Pt will perform HEP with I including ROM, flexibility, WB , gait, balance and strengthening exercises by . 12/19/2019: Pt is performing progressive HEP everyday LTG Duration 8 weeks 4 Assisted Goal (LTG) Pt will deny falls for 2 months by 02/15/2020. 12/19/2019: Pt has not had any falls since last reassessment LTG Duration 8 weeks 3 Assisted Goal (LTG) Pt will present with improved left ankle AROM to at least 30 deg PF, 15 deg DF, eversion and inversion by 02/15/2020. 12/19/2019: AROM DF 8 deg, PF 22 deg, eversion 5 deg, inversion 7 deg. LTG Duration 8 weeks 2 Line Service Supervisor Goal (LTG) Pt will perform 2 step gait training without AD and with reciprocal gait by 02/15/2020. 12/19/2019: Pt can ascend and descend 10 steps with cane in right hand and rail, step-to gait LTG Duration 8 weeks 1 Line Service Supervisor Goal (LTG) Pt will report a 50% improvement in left ankle and heel pain by 02/15/2020. 12/19/2019: Pt reports 15% improvement in pain LTG Duration 8 weeks Assessment Summary Assessment Pt has increased swelling and pain. Did not use LE equipment this session as much. Pt tolerated walking exercises but remained in deeper water. Pt stayed for 15 minutes after therapy exercising in deep water. Physical Therapy Plan Frequency and Duration Frequency of Treatment 2x/Week Duration of Treatment 12 weeks Plan of Care Start Date 12/19/19 Plan of Care End Date 02/15/20 Therapeutic Interventions Therapeutic Interventions Aquatic Therapy,Balance Training,Coordination Training ,Gait Training,Home Exercise Program,Joint Mobilizations, Manual Therapy,Neuromuscular Re-education,Patient/Caregiver Education,Self-Care/Home Management,Soft Tissue Mobilization,Taping, Therapeutic Activities, Therapeutic Exercises Modalities Cold Pack/Ice Massage,Electric Stimulation,Hot Packs, Ultrasound Other Therapeutic Interventions LLT Next Visit Focus/Plan Next Note Type Treatment Note Next Visit Plan Continue combination aquatic and land-based PT for progression of gait training, balance and ROM.
--- NOTE | 2020-02-01 15:06 | PT.OTN ---
Current Diagnoses Unspecified fracture of left calcaneus, initial encounter for closed fracture (01/25/20) Encounter for other orthopedic aftercare (01/25/20) Physical Therapy Treatment Note PT-OP-A Visit Information Start: 08/21/19 09:06 Freq: Status: Active Protocol: Document 02/01/20 11:45 LJ (Rec: 02/01/20 15:06 LJ [email or web address]) Out-Patient Physical Therapy Visit Information Visit Information Visit Type Aquatic Treatment Note Visit Start Time 11:45 Visit Stop Time 12:30 Total Visit Minutes 45 Visit Number Number of TUNG NUT GROWER Visits 2 PT-OP-B Current Condition Start: 08/21/19 09:06 Freq: Status: Active Protocol: Document 09/03/19 08:55 MB (Rec: 09/03/19 09:40 MB [id number]) Current Condition History of Current Condition Onset Date 06/02/19 History of Current Condition Pt fell 06/02/19 when ladder was falling. He states that he actually jumped to try to avoid fuerther injury. He sustained L comminuted calcaneal fx s/p ORIF 06/19/19. He also had bone graft. He returns to surgeon on 09/13/19 . On visit 08/02/19, he was told that he is 50% WB on left foot wearing boot and using crutches. He was told to progress 25% more after two weeks but left heel pain has limited WB. The swelling hasn' t gone down. He has two steps to enter house. There is no railing. The door opens forward and he has trouble with this. He has had a couple of falls. He fell when using knee scooter when trying to place knee back up on it. He almost fell off front porch when it was wet. 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 He is sleeping sporatically, on his right side with pillow support . He is taking Gabapentin, Tylenol, and is trying to quit smoking. Prior Treatments and Tests Sx PT-OP-C Subjective Start: 08/21/19 09:06 Freq: Status: Active Protocol: Document 02/01/20 11:45 LJ (Rec: 02/01/20 15:06 LJ [email or web address]) OP-PT Subjective Patient Comments Patient Comments Pt complaining of pain and swelling in his ankle after standing while painting a small room. States he still cannot move his foot much and it is painful to even try PT-OP-G Mobility & Gait Start: 08/21/19 09:06 Freq: Status: Active Protocol: Document 09/03/19 08:55 MB (Rec: 09/03/19 10:57 MB [id number]) OP Gait Assessment Comments Gait Comments Approximately 25% WB through left foot with gait wearing boot and using crutches. Pt using step-to to step-through gait. PT-OP-K Range of Motion Start: 08/21/19 09:06 Freq: Status: Active Protocol: Document 09/03/19 08:55 MB (Rec: 09/03/19 10:57 MB [id number]) Ankle and Foot Goniometric Range of Motion Ankle and Foot ROM Limitations ROM Limitations Swelling Comments R ankle and foot functional. Left ankle and foot with minimal ROM: active DF 5 deg, PF 10 deg, no active inversion and 5 deg eversion. He performs minimal toe wiggle all toes. Ecchymosis of entire foot with foot in dependent position. PT-OP-M Strength Start: 08/21/19 09:06 Freq: Status: Active Protocol: Document 09/03/19 08:55 MB (Rec: 09/03/19 10:57 MB [id number]) Hip Strength Hip Manual Muscle Testing Left Flexion (L2) 5 Normal Abduction 4 Good Comments Supine Right Flexion (L2) 5 Normal Abduction 4 Good Comments Supine Knee Strength Knee Manual Muscle Testing Left Flexion (S2) 5 Normal Extension (L3) 5 Normal Right Flexion (S2) 5 Normal Extension (L3) 5 Normal Comments Supine Ankle/Foot Strength Ankle and Foot Manual Muscle Testing Right Dorsiflexion (L4) 5 Normal Plantarflexion (S1) 5 Normal Inversion 5 Normal Eversion (S1) 4 Good Comments Cannot test the left s/p ORIF, pain, edema pitting greater than 10 sec recoil PT-OP-Q Treatments Start: 08/21/19 09:06 Freq: Status: Active Protocol: Document 01/23/20 13:01 MB (Rec: 01/23/20 13:34 MB [id number]) Cardio Equipment Recumbent Elliptical (Affibody) Duration (Minutes) 12 Resistance 5 Manual Therapy Treatment Other Other Manual Treatments STM left foot with therapy cream to help reduce edema, work distal to proximal up calves PT-OP-R Modalities Start: 08/21/19 09:06 Freq: Status: Active Protocol: Document 12/12/19 10:11 SP (Rec: 12/12/19 10:11 SP [id number]) Hot Pack/Cold Pack Treatment Cold Pack Location L ankle Patient Position Supine Treatment Duration (minutes) 10 Patient Tolerance Good Comments cryocuff PT-OP-S Aquatic Treatment Start: 08/21/19 09:06 Freq: Status: Active Protocol: Document 02/01/20 11:45 ALENA (Rec: 02/01/20 15:06 LJ [email or web address]) Aquatics Treatment Pool Entry/Exit Pool Entry/Exit Method Stairs Assistance Independent Water Walking start/stop Water Level Chest Level Walking Equipment Ankle Floats march/kick Water Level Chest Level Walking Equipment Ankle Floats forward on uneven surface Water Level Chest Level Walking Equipment sm floats on bottom of feet Backwards Water Level Chest Level Walking Equipment Ankle Floats Sideways Water Level Chest Level Walking Equipment Ankle Floats Lower Extremity Exercises side kick Water Level Chest Level Equipment Ankle Floats reverse hacky sac Body Position Standing Water Level Chest Level Equipment Ankle Floats hacky sac Body Position Standing Water Level Chest Level Equipment Ankle Floats Lower Extremity Stretches HC Details bilat Body Position Standing Water Level Waist Level Reps/Duration 2 min on/off Comments hanging off 8 step HS Details involved Body Position Standing Water Level Chest Level Equipment Small Noodle Reps/Duration 2x 45 Balance seated, kneeling, standing on wonder board Body Position Standing Reps/Duration 2 mninutes Comments rocking side to side [place] Activities [place] Activities Bicycle,Bicycle Backwards, Cross Country,Hip Abduction/ Adduction Other Activities pendulum Equipment flotation belt Duration 15 min Comments emphasizing ankle mobility and stretching with resistance of water PT-OP-T Assessment and Plan Start: 08/21/19 09:06 Freq: Status: Active Protocol: Document 02/01/20 11:45 ALENA (Rec: 02/01/20 15:06 LJ [email or web address]) Physical Therapy Assessment Goals 6 Impairment LE functional index score reflecting 80% impairment [employer] Goal (LTG) LE functional index score will reflect no more than 40% impairment by 02/15/2020. 12/19/2019: LEF index score reflects 73.75% impairment LTG Duration 8 weeks 5 [employer] Goal (LTG) Pt will perform HEP with I including ROM, flexibility, WB , gait, balance and strengthening exercises by . 12/19/2019: Pt is performing progressive HEP everyday LTG Duration 8 weeks 4 [facility] Goal (LTG) Pt will deny falls for 2 months by 02/15/2020. 12/19/2019: Pt has not had any falls since last reassessment LTG Duration 8 weeks 3 [facility] Goal (LTG) Pt will present with improved left ankle AROM to at least 30 deg PF, 15 deg DF, eversion and inversion by 02/15/2020. 12/19/2019: AROM DF 8 deg, PF 22 deg, eversion 5 deg, inversion 7 deg. LTG Duration 8 weeks 2 [facility] Goal (LTG) Pt will perform 2 step gait training without AD and with reciprocal gait by 02/15/2020. 12/19/2019: Pt can ascend and descend 10 steps with cane in right hand and rail, step-to gait LTG Duration 8 weeks 1 [facility] Goal (LTG) Pt will report a 50% improvement in left ankle and heel pain by 02/15/2020. 12/19/2019: Pt reports 15% improvement in pain LTG Duration 8 weeks Assessment Summary Assessment Pt performed all exercises independently. He was offered aquatic HEP but stated he couldn't afford to go to pool and knows what to do amyway. Physical Therapy Plan Frequency and Duration Frequency of Treatment 2x/Week Duration of Treatment 12 weeks Plan of Care Start Date 12/19/19 Plan of Care End Date 02/15/20 Therapeutic Interventions Therapeutic Interventions Aquatic Therapy,Balance Training,Coordination Training ,Gait Training,Home Exercise Program,Joint Mobilizations, Manual Therapy,Neuromuscular Re-education,Patient/Caregiver Education,Self-Care/Home Management,Soft Tissue Mobilization,Taping, Therapeutic Activities, Therapeutic Exercises Modalities Cold Pack/Ice Massage,Electric Stimulation,Hot Packs, Ultrasound Other Therapeutic Interventions LLT Next Visit Focus/Plan Next Note Type Treatment Note Next Visit Plan Pt is discharged from pool therapy
--- NOTE | 2020-02-12 14:59 | PT.OTN ---
Current Diagnoses Unspecified fracture of left calcaneus, initial encounter for closed fracture (02/12/20) Encounter for other orthopedic aftercare (02/12/20) Physical Therapy Treatment Note PT-OP-A Visit Information Start: 08/21/19 09:06 Freq: Status: Active Protocol: Document 02/12/20 14:05 MB (Rec: 02/12/20 14:59 MB [id number]) Out-Patient Physical Therapy Visit Information Visit Information Visit Type Treatment Note Visit Start Time 14:05 Visit Stop Time 14:58 Total Visit Minutes 53 Visit Number PT-OP-B Current Condition Start: 08/21/19 09:06 Freq: Status: Active Protocol: Document 09/03/19 08:55 MB (Rec: 09/03/19 09:40 MB [id number]) Current Condition History of Current Condition Onset Date 06/02/19 History of Current Condition Pt fell 06/02/19 when ladder was falling. He states that he actually jumped to try to avoid fuerther injury. He sustained L comminuted calcaneal fx s/p ORIF 06/19/19. He also had bone graft. He returns to surgeon on 09/13/19 . On visit 08/02/19, he was told that he is 50% WB on left foot wearing boot and using crutches. He was told to progress 25% more after two weeks but left heel pain has limited WB. The swelling hasn' t gone down. He has two steps to enter house. There is no railing. The door opens forward and he has trouble with this. He has had a couple of falls. He fell when using knee scooter when trying to place knee back up on it. He almost fell off front porch when it was wet. 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 He is sleeping sporatically, on his right side with pillow support . He is taking Gabapentin, Tylenol, and is trying to quit smoking. Prior Treatments and Tests Sx PT-OP-C Subjective Start: 08/21/19 09:06 Freq: Status: Active Protocol: Document 02/12/20 14:05 MB (Rec: 02/12/20 14:59 MB [id number]) OP-PT Subjective Patient Comments Patient Comments Pt is preparing for discharge. PT-OP-G Mobility & Gait Start: 08/21/19 09:06 Freq: Status: Active Protocol: Document 09/03/19 08:55 MB (Rec: 09/03/19 10:57 MB [id number]) OP Gait Assessment Comments Gait Comments Approximately 25% WB through left foot with gait wearing boot and using crutches. Pt using step-to to step-through gait. PT-OP-K Range of Motion Start: 08/21/19 09:06 Freq: Status: Active Protocol: Document 09/03/19 08:55 MB (Rec: 09/03/19 10:57 MB [id number]) Ankle and Foot Goniometric Range of Motion Ankle and Foot ROM Limitations ROM Limitations Swelling Comments R ankle and foot functional. Left ankle and foot with minimal ROM: active DF 5 deg, PF 10 deg, no active inversion and 5 deg eversion. He performs minimal toe wiggle all toes. Ecchymosis of entire foot with foot in dependent position. PT-OP-M Strength Start: 08/21/19 09:06 Freq: Status: Active Protocol: Document 09/03/19 08:55 MB (Rec: 09/03/19 10:57 MB [id number]) Hip Strength Hip Manual Muscle Testing Left Flexion (L2) 5 Normal Abduction 4 Good Comments Supine Right Flexion (L2) 5 Normal Abduction 4 Good Comments Supine Knee Strength Knee Manual Muscle Testing Left Flexion (S2) 5 Normal Extension (L3) 5 Normal Right Flexion (S2) 5 Normal Extension (L3) 5 Normal Comments Supine Ankle/Foot Strength Ankle and Foot Manual Muscle Testing Right Dorsiflexion (L4) 5 Normal Plantarflexion (S1) 5 Normal Inversion 5 Normal Eversion (S1) 4 Good Comments Cannot test the left s/p ORIF, pain, edema pitting greater than 10 sec recoil PT-OP-Q Treatments Start: 08/21/19 09:06 Freq: Status: Active Protocol: Document 02/12/20 14:05 MB (Rec: 02/12/20 14:59 MB [id number]) Cardio Equipment Recumbent Elliptical (Sentrinsic) Duration (Minutes) 20 Resistance 1 Therapeutic Exercises Other Exercises Reviewed HEP exercises Comments Reviewed as needed today Manual Therapy Treatment Other Other Manual Treatments Left foot: phalanges, mets grade II-II mobs, passive DF and PF, STM PFs and anterior tibialis, increased tension lateral PFs PT-OP-R Modalities Start: 08/21/19 09:06 Freq: Status: Active Protocol: Document 12/12/19 10:11 SP (Rec: 12/12/19 10:11 SP [id number]) Hot Pack/Cold Pack Treatment Cold Pack Location L ankle Patient Position Supine Treatment Duration (minutes) 10 Patient Tolerance Good Comments cryocuff PT-OP-S Aquatic Treatment Start: 08/21/19 09:06 Freq: Status: Active Protocol: Document 02/01/20 11:45 LJ (Rec: 02/01/20 15:06 LJ [email or web address]) Aquatics Treatment Pool Entry/Exit Pool Entry/Exit Method Stairs Assistance Independent Water Walking start/stop Water Level Chest Level Walking Equipment Ankle Floats march/kick Water Level Chest Level Walking Equipment Ankle Floats forward on uneven surface Water Level Chest Level Walking Equipment sm floats on bottom of feet Backwards Water Level Chest Level Walking Equipment Ankle Floats Sideways Water Level Chest Level Walking Equipment Ankle Floats Lower Extremity Exercises side kick Water Level Chest Level Equipment Ankle Floats reverse hacky sac Body Position Standing Water Level Chest Level Equipment Ankle Floats hacky sac Body Position Standing Water Level Chest Level Equipment Ankle Floats Lower Extremity Stretches HC Details bilat Body Position Standing Water Level Waist Level Reps/Duration 2 min on/off Comments hanging off 8 step HS Details involved Body Position Standing Water Level Chest Level Equipment Small Noodle Reps/Duration 2x 45 Balance seated, kneeling, standing on wonder board Body Position Standing Reps/Duration 2 mninutes Comments rocking side to side [place] Activities [place] Activities Bicycle,Bicycle Backwards, Cross [place],Hip Abduction/ Adduction Other Activities pendulum Equipment flotation belt Duration 15 min Comments emphasizing ankle mobility and stretching with resistance of water PT-OP-T Assessment and Plan Start: 08/21/19 09:06 Freq: Status: Active Protocol: Document 02/12/20 14:05 MB (Rec: 02/12/20 14:59 MB [id number]) Physical Therapy Assessment Goals 6 Impairment LE functional index score reflecting 80% impairment [employer] Goal (LTG) LE functional index score will reflect no more than 40% impairment by 02/15/2020. 02/12/2020: LE functional index score reflects 75% impairment LTG Duration 8 weeks 5 [facility] Goal (LTG) Pt will perform HEP with I including ROM, flexibility, WB , gait, balance and strengthening exercises by . 02/12/2020: Pt is performing progressive HEP everyday LTG Duration 8 weeks 4 [employer] Goal (LTG) Pt will deny falls for 2 months by 02/15/2020. 02/12/2020: Pt denies falls in two months LTG Duration 8 weeks 3 [employer] Goal (LTG) Pt will present with improved left ankle AROM to at least 30 deg PF, 15 deg DF, eversion and inversion by 02/15/2020. 02/12/2020: AROM DF 8 deg, PF 22 deg, eversion 5 deg, inversion 7 deg. LTG Duration 8 weeks 2 [facility] Goal (LTG) Pt will perform 2 step gait training without AD and with reciprocal gait by 02/15/2020. 02/12/2020: Pt can ascend and descend 10 steps with cane in right hand and rail, step-to gait LTG Duration 8 weeks 1 [employer] Goal (LTG) Pt will report a 50% improvement in left ankle and heel pain by 02/15/2020. 02/12/2020: Pt reports 20% improvement in pain LTG Duration 8 weeks Assessment Summary Assessment Pt has made small progress towards PT goals since starting PT. These include small improvements in pain, range, exercise and gait with cane. His LEF index score is not better today. He is not able to return to work. He has been unable to do pool therapy d/t closures d/t COVID -19. He would benefit from further PT to progress goals but pt's insurance benefit has been exhausted. Will have to d/c PT.
== END 2020-03-01 23:35 ==
LOC: PHYS 14:15
PROVIDERS: PCP Hospitalist; Visit Provider Orthopaedic Surgery Foot and Ankle Surgery
DX: Z47.89 Encounter for other orthopedic aftercare (principal); S92.002A Unspecified fracture of left calcaneus, initial encounter for closed fracture
CPT/HCPCS: 97014; 97110; 97112; 97113; 97116; 97140; 97161; 97535; G0283

== ENCOUNTER → 2022-11-16 11:05 | Outpatient (RCR) | payer OTHER, MEDICAID, SELFPAY ==
--- NOTE | 2021-04-03 15:47 | PT.OIE ---
Current Diagnoses Primary osteoarthritis, left ankle and foot (04/03/21) Post-traumatic osteoarthritis, left ankle and foot (04/03/21) Past Medical History (Last Updated 03/17/21 @ 10:05 by James Gaitan DO) Chronic pain of left ankle Hypertension Left calcaneal fracture Left foot pain No significant medical problems Pelvic somatic dysfunction Segmental and somatic dysfunction of abdomen and other regions Segmental and somatic dysfunction of rib cage Somatic dysfunction of lower extremity Stiffness of left foot, not elsewhere classified Past Surgical History (Last Updated 01/28/21 @ 12:34 by Acosta Lara DO) History of orthopedic surgery S/P hardware removal Visit Care Team Role Provider Type James Gaitan DO Family Provider Physician Primary Care Provider Specialty: Family Practice Address: [address] [place] [address], [id number] Email: Ventura Hoyos PA-C Attending Provider Non-Staff Referring Provider Specialty: Medical Address: [address] [place] [address], [id number] Email: Physical Therapy Initial Evaluation PT-OP-A Visit Information Start: 03/31/21 12:25 Freq: Status: Active Protocol: Document 04/03/21 09:00 MB (Rec: 04/03/21 09:04 MB [id number]) Out-Patient Physical Therapy Visit Information Visit Information Visit Type Initial Evaluation Visit Note Anna, 24 visits Visit Start Time 09:00 Visit Stop Time 09:45 Total Visit Minutes 45 Visit Number 12/14 Evaluation Information Evaluation Date 04/03/21 Precautions Precautions No WB restrictions, far out post-op PT-OP-B Current Condition Start: 04/03/21 09:05 Freq: Status: Active Protocol: Document 04/03/21 09:00 MB (Rec: 04/03/21 09:22 MB [id number]) Current Condition History of Current Condition Onset Date May 2019 Current Complaints Sharp stabbing pain in left heel with WB and NWB History of Current Condition In May 2019, pt fell off a ladder and fractured his left calcaneus. He underwent ORIF and PT. 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 He underwent hardware removal 01/04/21. Pt underwent cortisone injection with [facility] 03/11 that was okay. He had had another one previously with another provider without numbing agent before it and it made the pain worse. He has been seeing Dr. Lara who has recommended Hoka shoes which as very expensive and steel toed boots which are also expensive. Pt has only been able to work three days a week d/t pain and is taking rest days between work days. He occ has to have his help him inside d/t pain occ. PMH includes OP and arthritis. Pt has history of smoking and has not been smoking. Pt has not gotten into the pool d/t COVID and finances. Pt states that Dr. Gaitan's compressive techniques helped decrease the swelling. The dry needling was not helpful. He thought the pool therapy was okay when he had it the beginning of last year. Pt reports has used some compression. 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 He has a and kids and is the primary bread winner. He takes care of the new dog as well. Prior Treatments and Tests ORIF, hardware removal, osteopathic treatment from Dr. Gaitan, pain management treatment from Dr. Lara Treatment Goals Patient/Caregiver Goals To decrease pain and swelling PT-OP-C Subjective Start: 03/31/21 12:25 Freq: Status: Active Protocol: Document 04/03/21 09:00 MB (Rec: 04/03/21 09:23 MB [id number]) OP-PT Subjective Patient Comments Patient Comments See history of current condition Patient Reported Progress Worse Patient Questionnaires Lower Extremity Functional Scale LEFS Score 22 LEFS Impairment 60 to 79% Impaired (Score 17- 31) PT-OP-D Balance Start: 03/31/21 12:25 Freq: Status: Active Protocol: Document 04/03/21 09:00 MB (Rec: 04/03/21 15:47 MB [id number]) OP-PT Balance Assessment Sitting Balance Static Sitting Balance Ability Normal Dynamic Sitting Balance Ability Normal Standing Balance Static Standing Balance Ability Good Dynamic Standing Balance Ability Fair Kathleen Fall Scale Copyright Permission PT-OP-G Mobility & Gait Start: 03/31/21 12:25 Freq: Status: Active Protocol: Document 04/03/21 09:00 MB (Rec: 04/03/21 15:47 MB [id number]) OP Gait Assessment Gait Gait Assistance Required: Independent Distance (Feet) 15 Able to Maintain Weight Bearing Status Yes During Gait Assistive Devices Assistive Device None Orthotic/Prosthetic Devices or Brace: No Gait Deviations General Gait Pattern Antalgic,Decreased Stride Length,Decreased Feet Clearance,Flexed Trunk Factors Limiting Gait Function Factors Limiting Gait Function Decreased Activity Tolerance, Decreased Strength,Limited Range of Motion,Pain,Poor Balance Comments Gait Comments Pt arrives wearing an ASO on his left ankle. PT asks him to gait with bare feet and he presents with slow and antalgic gait with decreased push off B, rigidity left ankle. Pt's left foot is mildly edematous and he has surgical scars anterior to medial and lateral malleoli, below fibular head and over the anterior ankle joint. PT-OP-K Range of Motion Start: 03/31/21 12:25 Freq: Status: Active Protocol: Document 04/03/21 09:00 MB (Rec: 04/03/21 15:47 MB [id number]) Ankle and Foot Goniometric Range of Motion Ankle and Foot ROM Limitations Comments R foot and ankle WNLs L foot and ankle: left foot rests in 30 deg PF and he is able to DF 20 deg. Eversion 10 deg and inversion 12 deg PT-OP-M Strength Start: 03/31/21 12:25 Freq: Status: Active Protocol: Document 04/03/21 09:00 MB (Rec: 04/03/21 15:47 MB [id number]) Hip Strength Hip Manual Muscle Testing Left Flexion (L2) 5 Normal Abduction 5 Normal Right Flexion (L2) 5 Normal Abduction 5 Normal Knee Strength Knee Manual Muscle Testing Left Flexion (S2) 5 Normal Extension (L3) 5 Normal Right Flexion (S2) 5 Normal Extension (L3) 5 Normal Ankle/Foot Strength Ankle and Foot Manual Muscle Testing Left Comments MMT left ankle deferred d/t presentation and pain Right Dorsiflexion (L4) 5 Normal Inversion 5 Normal Eversion (S1) 5 Normal Toe Strength Toe Manual Muscle Testing Left Great Toe Extension 3- Fair- Right Great Toe Extension 5 Normal PT-OP-T Assessment and Plan Start: 03/31/21 12:25 Freq: Status: Active Protocol: Document 04/03/21 09:00 MB (Rec: 04/03/21 15:47 MB [id number]) Physical Therapy Assessment Rehab Potential Rehabilitation Potential Fair Evaluation Complexity Number of Personal Factors/Comorbidities 1-2 Number of Body Systems Impaired 1-2 Clinical Presentation at Evaluation Evolving Impairments Impairments Activity Tolerance,Balance, Edema,Functional Activities, Functional Mobility,Gait, Integument,Pain,Posture,ROM, Soft Tissue Mobility,Strength Goals 5 Half-Way Goal (LTG) Pt will perform progressive HEP with I including pool exercises, balance, strengthening, breathing and work-related tasks to improve strength and ability to work by 06/03/21. LTG Duration 8 weeks 4 Outbound Sales Representative Goal (LTG) Pt will perform WNLs on a standardized balance test to decrease fall risk by 06/03/21. LTG Duration 8 weeks 3 Outbound Sales Representative Goal (LTG) Pt will gait train at least 1200 feet with or without LRAD in six minutes to improve community ambulation by . LTG Duration 8 weeks 2 Half-Way Goal (LTG) Pt will present with improved left ankle DF to 30 deg and augusto eversion and inversion at least 25 deg to improve foot strike with gait by 06/03/21. LTG Duration 8 weeks 1 Impairment LEF score reflects greater than 70% impairment Half-Way Goal (LTG) Pt will present with improved LEF score to reflect no more than 60% impairment by 06/03/21 . LTG Duration 8 weeks Assessment Summary Assessment Pt is a 40 y/o male familiar to this PT after PT course last year. Since the last PT course, he has undergone hardware removal. He benefitted from pool therapy at the end of the last PT course but did not con't d/t COVID closures and finances d/ t not working. 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 He has had cortisone injections, dry needling and other osteopathic work. His pain is very high and sharp, wakes him up at night and is located at the calcaneus, between the malleoli at the talus/anterior ankle at the surgical site and across the metatarsal phalangeal joints. He presents with mild ankle edema and has been wearing an ASO brace. He has not been wearing Tubagrip anymore and did not get compression hose as previously instructed by this PT. He presents with rigid rearfoot, limited ankle ROM and strength and anatalgic gait. PT prognosis is guarded . Overall, PT ed pt that getting in the pool 2x/week and getting compression hose are crucial for his healing and PT recommends that he use AD to unweight the foot at home. Will initiate PT to see if land therapy can be helpful since aquatic therapy is not yet available. Treatment will include Counterstrain and Buteyko Breathing as well as balance, range, gait and strengthening. Physical Therapy Plan Frequency and Duration Frequency of Treatment 1x/Week Duration of Treatment 10 weeks Plan of Care Start Date 04/03/21 Plan of Care End Date 06/20/21 Therapeutic Interventions Therapeutic Interventions Aquatic Therapy,Balance Training,Gait Training,Home Exercise Program,Joint Mobilizations,Manual Therapy, Neuromuscular Re-education, Patient/Caregiver Education, Self-Care/Home Management, Sensory Integration,Soft Tissue Mobilization,Taping, Therapeutic Activities, Therapeutic Exercises Modalities Cold Pack/Ice Massage,Hot Packs Next Visit Focus/Plan Next Note Type Treatment Note Next Visit Plan Consider recumbent stepper, start range exercises, get Tubagrip for edema, AP with theraband, review previous PT exercises
--- NOTE | 2021-04-03 15:50 | PT.OPPOC ---
Physical, Occupational & Speech Therapy At [facility] Current Diagnoses Primary osteoarthritis, left ankle and foot (04/03/21) Post-traumatic osteoarthritis, left ankle and foot (04/03/21) Visit Care Team Role Provider Type James Gaitan DO Family Provider Physician Primary Care Provider Specialty: Family Practice Address: [address] [place] [address], [id number] Email: Ventura Hoyos PA-C Attending Provider Non-Staff Referring Provider Specialty: Medical Address: [address] [place] [address], [phone] Email: Plan Of Care PT-OP-T Assessment and Plan Start: 03/31/21 12:25 Freq: Status: Active Protocol: Document 04/03/21 09:00 MB (Rec: 04/03/21 15:47 MB [id number]) Physical Therapy Assessment Rehab Potential Rehabilitation Potential Fair Evaluation Complexity Number of Personal Factors/Comorbidities 1-2 Number of Body Systems Impaired 1-2 Clinical Presentation at Evaluation Evolving Impairments Impairments Activity Tolerance,Balance, Edema,Functional Activities, Functional Mobility,Gait, Integument,Pain,Posture,ROM, Soft Tissue Mobility,Strength Goals 5 Retirement Goal (LTG) Pt will perform progressive HEP with I including pool exercises, balance, strengthening, breathing and work-related tasks to improve strength and ability to work by 06/03/21. LTG Duration 8 weeks 4 Rail Transit Operator Goal (LTG) Pt will perform WNLs on a standardized balance test to decrease fall risk by 06/03/21. LTG Duration 8 weeks 3 Rail Transit Operator Goal (LTG) Pt will gait train at least 1200 feet with or without LRAD in six minutes to improve community ambulation by . LTG Duration 8 weeks 2 Retirement Goal (LTG) Pt will present with improved left ankle DF to 30 deg and augusto eversion and inversion at least 25 deg to improve foot strike with gait by 06/03/21. LTG Duration 8 weeks 1 Impairment LEF score reflects greater than 70% impairment Rail Transit Operator Goal (LTG) Pt will present with improved LEF score to reflect no more than 60% impairment by 06/03/21 . LTG Duration 8 weeks Assessment Summary Assessment Pt is a 40 y/o male familiar to this PT after PT course last year. Since the last PT course, he has undergone hardware removal. He benefitted from pool therapy at the end of the last PT course but did not con't d/t COVID closures and finances d/ t not working. 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 He has had cortisone injections, dry needling and other osteopathic work. His pain is very high and sharp, wakes him up at night and is located at the calcaneus, between the malleoli at the talus/anterior ankle at the surgical site and across the metatarsal phalangeal joints. He presents with mild ankle edema and has been wearing an ASO brace. He has not been wearing Tubagrip anymore and did not get compression hose as previously instructed by this PT. He presents with rigid rearfoot, limited ankle ROM and strength and anatalgic gait. PT prognosis is guarded . Overall, PT ed pt that getting in the pool 2x/week and getting compression hose are crucial for his healing and PT recommends that he use AD to unweight the foot at home. Will initiate PT to see if land therapy can be helpful since aquatic therapy is not yet available. Treatment will include Counterstrain and Buteyko Breathing as well as balance, range, gait and strengthening. Physical Therapy Plan Frequency and Duration Frequency of Treatment 1x/Week Duration of Treatment 10 weeks Plan of Care Start Date 04/03/21 Plan of Care End Date 06/20/21 Therapeutic Interventions Therapeutic Interventions Aquatic Therapy,Balance Training,Gait Training,Home Exercise Program,Joint Mobilizations,Manual Therapy, Neuromuscular Re-education, Patient/Caregiver Education, Self-Care/Home Management, Sensory Integration,Soft Tissue Mobilization,Taping, Therapeutic Activities, Therapeutic Exercises Modalities Cold Pack/Ice Massage,Hot Packs Next Visit Focus/Plan Next Note Type Treatment Note Next Visit Plan Consider recumbent stepper, start range exercises, get Tubagrip for edema, AP with theraband, review previous PT exercises Plan of Care Dates Plan of Care Start Date 04/03/21 Plan of Care End Date 06/20/21 Electronically Signed by: Babita Martínez, PT 04/03/21 [id number] Please Sign and Return: I have reviewed this Plan of Care and certify that the skilled therapy services above are required to meet the patient?s needs. Physician Signature Date Printed Name and Credentials Clinical Instructor Signature Printed Name and Credentials
--- NOTE | 2021-04-10 14:30 | PT.OTN ---
Current Diagnoses Primary osteoarthritis, left ankle and foot (04/10/21) Post-traumatic osteoarthritis, left ankle and foot (04/10/21) Physical Therapy Treatment Note PT-OP-A Visit Information Start: 03/31/21 12:25 Freq: Status: Active Protocol: Document 04/10/21 13:47 SP (Rec: 04/10/21 16:25 SP [id number]) Out-Patient Physical Therapy Visit Information Visit Information Visit Type Treatment Note Visit Note Anna, 23 visits Visit Start Time 13:47 Visit Stop Time 14:30 Total Visit Minutes 43 Visit Number 01/14 Number of MEDICAL DETAILIST Visits 1 Evaluation Information Evaluation Date 04/03/21 Precautions Precautions No WB restrictions, far out post-op hardware removal on . PT-OP-B Current Condition Start: 04/03/21 09:05 Freq: Status: Active Protocol: Document 04/03/21 09:00 MB (Rec: 04/03/21 09:22 MB [id number]) Current Condition History of Current Condition Onset Date May 2019 Current Complaints Sharp stabbing pain in left heel with WB and NWB History of Current Condition In May 2019, pt fell off a ladder and fractured his left calcaneus. He underwent ORIF and PT. 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 He underwent hardware removal 01/04/21. Pt underwent cortisone injection with [facility] 03/11 that was okay. He had had another one previously with another provider without numbing agent before it and it made the pain worse. He has been seeing Dr. Lara who has recommended Hoka shoes which as very expensive and steel toed boots which are also expensive. Pt has only been able to work three days a week d/t pain and is taking rest days between work days. He occ has to have his help him inside d/t pain occ. PMH includes OP and arthritis. Pt has history of smoking and has not been smoking. Pt has not gotten into the pool d/t COVID and finances. Pt states that Dr. Gaitan's compressive techniques helped decrease the swelling. The dry needling was not helpful. He thought the pool therapy was okay when he had it the beginning of last year. Pt reports has used some compression. 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 He has a and kids and is the primary bread winner. He takes care of the new dog as well. Prior Treatments and Tests ORIF, hardware removal, osteopathic treatment from Dr. Gaitan, pain management treatment from Dr. Lara Treatment Goals Patient/Caregiver Goals To decrease pain and swelling PT-OP-C Subjective Start: 03/31/21 12:25 Freq: Status: Active Protocol: Document 04/10/21 13:47 SP (Rec: 04/10/21 16:25 SP [id number]) OP-PT Subjective Patient Comments Patient Comments Pt demonstrated antalgic gait after came to standing from waiting room chair. Pt stated 5/10 pain in L MTP, top ankle and calcaneus inferiorly the norm every day, trying to ignore it and does keep him awake at night. Pt stated thought pain would lessen after hardware was removed but it isn't, glad able to do some lateral ROM. PT-OP-D Balance Start: 03/31/21 12:25 Freq: Status: Active Protocol: Document 04/03/21 09:00 MB (Rec: 04/03/21 15:47 MB [id number]) OP-PT Balance Assessment Sitting Balance Static Sitting Balance Ability Normal Dynamic Sitting Balance Ability Normal Standing Balance Static Standing Balance Ability Good Dynamic Standing Balance Ability Fair Kathleen Fall Scale Copyright Permission PT-OP-G Mobility & Gait Start: 03/31/21 12:25 Freq: Status: Active Protocol: Document 04/03/21 09:00 MB (Rec: 04/03/21 15:47 MB [id number]) OP Gait Assessment Gait Gait Assistance Required: Independent Distance (Feet) 15 Able to Maintain Weight Bearing Status Yes During Gait Assistive Devices Assistive Device None Orthotic/Prosthetic Devices or Brace: No Gait Deviations General Gait Pattern Antalgic,Decreased Stride Length,Decreased Feet Clearance,Flexed Trunk Factors Limiting Gait Function Factors Limiting Gait Function Decreased Activity Tolerance, Decreased Strength,Limited Range of Motion,Pain,Poor Balance Comments Gait Comments Pt arrives wearing an ASO on his left ankle. PT asks him to gait with bare feet and he presents with slow and antalgic gait with decreased push off B, rigidity left ankle. Pt's left foot is mildly edematous and he has surgical scars anterior to medial and lateral malleoli, below fibular head and over the anterior ankle joint. PT-OP-K Range of Motion Start: 03/31/21 12:25 Freq: Status: Active Protocol: Document 04/03/21 09:00 MB (Rec: 04/03/21 15:47 MB [id number]) Ankle and Foot Goniometric Range of Motion Ankle and Foot ROM Limitations Comments R foot and ankle WNLs L foot and ankle: left foot rests in 30 deg PF and he is able to DF 20 deg. Eversion 10 deg and inversion 12 deg PT-OP-M Strength Start: 03/31/21 12:25 Freq: Status: Active Protocol: Document 04/03/21 09:00 MB (Rec: 04/03/21 15:47 MB [id number]) Hip Strength Hip Manual Muscle Testing Left Flexion (L2) 5 Normal Abduction 5 Normal Right Flexion (L2) 5 Normal Abduction 5 Normal Knee Strength Knee Manual Muscle Testing Left Flexion (S2) 5 Normal Extension (L3) 5 Normal Right Flexion (S2) 5 Normal Extension (L3) 5 Normal Ankle/Foot Strength Ankle and Foot Manual Muscle Testing Left Comments MMT left ankle deferred d/t presentation and pain Right Dorsiflexion (L4) 5 Normal Inversion 5 Normal Eversion (S1) 5 Normal Toe Strength Toe Manual Muscle Testing Left Great Toe Extension 3- Fair- Right Great Toe Extension 5 Normal PT-OP-Q Treatments Start: 03/31/21 12:25 Freq: Status: Active Protocol: Document 04/10/21 13:47 SP (Rec: 04/10/21 16:25 SP [id number]) Therapeutic Exercises Sitting Exercises Sitting gentle eversion with foot on floor Sitting Exercise Name IV, EV, DF Resistance TB #2 Reps/Minutes x10 each BAPS Sitting Exercise Name F/B/med/lat_- HEP Side left Resistance Lv 4 Reps/Minutes x10 reps each direction Ankle PF resistance level 2 band foot hammock Sitting Exercise Name HEP Resistance TB #2 Comments x10 Manual Therapy Treatment Soft Tissue Mobilization scar mob Body Location scar mob various directions Intensity/Depth Superficial Body Position Supine Comments instructed self application calf Body Location gastroc, soleus- prone, tibialis anterior- supine Mobilization Type Myofascial Release,Strain/ Counterstrain,Sustained Pressure Intensity/Depth Moderate Comments MWM DF/PF ROM dorsal foot Body Location L dorsal ankle and tibialis anterior tendon Mobilization Type Myofascial Release Intensity/Depth Moderate Body Position Supine Comments superior glide w/ MWM eccentric plantar flexion Joint Mobilizations talocrual AP Joint L Direction AP Grade II Body Position Supine MTP APs Joint L 1-4 MTP Direction AP Grade II Body Position Supine Comments Toe mobs PT-OP-T Assessment and Plan Start: 03/31/21 12:25 Freq: Status: Active Protocol: Document 04/10/21 13:47 SP (Rec: 04/10/21 16:25 SP [id number]) Physical Therapy Assessment Goals 5 Clay Machine Operator Goal (LTG) Pt will perform progressive HEP with I including pool exercises, balance, strengthening, breathing and work-related tasks to improve strength and ability to work by 06/03/21. 04/10/21: assessed HEP: TB strengthening ankle IV, EV, PF , DF, manual STMs calf, tib ant, foot/ ankle time allowed. LTG Duration 8 weeks 4 Care Home Goal (LTG) Pt will perform WNLs on a standardized balance test to decrease fall risk by 06/03/21. LTG Duration 8 weeks 3 Clay Machine Operator Goal (LTG) Pt will gait train at least 1200 feet with or without LRAD in six minutes to improve community ambulation by . LTG Duration 8 weeks 2 Care Home Goal (LTG) Pt will present with improved left ankle DF to 30 deg and augusto eversion and inversion at least 25 deg to improve foot strike with gait by 06/03/21. LTG Duration 8 weeks 1 Impairment LEF score reflects greater than 70% impairment Clay Machine Operator Goal (LTG) Pt will present with improved LEF score to reflect no more than 60% impairment by 06/03/21 . 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 Pain 5/10 up on arrival see Subj, no increase post tx. Pt tolerated manual, AROM and ankle strengthening TB review thus far today, no increase in pain and felt more mobility end tx. Declined modality, usually completes at home when needed. Physical Therapy Plan Frequency and Duration Frequency of Treatment 1x/Week Duration of Treatment 10 weeks Plan of Care Start Date 04/03/21 Plan of Care End Date 06/20/21 Therapeutic Interventions Therapeutic Interventions Aquatic Therapy,Balance Training,Gait Training,Home Exercise Program,Joint Mobilizations,Manual Therapy, Neuromuscular Re-education, Patient/Caregiver Education, Self-Care/Home Management, Sensory Integration,Soft Tissue Mobilization,Taping, Therapeutic Activities, Therapeutic Exercises Modalities Cold Pack/Ice Massage,Hot Packs Next Visit Focus/Plan Next Note Type Treatment Note Next Visit Plan Next tx consider breath exercises for pain control. Contnue PT POC: Consider recumbent stepper, start range exercises, get Tubagrip for edema, AP with theraband, review previous PT exercises
--- NOTE | 2021-04-13 08:14 | PT.OTN ---
Current Diagnoses Primary osteoarthritis, left ankle and foot (04/13/21) Post-traumatic osteoarthritis, left ankle and foot (04/13/21) Physical Therapy Treatment Note PT-OP-A Visit Information Start: 03/31/21 12:25 Freq: Status: Active Protocol: Document 04/13/21 07:30 MB (Rec: 04/13/21 08:13 MB [id number]) Out-Patient Physical Therapy Visit Information Visit Information Visit Type Treatment Note Visit Note Anna Visit Start Time 07:30 Visit Stop Time 08:13 Total Visit Minutes 43 Visit Number 02/11 Number of SENIOR SOFTWARE ENGINEER ANALYTICS Visits 0 Precautions Precautions No WB restrictions, far out post-op hardware removal on . PT-OP-B Current Condition Start: 04/03/21 09:05 Freq: Status: Active Protocol: Document 04/03/21 09:00 MB (Rec: 04/03/21 09:22 MB [id number]) Current Condition History of Current Condition Onset Date May 2019 Current Complaints Sharp stabbing pain in left heel with WB and NWB History of Current Condition In May 2019, pt fell off a ladder and fractured his left calcaneus. He underwent ORIF and PT. 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 He underwent hardware removal 01/04/21. Pt underwent cortisone injection with [facility] 03/11 that was okay. He had had another one previously with another provider without numbing agent before it and it made the pain worse. He has been seeing Dr. Lara who has recommended [place]oka shoes which as very expensive and steel toed boots which are also expensive. Pt has only been able to work three days a week d/t pain and is taking rest days between work days. He occ has to have his help him inside d/t pain occ. PMH includes OP and arthritis. Pt has history of smoking and has not been smoking. Pt has not gotten into the pool d/t COVID and finances. Pt states that Dr. Gaitan's compressive techniques helped decrease the swelling. The dry needling was not helpful. He thought the pool therapy was okay when he had it the beginning of last year. Pt reports has used some compression. 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 He has a and kids and is the primary bread winner. He takes care of the new dog as well. Prior Treatments and Tests ORIF, hardware removal, osteopathic treatment from Dr. Gaitan, pain management treatment from Dr. Lara Treatment Goals Patient/Caregiver Goals To decrease pain and swelling PT-OP-C Subjective Start: 03/31/21 12:25 Freq: Status: Active Protocol: Document 04/13/21 07:30 MB (Rec: 04/13/21 08:13 MB [id number]) OP-PT Subjective Patient Comments Patient Comments Pt states that he spent all weekend trying to find a riding lawnmower. His family does not help with taking the garbage out or mowing. PT-OP-D Balance Start: 03/31/21 12:25 Freq: Status: Active Protocol: Document 04/03/21 09:00 MB (Rec: 04/03/21 15:47 MB [id number]) OP-PT Balance Assessment Sitting Balance Static Sitting Balance Ability Normal Dynamic Sitting Balance Ability Normal Standing Balance Static Standing Balance Ability Good Dynamic Standing Balance Ability Fair Kathleen Fall Scale Copyright Permission PT-OP-G Mobility & Gait Start: 03/31/21 12:25 Freq: Status: Active Protocol: Document 04/03/21 09:00 MB (Rec: 04/03/21 15:47 MB [id number]) OP Gait Assessment Gait Gait Assistance Required: Independent Distance (Feet) 15 Able to Maintain Weight Bearing Status Yes During Gait Assistive Devices Assistive Device None Orthotic/Prosthetic Devices or Brace: No Gait Deviations General Gait Pattern Antalgic,Decreased Stride Length,Decreased Feet Clearance,Flexed Trunk Factors Limiting Gait Function Factors Limiting Gait Function Decreased Activity Tolerance, Decreased Strength,Limited Range of Motion,Pain,Poor Balance Comments Gait Comments Pt arrives wearing an ASO on his left ankle. PT asks him to gait with bare feet and he presents with slow and antalgic gait with decreased push off B, rigidity left ankle. Pt's left foot is mildly edematous and he has surgical scars anterior to medial and lateral malleoli, below fibular head and over the anterior ankle joint. PT-OP-K Range of Motion Start: 03/31/21 12:25 Freq: Status: Active Protocol: Document 04/03/21 09:00 MB (Rec: 04/03/21 15:47 MB [id number]) Ankle and Foot Goniometric Range of Motion Ankle and Foot ROM Limitations Comments R foot and ankle WNLs L foot and ankle: left foot rests in 30 deg PF and he is able to DF 20 deg. Eversion 10 deg and inversion 12 deg PT-OP-M Strength Start: 03/31/21 12:25 Freq: Status: Active Protocol: Document 04/03/21 09:00 MB (Rec: 04/03/21 15:47 MB [id number]) Hip Strength Hip Manual Muscle Testing Left Flexion (L2) 5 Normal Abduction 5 Normal Right Flexion (L2) 5 Normal Abduction 5 Normal Knee Strength Knee Manual Muscle Testing Left Flexion (S2) 5 Normal Extension (L3) 5 Normal Right Flexion (S2) 5 Normal Extension (L3) 5 Normal Ankle/Foot Strength Ankle and Foot Manual Muscle Testing Left Comments MMT left ankle deferred d/t presentation and pain Right Dorsiflexion (L4) 5 Normal Inversion 5 Normal Eversion (S1) 5 Normal Toe Strength Toe Manual Muscle Testing Left Great Toe Extension 3- Fair- Right Great Toe Extension 5 Normal PT-OP-Q Treatments Start: 03/31/21 12:25 Freq: Status: Active Protocol: Document 04/13/21 07:30 MB (Rec: 04/13/21 08:13 MB [id number]) Cardio Equipment Recumbent Stepper (Sci-Fit) Duration (Minutes) 10 Resistance 1-2 Other UEs and LEs Manual Therapy Treatment Other Other Manual Treatments Pt agrees to Counterstrain to assess and treat fascial tension. He presents with tension in the following fascial systems: ALL, standard lymphatic, sympathetics. PT treats stacks in the following systems: ALL cervical through lumbar spine. He has trouble relaxing right hamstring with treatment this makes treating right lumbar ALL difficult. PT treats sympathetics as well. PT-OP-T Assessment and Plan Start: 03/31/21 12:25 Freq: Status: Active Protocol: Document 04/13/21 07:30 MB (Rec: 04/13/21 08:13 MB [id number]) Physical Therapy Assessment Rehab Potential Rehabilitation Potential Fair Evaluation Complexity Number of Personal Factors/Comorbidities 1-2 Number of Body Systems Impaired 1-2 Clinical Presentation at Evaluation Evolving Impairments Impairments Activity Tolerance,Balance, Edema,Functional Activities, Functional Mobility,Gait, Integument,Pain,Posture,ROM, Soft Tissue Mobility,Strength Goals 5 Farmer Vegetable Goal (LTG) Pt will perform progressive HEP with I including pool exercises, balance, strengthening, breathing and work-related tasks to improve strength and ability to work by 06/03/21. LTG Duration 8 weeks 4 Farmer Vegetable Goal (LTG) Pt will perform WNLs on a standardized balance test to decrease fall risk by 06/03/21. LTG Duration 8 weeks 3 Farmer Vegetable Goal (LTG) Pt will gait train at least 1200 feet with or without LRAD in six minutes to improve community ambulation by . LTG Duration 8 weeks 2 Prison Goal (LTG) Pt will present with improved left ankle DF to 30 deg and augusto eversion and inversion at least 25 deg to improve foot strike with gait by 06/03/21. LTG Duration 8 weeks 1 Impairment LEF score reflects greater than 70% impairment Farmer Vegetable Goal (LTG) Pt will present with improved LEF score to reflect no more than 60% impairment by 06/03/21 . LTG Duration 8 weeks Assessment Summary Assessment Pt wears compression socks today. He reports that his family is still not helping with the chores at home. 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 The house and word requirements are a barrier for his recovery. Initiated Counterstrain today and pt responds well. He does have trouble relaxing right hamstring. Recumbent stepper increased his ankle discomfort . Once again, PT feels that pt getting into the pool 2x/wk and having family help with chores at home and pt only to be up on foot with work as needed will be the most beneficial in the future. Physical Therapy Plan Frequency and Duration Frequency of Treatment 1x/Week Duration of Treatment 10 weeks Plan of Care Start Date 04/03/21 Plan of Care End Date 06/20/21 Therapeutic Interventions Therapeutic Interventions Aquatic Therapy,Balance Training,Gait Training,Home Exercise Program,Joint Mobilizations,Manual Therapy, Neuromuscular Re-education, Patient/Caregiver Education, Self-Care/Home Management, Sensory Integration,Soft Tissue Mobilization,Taping, Therapeutic Activities, Therapeutic Exercises Modalities Cold Pack/Ice Massage,Hot Packs Next Visit Focus/Plan Next Note Type Treatment Note Next Visit Plan Progress theraband exercises: foot hammock with band and Buteyko breathing, hook lying hamstring stretch with active AP and knee flexion and extension with hand behind thigh, ongoing Counterstrain
--- NOTE | 2021-04-17 08:15 | PT.OTN ---
Current Diagnoses Primary osteoarthritis, left ankle and foot (04/17/21) Post-traumatic osteoarthritis, left ankle and foot (04/17/21) Physical Therapy Treatment Note PT-OP-A Visit Information Start: 03/31/21 12:25 Freq: Status: Active Protocol: Document 04/17/21 07:30 SP (Rec: 04/17/21 08:17 SP [id number]) Out-Patient Physical Therapy Visit Information Visit Information Visit Type Treatment Note Visit Note Anna Visit Start Time 07:30 Visit Stop Time 08:15 Total Visit Minutes 45 Visit Number 03/14 Number of DIRECTOR OF LOGISTICS Visits 1 Evaluation Information Evaluation Date 04/03/21 Precautions Precautions No WB restrictions, far out post-op hardware removal on . PT-OP-B Current Condition Start: 04/03/21 09:05 Freq: Status: Active Protocol: Document 04/03/21 09:00 MB (Rec: 04/03/21 09:22 MB [id number]) Current Condition History of Current Condition Onset Date May 2019 Current Complaints Sharp stabbing pain in left heel with WB and NWB History of Current Condition In May 2019, pt fell off a ladder and fractured his left calcaneus. He underwent ORIF and PT. 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 He underwent hardware removal 01/04/21. Pt underwent cortisone injection with [facility] 03/11 that was okay. He had had another one previously with another provider without numbing agent before it and it made the pain worse. He has been seeing Dr. Lara who has recommended [place] shoes which as very expensive and steel toed boots which are also expensive. Pt has only been able to work three days a week d/t pain and is taking rest days between work days. He occ has to have his help him inside d/t pain occ. PMH includes OP and arthritis. Pt has history of smoking and has not been smoking. Pt has not gotten into the pool d/t COVID and finances. Pt states that Dr. Gaitan's compressive techniques helped decrease the swelling. The dry needling was not helpful. He thought the pool therapy was okay when he had it the beginning of last year. Pt reports has used some compression. 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 He has a and kids and is the primary bread winner. He takes care of the new dog as well. Prior Treatments and Tests ORIF, hardware removal, osteopathic treatment from Dr. Gaitan, pain management treatment from Dr. Lara Treatment Goals Patient/Caregiver Goals To decrease pain and swelling PT-OP-C Subjective Start: 03/31/21 12:25 Freq: Status: Active Protocol: Document 04/17/21 07:30 SP (Rec: 04/17/21 08:17 SP [id number]) OP-PT Subjective Patient Comments Patient Comments Pt stated has been resting his foot more not really working at the moment since last tx, no significant change in pain. Arrived with donned compression socks. Patient Reported Progress Same PT-OP-D Balance Start: 03/31/21 12:25 Freq: Status: Active Protocol: Document 04/03/21 09:00 MB (Rec: 04/03/21 15:47 MB [id number]) OP-PT Balance Assessment Sitting Balance Static Sitting Balance Ability Normal Dynamic Sitting Balance Ability Normal Standing Balance Static Standing Balance Ability Good Dynamic Standing Balance Ability Fair Kathleen Fall Scale Copyright Permission PT-OP-G Mobility & Gait Start: 03/31/21 12:25 Freq: Status: Active Protocol: Document 04/03/21 09:00 MB (Rec: 04/03/21 15:47 MB [id number]) OP Gait Assessment Gait Gait Assistance Required: Independent Distance (Feet) 15 Able to Maintain Weight Bearing Status Yes During Gait Assistive Devices Assistive Device None Orthotic/Prosthetic Devices or Brace: No Gait Deviations General Gait Pattern Antalgic,Decreased Stride Length,Decreased Feet Clearance,Flexed Trunk Factors Limiting Gait Function Factors Limiting Gait Function Decreased Activity Tolerance, Decreased Strength,Limited Range of Motion,Pain,Poor Balance Comments Gait Comments Pt arrives wearing an ASO on his left ankle. PT asks him to gait with bare feet and he presents with slow and antalgic gait with decreased push off B, rigidity left ankle. Pt's left foot is mildly edematous and he has surgical scars anterior to medial and lateral malleoli, below fibular head and over the anterior ankle joint. PT-OP-K Range of Motion Start: 03/31/21 12:25 Freq: Status: Active Protocol: Document 04/03/21 09:00 MB (Rec: 04/03/21 15:47 MB [id number]) Ankle and Foot Goniometric Range of Motion Ankle and Foot ROM Limitations Comments R foot and ankle WNLs L foot and ankle: left foot rests in 30 deg PF and he is able to DF 20 deg. Eversion 10 deg and inversion 12 deg PT-OP-M Strength Start: 03/31/21 12:25 Freq: Status: Active Protocol: Document 04/03/21 09:00 MB (Rec: 04/03/21 15:47 MB [id number]) Hip Strength Hip Manual Muscle Testing Left Flexion (L2) 5 Normal Abduction 5 Normal Right Flexion (L2) 5 Normal Abduction 5 Normal Knee Strength Knee Manual Muscle Testing Left Flexion (S2) 5 Normal Extension (L3) 5 Normal Right Flexion (S2) 5 Normal Extension (L3) 5 Normal Ankle/Foot Strength Ankle and Foot Manual Muscle Testing Left Comments MMT left ankle deferred d/t presentation and pain Right Dorsiflexion (L4) 5 Normal Inversion 5 Normal Eversion (S1) 5 Normal Toe Strength Toe Manual Muscle Testing Left Great Toe Extension 3- Fair- Right Great Toe Extension 5 Normal PT-OP-Q Treatments Start: 03/31/21 12:25 Freq: Status: Active Protocol: Document 04/17/21 07:30 SP (Rec: 04/17/21 08:17 SP [id number]) Therapeutic Exercises Supine Exercises butekyo breath Supine Exercise Name 1-3 x 2 reps each for teaching Reps/Minutes 6 reps/ 6 min as HEP- provided hand outs Posterior chain release Supine Exercise Name Hooklying knee flex/ ext Side left Resistance AROM Reps/Minutes x15 Comments grasp behind thighs HS stretch w/ AP Supine Exercise Name hooklying Side left Reps/Minutes x15 Comments cued APs and toe flexion and extension Supine Exercise Name hammock toe/ ankle flex/ext Side left Resistance TB #2 Reps/Minutes x20 Sidelying Exercises ankle EV against gravity Side left Resistance AROM Equipment Used foam cushion supporting lower leg Reps/Minutes x15 Manual Therapy Treatment Soft Tissue Mobilization STMs Body Location quad, ITB, HS, calf Mobilization Type Instrument Assisted,Rolling, Other Intensity/Depth Moderate Comments supine, seated, prone- manual and self rolling stick for decreased muscle tension scar mob Body Location scar mob various directions Intensity/Depth Superficial Body Position Supine Comments instructed self application Joint Mobilizations talocrual AP Joint L Direction AP Grade II Body Position Supine MTP APs Joint L 1-4 MTP Direction AP Grade II Body Position Supine Comments Toe mobs PT-OP-T Assessment and Plan Start: 03/31/21 12:25 Freq: Status: Active Protocol: Document 04/17/21 07:30 SP (Rec: 04/17/21 08:17 SP [id number]) Physical Therapy Assessment Goals 5 Privacy Specialist Goal (LTG) Pt will perform progressive HEP with I including pool exercises, balance, strengthening, breathing and work-related tasks to improve strength and ability to work by 06/03/21. LTG Duration 8 weeks 4 Skilled Nursing Goal (LTG) Pt will perform WNLs on a standardized balance test to decrease fall risk by 06/03/21. LTG Duration 8 weeks 3 Skilled Nursing Goal (LTG) Pt will gait train at least 1200 feet with or without LRAD in six minutes to improve community ambulation by . LTG Duration 8 weeks 2 Skilled Nursing Goal (LTG) Pt will present with improved left ankle DF to 30 deg and augusto eversion and inversion at least 25 deg to improve foot strike with gait by 06/03/21. LTG Duration 8 weeks 1 Impairment LEF score reflects greater than 70% impairment Privacy Specialist Goal (LTG) Pt will present with improved LEF score to reflect no more than 60% impairment by 06/03/21 . LTG Duration 8 weeks Assessment Summary Assessment Pt tolerated tx well, HEP review HS flex/ ext, ankle AROM against gravity and w/ TB cued easy fluid range, STMs to lower legs and initiated butekyo breath to assist with pain and over use. Pt stated ankle and toes still tight and ach pain. Physical Therapy Plan Frequency and Duration Frequency of Treatment 1x/Week Duration of Treatment 10 weeks Plan of Care Start Date 04/03/21 Plan of Care End Date 06/20/21 Therapeutic Interventions Therapeutic Interventions Aquatic Therapy,Balance Training,Gait Training,Home Exercise Program,Joint Mobilizations,Manual Therapy, Neuromuscular Re-education, Patient/Caregiver Education, Self-Care/Home Management, Sensory Integration,Soft Tissue Mobilization,Taping, Therapeutic Activities, Therapeutic Exercises Modalities Cold Pack/Ice Massage,Hot Packs Next Visit Focus/Plan Next Note Type Treatment Note Next Visit Plan Assess response to plan recommendations. Will continue to progress in txs. Progress theraband exercises: foot hammock with band and Buteyko breathing, hook lying hamstring stretch with active AP and knee flexion and extension with hand behind thigh, ongoing Counterstrain
--- NOTE | 2021-04-21 14:40 | PT.OTN ---
Current Diagnoses Primary osteoarthritis, left ankle and foot (04/21/21) Post-traumatic osteoarthritis, left ankle and foot (04/21/21) Physical Therapy Treatment Note PT-OP-A Visit Information Start: 03/31/21 12:25 Freq: Status: Active Protocol: Document 04/21/21 13:50 SP (Rec: 04/21/21 15:50 SP [id number]) Out-Patient Physical Therapy Visit Information Visit Information Visit Type Treatment Note Visit Note Anna Visit Start Time 13:50 Visit Stop Time 14:40 Total Visit Minutes 50 Visit Number 04/13 Number of SEWER CLEANER Visits 2 Evaluation Information Evaluation Date 04/03/21 Precautions Precautions No WB restrictions, far out post-op hardware removal on . PT-OP-B Current Condition Start: 04/03/21 09:05 Freq: Status: Active Protocol: Document 04/03/21 09:00 MB (Rec: 04/03/21 09:22 MB [id number]) Current Condition History of Current Condition Onset Date May 2019 Current Complaints Sharp stabbing pain in left heel with WB and NWB History of Current Condition In May 2019, pt fell off a ladder and fractured his left calcaneus. He underwent ORIF and PT. 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 He underwent hardware removal 01/04/21. Pt underwent cortisone injection with [facility] 03/11 that was okay. He had had another one previously with another provider without numbing agent before it and it made the pain worse. He has been seeing Dr. Lara who has recommended Hoka shoes which as very expensive and steel toed boots which are also expensive. Pt has only been able to work three days a week d/t pain and is taking rest days between work days. He occ has to have his help him inside d/t pain occ. PMH includes OP and arthritis. Pt has history of smoking and has not been smoking. Pt has not gotten into the pool d/t COVID and finances. Pt states that Dr. Gaitan's compressive techniques helped decrease the swelling. The dry needling was not helpful. He thought the pool therapy was okay when he had it the beginning of last year. Pt reports has used some compression. 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 He has a and kids and is the primary bread winner. He takes care of the new dog as well. Prior Treatments and Tests ORIF, hardware removal, osteopathic treatment from Dr. Gaitan, pain management treatment from Dr. Lara Treatment Goals Patient/Caregiver Goals To decrease pain and swelling PT-OP-C Subjective Start: 03/31/21 12:25 Freq: Status: Active Protocol: Document 04/21/21 13:50 SP (Rec: 04/21/21 15:50 SP [id number]) OP-PT Subjective Patient Comments Patient Comments Pt stated little sore after last tx. Pt states does alot of ankle ROm before gets up so doesnt' get to stiff and WBs through RLE to get out of chair due to pain gets WB into LLE. PT-OP-D Balance Start: 03/31/21 12:25 Freq: Status: Active Protocol: Document 04/03/21 09:00 MB (Rec: 04/03/21 15:47 MB [id number]) OP-PT Balance Assessment Sitting Balance Static Sitting Balance Ability Normal Dynamic Sitting Balance Ability Normal Standing Balance Static Standing Balance Ability Good Dynamic Standing Balance Ability Fair Kathleen Fall Scale Copyright Permission PT-OP-G Mobility & Gait Start: 03/31/21 12:25 Freq: Status: Active Protocol: Document 04/03/21 09:00 MB (Rec: 04/03/21 15:47 MB [id number]) OP Gait Assessment Gait Gait Assistance Required: Independent Distance (Feet) 15 Able to Maintain Weight Bearing Status Yes During Gait Assistive Devices Assistive Device None Orthotic/Prosthetic Devices or Brace: No Gait Deviations General Gait Pattern Antalgic,Decreased Stride Length,Decreased Feet Clearance,Flexed Trunk Factors Limiting Gait Function Factors Limiting Gait Function Decreased Activity Tolerance, Decreased Strength,Limited Range of Motion,Pain,Poor Balance Comments Gait Comments Pt arrives wearing an ASO on his left ankle. PT asks him to gait with bare feet and he presents with slow and antalgic gait with decreased push off B, rigidity left ankle. Pt's left foot is mildly edematous and he has surgical scars anterior to medial and lateral malleoli, below fibular head and over the anterior ankle joint. PT-OP-K Range of Motion Start: 03/31/21 12:25 Freq: Status: Active Protocol: Document 04/03/21 09:00 MB (Rec: 04/03/21 15:47 MB [id number]) Ankle and Foot Goniometric Range of Motion Ankle and Foot ROM Limitations Comments R foot and ankle WNLs L foot and ankle: left foot rests in 30 deg PF and he is able to DF 20 deg. Eversion 10 deg and inversion 12 deg PT-OP-M Strength Start: 03/31/21 12:25 Freq: Status: Active Protocol: Document 04/03/21 09:00 MB (Rec: 04/03/21 15:47 MB [id number]) Hip Strength Hip Manual Muscle Testing Left Flexion (L2) 5 Normal Abduction 5 Normal Right Flexion (L2) 5 Normal Abduction 5 Normal Knee Strength Knee Manual Muscle Testing Left Flexion (S2) 5 Normal Extension (L3) 5 Normal Right Flexion (S2) 5 Normal Extension (L3) 5 Normal Ankle/Foot Strength Ankle and Foot Manual Muscle Testing Left Comments MMT left ankle deferred d/t presentation and pain Right Dorsiflexion (L4) 5 Normal Inversion 5 Normal Eversion (S1) 5 Normal Toe Strength Toe Manual Muscle Testing Left Great Toe Extension 3- Fair- Right Great Toe Extension 5 Normal PT-OP-Q Treatments Start: 03/31/21 12:25 Freq: Status: Active Protocol: Document 04/21/21 13:50 SP (Rec: 04/21/21 15:50 SP [id number]) Cardio Equipment Bicycle (Upright) Duration (Minutes) 4 Resistance 0 Seat Position 6 Other ankle ROM Therapeutic Exercises Supine Exercises butekyo breath Supine Exercise Name 1-3 x 2 reps each for teaching Reps/Minutes 6 reps, holds 22- 29 sec Comments natural breathes 30 sec between reps Posterior chain release Supine Exercise Name Hooklying knee flex/ ext Side left Resistance AROM Reps/Minutes x15 Comments grasp behind thighs HS stretch w/ AP Supine Exercise Name hooklying Side left Reps/Minutes x15 Comments cued slow fluid motion Sitting Exercises Ankle PF resistance level 2 band foot hammock Sitting Exercise Name review HEP Resistance TB #2 Reps/Minutes x10 Comments cued eccentric return into DF ROM Standing Exercises rocker board Standing Exercise Name F/B/side wt shift Equipment Used contact rail Reps/Minutes 1 min each direction DF/ calf stretch Equipment Used step, rail Reps/Minutes 10-15 sec x5 Manual Therapy Treatment Soft Tissue Mobilization calf Body Location gastroc, soleus- prone, tibialis anterior- supine Mobilization Type Myofascial Release,Strain/ Counterstrain,Sustained Pressure Intensity/Depth Moderate Comments MWM DF/PF ROM Joint Mobilizations talocrual AP Joint L Direction AP Grade II Body Position Supine MTP APs Joint L 1-4 MTP Direction AP Grade II Body Position Supine Comments Toe mobs PT-OP-T Assessment and Plan Start: 03/31/21 12:25 Freq: Status: Active Protocol: Document 04/21/21 13:50 SP (Rec: 04/21/21 15:50 SP [id number]) Physical Therapy Assessment Goals 5 Ski Technician Goal (LTG) Pt will perform progressive HEP with I including pool exercises, balance, strengthening, breathing and work-related tasks to improve strength and ability to work by 06/03/21. LTG Duration 8 weeks 4 Custodial Goal (LTG) Pt will perform WNLs on a standardized balance test to decrease fall risk by 06/03/21. LTG Duration 8 weeks 3 Custodial Goal (LTG) Pt will gait train at least 1200 feet with or without LRAD in six minutes to improve community ambulation by . LTG Duration 8 weeks 2 Custodial Goal (LTG) Pt will present with improved left ankle DF to 30 deg and augusto eversion and inversion at least 25 deg to improve foot strike with gait by 06/03/21. LTG Duration 8 weeks 1 Impairment LEF score reflects greater than 70% impairment Ski Technician Goal (LTG) Pt will present with improved LEF score to reflect no more than 60% impairment by 06/03/21 . LTG Duration 8 weeks Assessment Summary Assessment Pt reported calf raises off step and rocker board were little more painful 6-7/10 than the norm 4-5/10. Pt stated pain lessened to 4-5/10 post manual, stretching but doesn't believe the butekyo breathing helps with pain control. Occasional cuing for posterior chain stretching recall. Pt was welcoming to cold modaity at end of tx for pain control, reduced to cold an only stiffness and demonstrated antalgic gait but stated due to ankle numb feeling causious in WB. Physical Therapy Plan Frequency and Duration Frequency of Treatment 1x/Week Duration of Treatment 10 weeks Plan of Care Start Date 04/03/21 Plan of Care End Date 06/20/21 Therapeutic Interventions Therapeutic Interventions Aquatic Therapy,Balance Training,Gait Training,Home Exercise Program,Joint Mobilizations,Manual Therapy, Neuromuscular Re-education, Patient/Caregiver Education, Self-Care/Home Management, Sensory Integration,Soft Tissue Mobilization,Taping, Therapeutic Activities, Therapeutic Exercises Modalities Cold Pack/Ice Massage,Hot Packs Next Visit Focus/Plan Next Note Type Treatment Note Next Visit Plan Assess response to plan recommendations. Will continue to progress in txs. Progress theraband exercises: foot hammock with band and Buteyko breathing, hook lying hamstring stretch with active AP and knee flexion and extension with hand behind thigh, ongoing Counterstrain
--- NOTE | 2021-04-27 09:20 | PT.OTN ---
Current Diagnoses Primary osteoarthritis, left ankle and foot (04/27/21) Post-traumatic osteoarthritis, left ankle and foot (04/27/21) Physical Therapy Treatment Note PT-OP-A Visit Information Start: 03/31/21 12:25 Freq: Status: Active Protocol: Document 04/27/21 08:20 SP (Rec: 04/27/21 09:33 SP [id number]) Out-Patient Physical Therapy Visit Information Visit Information Visit Type Treatment Note Visit Note Anna Pt 5 min late for appt Visit Start Time 08:20 Visit Stop Time 09:20 Total Visit Minutes 60 Visit Number 05/14 Number of INSOLE TACKER Visits 3 Evaluation Information Evaluation Date 04/03/21 Precautions Precautions No WB restrictions, far out post-op hardware removal on . PT-OP-B Current Condition Start: 04/03/21 09:05 Freq: Status: Active Protocol: Document 04/03/21 09:00 MB (Rec: 04/03/21 09:22 MB [id number]) Current Condition History of Current Condition Onset Date May 2019 Current Complaints Sharp stabbing pain in left heel with WB and NWB History of Current Condition In May 2019, pt fell off a ladder and fractured his left calcaneus. He underwent ORIF and PT. 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 He underwent hardware removal 01/04/21. Pt underwent cortisone injection with [facility] 03/11 that was okay. He had had another one previously with another provider without numbing agent before it and it made the pain worse. He has been seeing Dr. Lara who has recommended [employer] shoes which as very expensive and steel toed boots which are also expensive. Pt has only been able to work three days a week d/t pain and is taking rest days between work days. He occ has to have his help him inside d/t pain occ. PMH includes OP and arthritis. Pt has history of smoking and has not been smoking. Pt has not gotten into the pool d/t COVID and finances. Pt states that Dr. Gaitan's compressive techniques helped decrease the swelling. The dry needling was not helpful. He thought the pool therapy was okay when he had it the beginning of last year. Pt reports has used some compression. 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 He has a and kids and is the primary bread winner. He takes care of the new dog as well. Prior Treatments and Tests ORIF, hardware removal, osteopathic treatment from Dr. Gaitan, pain management treatment from Dr. Lara Treatment Goals Patient/Caregiver Goals To decrease pain and swelling PT-OP-C Subjective Start: 03/31/21 12:25 Freq: Status: Active Protocol: Document 04/27/21 08:20 SP (Rec: 04/27/21 09:33 SP [id number]) OP-PT Subjective Patient Comments Patient Comments Pt reported didn't do alot yesterday after tripped doing some painting so rested and relaxed the later day. Ankle is sore this am haven't really done much. Pt reports his pain is mostly inferior Medial malleolus and dorsal surface across MTPs. PT-OP-D Balance Start: 03/31/21 12:25 Freq: Status: Active Protocol: Document 04/03/21 09:00 MB (Rec: 04/03/21 15:47 MB [id number]) OP-PT Balance Assessment Sitting Balance Static Sitting Balance Ability Normal Dynamic Sitting Balance Ability Normal Standing Balance Static Standing Balance Ability Good Dynamic Standing Balance Ability Fair Kathleen Fall Scale Copyright Permission PT-OP-G Mobility & Gait Start: 03/31/21 12:25 Freq: Status: Active Protocol: Document 04/03/21 09:00 MB (Rec: 04/03/21 15:47 MB [id number]) OP Gait Assessment Gait Gait Assistance Required: Independent Distance (Feet) 15 Able to Maintain Weight Bearing Status Yes During Gait Assistive Devices Assistive Device None Orthotic/Prosthetic Devices or Brace: No Gait Deviations General Gait Pattern Antalgic,Decreased Stride Length,Decreased Feet Clearance,Flexed Trunk Factors Limiting Gait Function Factors Limiting Gait Function Decreased Activity Tolerance, Decreased Strength,Limited Range of Motion,Pain,Poor Balance Comments Gait Comments Pt arrives wearing an ASO on his left ankle. PT asks him to gait with bare feet and he presents with slow and antalgic gait with decreased push off B, rigidity left ankle. Pt's left foot is mildly edematous and he has surgical scars anterior to medial and lateral malleoli, below fibular head and over the anterior ankle joint. PT-OP-K Range of Motion Start: 03/31/21 12:25 Freq: Status: Active Protocol: Document 04/03/21 09:00 MB (Rec: 04/03/21 15:47 MB [id number]) Ankle and Foot Goniometric Range of Motion Ankle and Foot ROM Limitations Comments R foot and ankle WNLs L foot and ankle: left foot rests in 30 deg PF and he is able to DF 20 deg. Eversion 10 deg and inversion 12 deg PT-OP-M Strength Start: 03/31/21 12:25 Freq: Status: Active Protocol: Document 04/03/21 09:00 MB (Rec: 04/03/21 15:47 MB [id number]) Hip Strength Hip Manual Muscle Testing Left Flexion (L2) 5 Normal Abduction 5 Normal Right Flexion (L2) 5 Normal Abduction 5 Normal Knee Strength Knee Manual Muscle Testing Left Flexion (S2) 5 Normal Extension (L3) 5 Normal Right Flexion (S2) 5 Normal Extension (L3) 5 Normal Ankle/Foot Strength Ankle and Foot Manual Muscle Testing Left Comments MMT left ankle deferred d/t presentation and pain Right Dorsiflexion (L4) 5 Normal Inversion 5 Normal Eversion (S1) 5 Normal Toe Strength Toe Manual Muscle Testing Left Great Toe Extension 3- Fair- Right Great Toe Extension 5 Normal PT-OP-Q Treatments Start: 03/31/21 12:25 Freq: Status: Active Protocol: Document 04/27/21 08:20 SP (Rec: 04/27/21 09:33 SP [id number]) Cardio Equipment Bicycle (Upright) Duration (Minutes) 4 Resistance 4 Seat Position 6 Other ankle ROM very light resistance Therapeutic Exercises Supine Exercises Posterior chain release Supine Exercise Name Hooklying knee flex/ ext Side left Resistance AROM Reps/Minutes x15 Comments grasp behind thighs HS stretch w/ AP Supine Exercise Name hooklying Side left Reps/Minutes x15 Comments cued slow fluid motion APs and toe flexion and extension Supine Exercise Name hammock toe/ ankle flex/ext Side left Resistance TB #2 Reps/Minutes x20 Standing Exercises DF/ calf stretch Equipment Used step, rail Reps/Minutes 30 x3, then eccentric lowering x5 Self ankle mob Standing Exercise Name lunge forward- pain so stopped Comments Family member will cup front of foot vs TB stand wt shift Standing Exercise Name f/b double leg Side bilateral Equipment Used BOSU vs trampoline, w/ contact rail Reps/Minutes x10 each then stopped Comments cued equal BLE stance, x10 before report of increase discomfort sub calcan. Manual Therapy Treatment Soft Tissue Mobilization scar mob Body Location scar mob various directions Intensity/Depth Superficial Body Position Supine Comments instructed self application calf Body Location gastroc, soleus, achilles- prone Mobilization Type Myofascial Release,Strumming, Sustained Pressure Intensity/Depth Moderate Comments also sustained pressure to achilles MWM DF/PF AROM Joint Mobilizations Pt standing, PT performing AP mobs as pt DF over his foot Direction AP Comments INSOLE TACKER providing left foot AP pressure to tarsal and metatarsal joints as pt bend left knee and moves into DF talocrual AP Joint L Direction AP Grade II Body Position Supine MTP APs Joint L 1-4 MTP Direction AP Grade II Body Position Supine Comments Toe mobs Taping fat pad and achilles taping Body Location calcaneal fat pad, distal achilles taping Treatment Focus L Type of Tape Martita Skin Inspection intact, normal color Comments and cover roll PT-OP-T Assessment and Plan Start: 03/31/21 12:25 Freq: Status: Active Protocol: Document 04/27/21 08:20 SP (Rec: 04/27/21 09:33 SP [id number]) Physical Therapy Assessment Goals 5 Retirement Goal (LTG) Pt will perform progressive HEP with I including pool exercises, balance, strengthening, breathing and work-related tasks to improve strength and ability to work by 06/03/21. 04/27/21: HEP: hammock ankle ROM into DF, ankle EV/IV/DF, calf stretch and eccentric lowering off step, lunge calf and ankle mobility stretch, MWM achilles AP, supine knee flex/ ext posterior chain MWM and HS stretch w/AP, Self STMs / mobs using self hands/spouse and rolling stick. LTG Duration 8 weeks 4 Retirement Goal (LTG) Pt will perform WNLs on a standardized balance test to decrease fall risk by 06/03/21. LTG Duration 8 weeks 3 Retirement Goal (LTG) Pt will gait train at least 1200 feet with or without LRAD in six minutes to improve community ambulation by . LTG Duration 8 weeks 2 Retirement Goal (LTG) Pt will present with improved left ankle DF to 30 deg and augusto eversion and inversion at least 25 deg to improve foot strike with gait by 06/03/21. LTG Duration 8 weeks 1 Impairment LEF score reflects greater than 70% impairment Retirement Goal (LTG) Pt will present with improved LEF score to reflect no more than 60% impairment by 06/03/21 . LTG Duration 8 weeks Assessment Summary Assessment Pt stated hasn't been to pool yet and compliant with TB and tried breathing ex but doesn't feel they help though. Instruction on self ankle mobility mobs using TB vs family assist (INSOLE TACKER in tx) to improve ankle jt ROM or lessen discomfort and not tolerate pressure, no improvement. Pt reported manual so significant reduction in tightness post HEP review. Pt stated standing stretch and supine same 4-5/ 10 pain and increased during wt shift on BOSU to 6-7/10 under calcaneus. Pt welcoming to modality end tx for pain relief with reducation to numb posterior/med/ lat ankle, red 1 strip down 1st MTP prox to IP and sub calcaneus still 4-5/10. cover roll and leukotaped post heel and calcaneal fat pad taping for support decrease tension med/ lat sub malleolus with little less stirup pull but pt stated still 4-5/10 pain upon heel strike directly under calcaneus. Physical Therapy Plan Frequency and Duration Frequency of Treatment 1x/Week Duration of Treatment 10 weeks Plan of Care Start Date 04/03/21 Plan of Care End Date 06/20/21 Therapeutic Interventions Therapeutic Interventions Aquatic Therapy,Balance Training,Gait Training,Home Exercise Program,Joint Mobilizations,Manual Therapy, Neuromuscular Re-education, Patient/Caregiver Education, Self-Care/Home Management, Sensory Integration,Soft Tissue Mobilization,Taping, Therapeutic Activities, Therapeutic Exercises Modalities Cold Pack/Ice Massage,Hot Packs Next Visit Focus/Plan Next Note Type Treatment Note Next Visit Plan Continue manual and HEP review while continue to try progress WB, ROM in txs depending upon response. POC: Progress theraband exercises: foot hammock with band and Buteyko breathing, hook lying hamstring stretch with active AP and knee flexion and extension with hand behind thigh, ongoing Counterstrain
--- NOTE | 2021-05-04 09:07 | PT.OTN ---
Current Diagnoses Primary osteoarthritis, left ankle and foot (05/04/21) Post-traumatic osteoarthritis, left ankle and foot (05/04/21) Physical Therapy Treatment Note PT-OP-A Visit Information Start: 03/31/21 12:25 Freq: Status: Active Protocol: Document 05/04/21 08:24 SP (Rec: 05/04/21 12:07 SP [id number]) Out-Patient Physical Therapy Visit Information Visit Information Visit Type Treatment Note Visit Note Anna Pt 3 min late for appt, MEDICAL INTERPRETER runnng late brought Visit Start Time 08:24 Visit Stop Time 09:07 Total Visit Minutes 43 Visit Number 06/13 Number of MEDICAL INTERPRETER Visits 4 Evaluation Information Evaluation Date 04/03/21 PT-OP-B Current Condition Start: 04/03/21 09:05 Freq: Status: Active Protocol: Document 04/03/21 09:00 MB (Rec: 04/03/21 09:22 MB [id number]) Current Condition History of Current Condition Onset Date May 2019 Current Complaints Sharp stabbing pain in left heel with WB and NWB History of Current Condition In May 2019, pt fell off a ladder and fractured his left calcaneus. He underwent ORIF and PT. 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 He underwent hardware removal 01/04/21. Pt underwent cortisone injection with [facility] 03/11 that was okay. He had had another one previously with another provider without numbing agent before it and it made the pain worse. He has been seeing Dr. Lara who has recommended Hoka shoes which as very expensive and steel toed boots which are also expensive. Pt has only been able to work three days a week d/t pain and is taking rest days between work days. He occ has to have his help him inside d/t pain occ. PMH includes OP and arthritis. Pt has history of smoking and has not been smoking. Pt has not gotten into the pool d/t COVID and finances. Pt states that Dr. Gaitan's compressive techniques helped decrease the swelling. The dry needling was not helpful. He thought the pool therapy was okay when he had it the beginning of last year. Pt reports has used some compression. 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 He has a and kids and is the primary bread winner. He takes care of the new dog as well. Prior Treatments and Tests ORIF, hardware removal, osteopathic treatment from Dr. Gaitan, pain management treatment from Dr. Lara Treatment Goals Patient/Caregiver Goals To decrease pain and swelling PT-OP-C Subjective Start: 03/31/21 12:25 Freq: Status: Active Protocol: Document 05/04/21 08:24 SP (Rec: 05/04/21 12:07 SP [id number]) OP-PT Subjective Patient Comments Patient Comments Pt stated still having pain over lateral and across MTPs of L ankle during DF mobility and under heel and is very compliant with exercises, the breathing exercises don't help . He always focuses on heel toe and toe off best can, goes through shoes alot and has so many specialists different sugggestions what maybe helpful but nothing has been the answer for pain. Patient Reported Progress Same PT-OP-D Balance Start: 03/31/21 12:25 Freq: Status: Active Protocol: Document 04/03/21 09:00 MB (Rec: 04/03/21 15:47 MB [id number]) OP-PT Balance Assessment Sitting Balance Static Sitting Balance Ability Normal Dynamic Sitting Balance Ability Normal Standing Balance Static Standing Balance Ability Good Dynamic Standing Balance Ability Fair Kathleen Fall Scale Copyright Permission PT-OP-G Mobility & Gait Start: 03/31/21 12:25 Freq: Status: Active Protocol: Document 04/03/21 09:00 MB (Rec: 04/03/21 15:47 MB [id number]) OP Gait Assessment Gait Gait Assistance Required: Independent Distance (Feet) 15 Able to Maintain Weight Bearing Status Yes During Gait Assistive Devices Assistive Device None Orthotic/Prosthetic Devices or Brace: No Gait Deviations General Gait Pattern Antalgic,Decreased Stride Length,Decreased Feet Clearance,Flexed Trunk Factors Limiting Gait Function Factors Limiting Gait Function Decreased Activity Tolerance, Decreased Strength,Limited Range of Motion,Pain,Poor Balance Comments Gait Comments Pt arrives wearing an ASO on his left ankle. PT asks him to gait with bare feet and he presents with slow and antalgic gait with decreased push off B, rigidity left ankle. Pt's left foot is mildly edematous and he has surgical scars anterior to medial and lateral malleoli, below fibular head and over the anterior ankle joint. PT-OP-K Range of Motion Start: 03/31/21 12:25 Freq: Status: Active Protocol: Document 04/03/21 09:00 MB (Rec: 04/03/21 15:47 MB [id number]) Ankle and Foot Goniometric Range of Motion Ankle and Foot ROM Limitations Comments R foot and ankle WNLs L foot and ankle: left foot rests in 30 deg PF and he is able to DF 20 deg. Eversion 10 deg and inversion 12 deg PT-OP-M Strength Start: 03/31/21 12:25 Freq: Status: Active Protocol: Document 04/03/21 09:00 MB (Rec: 04/03/21 15:47 MB [id number]) Hip Strength Hip Manual Muscle Testing Left Flexion (L2) 5 Normal Abduction 5 Normal Right Flexion (L2) 5 Normal Abduction 5 Normal Knee Strength Knee Manual Muscle Testing Left Flexion (S2) 5 Normal Extension (L3) 5 Normal Right Flexion (S2) 5 Normal Extension (L3) 5 Normal Ankle/Foot Strength Ankle and Foot Manual Muscle Testing Left Comments MMT left ankle deferred d/t presentation and pain Right Dorsiflexion (L4) 5 Normal Inversion 5 Normal Eversion (S1) 5 Normal Toe Strength Toe Manual Muscle Testing Left Great Toe Extension 3- Fair- Right Great Toe Extension 5 Normal PT-OP-Q Treatments Start: 03/31/21 12:25 Freq: Status: Active Protocol: Document 05/04/21 08:24 SP (Rec: 05/04/21 12:07 SP [id number]) Cardio Equipment Recumbent Elliptical (BiodAxxana) Duration (Minutes) 5 Resistance 4>2 Seat Position 7 Therapeutic Exercises Supine Exercises Posterior chain release Supine Exercise Name Hooklying knee flex/ ext Side left Resistance AROM Reps/Minutes x15 Comments grasp behind thighs HS stretch w/ AP Supine Exercise Name hooklying Side left Reps/Minutes x15 Comments cued slow fluid motion APs and toe flexion and extension Supine Exercise Name hammock toe/ ankle flex/ext Side left Resistance TB #2 Reps/Minutes x20 Standing Exercises Self ankle mob Standing Exercise Name lunge forward, doesn't seem to loosen up ankle at best hoped Equipment Used 2nd step foot on disc, rail support Reps/Minutes x10 modified heel raise Standing Exercise Name double leg raise, Modified eccentric L w/ support RLE Equipment Used contact table Reps/Minutes x8 Comments tires quickly, and increase discomfort as reps progress- I need to do Gait Training Gait Activity 6MWT Device Used 0 Level of Assistance S Surface firm Distance/Duration 927 ft Treatment Focus heel toe, toe off phases, glut facilitation Comments pt demonstrates decreased toe off, cued glut facilitation and allow hip ext during LLE level pelvis to decrease R hip drop. Manual Therapy Treatment Soft Tissue Mobilization calf Body Location gastroc, soleus, achilles- prone Mobilization Type Myofascial Release,Strumming, Sustained Pressure Intensity/Depth Moderate Comments also sustained pressure to achilles MWM DF/PF AROM Joint Mobilizations talocrual AP Joint L Direction AP Grade II Body Position Supine MTP APs Joint L 1-4 MTP Direction AP Grade II Body Position Supine Comments Toe mobs PT-OP-T Assessment and Plan Start: 03/31/21 12:25 Freq: Status: Active Protocol: Document 05/04/21 08:24 SP (Rec: 05/04/21 12:07 SP [id number]) Physical Therapy Assessment Goals 5 Longterm Goal (LTG) Pt will perform progressive HEP with I including pool exercises, balance, strengthening, breathing and work-related tasks to improve strength and ability to work by 06/03/21. 04/27/21: HEP: hammock ankle ROM into DF, ankle EV/IV/DF, calf stretch and eccentric lowering on floor, lunge calf and ankle mobility stretch, MWM achilles AP, supine knee flex/ ext posterior chain MWM and HS stretch w/AP, Self STMs / mobs using self hands/spouse and rolling stick. LTG Duration 8 weeks 4 Ethnology Teacher Goal (LTG) Pt will perform WNLs on a standardized balance test to decrease fall risk by 06/03/21. LTG Duration 8 weeks 3 Ethnology Teacher Goal (LTG) Pt will gait train at least 1200 feet with or without LRAD in six minutes to improve community ambulation by . 05/04/21: progressing 927 ft no AD, decreased PF LLE and glut facilitation w/ weakness during terminal stance heel off.. LTG Duration 8 weeks 2 Longterm Goal (LTG) Pt will present with improved left ankle DF to 30 deg and augusto eversion and inversion at least 25 deg to improve foot strike with gait by 06/03/21. LTG Duration 8 weeks 1 Impairment LEF score reflects greater than 70% impairment Longterm Goal (LTG) Pt will present with improved LEF score to reflect no more than 60% impairment by 06/03/21 . LTG Duration 8 weeks Assessment Summary Assessment Assessed 6MWT 927 ft baseline with noted decreased hip ext, glut and quad facilitation as distance progressed and reports of increased pain in L ankle but able to perform. Pt reports doesn't see a significant improvement in ROM and decreased amount stiffness and pain when doing longer standing activities. Tx focused on gait endurance assessment, HEP review, manual and ankle mobililty with minimal improvement end tx. Pt declined modality stating will put cold pack on later at home. Physical Therapy Plan Frequency and Duration Frequency of Treatment 1x/Week Duration of Treatment 10 weeks Plan of Care Start Date 04/03/21 Plan of Care End Date 06/20/21 Therapeutic Interventions Therapeutic Interventions Aquatic Therapy,Balance Training,Gait Training,Home Exercise Program,Joint Mobilizations,Manual Therapy, Neuromuscular Re-education, Patient/Caregiver Education, Self-Care/Home Management, Sensory Integration,Soft Tissue Mobilization,Taping, Therapeutic Activities, Therapeutic Exercises Modalities Cold Pack/Ice Massage,Hot Packs Next Visit Focus/Plan Next Note Type Treatment Note Next Visit Plan Continue manual and HEP review while continue to try progress WB, ROM in txs depending upon response. POC: Progress theraband exercises: foot hammock with band and B[place]yko breathing, hook lying hamstring stretch with active AP and knee flexion and extension with hand behind thigh, ongoing Counterstrain
--- NOTE | 2021-05-12 13:23 | PT-OP ANOTE ---
Received an email from manager cleaning that the pool should re-open in July. Called pt as pool therapy was the one thing that was helping him post-op and it was stopped d/t COVID closure. Given his limited allowed visits per year, want pt to receive what has been helpful and that is aquatic therapy. Communicated this plan with pt, front office, pool therapist and COMPUTER INSTRUCTOR. Will keep tomorrow's appointment, update POC and then put pt on hold until the pool opens.
--- NOTE | 2021-05-13 10:32 | PT.OTN ---
Current Diagnoses Primary osteoarthritis, left ankle and foot (05/13/21) Post-traumatic osteoarthritis, left ankle and foot (05/13/21) Physical Therapy Treatment Note PT-OP-A Visit Information Start: 03/31/21 12:25 Freq: Status: Active Protocol: Document 05/13/21 09:46 MB (Rec: 05/13/21 10:32 MB [id number]) Out-Patient Physical Therapy Visit Information Visit Information Visit Type Progress Note Visit Start Time 09:46 Visit Stop Time 10:30 Total Visit Minutes 44 Visit Number 5 Precautions Precautions No WB restrictions, far out post-op hardware removal on . PT-OP-B Current Condition Start: 04/03/21 09:05 Freq: Status: Active Protocol: Document 04/03/21 09:00 MB (Rec: 04/03/21 09:22 MB [id number]) Current Condition History of Current Condition Onset Date May 2019 Current Complaints Sharp stabbing pain in left heel with WB and NWB History of Current Condition In May 2019, pt fell off a ladder and fractured his left calcaneus. He underwent ORIF and PT. 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 He underwent hardware removal 01/04/21. Pt underwent cortisone injection with [facility] 03/11 that was okay. He had had another one previously with another provider without numbing agent before it and it made the pain worse. He has been seeing Dr. Lara who has recommended [employer]oka shoes which as very expensive and steel toed boots which are also expensive. Pt has only been able to work three days a week d/t pain and is taking rest days between work days. He occ has to have his help him inside d/t pain occ. PMH includes OP and arthritis. Pt has history of smoking and has not been smoking. Pt has not gotten into the pool d/t COVID and finances. Pt states that Dr. Gaitan's compressive techniques helped decrease the swelling. The dry needling was not helpful. He thought the pool therapy was okay when he had it the beginning of last year. Pt reports has used some compression. 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 He has a and kids and is the primary bread winner. He takes care of the new dog as well. Prior Treatments and Tests ORIF, hardware removal, osteopathic treatment from Dr. Gaitan, pain management treatment from Dr. Lara Treatment Goals Patient/Caregiver Goals To decrease pain and swelling PT-OP-C Subjective Start: 03/31/21 12:25 Freq: Status: Active Protocol: Document 05/13/21 09:46 MB (Rec: 05/13/21 10:32 MB [id number]) OP-PT Subjective Patient Comments Patient Comments Pt states that he is doing crappy. Getting his truck fixed was way more expensive than he thought it would be. Not really anything has been helping pt. His aquatic therapy was stopped last year d/t [facility] and it was helpful at that time. His ortho doctor wants to get him an offloading AFO brace. PT-OP-D Balance Start: 03/31/21 12:25 Freq: Status: Active Protocol: Document 04/03/21 09:00 MB (Rec: 04/03/21 15:47 MB [id number]) OP-PT Balance Assessment Sitting Balance Static Sitting Balance Ability Normal Dynamic Sitting Balance Ability Normal Standing Balance Static Standing Balance Ability Good Dynamic Standing Balance Ability Fair Kathleen Fall Scale Copyright Permission PT-OP-G Mobility & Gait Start: 03/31/21 12:25 Freq: Status: Active Protocol: Document 04/03/21 09:00 MB (Rec: 04/03/21 15:47 MB [id number]) OP Gait Assessment Gait Gait Assistance Required: Independent Distance (Feet) 15 Able to Maintain Weight Bearing Status Yes During Gait Assistive Devices Assistive Device None Orthotic/Prosthetic Devices or Brace: No Gait Deviations General Gait Pattern Antalgic,Decreased Stride Length,Decreased Feet Clearance,Flexed Trunk Factors Limiting Gait Function Factors Limiting Gait Function Decreased Activity Tolerance, Decreased Strength,Limited Range of Motion,Pain,Poor Balance Comments Gait Comments Pt arrives wearing an ASO on his left ankle. PT asks him to gait with bare feet and he presents with slow and antalgic gait with decreased push off B, rigidity left ankle. Pt's left foot is mildly edematous and he has surgical scars anterior to medial and lateral malleoli, below fibular head and over the anterior ankle joint. PT-OP-K Range of Motion Start: 03/31/21 12:25 Freq: Status: Active Protocol: Document 04/03/21 09:00 MB (Rec: 04/03/21 15:47 MB [id number]) Ankle and Foot Goniometric Range of Motion Ankle and Foot ROM Limitations Comments R foot and ankle WNLs L foot and ankle: left foot rests in 30 deg PF and he is able to DF 20 deg. Eversion 10 deg and inversion 12 deg PT-OP-M Strength Start: 03/31/21 12:25 Freq: Status: Active Protocol: Document 04/03/21 09:00 MB (Rec: 04/03/21 15:47 MB [id number]) Hip Strength Hip Manual Muscle Testing Left Flexion (L2) 5 Normal Abduction 5 Normal Right Flexion (L2) 5 Normal Abduction 5 Normal Knee Strength Knee Manual Muscle Testing Left Flexion (S2) 5 Normal Extension (L3) 5 Normal Right Flexion (S2) 5 Normal Extension (L3) 5 Normal Ankle/Foot Strength Ankle and Foot Manual Muscle Testing Left Comments MMT left ankle deferred d/t presentation and pain Right Dorsiflexion (L4) 5 Normal Inversion 5 Normal Eversion (S1) 5 Normal Toe Strength Toe Manual Muscle Testing Left Great Toe Extension 3- Fair- Right Great Toe Extension 5 Normal PT-OP-Q Treatments Start: 03/31/21 12:25 Freq: Status: Active Protocol: Document 05/13/21 09:46 MB (Rec: 05/13/21 10:32 MB [id number]) Cardio Equipment Bicycle (Upright) Duration (Minutes) 11 Resistance 3 Therapeutic Exercises Supine Exercises HS stretch w/ AP Supine Exercise Name Performed without strap today Comments Mostly on the left today Hook lying clam level 1 band Side bilateral Comments Level 1, 2, 4 band around knees, 10 reps Sitting Exercises LAQ with level 1 Sitting Exercise Name Level 2 band today Side bilateral Comments End-range AP Other Exercises Verbally reviewed HEP today Comments Performed this today for progress note Manual Therapy Treatment Other Other Manual Treatments Gentle (grade III-III) mobs left phalanges and metatarsals to tolerance PT-OP-T Assessment and Plan Start: 03/31/21 12:25 Freq: Status: Active Protocol: Document 05/13/21 09:46 MB (Rec: 05/13/21 10:32 MB [id number]) Physical Therapy Assessment Goals 5 Chief Security And Safety Officer Goal (LTG) Pt will perform progressive HEP with I including pool exercises, balance, strengthening, breathing and work-related tasks to improve strength and ability to work by 08/13/21. 05/13/21: HEP: hammock ankle ROM into DF, ankle EV/IV/DF, calf stretch and eccentric lowering on floor, lunge calf and ankle mobility stretch, MWM achilles AP, supine knee flex/ ext posterior chain MWM and HS stretch w/AP, Self STMs / mobs using self hands/spouse and rolling stick. Re-added clam in hook lying with band resistance and LAQ with band resistance today. LTG Duration 12 weeks 4 Senior Living Goal (LTG) Pt will perform WNLs on a standardized balance test to decrease fall risk by 08/13/21. 05/13/21: Currently not assessed d/t ongoing antalgic gait LTG Duration 12 weeks 3 Chief Security And Safety Officer Goal (LTG) Pt will gait train at least 1200 feet with or without LRAD in six minutes to improve community ambulation by . 05/13/21: NT d/t antalgic gait 05/04/21: progressing 927 ft no AD, decreased PF LLE and glut facilitation w/ weakness during terminal stance heel off.. LTG Duration 12 weeks 2 Senior Living Goal (LTG) Pt will present with improved left ankle DF to 30 deg and augusto eversion and inversion at least 25 deg to improve foot strike with gait by 08/13/21. 05/13/21: Left ankle ROM with leg extended on the mat: DF to neutral 90 deg, PF 19 deg, eversion 10 deg and inversion 10 deg today--pain limiting all ranges LTG Duration 12 weeks 1 Impairment LEF score reflects greater than 70% impairment Senior Living Goal (LTG) Pt will present with improved LEF score to reflect no more than 60% impairment by 08/13/21 . 05/13/21: LEF score is 21/80 and reflects 73.7%% impairment LTG Duration 12 weeks Assessment Summary Assessment Pt has not made a lot of progress towards PT goals since starting PT. His range is limited by pain as well as gait, balance and performance of exercises. He responded well to aquatic PT last year but it was stopped d/t COVID closure. PT received email from management that pool should reopen in July for aquatic PT and given that pt has limited visits allowed per year, has not made gains with land PT and responded well to aquatic PT last year, will put PT on hold until the pool opens. Pt, PT, PT grants and contracts assistant and pt's aquatic PT all in agreement. Physical Therapy Plan Frequency and Duration Frequency of Treatment Hold until pool opens Duration of Treatment 12 weeks Plan of Care Start Date 05/13/21 Plan of Care End Date 08/13/21 Therapeutic Interventions Therapeutic Interventions Aquatic Therapy,Balance Training,Gait Training,Home Exercise Program,Joint Mobilizations,Manual Therapy, Neuromuscular Re-education, Patient/Caregiver Education, Self-Care/Home Management, Sensory Integration,Soft Tissue Mobilization,Taping, Therapeutic Activities, Therapeutic Exercises Modalities Cold Pack/Ice Massage,Hot Packs Next Visit Focus/Plan Next Note Type Treatment Note Next Visit Plan Pool therapy
--- NOTE | 2021-05-13 10:33 | PT.OPPOC ---
Physical, Occupational & Speech Therapy At [facility] Current Diagnoses Primary osteoarthritis, left ankle and foot (05/13/21) Post-traumatic osteoarthritis, left ankle and foot (05/13/21) Visit Care Team Role Provider Type James Gaitan DO Family Provider Physician Primary Care Provider Specialty: Family Practice Address: [address] [place] [address], [id number] Email: Ventura Hoyos PA-C Attending Provider Non-Staff Referring Provider Specialty: Medical Address: [address] [place] [address], [address] Email: Plan Of Care PT-OP-T Assessment and Plan Start: 03/31/21 12:25 Freq: Status: Active Protocol: Document 05/13/21 09:46 MB (Rec: 05/13/21 10:32 MB [id number]) Physical Therapy Assessment Goals 5 Usp Goal (LTG) Pt will perform progressive HEP with I including pool exercises, balance, strengthening, breathing and work-related tasks to improve strength and ability to work by 08/13/21. 05/13/21: HEP: hammock ankle ROM into DF, ankle EV/IV/DF, calf stretch and eccentric lowering on floor, lunge calf and ankle mobility stretch, MWM achilles AP, supine knee flex/ ext posterior chain MWM and HS stretch w/AP, Self STMs / mobs using self hands/spouse and rolling stick. Re-added clam in hook lying with band resistance and LAQ with band resistance today. LTG Duration 12 weeks 4 Usp Goal (LTG) Pt will perform WNLs on a standardized balance test to decrease fall risk by 08/13/21. 05/13/21: Currently not assessed d/t ongoing antalgic gait LTG Duration 12 weeks 3 Ice Resurfacing Machine Operators Goal (LTG) Pt will gait train at least 1200 feet with or without LRAD in six minutes to improve community ambulation by . 05/13/21: NT d/t antalgic gait 05/04/21: progressing 927 ft no AD, decreased PF LLE and glut facilitation w/ weakness during terminal stance heel off.. LTG Duration 12 weeks 2 Ice Resurfacing Machine Operators Goal (LTG) Pt will present with improved left ankle DF to 30 deg and augusto eversion and inversion at least 25 deg to improve foot strike with gait by 08/13/21. 05/13/21: Left ankle ROM with leg extended on the mat: DF to neutral 90 deg, PF 19 deg, eversion 10 deg and inversion 10 deg today--pain limiting all ranges LTG Duration 12 weeks 1 Impairment LEF score reflects greater than 70% impairment Usp Goal (LTG) Pt will present with improved LEF score to reflect no more than 60% impairment by 08/13/21 . 05/13/21: LEF score is 21/80 and reflects 73.7%% impairment LTG Duration 12 weeks Assessment Summary Assessment Pt has not made a lot of progress towards PT goals since starting PT. His range is limited by pain as well as gait, balance and performance of exercises. He responded well to aquatic PT last year but it was stopped d/t COVID closure. PT received email from management that pool should reopen in July for aquatic PT and given that pt has limited visits allowed per year, has not made gains with land PT and responded well to aquatic PT last year, will put PT on hold until the pool opens. Pt, PT, PT school office assistant and pt's aquatic PT all in agreement. Physical Therapy Plan Frequency and Duration Frequency of Treatment Hold until pool opens Duration of Treatment 12 weeks Plan of Care Start Date 05/13/21 Plan of Care End Date 08/13/21 Therapeutic Interventions Therapeutic Interventions Aquatic Therapy,Balance Training,Gait Training,Home Exercise Program,Joint Mobilizations,Manual Therapy, Neuromuscular Re-education, Patient/Caregiver Education, Self-Care/Home Management, Sensory Integration,Soft Tissue Mobilization,Taping, Therapeutic Activities, Therapeutic Exercises Modalities Cold Pack/Ice Massage,Hot Packs Next Visit Focus/Plan Next Note Type Treatment Note Next Visit Plan Pool therapy Plan of Care Dates Plan of Care Start Date 05/13/21 Plan of Care End Date 08/13/21 Electronically Signed by: Babita Martínez PT 05/13/21 [id number] Please Sign and Return: I have reviewed this Plan of Care and certify that the skilled therapy services above are required to meet the patient?s needs. Physician Signature Date Printed Name and Credentials Clinical Instructor Signature Printed Name and Credentials
--- NOTE | 2021-08-18 13:41 | PT-OP ANOTE ---
PT reviews chart and notes that pt did get scheduled for some aquatic PT visits as planned. Will con't PT in the pool per aquatic therapist's plan.
--- NOTE | 2021-09-14 17:29 | PT.OTRE ---
Current Diagnoses Primary osteoarthritis, left ankle and foot (09/14/21) Post-traumatic osteoarthritis, left ankle and foot (09/14/21) Past Medical History (Last Reviewed 05/01/21 @ 15:56 by Acosta Lara DO) Chronic pain of left ankle History of orthopedic surgery Hypertension Left calcaneal fracture Left foot pain No significant medical problems Pelvic somatic dysfunction S/P hardware removal Segmental and somatic dysfunction of abdomen and other regions Segmental and somatic dysfunction of rib cage Somatic dysfunction of lower extremity Stiffness of left foot, not elsewhere classified Surgical History (Last Reviewed 05/01/21 @ 15:56 by Acosta Lara DO) History of orthopedic surgery S/P hardware removal Visit Care Team Role Provider Type James Gaitan DO Family Provider Physician Primary Care Provider Specialty: Family Practice Address: [address] [place] [address], [phone] Email: Ventura Hoyos PA-C Attending Provider Non-Staff Referring Provider Specialty: Medical Address: [address] [place] [address], [phone] Email: Physical Therapy Re-Evaluation PT-OP-A Visit Information Start: 03/31/21 12:25 Freq: Status: Active Protocol: Document 09/14/21 17:01 [facility] (Rec: 09/14/21 17:28 [facility] [id number]) Out-Patient Physical Therapy Visit Information Visit Information Visit Type Re-Evaluation Visit Start Time 11:00 Visit Stop Time 11:45 Total Visit Minutes 45 Visit Number 6 Precautions Precautions No WB restrictions, far out post-op hardware removal on . PT-OP-B Current Condition Start: 04/03/21 09:05 Freq: Status: Active Protocol: Document 09/14/21 17:01 [facility] (Rec: 09/14/21 17:28 [facility] [id number]) Current Condition History of Current Condition Onset Date May 2019 Current Complaints Sharp stabbing pain in left heel with WB and NWB History of Current Condition In May 2019, pt fell off a ladder and fractured his left calcaneus. He underwent ORIF and PT. 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 He underwent hardware removal 01/04/21. Pt underwent cortisone injection with [facility] 03/11 that was okay. He had had another one previously with another provider without numbing agent before it and it made the pain worse. He has been seeing Dr. Lara who has recommended [place] shoes which as very expensive and steel toed boots which are also expensive. Pt has only been able to work three days a week d/t pain and is taking rest days between work days. He occ has to have his help him inside d/t pain occ. PMH includes OP and arthritis. Pt has history of smoking and has not been smoking. Pt has not gotten into the pool d/t COVID and finances. Pt states that Dr. Gaitan's compressive techniques helped decrease the swelling. The dry needling was not helpful. He thought the pool therapy was okay when he had it the beginning of last year. Pt reports has used some compression. 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 He has a and kids and is the primary bread winner. He takes care of the new dog as well. Prior Treatments and Tests ORIF, hardware removal, osteopathic treatment from Dr. Gaitan, pain management treatment from Dr. Lara PT-OP-C Subjective Start: 03/31/21 12:25 Freq: Status: Active Protocol: Document 09/14/21 17:01 [facility] (Rec: 09/14/21 17:28 [facility] [id number]) OP-PT Subjective Patient Comments Patient Comments Patient pleased to be getting back to aquatic PT. States he has returned to work despite it being painful. Is wearing compression stocking. Swelling decreased after hardwear removal earlier in the year but pain persists. Is part of a support group for people that have had calcaneal fracture. Is frustrated by continued pain and inability to do prior activities and by poor tolerance for his work which requires prolonged standing. Also reporting some pain medial right knee as result of compensating for left heel pain. Reports entire lateral side of his foot is numb. PT-OP-D Balance Start: 03/31/21 12:25 Freq: Status: Active Protocol: Document 04/03/21 09:00 MB (Rec: 04/03/21 15:47 MB [id number]) OP-PT Balance Assessment Sitting Balance Static Sitting Balance Ability Normal Dynamic Sitting Balance Ability Normal Standing Balance Static Standing Balance Ability Good Dynamic Standing Balance Ability Fair Kathleen Fall Scale Copyright Permission Hever JM, Hever RM, Marcela SJ. Development of a scale to identify the fall- prone patient. Can J Aging 1989;8;366-7. Judy Kathleen (2009). Preventing patient falls. (2nd ed). [place]: [place]. PT-OP-G Mobility & Gait Start: 03/31/21 12:25 Freq: Status: Active Protocol: Document 04/03/21 09:00 MB (Rec: 04/03/21 15:47 MB [id number]) OP Gait Assessment Gait Gait Assistance Required: Independent Distance (Feet) 15 Able to Maintain Weight Bearing Status Yes During Gait Assistive Devices Assistive Device None Orthotic/Prosthetic Devices or Brace: No Gait Deviations General Gait Pattern Antalgic,Decreased Stride Length,Decreased Feet Clearance,Flexed Trunk Factors Limiting Gait Function Factors Limiting Gait Function Decreased Activity Tolerance, Decreased Strength,Limited Range of Motion,Pain,Poor Balance Comments Gait Comments Pt arrives wearing an ASO on his left ankle. PT asks him to gait with bare feet and he presents with slow and antalgic gait with decreased push off B, rigidity left ankle. Pt's left foot is mildly edematous and he has surgical scars anterior to medial and lateral malleoli, below fibular head and over the anterior ankle joint. PT-OP-K Range of Motion Start: 03/31/21 12:25 Freq: Status: Active Protocol: Document 09/14/21 17:01 [facility] (Rec: 09/14/21 17:28 [facility] [id number]) Ankle and Foot Goniometric Range of Motion Ankle and Foot ROM Limitations Comments R foot and ankle WNLs L foot and ankle: df 19 deg, pf 32 deg, eversion 10 deg and inversion 14 deg PT-OP-M Strength Start: 03/31/21 12:25 Freq: Status: Active Protocol: Document 09/14/21 17:01 [facility] (Rec: 09/14/21 17:28 [facility] [id number]) Ankle/Foot Strength Ankle and Foot Manual Muscle Testing Left Dorsiflexion (L4) 4- Good- Plantarflexion (S1) 4- Good- Inversion 4- Good- Eversion (S1) 4- Good- Comments painful all resisted motions Right Dorsiflexion (L4) 5 Normal Inversion 5 Normal Eversion (S1) 5 Normal PT-OP-Q Treatments Start: 03/31/21 12:25 Freq: Status: Active Protocol: Document 05/13/21 09:46 MB (Rec: 05/13/21 10:32 MB [id number]) Cardio Equipment Bicycle (Upright) Duration (Minutes) 11 Resistance 3 Therapeutic Exercises Supine Exercises HS stretch w/ AP Supine Exercise Name Performed without strap today Comments Mostly on the left today Hook lying clam level 1 band Side bilateral Comments Level 1, 2, 4 band around knees, 10 reps Sitting Exercises LAQ with level 1 Sitting Exercise Name Level 2 band today Side bilateral Comments End-range AP Other Exercises Verbally reviewed HEP today Comments Performed this today for progress note Manual Therapy Treatment Other Other Manual Treatments Gentle (grade III-III) mobs left phalanges and metatarsals to tolerance PT-OP-T Assessment and Plan Start: 03/31/21 12:25 Freq: Status: Active Protocol: Document 09/14/21 17:01 [facility] (Rec: 09/14/21 17:28 [facility] [id number]) Physical Therapy Assessment Goals 5 Impairment decreased activity tolerance, lack of exercise Correctional Corporal Goal (LTG) Pt will perform progressive HEP with I including pool exercises, balance, strengthening, breathing and work-related tasks to improve strength and ability to work 05/13/21: HEP: hammock ankle ROM into DF, ankle EV/IV/DF, calf stretch and eccentric lowering on floor, lunge calf and ankle mobility stretch, MWM achilles AP, supine knee flex/ ext posterior chain MWM and HS stretch w/AP, Self STMs / mobs using self hands/spouse and rolling stick. Re-added clam in hook lying with band resistance and LAQ with band resistance today. 09/14/21: Aquatic therapy resumed today after closure for 1 1/2 years due to Covid- 19. LTG Duration 11/20/21 4 Impairment decreased proprioception and balance left LE Correctional Corporal Goal (LTG) Pt will perform WNLs on a standardized balance test to decrease fall risk by 08/13/21. 05/13/21: Currently not assessed d/t ongoing antalgic gait 09/14/21: Not able to tolerate SLS on left due to pain, no shoes on pool deck. SLS in water at waist level right 20 sec, left 3 sec LTG Duration 11/20/21 3 Impairment gait dysfunction, unable to take walks Chcf Goal (LTG) Pt will gait train at least 1200 feet with or without LRAD in six minutes to improve community ambulation by . 05/13/21: NT d/t antalgic gait 05/04/21: progressing 927 ft no AD, decreased PF LLE and glut facilitation w/ weakness during terminal stance heel off.. 09/14/21: Not able to test in aquatic environment, patient reports not able to take walks, and limits his time on his feet due to pain, especially since resuming work . LTG Duration 11/20/21 2 Impairment decreased ankle ROM Chcf Goal (LTG) Pt will present with improved left ankle DF to 30 deg and augusto eversion and inversion at least 25 deg to improve foot strike with gait by 08/13/21. 05/13/21: Left ankle ROM with leg extended on the mat: DF to neutral 90 deg, PF 19 deg, eversion 10 deg and inversion 10 deg today--pain limiting all range 09/14/21: left ankle ROM sitting on pool lift chair with knee flexed: df 12 deg , pf 32deg, ev 12 deg, inv 12deg LTG Duration 11/20/21 1 Impairment LEF score reflects greater than 70% impairment Correctional Corporal Goal (LTG) Pt will present with improved LEF score to reflect no more than 60% impairment by 08/13/21 . 05/13/21: LEF score is 21/80 and reflects 73.7%% impairment 09/14/21: LEFS score is 34/80 or 43%, reflecting a 57% impairment (improved) LTG Duration 11/20/21 Assessment Summary Assessment Acosta presents to PT after not being seen in PT since ; land-based PT discontinued due to lack of progress. He has returned to work out of necessity but reports high pain level with work. His swelling is down since last seen by this PT with use of compression stocking, but high pain level, limited ROM and strength in foot and ankle persist. Despite that he has shown an improvement in his LEFS (Lower extremity Functional Scale score ) from 73.7% disability to 57% impairment or disability. He previously benefited from aquatic physical therapy and that is recommended at this time to help him continue to rehab from this function-limiting injury. Physical Therapy Plan Frequency and Duration Frequency of Treatment 1x/Week Duration of Treatment 9 weeks Plan of Care Start Date 09/14/21 Plan of Care End Date 11/20/21 Therapeutic Interventions Therapeutic Interventions Aquatic Therapy,Patient/ Caregiver Education,Self-Care/ Home Management Next Visit Focus/Plan Next Note Type Treatment Note Next Visit Plan Assess response to first aquatic therapy session, progress into closed chain exercises as tolerated especially if patient able to obtain water shoes for cushioning and support of his calcaneus. Progress aquatic exercises as tolerated for ROM ,strengthening, gait training, and pain management.
--- NOTE | 2021-09-14 17:29 | PT.OPPOC ---
Physical, Occupational & Speech Therapy At [facility] Current Diagnoses Primary osteoarthritis, left ankle and foot (09/14/21) Post-traumatic osteoarthritis, left ankle and foot (09/14/21) Visit Care Team Role Provider Type James Gaitan DO Family Provider Physician Primary Care Provider Specialty: Family Practice Address: [address] [place] [address], [id number] Email: Ventura Hoyos PA-C Attending Provider Non-Staff Referring Provider Specialty: Medical Address: [address] [place] [address], [address] Email: Plan Of Care PT-OP-T Assessment and Plan Start: 03/31/21 12:25 Freq: Status: Active Protocol: Document 09/14/21 17:01 [facility] (Rec: 09/14/21 17:28 [facility] [id number]) Physical Therapy Assessment Goals 5 Impairment decreased activity tolerance, lack of exercise Chief Power Dispatcher Goal (LTG) Pt will perform progressive HEP with I including pool exercises, balance, strengthening, breathing and work-related tasks to improve strength and ability to work 05/13/21: HEP: hammock ankle ROM into DF, ankle EV/IV/DF, calf stretch and eccentric lowering on floor, lunge calf and ankle mobility stretch, MWM achilles AP, supine knee flex/ ext posterior chain MWM and HS stretch w/AP, Self STMs / mobs using self hands/spouse and rolling stick. Re-added clam in hook lying with band resistance and LAQ with band resistance today. 09/14/21: Aquatic therapy resumed today after closure for 1 1/2 years due to Covid- 19. LTG Duration 11/20/21 4 Impairment decreased proprioception and balance left LE Chief Power Dispatcher Goal (LTG) Pt will perform WNLs on a standardized balance test to decrease fall risk by 08/13/21. 05/13/21: Currently not assessed d/t ongoing antalgic gait 09/14/21: Not able to tolerate SLS on left due to pain, no shoes on pool deck. SLS in water at waist level right 20 sec, left 3 sec LTG Duration 11/20/21 3 Impairment gait dysfunction, unable to take walks Chief Power Dispatcher Goal (LTG) Pt will gait train at least 1200 feet with or without LRAD in six minutes to improve community ambulation by . 05/13/21: NT d/t antalgic gait 05/04/21: progressing 927 ft no AD, decreased PF LLE and glut facilitation w/ weakness during terminal stance heel off.. 09/14/21: Not able to test in aquatic environment, patient reports not able to take walks, and limits his time on his feet due to pain, especially since resuming work . LTG Duration 11/20/21 2 Impairment decreased ankle ROM Correction Goal (LTG) Pt will present with improved left ankle DF to 30 deg and augusto eversion and inversion at least 25 deg to improve foot strike with gait by 08/13/21. 05/13/21: Left ankle ROM with leg extended on the mat: DF to neutral 90 deg, PF 19 deg, eversion 10 deg and inversion 10 deg today--pain limiting all range 09/14/21: left ankle ROM sitting on pool lift chair with knee flexed: df 12 deg , pf 32deg, ev 12 deg, inv 12deg LTG Duration 11/20/21 1 Impairment LEF score reflects greater than 70% impairment Correction Goal (LTG) Pt will present with improved LEF score to reflect no more than 60% impairment by 08/13/21 . 05/13/21: LEF score is 21/80 and reflects 73.7%% impairment 09/14/21: LEFS score is 34/80 or 43%, reflecting a 57% impairment (improved) LTG Duration 11/20/21 Assessment Summary Assessment Acosta presents to PT after not being seen in PT since ; land-based PT discontinued due to lack of progress. He has returned to work out of necessity but reports high pain level with work. His swelling is down since last seen by this PT with use of compression stocking, but high pain level, limited ROM and strength in foot and ankle persist. Despite that he has shown an improvement in his LEFS (Lower extremity Functional Scale score ) from 73.7% disability to 57% impairment or disability. He previously benefited from aquatic physical therapy and that is recommended at this time to help him continue to rehab from this function-limiting injury. Physical Therapy Plan Frequency and Duration Frequency of Treatment 1x/Week Duration of Treatment 9 weeks Plan of Care Start Date 09/14/21 Plan of Care End Date 11/20/21 Therapeutic Interventions Therapeutic Interventions Aquatic Therapy,Patient/ Caregiver Education,Self-Care/ Home Management Next Visit Focus/Plan Next Note Type Treatment Note Next Visit Plan Assess response to first aquatic therapy session, progress into closed chain exercises as tolerated especially if patient able to obtain water shoes for cushioning and support of his calcaneus. Progress aquatic exercises as tolerated for ROM ,strengthening, gait training, and pain management. Plan of Care Dates Plan of Care Start Date 09/14/21 Plan of Care End Date 11/20/21 Electronically Signed by: Shahla Banda, PT 09/14/21 [id number] Please Sign and Return: I have reviewed this Plan of Care and certify that the skilled therapy services above are required to meet the patient?s needs. Physician Signature Date Printed Name and Credentials Clinical Instructor Signature Printed Name and Credentials
--- NOTE | 2021-09-21 14:10 | PT.OTN ---
Current Diagnoses Primary osteoarthritis, left ankle and foot (09/14/21) Post-traumatic osteoarthritis, left ankle and foot (09/14/21) Physical Therapy Treatment Note PT-OP-A Visit Information Start: 03/31/21 12:25 Freq: Status: Active Protocol: Document 09/21/21 14:00 [facility] (Rec: 09/21/21 14:10 [facility] [id number]) Out-Patient Physical Therapy Visit Information Visit Information Visit Type Treatment Note Visit Start Time 11:00 Visit Stop Time 11:45 Total Visit Minutes 45 Visit Number 7 Precautions Precautions No WB restrictions, far out post-op hardware removal on . PT-OP-B Current Condition Start: 04/03/21 09:05 Freq: Status: Active Protocol: Document 09/21/21 14:00 [facility] (Rec: 09/21/21 14:10 [facility] [id number]) Current Condition History of Current Condition Onset Date May 2019 Current Complaints Sharp stabbing pain in left heel with WB and NWB History of Current Condition In May 2019, pt fell off a ladder and fractured his left calcaneus. He underwent ORIF and PT. 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 He underwent hardware removal 01/04/21. Pt underwent cortisone injection with [facility] 03/11 that was okay. He had had another one previously with another provider without numbing agent before it and it made the pain worse. He has been seeing Dr. Lara who has recommended Hoka shoes which as very expensive and steel toed boots which are also expensive. Pt has only been able to work three days a week d/t pain and is taking rest days between work days. He occ has to have his help him inside d/t pain occ. PMH includes OP and arthritis. Pt has history of smoking and has not been smoking. Pt has not gotten into the pool d/t COVID and finances. Pt states that Dr. Gaitan's compressive techniques helped decrease the swelling. The dry needling was not helpful. He thought the pool therapy was okay when he had it the beginning of last year. Pt reports has used some compression. 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 He has a and kids and is the primary bread winner. He takes care of the new dog as well. Prior Treatments and Tests ORIF, hardware removal, osteopathic treatment from Dr. Gaitan, pain management treatment from Dr. Lara Treatment Goals Patient/Caregiver Goals To decrease pain and swelling PT-OP-C Subjective Start: 03/31/21 12:25 Freq: Status: Active Protocol: Document 09/21/21 14:00 [facility] (Rec: 09/21/21 14:10 [facility] [id number]) OP-PT Subjective Patient Comments Patient Comments No new c/o; felt ok after aquatic PT, soreness but no increase in pain. Friend took him to [place] yesterday and he had to stand most of the game so has increased pain today. PT-OP-D Balance Start: 03/31/21 12:25 Freq: Status: Active Protocol: Document 04/03/21 09:00 [facility] (Rec: 04/03/21 15:47 [facility] [id number]) OP-PT Balance Assessment Sitting Balance Static Sitting Balance Ability Normal Dynamic Sitting Balance Ability Normal Standing Balance Static Standing Balance Ability Good Dynamic Standing Balance Ability Fair Kathleen Fall Scale Copyright Permission PT-OP-G Mobility & Gait Start: 03/31/21 12:25 Freq: Status: Active Protocol: Document 04/03/21 09:00 [facility] (Rec: 04/03/21 15:47 [facility] [id number]) OP Gait Assessment Gait Gait Assistance Required: Independent Distance (Feet) 15 Able to Maintain Weight Bearing Status Yes During Gait Assistive Devices Assistive Device None Orthotic/Prosthetic Devices or Brace: No Gait Deviations General Gait Pattern Antalgic,Decreased Stride Length,Decreased Feet Clearance,Flexed Trunk Factors Limiting Gait Function Factors Limiting Gait Function Decreased Activity Tolerance, Decreased Strength,Limited Range of Motion,Pain,Poor Balance Comments Gait Comments Pt arrives wearing an ASO on his left ankle. PT asks him to gait with bare feet and he presents with slow and antalgic gait with decreased push off B, rigidity left ankle. Pt's left foot is mildly edematous and he has surgical scars anterior to medial and lateral malleoli, below fibular head and over the anterior ankle joint. PT-OP-K Range of Motion Start: 03/31/21 12:25 Freq: Status: Active Protocol: Document 09/14/21 17:01 [facility] (Rec: 09/14/21 17:28 [facility] [id number]) Ankle and Foot Goniometric Range of Motion Ankle and Foot ROM Limitations Comments R foot and ankle WNLs L foot and ankle: df 19 deg, pf 32 deg, eversion 10 deg and inversion 14 deg PT-OP-M Strength Start: 03/31/21 12:25 Freq: Status: Active Protocol: Document 09/14/21 17:01 [facility] (Rec: 09/14/21 17:28 [facility] [id number]) Ankle/Foot Strength Ankle and Foot Manual Muscle Testing Left Dorsiflexion (L4) 4- Good- Plantarflexion (S1) 4- Good- Inversion 4- Good- Eversion (S1) 4- Good- Comments painful all resisted motions Right Dorsiflexion (L4) 5 Normal Inversion 5 Normal Eversion (S1) 5 Normal PT-OP-Q Treatments Start: 03/31/21 12:25 Freq: Status: Active Protocol: Document 05/13/21 09:46 [facility] (Rec: 05/13/21 10:32 [facility] [id number]) Cardio Equipment Bicycle (Upright) Duration (Minutes) 11 Resistance 3 Therapeutic Exercises Supine Exercises HS stretch w/ AP Supine Exercise Name Performed without strap today Comments Mostly on the left today Hook lying clam level 1 band Side bilateral Comments Level 1, 2, 4 band around knees, 10 reps Sitting Exercises LAQ with level 1 Sitting Exercise Name Level 2 band today Side bilateral Comments End-range AP Other Exercises Verbally reviewed HEP today Comments Performed this today for progress note Manual Therapy Treatment Other Other Manual Treatments Gentle (grade III-III) mobs left phalanges and metatarsals to tolerance PT-OP-S Aquatic Treatment Start: 09/21/21 08:17 Freq: Status: Active Protocol: Document 09/21/21 14:00 [facility] (Rec: 09/21/21 14:10 [facility] [id number]) Aquatics Treatment Pool Entry/Exit Pool Entry/Exit Method Stairs Assistance Independent Water Walking Sideways Water Level Chest Level Walking Equipment Ankle Floats Forward Water Level Chest Level Level of Assistance Verbal Cues Comments heel toe Lower Extremity Exercises ankle ROM Body Position Standing Water Level [place] Lower Extremity Stretches HC Body Position Standing Water Level Neck Level Comments wall [place] Activities [place] Activities Bicycle,Bicycle Backwards, Cross [place],Running,Hip Abduction/Adduction,Sit Kicks Other Activities sideways walk Equipment large noodle Duration 20 min PT-OP-T Assessment and Plan Start: 03/31/21 12:25 Freq: Status: Active Protocol: Document 09/21/21 14:00 [facility] (Rec: 09/21/21 14:10 [facility] [id number]) Physical Therapy Assessment Rehab Potential Rehabilitation Potential Fair Goals 5 Impairment decreased activity tolerance, lack of exercise [facility] Goal (LTG) Pt will perform progressive HEP with I including pool exercises, balance, strengthening, breathing and work-related tasks to improve strength and ability to work 05/13/21: HEP: hammock ankle ROM into DF, ankle EV/IV/DF, calf stretch and eccentric lowering on floor, lunge calf and ankle mobility stretch, MWM achilles AP, supine knee flex/ ext posterior chain MWM and HS stretch w/AP, Self STMs / mobs using self hands/spouse and rolling stick. Re-added clam in hook lying with band resistance and LAQ with band resistance today. 09/14/21: Aquatic therapy resumed today after closure for 1 1/2 years due to Covid- 19. LTG Duration 11/20/21 4 Impairment decreased proprioception and balance left LE Firm [employer] Goal (LTG) Pt will perform WNLs on a standardized balance test to decrease fall risk by 08/13/21. 05/13/21: Currently not assessed d/t ongoing antalgic gait 09/14/21: Not able to tolerate SLS on left due to pain, no shoes on pool deck. SLS in water at waist level right 20 sec, left 3 sec LTG Duration 11/20/21 3 Impairment gait dysfunction, unable to take walks Firm Administrator Goal (LTG) Pt will gait train at least 1200 feet with or without LRAD in six minutes to improve community ambulation by . 05/13/21: NT d/t antalgic gait 05/04/21: progressing 927 ft no AD, decreased PF LLE and glut facilitation w/ weakness during terminal stance heel off.. 09/14/21: Not able to test in aquatic environment, patient reports not able to take walks, and limits his time on his feet due to pain, especially since resuming work . LTG Duration 11/20/21 2 Impairment decreased ankle ROM [employer] Administrator Goal (LTG) Pt will present with improved left ankle DF to 30 deg and augusto eversion and inversion at least 25 deg to improve foot strike with gait by 08/13/21. 05/13/21: Left ankle ROM with leg extended on the mat: DF to neutral 90 deg, PF 19 deg, eversion 10 deg and inversion 10 deg today--pain limiting all range 09/14/21: left ankle ROM sitting on pool lift chair with knee flexed: df 12 deg , pf 32deg, ev 12 deg, inv 12deg LTG Duration 11/20/21 1 Impairment LEF score reflects greater than 70% impairment Firm Administrator Goal (LTG) Pt will present with improved LEF score to reflect no more than 60% impairment by 08/13/21 . 05/13/21: LEF score is 21/80 and reflects 73.7%% impairment 09/14/21: LEFS score is 34/80 or 43%, reflecting a 57% impairment (improved) LTG Duration 11/20/21 Progress Towards Goals Progress Towards Goals Slow Progress due to Activity Tolerance Physical Therapy Plan Frequency and Duration Frequency of Treatment 1x/Week Duration of Treatment 9 weeks Plan of Care Start Date 09/14/21 Plan of Care End Date 11/20/21 Therapeutic Interventions Therapeutic Interventions Aquatic Therapy Next Visit Focus/Plan Next Note Type Treatment Note Next Visit Plan Continue to progress therapeutic aquatic exercise to decrease pain, improve strength, ROM, gait, balance, and activity tolerance.
--- NOTE | 2022-11-11 11:42 | PT.OPDS ---
Current Diagnoses Primary osteoarthritis, left ankle and foot (09/21/21) Post-traumatic osteoarthritis, left ankle and foot (09/21/21) Visit Care Team Role Provider Type Son Gaitan DO Family Provider Physician Primary Care Provider Specialty: Family Practice Address: [address] [place] [address], [id number] Email: Ventura Hoyos PA-C Attending Provider Non-Staff Referring Provider Specialty: Medical Address: [address] [place] [address], [id number] Email: Visit Number Visit Number 7 Discharge Summary PT-OP-B Current Condition Start: 04/03/21 09:05 Freq: Status: Active Protocol: Document 09/21/21 14:00 [facility] (Rec: 09/21/21 14:10 [facility] [id number]) Current Condition History of Current Condition Onset Date May 2019 Current Complaints Sharp stabbing pain in left heel with WB and NWB History of Current Condition In May 2019, pt fell off a ladder and fractured his left calcaneus. He underwent ORIF and PT. 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 He underwent hardware removal 01/04/21. Pt underwent cortisone injection with [facility] 03/11 that was okay. He had had another one previously with another provider without numbing agent before it and it made the pain worse. He has been seeing Dr. Lara who has recommended [employer]oka shoes which as very expensive and steel toed boots which are also expensive. Pt has only been able to work three days a week d/t pain and is taking rest days between work days. He occ has to have his help him inside d/t pain occ. PMH includes OP and arthritis. Pt has history of smoking and has not been smoking. Pt has not gotten into the pool d/t COVID and finances. Pt states that Dr. Gaitan's compressive techniques helped decrease the swelling. The dry needling was not helpful. He thought the pool therapy was okay when he had it the beginning of last year. Pt reports has used some compression. 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 He has a and kids and is the primary bread winner. He takes care of the new dog as well. Prior Treatments and Tests ORIF, hardware removal, osteopathic treatment from Dr. Gaitan, pain management treatment from Dr. Lara Treatment Goals Patient/Caregiver Goals To decrease pain and swelling PT-OP-C Subjective Start: 03/31/21 12:25 Freq: Status: Active Protocol: Document 09/21/21 14:00 [facility] (Rec: 09/21/21 14:10 [facility] [id number]) OP-PT Subjective Patient Comments Patient Comments No new c/o; felt ok after aquatic PT, soreness but no increase in pain. Friend took him to [place] yesterday and he had to stand most of the game so has increased pain today. PT-OP-D Balance Start: 03/31/21 12:25 Freq: Status: Active Protocol: Document 04/03/21 09:00 [facility] (Rec: 04/03/21 15:47 [facility] [id number]) OP-PT Balance Assessment Sitting Balance Static Sitting Balance Ability Normal Dynamic Sitting Balance Ability Normal Standing Balance Static Standing Balance Ability Good Dynamic Standing Balance Ability Fair Kathleen Fall Scale Copyright Permission PT-OP-G Mobility & Gait Start: 03/31/21 12:25 Freq: Status: Active Protocol: Document 04/03/21 09:00 [facility] (Rec: 04/03/21 15:47 [facility] [id number]) OP Gait Assessment Gait Gait Assistance Required: Independent Distance (Feet) 15 Able to Maintain Weight Bearing Status Yes During Gait Assistive Devices Assistive Device None Orthotic/Prosthetic Devices or Brace: No Gait Deviations General Gait Pattern Antalgic,Decreased Stride Length,Decreased Feet Clearance,Flexed Trunk Factors Limiting Gait Function Factors Limiting Gait Function Decreased Activity Tolerance, Decreased Strength,Limited Range of Motion,Pain,Poor Balance Comments Gait Comments Pt arrives wearing an ASO on his left ankle. PT asks him to gait with bare feet and he presents with slow and antalgic gait with decreased push off B, rigidity left ankle. Pt's left foot is mildly edematous and he has surgical scars anterior to medial and lateral malleoli, below fibular head and over the anterior ankle joint. PT-OP-K Range of Motion Start: 03/31/21 12:25 Freq: Status: Active Protocol: Document 09/14/21 17:01 [facility] (Rec: 09/14/21 17:28 [facility] [id number]) Ankle and Foot Goniometric Range of Motion Ankle and Foot ROM Limitations Comments R foot and ankle WNLs L foot and ankle: df 19 deg, pf 32 deg, eversion 10 deg and inversion 14 deg PT-OP-M Strength Start: 03/31/21 12:25 Freq: Status: Active Protocol: Document 09/14/21 17:01 [facility] (Rec: 09/14/21 17:28 [facility] [id number]) Ankle/Foot Strength Ankle and Foot Manual Muscle Testing Left Dorsiflexion (L4) 4- Good- Plantarflexion (S1) 4- Good- Inversion 4- Good- Eversion (S1) 4- Good- Comments painful all resisted motions Right Dorsiflexion (L4) 5 Normal Inversion 5 Normal Eversion (S1) 5 Normal PT-OP-T Assessment and Plan Start: 03/31/21 12:25 Freq: Status: Active Protocol: Document 11/11/22 11:41 [facility] (Rec: 11/11/22 11:42 [facility] [id number]) Physical Therapy Plan Discharge Physical Therapy Discharge Reasons No Longer Attending PT
== END | disposition home or self-care (01) ==
LOC: PHYS 04-03 08:54
PROVIDERS: Family Provider Family Medicine; PCP Family Medicine; Referring Provider Physician Assistant; Visit Provider Physician Assistant
DX: M19.072 Primary osteoarthritis, left ankle and foot (principal); M19.172 Post-traumatic osteoarthritis, left ankle and foot
CPT/HCPCS: 97010; 97110; 97113; 97116; 97140; 97161